=== PATIENT | female | born 1960 | race Caucasian/White ===

== ENCOUNTER 2018-03-05 15:39 | Emergency (ER) | payer BC, SELFPAY ==
[2018-03-05 16:00] VITALS: BP 137/73; PULSE 83; RESP 16; TEMP 36.5; O2SAT 98
--- NOTE | 2018-03-05 20:23 | ED.GENADUL_ITS ---
Discharge Plan Disposition Patient Disposition: HOME Condition: Good Discharge Details Chief Complaint: EarProblem Clinical Impression: Sinus congestion, Otalgia, unspecified Primary Care Provider: NONE,NONE ED Provider: Roderick Rizvi Home Meds and New Rx's Prescriptions: New amoxicillin-pot clavulanate [Augmentin] 875-125 mg tablet 1 tab PO Q12H Qty: 20 RF: 0 fluticasone 50 mcg/actuation spray,suspension 2 spray CHIQUITA DAILY Qty: 9.9 RF: 0 sodium chloride [Saline Mist] 0.65 % aerosol,spray 1 spray CHIQUITA ONCE Qty: 15 RF: 0 No Action spironolactone 25 mg Tablet 25 mg PO DAILY RF: 0 oxybutynin chloride 5 mg Tablet Extended Release 24hr 5 mg PO DAILY RF: 0 magnesium 200 mg Tablet 2 tab PO DAILY RF: 0 Discharge Instructions Instructions: Sinusitis (ED) Additional Instructions: Please take the medication as directed. Please follow-up with your primary care provider as soon as possible. If you notice any worsening of your symptoms , or any new symptoms such as vomiting, diarrhea, fever, chills, shortness of breath, chest pain, numbness, weakness, or fainting , please return immediately to the emergency department for reevaluation. Please follow up with your primary care provider as soon as possible for reassessment and reevaluation. As always, it was a pleasure participating in your medical care today. Discharge Data Discharge Date/Time-TO BE ENTERED AT DEPARTURE: 03/05/18 17:10 Medical Decision Making This is a pleasant 57-year-old female who presents for evaluation of bilateral ear pain frontal congestion for the last 3-4 weeks. Physical exam demonstrates no abnormalities in her ears, or at her tympanic membranes. She does wear hearing aids chronically, but there is no signs of trauma or infection. However she does demonstrate notable congestion, and tenderness on percussion of the maxillary sinuses. No other significant abnormalities. With the chronicity of the patient's symptoms, I feel that she would benefit for treatment for chronic bacterial sinusitis. We will prescribe Augmentin, fluticasone, and sodium chloride nasal mist for treatment of this. We discussed the importance with close follow-up with PCP. Clinically the patient shows no signs or symptoms consistent with venous sinus thrombosis, pre-or post septal cellulitis, or any other significant abnormalities. I have extensively reviewed the treatment plan and discharge instructions with the patient. I have addressed all patient concerns at this time. The patient was made aware of what symptoms to monitor for that would warrant a return to the emergency department. Discussed the plan with the patient, they demonstrate verbal understanding and agreement with our assessment and plan at this time. HPI General Date/Time Provider Initiated Documentation: 03/05/18 16:37 . HPI Narrative: This is a 57-year-old female with a past medical history of hypertension diabetes who presents today for evaluation of bilateral ear pain and frontal sinus congestion. Patient states that for the last 3-4 weeks she has had mild pain in her ears, sensation of fullness, and sensation of fullness and facial pressure in her face by her maxillary sinuses. The patient has taken Tylenol and Sudafed has had no significant improvement. She did go to see her primary care provider the other day but came at the incorrect appointment time and was unable to see her physician. Patient denies any visual changes, severe headache, hearing changes, eye pain significant purulent discharge from her nares, severe throat sore throat, fever, or chills. She has no other complaints at this time. She has not been on any antibiotics recently. She does not smoke at home. She denies any recent surgeries. She denies any IV or illicit drug use. Related Data Home Medications Medication Instructions Recorded Confirmed amoxicillin-pot clavulanate 1 tab PO Q12H #20 tab 03/05/18 [Augmentin] fluticasone 2 spray CHIQUITA DAILY #9.9 gm 03/05/18 magnesium 2 tab PO DAILY 03/05/18 03/05/18 oxybutynin chloride 5 mg PO DAILY 03/05/18 03/05/18 sodium chloride [Saline Mist] 1 spray CHIQUITA ONCE #15 ml 03/05/18 spironolactone 25 mg PO DAILY 03/05/18 03/05/18 Previous Rx's Medication Instructions Recorded amoxicillin-pot clavulanate 1 tab PO Q12H #20 tab 03/05/18 [Augmentin] fluticasone 2 spray CHIQUITA DAILY #9.9 gm 03/05/18 sodium chloride [Saline Mist] 1 spray CHIQUITA ONCE #15 ml 03/05/18 Allergies Allergy/AdvReac Type Severity Reaction Status Date / Time sulfamethoxazole Allergy Severe Swelling/Ed Unverified 03/05/18 16:07 [From Bactrim] yoko trimethoprim [From Bactrim] Allergy Severe Swelling/Ed Unverified 03/05/18 16:07 yoko aspirin [From Percodan] AdvReac Mild Nausea Unverified 03/05/18 16:07 oxycodone [From Percodan] AdvReac Mild Nausea Unverified 03/05/18 16:07 General Stated Complaint: EarProblem MARISSA: 4 Review of Systems Review of Systems All systems reviewed & are unremarkable except as noted in HPI and below PFSH Social History Smoking/Tobacco Use Status: Never Exam Narrative Exam Narrative: 1.Const: Well-nourished, Well-developed, appearing stated age 2.Eyes: PERRL, no conjunctival injection, and symmetrical lids. 3.ENT: Atraumatic external nose and ears. Moist MM. Neck: Symmetric, trachea midline, No thyromegaly. Patient demonstrates no evidence of otitis externa or media. No significant fluid behind the ears. Palpation and percussion of the maxillary sinuses demonstrates mild tenderness, frontal sinuses demonstrates no significant tenderness. Mild congestion noted in the nares. No other significant abnormalities. No erythema in the posterior oropharynx. 4.CVS: +S1/S2, No murmurs or gallops. Peripheral pulses 2+ and equal in all extremities. Brisk capillary refill in all extremities. 5.RESP: Unlabored respiratory effort. Clear to auscultation bilaterally. No wheezes rales or rhonchi 6.GI: Soft, Nontender/Nondistended, No hepatosplenomegaly. No guarding or rebound. 7.MSK: Normocephalic/Atraumatic, Extremities w/o deformity or ttp No cyanosis or clubbing, Normal movement of all extremities 8.Skin: Warm, Dry. No rashes or lesions. 9.Neuro: tub chucker II-XII grossly intact. Sensation grossly intact, no focal neurologic deficits. 10.Psych: (AAO) x3. Appropriate mood and affect Course Vital Signs Temperature 36.5 C 03/05/18 16:00 Pulse 83 03/05/18 16:00 Respiratory Rate 16 03/05/18 16:00 Blood Pressure 137/73 03/05/18 16:00 Pulse Oximetry 98 03/05/18 16:00 Temperature 36.5 C 03/05/18 16:00 Temperature Source Skin 03/05/18 16:00 Pulse 83 03/05/18 16:00 Respiratory Rate 16 03/05/18 16:00 Respiratory Effort Non-Labored 03/05/18 16:03 Blood Pressure 137/73 03/05/18 16:00 Pulse Oximetry 98 03/05/18 16:00 Pain Level 5 03/05/18 16:17
== END 2018-03-05 17:10 | disposition home or self-care (01) ==
PROVIDERS: Emergency Provider Student in an Organized Health Care Education/Training Program
DX: R09.81 Nasal congestion (principal); H92.03 Otalgia, bilateral; I10 Essential (primary) hypertension; E11.9 Type 2 diabetes mellitus without complications
CPT/HCPCS: 99283

== ENCOUNTER 2018-05-17 17:23 | Outpatient (REF) | payer BC, SELFPAY | END 2018-05-17 17:43 | LOC: LBN 17:23 | PROVIDERS: Visit Provider Family Medicine | DX: R19.7 Diarrhea, unspecified (principal) | CPT/HCPCS: 87324 ==

== ENCOUNTER 2018-05-19 10:26 | Outpatient (CLI) | payer BC, SELFPAY ==
[2018-05-19 11:32] LABS: HCT 40.4 % (36.0-46.0); HGB 13.5 g/dL (12.0-15.5); Mean Corp. HGB Concentration 33.4 g/dL (32.0-36.0); Mean Corpuscular Hemoglobin 30.1 pg (27.0-33.0); Mean Corpuscular Volume 90.2 fL (80-95); Mean Platelet Volume 9.6 fL (8.0-11.0); Platelet Count 192 x1000/uL (130-400); RBC 4.48 m/cumm (4.00-5.20); RBC Distribution Width 14.4 % (11.7-14.6); White Blood Cell Count 5.76 k/cumm (4.4-10.8)
[2018-05-19 12:06] LABS: Iron 55 ug/dL (50-175); Total Iron Binding Capacity 342 ug/dL (250-450); Transferrin Sat 16 % (15-50)
[2018-05-19 12:12] LABS: Hemoglobin A1C 6.6 % (4.5-6.2)
[2018-05-19 12:17] LABS: ALT 35 U/L (12-78); AST 21 U/L (15-37); Albumin 3.7 g/dL (3.4-5.0); Alkaline Phosphatase 55 U/L (46-116); Anion Gap 8.7 mmol/L (3-11); BUN 16 mg/dL (7-18); Bilirubin, Total 0.3 mg/dL (0.2-1.0); CO2 28.3 mmol/L (21.0-32.0); CREATININE 0.96 mg/dL (0.55-1.02); Calcium 9.3 mg/dL (8.5-10.1); Chloride 107 mmol/L (98-107); Cholesterol 177 mg/dL (50-200); Glucose 105 mg/dL (70-100); HDL Cholesterol 49 mg/dL (40-60); LDL CHOLESTEROL 105 mg/dL (<100); Magnesium 2.1 mg/dL (1.8-2.4); Sodium 144 mmol/L (136-145); TSH (W/Ref FT4) 3.17 uIU/mL (0.358-3.74); Total Protein 6.8 g/dL (6.4-8.2); Triglyceride 100 mg/dL (30-150)
== END 2018-05-19 10:46 ==
PROVIDERS: PCP Nurse Practitioner; Visit Provider Family Medicine
DX: Z00.00 Encounter for general adult medical examination without abnormal findings (principal); E03.9 Hypothyroidism, unspecified; E11.9 Type 2 diabetes mellitus without complications; R53.83 Other fatigue; E87.8 Other disorders of electrolyte and fluid balance, not elsewhere classified
CPT/HCPCS: 36415; 80053; 80061; 83721; 85027; 83036; 83540; 83550; 83735; 84443

== ENCOUNTER 2018-06-17 18:00 | Emergency (ER) | payer BC, SELFPAY ==
[2018-06-17 18:02] VITALS: BP 149/69; PULSE 110; RESP 18; TEMP 37.3; O2SAT 96
[2018-06-17 18:12] VITALS: TEMP 38.2
--- NOTE | 2018-06-17 18:15 | W.ED.GENAD ---
Discharge Plan Disposition Patient Disposition: HOME Condition: Stable Discharge Details Chief Complaint: RespSymp Clinical Impression: Flu-like symptoms Primary Care Provider: Noy Frederick ED Provider: Geo Hernandez [place] Meds and New Rx's Prescriptions: New oseltamivir [Tamiflu] 75 mg capsule 75 mg PO BID 5 Days Qty: 10 RF: 0 Continued azelastine 0.15 % (205.5 mcg) spray,non-aerosol 2 spray CHIQUITA BID Qty: 30 RF: 5 multivitamin [One Daily] 1 EACH tablet 1 ea PO DAILY RF: 0 fexofenadine [Li] 180 MG tablet 180 mg PO DAILY RF: 0 magnesium 200 MG tablet 400 mg PO DAILY RF: 0 calcium carbonate-vitamin D3 [Caltrate with Vitamin D3] 1 EACH tablet 1 ea PO DAILY RF: 0 Ventolin HFA 8 GM HFA aerosol inhaler 2 puff Inhalation QID PRNQty: 1 RF: 0 albuterol sulfate 5 MG/1 ML solution 5 mg Inhalation QID PRNQty: 1 RF: 3 fluconazole 150 MG tablet 150 mg PO ONCE Qty: 1 RF: 3 celecoxib 200 MG capsule 200 mg PO DAILY Qty: 90 RF: 12 levothyroxine 137 MCG tablet 137 mcg PO DAILY Qty: 90 RF: 12 oxybutynin chloride 10 MG tablet extended release 24hr 10 mg PO DAILY Qty: 90 RF: 4 spironolactone 25 MG tablet 25 mg PO DAILY Qty: 90 RF: 4 doxazosin 4 MG tablet 4 mg PO DAILY Qty: 90 RF: 12 montelukast [Singulair] 10 MG tablet 10 mg PO HS Qty: 90 RF: 4 fluticasone [Flonase Allergy Relief] 9.9 ML spray,suspension 2 spry NS DAILY PRNQty: 1 RF: 0 topiramate [Topamax] 50 MG tablet 50 mg PO HS Qty: 90 RF: 3 Restasis 1 EACH dropperette 1 drp Ophthalmic BID RF: 0 esomeprazole magnesium [Nexium] 20 MG capsule,delayed release(DR/EC) 40 mg PO DAILY Qty: 90 RF: 11 clarithromycin 500 mg tablet 500 mg PO BID Qty: 42 RF: 0 prednisone 20 mg tablet 20 mg PO BID Qty: 10 RF: 0 acetaminophen [Mapap Extra Strength] 500 MG tablet 1,000 mg PO PRN PRNRF: 0 spironolactone 25 mg Tablet 25 mg PO DAILY RF: 0 oxybutynin chloride 5 mg Tablet Extended Release 24hr 5 mg PO DAILY RF: 0 magnesium 200 mg Tablet 2 tab PO DAILY RF: 0 fluticasone 50 mcg/actuation spray,suspension 2 spray CHIQUITA DAILY Qty: 9.9 RF: 0 sodium chloride [Saline Mist] 0.65 % aerosol,spray 1 spray CHIQUITA ONCE Qty: 15 RF: 0 No Action Hearing Aid Batteries 1 EACH misc 1 ea Miscellaneous DAILY PRNQty: 30 RF: 11 Discharge Instructions Additional Instructions: Based on your symptoms we are initiating treatment for influenza IF not better in one week follow up with your primary care provider make sure you drink fluids to stay hydrated if you feel significantly more ill, have worsening shortness of breath or persistent vomit return to the emergency department Stand Alone Forms: Work Release Medical Decision Making 57 yo female with hx of DM, htn, who comes in with cc of myalgias, dry cough, nausea, and chills for 2 days. Denies any recent travel, rashes, neck stiffness. She has clear rhinorrhea, clear lung sounds on exam. Has no focal lung exam findings and cough is nonproductive so doubt pna. Her symptoms seem most consistent with influenza and will initiate tx for this given her medical history. She was advised to return to the ED if she feels she is worsening or return precautions given Differential Diagnosis influenza, viral illness, pna HPI General Mode of arrival: ambulatory. Date/Time Provider Initiated Documentation: 06/17/18 18:07. Limitations to Documentation: no limitations. Information obtained by: patient. History of Present Illness 57 year old F presents to the emergency department with the chief complaint of not feeling well, Patient started experiencing this day(s) (2) and it has been constant. No relieving factors improve symptom(s), No exacerbating factors reported . Patient notes cough. Related Data Home Medications Medication Instructions Recorded Confirmed calcium carbonate-vitamin D3 1 ea PO DAILY 08/06/12 06/17/18 [Caltrate with Vitamin D3] fexofenadine [Li] 180 mg PO DAILY tab-cap 08/06/12 06/17/18 magnesium 400 mg PO DAILY 08/06/12 06/17/18 multivitamin [One Daily] 1 ea PO DAILY 08/06/12 06/17/18 acetaminophen [Mapap Extra 1,000 mg PO PRN PRN 01/21/14 06/17/18 Strength] Ventolin HFA 2 puff INHALATION QID PRN #1 puff 10/04/15 06/17/18 albuterol sulfate 5 mg INHALATION QID PRN #1 box 07/14/16 06/17/18 fluconazole 150 mg PO ONCE #1 tab-cap 06/03/17 06/17/18 hearing aid accessory [Hearing Aid #30 dose 10/01/17 05/17/18 Batteries] Restasis 1 drp OPHTHALMIC BID drp 10/15/17 06/17/18 celecoxib 200 mg PO DAILY #90 tab-cap 10/15/17 06/17/18 doxazosin 4 mg PO DAILY #90 tab-cap 10/15/17 06/17/18 fluticasone [Flonase Allergy 2 spry NS DAILY PRN #1 bottle 10/15/17 06/17/18 Relief] levothyroxine 137 mcg PO DAILY #90 tab-cap 10/15/17 06/17/18 montelukast [Singulair] 10 mg PO HS #90 tab 10/15/17 06/17/18 oxybutynin chloride 10 mg PO DAILY #90 tab-cap 10/15/17 06/17/18 spironolactone 25 mg PO DAILY #90 tab-cap 10/15/17 06/17/18 topiramate [Topamax] 50 mg PO HS #90 tab-cap 10/15/17 06/17/18 esomeprazole magnesium [Nexium] 40 mg PO DAILY #90 tab-cap 12/16/17 06/17/18 fluticasone 2 spray CHIQUITA DAILY #9.9 gm 03/05/18 06/17/18 magnesium 2 tab PO DAILY 03/05/18 06/17/18 oxybutynin chloride 5 mg PO DAILY 03/05/18 06/17/18 sodium chloride [Saline Mist] 1 spray CHIQUITA ONCE #15 ml 03/05/18 06/17/18 spironolactone 25 mg PO DAILY 03/05/18 06/17/18 clarithromycin 500 mg tablet 500 mg PO BID #42 tab 04/17/18 06/17/18 prednisone 20 mg tablet 20 mg PO BID #10 tab 04/17/18 06/17/18 azelastine 0.15 % (205.5 mcg) 2 spray CHIQUITA BID #30 ml 05/17/18 06/17/18 nasal spray oseltamivir [Tamiflu] 75 mg PO BID 5 Days #10 cap 06/17/18 Previous Rx's Medication Instructions Recorded fluconazole 150 mg PO ONCE #1 tab-cap 06/03/17 celecoxib 200 mg PO DAILY #90 tab-cap 10/15/17 doxazosin 4 mg PO DAILY #90 tab-cap 10/15/17 levothyroxine 137 mcg PO DAILY #90 tab-cap 10/15/17 montelukast [Singulair] 10 mg PO HS #90 tab 10/15/17 oxybutynin chloride 10 mg PO DAILY #90 tab-cap 10/15/17 spironolactone 25 mg PO DAILY #90 tab-cap 10/15/17 topiramate [Topamax] 50 mg PO HS #90 tab-cap 10/15/17 esomeprazole magnesium [Nexium] 40 mg PO DAILY #90 tab-cap 12/16/17 fluticasone 2 spray CHIQUITA DAILY #9.9 gm 03/05/18 sodium chloride [Saline Mist] 1 spray CHIQUITA ONCE #15 ml 03/05/18 clarithromycin 500 mg tablet 500 mg PO BID #42 tab 04/17/18 prednisone 20 mg tablet 20 mg PO BID #10 tab 04/17/18 azelastine 0.15 % (205.5 mcg) 2 spray CHIQUITA BID #30 ml 05/17/18 nasal spray oseltamivir [Tamiflu] 75 mg PO BID 5 Days #10 cap 06/17/18 Allergies Allergy/AdvReac Type Severity Reaction Status Date / Time Sulfa (Sulfonamide Allergy Severe TONGUE Verified 06/17/18 18:08 Antibiotics) SWELLING sulfamethoxazole Allergy Severe Swelling/Ed Unverified 06/17/18 18:08 [From Bactrim] yoko trimethoprim Allergy Severe TONGUE Verified 06/17/18 18:08 SWELLING aspirin [From Percodan] AdvReac Mild Nausea Unverified 06/17/18 18:08 oxycodone [From Percodan] AdvReac Mild Nausea Unverified 06/17/18 18:08 pickles Allergy Severe Anaphylaxsi Uncoded 06/17/18 18:08 s COCKROACH Allergy Unknown allery Uncoded 06/17/18 18:08 testing General Stated Complaint: RespSymp MARISSA: 3 Review of Systems Review of Systems All systems reviewed & are unremarkable except as noted in HPI and below ENT Denies change in voice Cardiovascular Denies chest pain Gastrointestinal Denies vomiting Musculoskeletal Denies joint swelling Integumentary/Breasts Denies rash Psychiatric Denies depression [facility] Medical History Upper back pain on right side (Chronic 11/17/16) Reflux esophagitis (Chronic 12/26/13) Otalgia of both ears (Resolved 04/30/17) Irritable colon (Chronic) Hypothyroidism (Chronic) Hypokalemia (Resolved 01/26/12) Hearing problem (Chronic) Frequently sick (Chronic 09/15/16) Essential hypertension (Chronic 02/23/13) Cystocele with rectocele (Chronic) Cough (Chronic 01/26/12) Candidiasis (Chronic) BMI 40.0-44.9, adult (Chronic 09/03/15) Breast lump in lower inner quadrant (Resolved) Chest pain in adult (Resolved) Closed fracture of calcaneus (Resolved) Delivery normal (Resolved) Depressive disorder (Resolved) Diarrhea (Resolved) Dysfunctional uterine bleeding (Resolved) Ectopic (Resolved) Elevated liver function tests (Resolved) Family hx-breast malignancy (Resolved) Fatigue (Resolved) Mammogram abnormal (Resolved) Neck pain (Resolved) Pneumonia, organism unspecified (Resolved) Positive JENNIFER (antinuclear antibody) (Resolved) Routine medical exam (Resolved) Sinus pressure (Resolved) Weakness (Resolved) Breast lump in female Bronchitis Closed fracture of body of calcaneus Cough Cystocele Depression Diabetes GERD (gastroesophageal reflux disease) Hearing loss Hypertension Hypothyroidism IBS (irritable bowel syndrome) Obesity, Class III, BMI 40-49.9 (morbid obesity) Pneumonia Rectocele Surgical History H/O esophagogastroduodenoscopy (Resolved) S/P appendectomy (Resolved) S/P cholecystectomy (Resolved) S/P exploratory laparotomy (Resolved) S/P hysterectomy with oophorectomy (Resolved) S/P tonsillectomy and adenoidectomy (Resolved) Appendectomy (~1998) Cholecystectomy (~1989) Colonoscopy - MAC EGD - MAC (03/10/14) EGD - MAC (08/05/16) Hysterectomy, Laproscopic Oophrectomy, Right (~03/2011) , Ectopic (~1988) Reduction mammoplasty (~03/2013) Tonsillectomy and adenoidectomy (~1985) Family History Mother Diabetes Hyperlipidemia Father Alcohol abuse Neoplasm Sister Neoplasm Sister No problems noted. Brother No problems noted. Brother Pneumonia Grandfather Diabetes Grandfather Diabetes Grandmother No problems noted. Grandmother Diabetes Neoplasm Son No problems noted. Daughter No problems noted. Social History Smoking/Tobacco Use Status: Never Exam Const General: no acute distress Orientation: alert HENMT Head: normal to inspection Ears: external ears normal General nose exam: external nose normal Mouth: moist mucous membranes Eyes General: appearance normal, both eyes and all related structures Neck Neck: normal visual inspection Resp Effort & Inspection: normal respiratory effort and able to speak in complete sentences Cardio Rate: regular rate Skin General skin exam: no rashes or lesions noted Neuro General: alert and oriented x3 Extrem General: normal to inspection Psych Mental Status: mental status grossly normal Course Vital Signs Temperature 37.3 C 06/17/18 18:02 Pulse 110 H 06/17/18 18:02 Respiratory Rate 18 06/17/18 18:02 Blood Pressure 149/69 H 06/17/18 18:02 Pulse Oximetry 96 06/17/18 18:02 Temperature 38.2 C H 06/17/18 18:12 Temperature Source Oral 06/17/18 18:12 Pulse 110 H 06/17/18 18:02 Respiratory Rate 18 06/17/18 18:02 Respiratory Effort Non-Labored 06/17/18 18:12 Respiratory Depth Normal 06/17/18 18:12 Blood Pressure 149/69 H 06/17/18 18:02 Blood Pressure Position Sitting 06/17/18 18:02 Pulse Oximetry 96 06/17/18 18:02 Oxygen Delivery Method Room Air 06/17/18 18:02 Oxygen Flow Rate 0 06/17/18 18:02 Pain Level 4 06/17/18 18:02
== END 2018-06-17 18:33 | disposition home or self-care (01) ==
LOC: ER 18:46
PROVIDERS: Emergency Provider Emergency Medicine; PCP Family Medicine
DX: J11.1 Influenza due to unidentified influenza virus with other respiratory manifestations (principal)
CPT/HCPCS: 99283

== ENCOUNTER 2018-06-21 19:29 | Outpatient (REF) | payer BC, SELFPAY | END 2018-06-21 19:49 | LOC: LBN 19:29 | PROVIDERS: PCP Family Medicine | DX: J02.9 Acute pharyngitis, unspecified (principal) | CPT/HCPCS: 87070 ==

== ENCOUNTER 2018-06-24 15:15 | Outpatient (CLI) | payer BC, SELFPAY ==
--- NOTE | 2018-06-24 15:18 | DI.RAD_ITS ---
SYMPTOM/DIAGNOSIS: COUGH, R05 PA AND LATERAL CHEST: The heart is normal in size. The lungs are clear. The mediastinal structures and pleura appear intact. CONCLUSION: Normal chest.
== END 2018-06-24 15:35 ==
PROVIDERS: PCP Family Medicine
DX: R05 Cough (principal)
CPT/HCPCS: 71046

== ENCOUNTER 2018-09-24 15:57 | Emergency (ER) | payer BC, SELFPAY ==
[2018-09-24 16:02] VITALS: BP 157/75; PULSE 90; RESP 16; TEMP 36.5; O2SAT 98
--- NOTE | 2018-09-24 16:59 | ED.GENADUL_ITS ---
Discharge Plan Disposition Patient Disposition: HOME Condition: Stable Discharge Details Chief Complaint: GenMedical Clinical Impression: Sinusitis, acute, Pharyngitis Primary Care Provider: Noy Frederick ED Provider: Stephanie Shelley Home Meds and New Rx's Prescriptions: New doxycycline hyclate 100 mg tablet 100 mg PO BID 7 Days Qty: 14 RF: 0 Continued azelastine 0.15 % (205.5 mcg) spray,non-aerosol 2 spray CHIQUITA BID Qty: 30 RF: 5 ranitidine HCl 150 mg tablet 150 mg PO QHS Qty: 90 RF: 4 multivitamin [One Daily] 1 EACH tablet 1 ea PO DAILY RF: 0 fexofenadine [Li] 180 MG tablet 180 mg PO DAILY RF: 0 calcium carbonate-vitamin D3 [Caltrate with Vitamin D3] 1 EACH tablet 1 ea PO DAILY RF: 0 albuterol sulfate 5 MG/1 ML solution 5 mg Inhalation QID PRNQty: 1 RF: 3 Hearing Aid Batteries 1 EACH misc 1 ea Miscellaneous DAILY PRNQty: 30 RF: 11 celecoxib 200 MG capsule 200 mg PO DAILY Qty: 90 RF: 12 levothyroxine 137 MCG tablet 137 mcg PO DAILY Qty: 90 RF: 12 oxybutynin chloride 10 MG tablet extended release 24hr 10 mg PO DAILY Qty: 90 RF: 4 doxazosin 4 MG tablet 4 mg PO DAILY Qty: 90 RF: 12 montelukast [Singulair] 10 MG tablet 10 mg PO HS Qty: 90 RF: 4 topiramate [Topamax] 50 MG tablet 50 mg PO HS Qty: 90 RF: 3 Restasis 1 EACH dropperette 1 drp Ophthalmic BID RF: 0 esomeprazole magnesium [Nexium] 20 MG capsule,delayed release(DR/EC) 40 mg PO DAILY Qty: 90 RF: 11 sucralfate 1 gram tablet 1 gm PO BID Qty: 60 RF: 0 acetaminophen [Mapap Extra Strength] 500 MG tablet 1,000 mg PO PRN PRNRF: 0 spironolactone 25 mg Tablet 25 mg PO DAILY RF: 0 magnesium 200 mg Tablet 2 tab PO DAILY RF: 0 fluticasone propionate 50 mcg/actuation spray,suspension 2 spray CHIQUITA DAILY Qty: 9.9 RF: 0 sodium chloride [Saline Mist] 0.65 % aerosol,spray 1 spray CHIQUITA ONCE Qty: 15 RF: 0 Discharge Instructions Instructions: Pharyngitis (ED), Rhinosinusitis (ED) Additional Instructions: Use [id number] sinus rinse kit to help with sinus congestion. You can also try over the counter oral decongestants such as phenylephrine or pseudoephedrine but be sure to watch your blood pressure. You can also try short-term oxymetazoline nasal spray in different formulations over the counter for your nasal congestion. If you have no improvement or worsening of symptoms in the next 2 days, start the antibiotics. Follow-up with your primary care doctor next week for reevaluation. Return immediately to the emergency department for any worsening or concerning symptoms. Discharge Data Discharge Date/Time-TO BE ENTERED AT DEPARTURE: 09/24/18 17:15 Discharge Physician: Stephanie Shelley Medical Decision Making 57-year-old female with a history of prediabetes, hypothyroidism, GERD, IBS, and tonsillectomy and adenoidectomy who presents with sore throat, nasal congestion, sinus pain, postnasal drip, mild cough and headache for the past 3 days. Blood pressure mildly hypertensive, otherwise vitals within normal limits. Bilateral sinuses tender to palpation. Mild posterior pharyngeal erythema. No exudates or tonsillar abscess. No submandibular swelling. Lungs clear to auscultation. Abdomen soft and nontender. Rapid strep negative. As she has normal oxygen saturation, no complaint of shortness of breath, with normal lung exam, I do not see an indication for chest x-ray. Discussed with patient that her symptoms are likely be viral in nature and are related to an upper respiratory tract infection. Due to her main discomfort with sore throat, will give a dose of Decadron. Patient instructed to take [id number] nasal decongestants in the form of nasal spray or tablets. She is instructed to monitor her blood pressure while taking these. Will also send home with a prescription for antibiotics to start if her symptoms do not improve or worsen in the next 2 days. She is instructed to follow-up with primary care doctor for evaluation and return here if worse. Medical Records Medical records reviewed: Yes I reviewed the patient's medical records. HPI General Mode of arrival: ambulatory . Date/Time Provider Initiated Documentation: 09/24/18 16:03 . Limitations to Documentation: no limitations . Information obtained by: patient . HPI Narrative: Pt is a 57yo F who presents to the ED w/ a c/o sore throat, nasal congestion, sinus pain, hoarse voice, mild headache and cough and postnasal drip for the past 3 days. Patient states her symptoms started with sore throat a few days ago, stuffy nose yesterday, and then hoarse voice today. Patient states she has not had a fever as far she knows. She states the sore throat is bothering her the most. She states she has been eating and drinking normally. She states she has been taking Motrin, Tylenol and Celebrex. She denies any neck pain. Related Data Home Medications Medication Instructions Recorded Confirmed calcium carbonate-vitamin D3 1 ea PO DAILY 08/06/12 09/24/18 [Caltrate with Vitamin D3] fexofenadine [Li] 180 mg PO DAILY tab-cap 08/06/12 09/24/18 multivitamin [One Daily] 1 ea PO DAILY 08/06/12 09/24/18 acetaminophen [Mapap Extra 1,000 mg PO PRN PRN 01/21/14 09/24/18 Strength] albuterol sulfate 5 mg INHALATION QID PRN #1 box 07/14/16 09/24/18 Hearing Aid Batteries #30 dose 10/01/17 07/22/18 Restasis 1 drp OPHTHALMIC BID drp 10/15/17 09/24/18 celecoxib 200 mg PO DAILY #90 tab-cap 10/15/17 09/24/18 doxazosin 4 mg PO DAILY #90 tab-cap 10/15/17 09/24/18 levothyroxine 137 mcg PO DAILY #90 tab-cap 10/15/17 09/24/18 montelukast [Singulair] 10 mg PO HS #90 tab 10/15/17 09/24/18 oxybutynin chloride 10 mg PO DAILY #90 tab-cap 10/15/17 09/24/18 topiramate [Topamax] 50 mg PO HS #90 tab-cap 10/15/17 09/24/18 esomeprazole magnesium [Nexium] 40 mg PO DAILY #90 tab-cap 12/16/17 09/24/18 fluticasone propionate 2 spray CHIQUITA DAILY #9.9 gm 03/05/18 09/24/18 magnesium 2 tab PO DAILY 03/05/18 09/24/18 sodium chloride [Saline Mist] 1 spray CHIQUITA ONCE #15 ml 03/05/18 09/24/18 spironolactone 25 mg PO DAILY 03/05/18 09/24/18 azelastine 0.15 % (205.5 mcg) 2 spray CHIQUITA BID #30 ml 05/17/18 09/24/18 nasal spray ranitidine 150 mg tablet 150 mg PO QHS #90 tab 07/22/18 09/24/18 sucralfate 1 gram tablet 1 gm PO BID #60 tab 09/16/18 09/24/18 doxycycline hyclate 100 mg PO BID 7 Days #14 tab 09/24/18 Previous Rx's Medication Instructions Recorded celecoxib 200 mg PO DAILY #90 tab-cap 10/15/17 doxazosin 4 mg PO DAILY #90 tab-cap 10/15/17 levothyroxine 137 mcg PO DAILY #90 tab-cap 10/15/17 montelukast [Singulair] 10 mg PO HS #90 tab 10/15/17 oxybutynin chloride 10 mg PO DAILY #90 tab-cap 10/15/17 topiramate [Topamax] 50 mg PO HS #90 tab-cap 10/15/17 esomeprazole magnesium [Nexium] 40 mg PO DAILY #90 tab-cap 12/16/17 fluticasone propionate 2 spray CHIQUITA DAILY #9.9 gm 03/05/18 sodium chloride [Saline Mist] 1 spray CHIQUITA ONCE #15 ml 03/05/18 azelastine 0.15 % (205.5 mcg) 2 spray CHIQUITA BID #30 ml 05/17/18 nasal spray ranitidine 150 mg tablet 150 mg PO QHS #90 tab 07/22/18 sucralfate 1 gram tablet 1 gm PO BID #60 tab 09/16/18 doxycycline hyclate 100 mg PO BID 7 Days #14 tab 09/24/18 Allergies Allergy/AdvReac Type Severity Reaction Status Date / Time Sulfa (Sulfonamide Allergy Severe TONGUE Verified 09/24/18 16:08 Antibiotics) SWELLING sulfamethoxazole Allergy Severe Swelling/Ed Verified 09/24/18 16:08 [From Bactrim] yoko trimethoprim Allergy Severe TONGUE Verified 09/24/18 16:08 SWELLING aspirin [From Percodan] AdvReac Mild Nausea Verified 09/24/18 16:08 oxycodone [From Percodan] AdvReac Mild Nausea Verified 09/24/18 16:08 pickles Allergy Severe Anaphylaxsi Uncoded 09/24/18 16:08 s COCKROACH Allergy Unknown allery Uncoded 09/24/18 16:08 testing General Stated Complaint: GenMedical MARISSA: 3 Review of Systems Review of Systems All systems reviewed & are unremarkable except as noted in HPI and below Constitutional Reports as per HPI, Denies chills and Denies fever(s) Eyes Denies blurry vision ENT Denies dizziness, Reports nasal congestion, Reports nasal discharge, Reports sinus pressure, Reports sore throat and Denies throat swelling Cardiovascular Denies chest pain and Denies dyspnea Respiratory Reports cough and Denies dyspnea Gastrointestinal Denies abdominal pain, Denies diarrhea and Denies vomiting Genitourinary Denies hematuria and Denies dysuria Musculoskeletal Denies back pain and Denies numbness Integumentary/Breasts Denies lesions and Denies rash Neurologic Denies dizziness, Denies focal weakness and Denies numbness Allergic/Immunologic Denies throat swelling [facility] Medical History Diabetes mellitus (Chronic) Upper back pain on right side (Chronic 11/17/16) Reflux esophagitis (Chronic 12/26/13) Otalgia of both ears (Resolved 04/30/17) Irritable colon (Chronic) Hypothyroidism (Chronic) Hypokalemia (Resolved 01/26/12) Hearing problem (Chronic) Frequently sick (Chronic 09/15/16) Essential hypertension (Chronic 02/23/13) Cystocele with rectocele (Chronic) Cough (Chronic 01/26/12) Candidiasis (Chronic) BMI 40.0-44.9, adult (Chronic 09/03/15) Breast lump in lower inner quadrant (Resolved) Chest pain in adult (Resolved) Closed fracture of calcaneus (Resolved) Delivery normal (Resolved) Depressive disorder (Resolved) Diarrhea (Resolved) Dysfunctional uterine bleeding (Resolved) Ectopic (Resolved) Elevated liver function tests (Resolved) Family hx-breast malignancy (Resolved) Fatigue (Resolved) Mammogram abnormal (Resolved) Neck pain (Resolved) Pneumonia, organism unspecified (Resolved) Positive JENNIFER (antinuclear antibody) (Resolved) Routine medical exam (Resolved) Sinus pressure (Resolved) Weakness (Resolved) Breast lump in female Bronchitis Closed fracture of body of calcaneus Cough Cystocele Depression Diabetes GERD (gastroesophageal reflux disease) Hearing loss Hypertension Hypothyroidism IBS (irritable bowel syndrome) Obesity, Class III, BMI 40-49.9 (morbid obesity) Pneumonia Rectocele Surgical History H/O esophagogastroduodenoscopy (Resolved) S/P appendectomy (Resolved) S/P cholecystectomy (Resolved) S/P exploratory laparotomy (Resolved) S/P hysterectomy with oophorectomy (Resolved) S/P tonsillectomy and adenoidectomy (Resolved) Appendectomy (~1998) Cholecystectomy (~1989) Colonoscopy - MAC EGD - MAC (03/10/14) EGD - MAC (08/05/16) Hysterectomy, Laproscopic Oophrectomy, Right (~03/2011) , Ectopic (~1988) Reduction mammoplasty (~03/2013) Tonsillectomy and adenoidectomy (~1985) Family History Mother Diabetes Hyperlipidemia Father Alcohol abuse Neoplasm Sister Neoplasm Sister No problems noted. Brother No problems noted. Brother Pneumonia Grandfather Diabetes Grandfather Diabetes Grandmother No problems noted. Grandmother Diabetes Neoplasm Son No problems noted. Daughter No problems noted. Social History Smoking/Tobacco Use Status: Never Alcohol Intake: current Alcohol Intake frequency: holidays/special occasions only Drug use: Never Do you feel safe at home: Yes Do you feel safe in your relationship?: Yes Exam Const General: cooperative and healthy appearing Orientation: alert and awake [facility] Head: normal to inspection Ears: hearing grossly normal bilaterally, external ears normal and TM's normal bilaterally General nose exam: external nose normal Face and sinus: normal facial exam Mouth: oral mucosae normal Teeth and gingiva: dentition normal Throat: posterior oropharynx normal Eyes General: appearance normal, both eyes and all related structures Eyelids: eyelids normal Pupils: PERRL EOM: EOM intact bilaterally Neck Neck: normal visual inspection Lymphatic: no lymphadenopathy noted Chest Chest: normal inspection of the chest Resp Effort & Inspection: normal respiratory effort and able to speak in complete sentences Auscultation: clear to auscultation bilaterally Cardio Rate: regular rate Rhythm: regular rhythm GI Inspection: normal to inspection Palpation: soft, not firm, no guarding, no hepatosplenomegaly, no masses and nontender Auscultation: normal bowel sounds Back/Spine/Pelvis Back: no CVA tenderness Skin General skin exam: no rashes or lesions noted Neuro General: alert and awake Cognition: normal cognition Speech: speech normal Gait: normal gait Motor: muscle tone normal throughout Sensory Exam: no sensory deficits noted Extrem General: normal to inspection, full ROM and normal capillary refill Psych Appearance: grossly normal Mental Status: mental status grossly normal Speech and Movement: speech and movement normal Affect: normal affect Thought Process: normal Course Vital Signs Temperature 97.7 F 09/24/18 16:02 Pulse 90 09/24/18 16:02 Respiratory Rate 16 09/24/18 16:02 Blood Pressure 157/75 H 09/24/18 16:02 Pulse Oximetry 98 09/24/18 16:02 Temperature 97.7 F 09/24/18 16:02 Temperature Source Skin 09/24/18 16:02 Pulse 90 09/24/18 16:02 Respiratory Rate 16 09/24/18 16:02 Respiratory Effort 09/24/18 16:06 Blood Pressure 157/75 H 09/24/18 16:02 Blood Pressure Position Sitting 09/24/18 16:02 Pulse Oximetry 98 09/24/18 16:02 Oxygen Delivery Method Room Air 09/24/18 16:02 Oxygen Flow Rate 0 09/24/18 16:02 Lab/Test Results Lab/Test Results: 09/24/18 16:28 Tonsil - Not Specified Streptococcus Screen (NADEEM) - Pending POC Strep Test-JANET(Rapid) Start: 09/24/18 16:23 Freq: Status: Active Protocol: Document 09/24/18 16:23 AB (Rec: 09/24/18 16:23 AB [id number]) Strep test-JANET(Rapid)-POC POC-Strep test-JANET (Rapid) Negative POC-Strep test-JANET (Rapid) Negative
[2018-09-24] MEDS: Dexamethasone 10 MG/ML VIAL PO (17:09)
[2018-09-24 17:10] VITALS: BP 118/63; PULSE 81; RESP 18; TEMP 36.8; O2SAT 100
== END 2018-09-24 17:15 | disposition home or self-care (01) ==
PROVIDERS: Emergency Provider Physician Assistant; PCP Family Medicine
DX: J01.90 Acute sinusitis, unspecified (principal); J02.9 Acute pharyngitis, unspecified; J06.9 Acute upper respiratory infection, unspecified; E11.9 Type 2 diabetes mellitus without complications; I10 Essential (primary) hypertension
CPT/HCPCS: 87880; 99283; 87081; J1100

== ENCOUNTER 2018-11-15 08:58 | Outpatient (CLI) | payer BC, SELFPAY ==
[2018-11-15 11:43] LABS: Hemoglobin A1C 6.6 % (4.5-6.2)
[2018-11-15 12:03] LABS: COMMENT (LAB VIEW ONLY) 133.85 mg/dL; Microalb ug/mg Crea 3.5 ug/mg Cr
[2018-11-15 13:34] LABS: ALT 28 U/L (12-78); AST 14 U/L (15-37); Albumin 3.8 g/dL (3.4-5.0); Alkaline Phosphatase 55 U/L (46-116); BUN 14 mg/dL (7-18); Bilirubin, Total 0.3 mg/dL (0.2-1.0); Calcium 9.1 mg/dL (8.5-10.1); Calculated LDL 95; Chloride 107 mmol/L (98-107); Cholesterol 165 mg/dL (50-200); Estimated GFR 57.35 (mL/min/1.73m2); Glucose 124 mg/dL (70-100); HDL Cholesterol 39 mg/dL (40-60); Magnesium 2.2 mg/dL (1.8-2.4); Potassium 4.1 mmol/L (3.5-5.1); Sodium 144 mmol/L (136-145); TSH (W/Ref FT4) 2.51 uIU/mL (0.358-3.74); Total Protein 6.7 g/dL (6.4-8.2); Triglyceride 159 mg/dL (30-150)
[2018-11-17 09:05] LABS: Topiramate 2.3 mcg/mL
== END 2018-11-15 09:18 ==
PROVIDERS: PCP Family Medicine; Visit Provider Family Medicine
DX: E03.9 Hypothyroidism, unspecified (principal); E11.9 Type 2 diabetes mellitus without complications; Z00.00 Encounter for general adult medical examination without abnormal findings; I10 Essential (primary) hypertension; Z51.81 Encounter for therapeutic drug level monitoring
CPT/HCPCS: 36415; 80053; 80061; 83721; 80201; 82043; 82570; 83036; 83735; 84443

== ENCOUNTER 2018-11-23 16:01 | Outpatient (CLI) | payer BC, SELFPAY ==
--- NOTE | 2018-11-23 15:55 | DI.RAD_ITS ---
SYMPTOM/DIAGNOSIS: FELL, LT KNEE PAIN, MEDIAL, M25.562 LEFT KNEE: Five views were obtained. There are minimal degenerative changes of the tibiofemoral joints. Minimal lateral patellar subluxation is noted. Mild DJD of lateral patellofemoral joint. No evidence of acute fracture.
== END 2018-11-23 16:21 ==
PROVIDERS: PCP Family Medicine; Visit Provider Family Medicine
DX: M25.562 Pain in left knee (principal); M17.12 Unilateral primary osteoarthritis, left knee; W19.XXXA Unspecified fall, initial encounter
CPT/HCPCS: 73564

== ENCOUNTER 2019-01-22 11:16 | Inpatient (IN) | payer BC, SELFPAY ==
[2019-01-22] VITALS (8 sets, daily range): BP systolic 109–144; BP diastolic 62–78; PULSE 69–89; RESP 18–22; TEMP 36.1–36.8; O2SAT 90–98
--- NOTE | 2019-01-22 11:47 | DI.CT_ITS ---
SYMPTOM/DIAGNOSIS: FALL WEEKS AGO, NOW ACUTE BACK PAIN CT LUMBAR SPINE: Comparison is made with CT abdomen and pelvis dated 21 January 2014. There is no evidence of fracture, spondylolysis or spondylolisthesis. There is disc bulging at L3-4 through L5-S1 which does not appear significantly changed. There are small end plate osteophytes at multiple levels. There are facet degenerative changes at L3-4 and L4-5. There is bilateral neural foraminal narrowing at L3-4 and L4-5. There is moderate central canal stenosis at L3-4 secondary to a combination of degenerative changes. No lytic or blastic bony lesions are seen. The aorta is normal in diameter and shows mild calcification. IMPRESSION: Degenerative disc changes and facet degenerative changes causing moderate central canal stenosis at L3-4 as well as neural foraminal narrowing at L3-4 and L4-5.
--- NOTE | 2019-01-22 11:48 | ED.GENADUL_ITS ---
Discharge Plan Disposition Patient Disposition: [facility] INPATIENT Condition: Stable Discharge Details Chief Complaint: Nk/Back Pain Clinical Impression: Bulging lumbar disc Primary Care Provider: Noy Frederick ED Provider: Sy Camacho Home Meds and New Rx's Prescriptions: No Action sucralfate 1 gram tablet 1 gm PO QID RF: 0 alosetron 0.5 mg tablet 0.5 mg PO DAILY RF: 0 duloxetine 60 mg capsule,delayed release(DR/EC) 60 mg PO DAILY Qty: 90 RF: 4 esomeprazole magnesium 40 mg capsule,delayed release(DR/EC) 40 mg PO DAILY Qty: 90 RF: 11 oxybutynin chloride 10 mg tablet extended release 24hr 10 mg PO DAILY Qty: 90 RF: 4 Xifaxan 550 mg tablet 550 mg PO TID PRNRF: 0 fluticasone propionate 50 mcg/actuation spray,suspension 2 spray CHIQUITA DAILY PRNRF: 0 ranitidine HCl 150 mg tablet 150 mg PO QHS Qty: 90 RF: 4 multivitamin [One Daily] 1 EACH tablet 1 ea PO DAILY RF: 0 fexofenadine [Li] 180 MG tablet 180 mg PO DAILY RF: 0 calcium carbonate-vitamin D3 [Caltrate with Vitamin D3] 1 EACH tablet 1 ea PO DAILY RF: 0 (DME) Hearing Aid Batteries 1 EACH misc 1 ea Miscellaneous DAILY Qty: 30 RF: 11 Restasis 1 EACH dropperette 1 drp Ophthalmic BID RF: 0 topiramate [Topamax] 50 mg tablet 50 mg PO HS Qty: 90 RF: 3 spironolactone 25 mg tablet 25 mg PO DAILY Qty: 90 RF: 5 doxazosin 4 mg tablet 4 mg PO DAILY Qty: 90 RF: 12 levothyroxine 137 mcg tablet 137 mcg PO DAILY Qty: 90 RF: 12 azelastine 0.15 % (205.5 mcg) spray,non-aerosol 2 spray CHIQUITA BID Qty: 30 RF: 5 montelukast [Singulair] 10 mg tablet 10 mg PO HS Qty: 90 RF: 4 acetaminophen [Mapap Extra Strength] 500 MG tablet 1,000 mg PO PRN PRNRF: 0 sodium chloride [Saline Mist] 0.65 % aerosol,spray 1 spray CHIQUITA ONCE Qty: 15 RF: 0 Medical Decision Making 58-year-old female who was bending over with laundry detergent yesterday when she felt the abrupt onset of the low lumbar pain that radiates around her hips and down her legs. It was worse with movement throughout the night, minimally controlled with NSAIDs. Difficulty in dressing herself this morning and ongoing pain. EMS was called patient was given fentanyl which reduced her pain to 4 out of 10. She does not have motor or sensory deficits. Reflexes and great toe proprioception are intact. Differential diagnosis includes lumbar spasm, bulging disc, and she will report a fall weeks ago for which she has had an antalgic gait, left knee pain, and therefore must exclude underlying bony spine injury. IV placed, screening labs and urinalysis obtained, patient given dexamethasone, Toradol, additional aliquot of fentanyl and referred for CT images of lumbar spine. CT: Posterior disc bulge at L3-4. Degenerative changes present. Labs reveal white count of 5, hematocrit 38, platelets 212. Sodium 144, potassium 3.7, chloride 108, bicarb 20, BUN 17, creatinine 0.9 Pain is improved while at rest. Patient able to sit on a bedside commode but movement makes the pain increase. Postvoid residual 81. Rectal tone is normal. Do not feel emergent MRI indicated at this time. However, do not feel she will be able to manage at home. Will admit for pain control. Discussed with Dr Robles. [facility] General Mode of arrival: EMS . Date/Time Provider Initiated Documentation: 01/22/19 11:19 . Limitations to Documentation: no limitations . Information obtained by: patient, family and EMS . History of Present Illness 58 year old F presents to the emergency department with the chief complaint of Low back pain since yesterday, described as severe, Quality is described as dull and constant, and is localized to the back. Patient extremity. Patient started experiencing this hour(s) and it has been constant. Rest improves symptom(s), Movement worsens symptoms . Patient notes other (No numbness or tingling. She fell weeks ago and has had left knee pain since that time with alteration to gait). Patient did receive the following treatments prior to arrival, NSAID and other (Fentanyl with EMS) Related Data Home Medications Medication Instructions Recorded Confirmed calcium carbonate-vitamin D3 1 ea PO DAILY 08/06/12 01/22/19 [Caltrate with Vitamin D3] fexofenadine [Li] 180 mg PO DAILY tab-cap 08/06/12 01/22/19 multivitamin [One Daily] 1 ea PO DAILY 08/06/12 01/22/19 acetaminophen [Mapap Extra 1,000 mg PO PRN PRN 01/21/14 01/22/19 Strength] Hearing Aid Batteries #30 dose 10/01/17 12/28/18 Restasis 1 drp OPHTHALMIC BID drp 10/15/17 01/22/19 sodium chloride [Saline Mist] 1 spray CHIQUITA ONCE #15 ml 03/05/18 01/22/19 ranitidine HCl 150 mg tablet 150 mg PO QHS #90 tab 07/22/18 01/22/19 topiramate 50 mg tablet 50 mg PO HS #90 tab-cap 10/07/18 01/22/19 spironolactone 25 mg tablet 25 mg PO DAILY #90 tab 10/26/18 01/22/19 doxazosin 4 mg tablet 4 mg PO DAILY #90 tab-cap 11/08/18 01/22/19 levothyroxine 137 mcg tablet 137 mcg PO DAILY #90 tab-cap 11/08/18 01/22/19 azelastine 0.15 % (205.5 mcg) 2 spray CHIQUITA BID #30 ml 11/12/18 01/22/19 nasal spray alosetron 0.5 mg tablet 0.5 mg PO DAILY 11/15/18 01/22/19 duloxetine 60 mg capsule,delayed 60 mg PO DAILY #90 cap 11/15/18 01/22/19 release esomeprazole magnesium 40 mg 40 mg PO DAILY #90 tab-cap 11/15/18 01/22/19 capsule,delayed release oxybutynin chloride 10 mg 10 mg PO DAILY #90 tab-cap 11/15/18 01/22/19 tablet,extended release 24 hr sucralfate 1 gram tablet 1 gm PO QID tab 11/15/18 01/22/19 montelukast 10 mg tablet 10 mg PO HS #90 tab 12/27/18 01/22/19 fluticasone propionate 50 2 spray CHIQUITA DAILY PRN gm 12/28/18 01/22/19 mcg/actuation nasal spray,suspension rifaximin 550 mg tablet 550 mg PO TID PRN 12/28/18 01/22/19 Previous Rx's Medication Instructions Recorded sodium chloride [Saline Mist] 1 spray CHIQUITA ONCE #15 ml 1005/18 ranitidine HCl 150 mg tablet 150 mg PO QHS #90 tab 07/22/18 topiramate 50 mg tablet 50 mg PO HS #90 tab-cap 10/07/18 spironolactone 25 mg tablet 25 mg PO DAILY #90 tab 10/26/18 doxazosin 4 mg tablet 4 mg PO DAILY #90 tab-cap 11/08/18 levothyroxine 137 mcg tablet 137 mcg PO DAILY #90 tab-cap 11/08/18 azelastine 0.15 % (205.5 mcg) 2 spray CHIQUITA BID #30 ml 11/12/18 nasal spray duloxetine 60 mg capsule,delayed 60 mg PO DAILY #90 cap 11/15/18 release esomeprazole magnesium 40 mg 40 mg PO DAILY #90 tab-cap 11/15/18 capsule,delayed release oxybutynin chloride 10 mg 10 mg PO DAILY #90 tab-cap 11/15/18 tablet,extended release 24 hr montelukast 10 mg tablet 10 mg PO HS #90 tab 12/27/18 Allergies Allergy/AdvReac Type Severity Reaction Status Date / Time Sulfa (Sulfonamide Allergy Severe TONGUE Verified 01/22/19 11:23 Antibiotics) SWELLING sulfamethoxazole Allergy Severe Swelling/Ed Verified 01/22/19 11:23 [From Bactrim] yoko trimethoprim Allergy Severe TONGUE Verified 01/22/19 11:23 SWELLING aspirin [From Percodan] AdvReac Mild Nausea Verified 01/22/19 11:23 oxycodone [From Percodan] AdvReac Mild Nausea Verified 01/22/19 11:23 pickles Allergy Severe Anaphylaxsi Uncoded 01/22/19 11:23 s COCKROACH Allergy Unknown allery Uncoded 01/22/19 11:23 testing General Stated Complaint: Nk/Back Pain MARISSA: 3 Review of Systems Review of Systems Left knee pain for which she has follow-up with orthopedics. Questions if she injured her toe in the fall weeks ago. 6 systems reviewed and otherwise negative [facility] Medical History Antinuclear factor positive (Chronic 09/22/16) BMI 40.0-44.9, adult (Chronic 09/03/15) Breast lump in female Breast lump in lower inner quadrant (Resolved) Bronchitis Candidiasis (Chronic) Chest pain in adult (Resolved) Closed fracture of body of calcaneus Closed fracture of calcaneus (Resolved) Cough Cough (Chronic 01/26/12) Cystocele Cystocele with rectocele (Chronic) Delivery normal (Resolved) Depression Depressive disorder (Resolved) Depressive disorder (Chronic) Diabetes Diabetes mellitus (Chronic) Diabetes mellitus (Inactive 02/14/14) Diarrhea (Resolved) Dysfunctional uterine bleeding (Resolved) Ectopic (Resolved) Elevated liver function tests (Resolved) Elevated liver function tests (Resolved 01/24/14) Essential hypertension (Chronic 02/23/13) Family history of malignant neoplasm of breast (Chronic) Family hx-breast malignancy (Resolved) Fatigue (Resolved) Frequently sick (Chronic 09/15/16) GERD (gastroesophageal reflux disease) Hearing loss Hearing problem (Chronic) History of ectopic (Resolved) Hypertension Hypokalemia (Resolved 01/26/12) Hypothyroidism Hypothyroidism (Chronic) IBS (irritable bowel syndrome) Irritable colon (Chronic) Mammogram abnormal (Resolved) Neck pain (Resolved) Neck pain (Chronic) Obesity, Class III, BMI 40-49.9 (morbid obesity) Otalgia of both ears (Resolved 04/30/17) Pneumonia Pneumonia, organism unspecified (Resolved) Positive JENNIFER (antinuclear antibody) (Resolved) Rectocele Reflux esophagitis (Chronic 12/26/13) Routine medical exam (Resolved) Sinus pressure (Resolved) Sinus pressure (Chronic 04/17/15) Upper back pain on right side (Chronic 11/17/16) Weakness (Resolved) Surgical History Appendectomy (~1998) Cholecystectomy (~1989) Colonoscopy - MAC EGD - MAC (03/10/14) EGD - MAC (08/05/16) H/O esophagogastroduodenoscopy (Resolved) Hysterectomy, Laproscopic Oophrectomy, Right (~03/2011) , Ectopic (~1988) Reduction mammoplasty (~03/2013) S/P appendectomy (Resolved) S/P cholecystectomy (Resolved) S/P exploratory laparotomy (Resolved) S/P hysterectomy with oophorectomy (Resolved) S/P tonsillectomy and adenoidectomy (Resolved) Status post appendectomy (Resolved) Status post cholecystectomy (Resolved) Status post exploratory laparotomy (Resolved) Status post hysterectomy (Resolved) Status post oophorectomy (Resolved) Status post tonsillectomy and adenoidectomy (Resolved) Tonsillectomy and adenoidectomy (~1985) Social History Smoking/Tobacco Use Status: Never Alcohol Intake: current Alcohol Intake frequency: holidays/special occasions only Drug use: Never Do you feel safe at home: Yes Do you feel safe in your relationship?: Yes Exam Narrative Exam Narrative: GEN: awake, alert, oriented 3. Pleasant, well groomed, interactive, in pain. HEAD: Normocephalic, atraumatic ENT: Mucous membranes moist, oropharynx unremarkable, External ear exam unremarkable EYES: PERRL, EOMI NECK: Full ROM, no JASON, no menigismus CHEST/RESP: Nontender, clear to auscultation bilateral, no wheeze/rhonchi/rales CARDIOVASCULAR: RRR, no murmur, rub elias. 2+ Rad pulse bilateral ABDOMEN: Soft, nontender, no mass. +Bowel sounds. Rectal exam with normal tone. Back: Lower lumbar tenderness to palpation. EXT: Full ROM, no edema, no rash Neuro: Grossly normal neurologic exam, conversant, interactive. Motor is intact in the lower extremity but limited by pain. 2+ patellar reflex bilaterally. Great toe proprioception intact. Sensation intact throughout including saddle distribution. Psych: Speech fluent, thoughts congruent, affect normal Course Vital Signs Temperature 36.8 C 01/22/19 11:18 Pulse 76 01/22/19 11:18 Respiratory Rate 18 01/22/19 11:18 Blood Pressure 124/78 01/22/19 11:18 Pulse Oximetry 97 01/22/19 11:18 Temperature 36.8 C 01/22/19 11:18 Temperature Source Temporal Artery Scan 01/22/19 11:18 Pulse 76 01/22/19 11:18 Respiratory Rate 18 01/22/19 11:18 Respiratory Effort Non-Labored 01/22/19 11:22 Blood Pressure 124/78 01/22/19 11:18 Blood Pressure Position Supine 01/22/19 11:18 Pulse Oximetry 97 01/22/19 11:18 Oxygen Delivery Method Room Air 01/22/19 11:18 Oxygen Flow Rate 0 01/22/19 11:18 Pain Level 5 01/22/19 11:18
[2019-01-22] MEDS: Dexamethasone 10 MG/ML VIAL IVP (12:00)
[2019-01-22 12:14] LABS: Abs Immature Grans 0.02 k/cumm (0.0-0.09); Absolute Basophil Count 0.03 k/cumm (0.0-0.2); Absolute Eosinophil Count 0.13 k/cumm (0.0-0.7); Absolute Lymphocyte Count 1.93 k/cumm (1.2-3.4); Absolute Monocyte Count 0.44 k/cumm (0.11-0.7); Absolute Neutrophil Count 2.82 k/cumm (1.2-6.7); Basophils % 0.6; Eosinophils % 2.4; HCT 38.5 % (36.0-46.0); HGB 12.9 g/dL (12.0-15.5); Immature Grans % 0.4; Lymphocytes % 35.9; Mean Corp. HGB Concentration 33.5 g/dL (32.0-36.0); Mean Corpuscular Hemoglobin 29.9 pg (27.0-33.0); Mean Corpuscular Volume 89.3 fL (80-95); Mean Platelet Volume 8.8 fL (8.0-11.0); Monocytes % 8.2; Neutrophils % 52.5; Platelet Count 212 x1000/uL (130-400); RBC 4.31 m/cumm (4.00-5.20); RBC Distribution Width 14.2 % (11.7-14.6); White Blood Cell Count 5.37 k/cumm (4.4-10.8)
[2019-01-22] MEDS: Ketorolac 30 MG/ML VIAL IVP ×3 (12:22→23:43)
[2019-01-22 12:30] LABS: ALT 30 U/L (14-59); AST 14 U/L (15-37); Albumin 3.3 g/dL (3.4-5.0); Alkaline Phosphatase 47 U/L (46-116); BUN 17 mg/dL (7-18); Bilirubin, Total 0.2 mg/dL (0.2-1.0); CREATININE 0.95 mg/dL (0.55-1.02); Calcium 7.2 mg/dL (8.5-10.1); Chloride 108 mmol/L (98-107); Glucose 115 mg/dL (70-100); Potassium 3.7 mmol/L (3.5-5.1); Sodium 144 mmol/L (136-145); Total Protein 6.9 g/dL (6.4-8.2)
[2019-01-22] MEDS: fentaNYL 100 MCG/2 ML VIAL 50 MCG IVP (12:35)
[2019-01-22 13:14] LABS: Bilirubin Negative (Negative); Blood Negative (Negative); Clarity Clear (Clear); Glucose Negative (Negative); Ketones Negative (Negative); Leukocyte Esterase Negative (Negative); Nitrite Negative (Negative); Specific Gravity 1.015 (1.005-1.025); Urobilinogen 0.2 EU/dL (Up TO 0.2)
--- NOTE | 2019-01-22 13:26 | DI.VRAD_ITS ---
EXAM: CT Lumbar Spine Without Contrast EXAM DATE/TIME: 01/22/2019 11:49 AM CLINICAL HISTORY: 58 years old, female; Other: Fall weeks ago, now acute back pain TECHNIQUE: Imaging protocol: Computed tomography images of the lumbar spine without contrast. Radiation optimization: All CT scans at this facility use at least one of these dose optimization techniques: automated exposure control; mA and/or kV adjustment per patient size (includes targeted exams where dose is matched to clinical indication); or iterative reconstruction. COMPARISON: No relevant prior studies available. FINDINGS: Vertebrae: Grade 1 anterior non-spondylitic spondylolisthesis of L4 on L5 with minimal central spinal stenosis and prominent facet degenerative changes. Discs/Spinal canal/Neural foramina: Posterior disc bulge at L3-4 with mild central spinal stenosis and severe bilateral facet degenerative change. Gallbladder and bile ducts: Surgical clips in the gallbladder fossa consistent with cholecystectomy. Vasculature: Calcification of the abdominal aorta and/or iliac arteries consistent with atherosclerotic vessel disease. Soft tissues: Unremarkable. IMPRESSION: Posterior disc bulge at L3-4 with mild central spinal stenosis and severe bilateral facet degenerative change. No acute findings. Dictated and Authenticated by: Geo Wallace MD. Ordering:QUYNH Dan MD
[2019-01-22] MEDS: HYDROmorphone 2 MG/ML VIAL 0.5 MG IVP (13:38)
--- NOTE | 2019-01-22 14:45 | HPE_ITS ---
Date of service: 01/22/19 Time of Service: 14:45 Assessment and Plan (1) Acute low back pain with possible spinal stenosis of less than six weeks' duration: Current visit: Yes Status: Acute CT with L3-L4 stenosis - however, I feel given the severity of symptoms, that we are obligated to obtain an MRI to ensure that there is no cord impingement - the soonest we can get that done at [facility] is Thursday. Clinically, while the patient does describe urinary incontinence, we have no evidence of decreased rectal tone or urinary retention at this time. Cauda equina seems to have been ruled out, but I would still like to see an MRI. We will monitor PVR's with bladder scans for the next 24 hours. Tx with tylenol, IV toradol, dilaudid prn, lidoderm patches, flexeril, neurontin. PT/OT consults. (2) Ambulatory dysfunction: Current visit: Yes Status: Acute PT/OT consults. (3) Left knee pain: Current visit: No Status: Chronic Chronic - follows with PT and was supposed to have a Dr Roca on 01/26. She may still be able to keep that appointment. (4) Hypocalcemia: Current visit: Yes Status: Acute Increase Ca + Vit D. (5) Diabetes mellitus: Current visit: No Status: Chronic Non-insulin dependent. Will rx carb consistent diet while in the hospital. May require SSI. (6) Reflux esophagitis: Current visit: No Status: Chronic Continue home PPI and H2 dinora. (7) Hypothyroidism: Current visit: No Status: Chronic Continue synthroid (8) DVT prophylaxis: Current visit: Yes Status: Acute lovenox (9) Discharge planning issues: Current visit: Yes Status: Acute Full code Placed in observation status at this time History of Present Illness Chief Complaint: Back pain Narrative: Ms Esquivel is a 58 year old female with PMHx of chronic L knee pain, NIDDM2, hypertension, hypothyroidism, GERD, obesity with BMI of 40.2, who presented to [facility] ED today complaining of mid to lower back pain. Carmenza states that she was doing her laundry yesterday and bent down to put down the jug with detergent when she felt a sudden sharp shock-like pain in her mid to lower back, which started centrally and radiated to both posterior hips. The pain was so severe that she felt herself breathe really fast and got diaphoretic. She states she could neither bend down further nor straighten up. She was able to grab hold of the washer with the other hand to prevent her from falling. She was eventually able to get to her bedroom, still in severe pain. Laying down helped a little, but when she tried to get up again to get to the bathroom, she had severe pain in her back again, accompanied by spasms. She had an episode of urinary incontinence on the way to the bathroom. Since then, she had 2 more episodes of urinary incontinence. She has had no fecal incontinence or retention. Her last BM was yesterday. She was able to get get back in bed, and then to the recliner, but had difficulty controlling her sit into the recliner, essentially falling into it. Her pain remained unbearable all night, and EMS were called. She received fentanyl and zofran by EMS with mild relief. In the ED, she required more fentanyl which did not effectively address her pain. She got clinical pain relief after IV dilaudid, IV toradol and was given a dose of IV decadron. Since arrival to ER, she has had full control of her urination. Her rectal tone was preserved, and her post-void residual was less than 100 cc. She denies numbness/tingling in her legs and her perineal area. CT of her lumbar spine demonstrated posterior disc bulge at L3-4 with mild central spinal stenosis and severe bilateral facet degenerative changes. She complains of now chronic L great toe pain (she thinks she may have broken it when she had an accidental fall 2 months ago) and left knee pain (also hurt at that time), for which she has been getting physical therapy. Review of Systems Review of Systems 12 systems were attempted to be reviewed. Carmenza was in significant pain, somewhat limiting our convesation. Pertinent positives and negatives are as per HPI. Additionally, Ms Esquivel complains of a cramp-like sensation suprapubically, as if she were on her period, and reports being thirsty. [facility] Medical History Antinuclear factor positive (Chronic 09/22/16) BMI 40.0-44.9, adult (Chronic 09/03/15) Breast lump in female Breast lump in lower inner quadrant (Resolved) Bronchitis Candidiasis (Chronic) Chest pain in adult (Resolved) Closed fracture of body of calcaneus Closed fracture of calcaneus (Resolved) Cough Cough (Chronic 01/26/12) Cystocele Cystocele with rectocele (Chronic) Delivery normal (Resolved) Depression Depressive disorder (Resolved) Depressive disorder (Chronic) Diabetes Diabetes mellitus (Chronic) Diabetes mellitus (Inactive 02/14/14) Diarrhea (Resolved) Dysfunctional uterine bleeding (Resolved) Ectopic (Resolved) Elevated liver function tests (Resolved) Elevated liver function tests (Resolved 01/24/14) Essential hypertension (Chronic 02/23/13) Family history of malignant neoplasm of breast (Chronic) Family hx-breast malignancy (Resolved) Fatigue (Resolved) Frequently sick (Chronic 09/15/16) GERD (gastroesophageal reflux disease) Hearing loss Hearing problem (Chronic) History of ectopic (Resolved) Hypertension Hypokalemia (Resolved 01/26/12) Hypothyroidism Hypothyroidism (Chronic) IBS (irritable bowel syndrome) Irritable colon (Chronic) Mammogram abnormal (Resolved) Neck pain (Resolved) Neck pain (Chronic) Obesity, Class III, BMI 40-49.9 (morbid obesity) Otalgia of both ears (Resolved 04/30/17) Pneumonia Pneumonia, organism unspecified (Resolved) Positive JENNIFER (antinuclear antibody) (Resolved) Rectocele Reflux esophagitis (Chronic 12/26/13) Routine medical exam (Resolved) Sinus pressure (Resolved) Sinus pressure (Chronic 04/17/15) Upper back pain on right side (Chronic 11/17/16) Weakness (Resolved) Surgical History Appendectomy (~1998) Cholecystectomy (~1989) Colonoscopy - MAC EGD - MAC (03/10/14) EGD - MAC (08/05/16) H/O esophagogastroduodenoscopy (Resolved) Hysterectomy, Laproscopic Oophrectomy, Right (~03/2011) , Ectopic (~1988) Reduction mammoplasty (~03/2013) S/P appendectomy (Resolved) S/P cholecystectomy (Resolved) S/P exploratory laparotomy (Resolved) S/P hysterectomy with oophorectomy (Resolved) S/P tonsillectomy and adenoidectomy (Resolved) Status post appendectomy (Resolved) Status post cholecystectomy (Resolved) Status post exploratory laparotomy (Resolved) Status post hysterectomy (Resolved) Status post oophorectomy (Resolved) Status post tonsillectomy and adenoidectomy (Resolved) Tonsillectomy and adenoidectomy (~1985) Family History Mother Diabetes Hyperlipidemia Father Alcohol abuse Neoplasm Sister Neoplasm Sister No problems noted. Brother No problems noted. Brother Pneumonia Grandfather Diabetes Grandfather Diabetes Grandmother No problems noted. Grandmother Diabetes Neoplasm Son No problems noted. Daughter No problems noted. Social History Smoking/Tobacco Use Status: Never Alcohol Intake: current Alcohol Intake frequency: holidays/special occasions only Drug use: Never Do you feel safe at home: Yes Do you feel safe in your relationship?: Yes Meds Home Medications Medication Instructions Recorded Confirmed Type calcium carbonate-vitamin D3 1 ea PO DAILY 08/06/12 01/22/19 History [Caltrate with Vitamin D3] fexofenadine [Li] 180 mg PO DAILY tab-cap 08/06/12 01/22/19 History multivitamin [One Daily] 1 ea PO DAILY 08/06/12 01/22/19 History acetaminophen [Mapap Extra 1,000 mg PO PRN PRN 01/21/14 01/22/19 History Strength] Hearing Aid Batteries #30 dose 10/01/17 12/28/18 History Restasis 1 drp OPHTHALMIC BID drp 10/15/17 01/22/19 History sodium chloride [Saline Mist] 1 spray CHIQUITA ONCE #15 ml 03/05/18 01/22/19 Rx ranitidine HCl 150 mg tablet 150 mg PO QHS #90 tab 07/22/18 01/22/19 Rx topiramate 50 mg tablet 50 mg PO HS #90 tab-cap 10/07/18 01/22/19 Rx spironolactone 25 mg tablet 25 mg PO DAILY #90 tab 10/26/18 01/22/19 Rx doxazosin 4 mg tablet 4 mg PO DAILY #90 tab-cap 11/08/18 01/22/19 Rx levothyroxine 137 mcg tablet 137 mcg PO DAILY #90 tab-cap 11/08/18 01/22/19 Rx azelastine 0.15 % (205.5 mcg) 2 spray CHIQUITA BID #30 ml 11/12/18 01/22/19 Rx nasal spray alosetron 0.5 mg tablet 0.5 mg PO DAILY 11/15/18 01/22/19 History duloxetine 60 mg capsule,delayed 60 mg PO DAILY #90 cap 11/15/18 01/22/19 Rx release esomeprazole magnesium 40 mg 40 mg PO DAILY #90 tab-cap 11/15/18 01/22/19 Rx capsule,delayed release oxybutynin chloride 10 mg 10 mg PO DAILY #90 tab-cap 11/15/18 01/22/19 Rx tablet,extended release 24 hr sucralfate 1 gram tablet 1 gm PO QID tab 11/15/18 01/22/19 History montelukast 10 mg tablet 10 mg PO HS #90 tab 12/27/18 01/22/19 Rx fluticasone propionate 50 2 spray CHIQUITA DAILY PRN gm 12/28/18 01/22/19 History mcg/actuation nasal spray,suspension rifaximin 550 mg tablet 550 mg PO TID PRN 12/28/18 01/22/19 History Allergies Allergy/AdvReac Type Severity Reaction Status Date / Time Sulfa (Sulfonamide Allergy Severe TONGUE Verified 01/22/19 11:23 Antibiotics) SWELLING sulfamethoxazole Allergy Severe Swelling/Ed Verified 01/22/19 11:23 [From Bactrim] yoko trimethoprim Allergy Severe TONGUE Verified 01/22/19 11:23 SWELLING aspirin [From Percodan] AdvReac Mild Nausea Verified 01/22/19 11:23 oxycodone [From Percodan] AdvReac Mild Nausea Verified 01/22/19 11:23 pickles Allergy Severe Anaphylaxsi Uncoded 01/22/19 11:23 s COCKROACH Allergy Unknown allery Uncoded 01/22/19 11:23 testing Exam Narrative Exam Narrative: General: Very pleasant middle-aged female, very uncomfortable/in visible pain just on minimal movement in bed Neurological: A&Ox3, able to move BLE's, no obvious neurological deficits other than chronic difficulty hearing Psychiatric: appropriate speech pattern/content Skin: intact HEENT: Atraumatic, normocephalic, EOMI, dry MM, clear oropharynx, no submandibular or cervical lymphadenopathy that I can identify in current patient's position, possible small goiter (I am not convinced), no JVD Cardiovascular: RRR, no m/r/g Lungs: CTAB Gastrointestinal: abdomen is soft, nontender, nondistended Genitourinary: deferred (exam was just performed by ED physician) Extremities: no e/c/c BLE's, 5/5 strength B, no obvious L knee effusion or redness; L great toe does not appear malformed Results Imaging Additional studies: CT lumbar spine without contrast: Posterior disc bulge at L3-4 with mild central spinal stenosis and severe bilateral facet degenerative change. Labs : 01/22/19 12:06 01/22/19 12:06 Laboratory Results - last 24 hr 01/22/19 01/22/19 01/22/19 12:06 12:06 13:10 WBC 5.37 RBC 4.31 Hgb 12.9 Hct 38.5 MCV 89.3 MCH 29.9 MCHC 33.5 RDW 14.2 Plt Count 212 MPV 8.8 Immature Gran % 0.4 Neutrophils % 52.5 Lymphocytes % 35.9 Monocytes % 8.2 Eosinophils % 2.4 Basophils % 0.6 Absolute Neutrophils 2.82 Absolute Lymphocytes 1.93 Absolute Monocytes 0.44 Absolute Eosinophils 0.13 Absolute Basophils 0.03 Sodium 144 Potassium 3.7 Chloride 108 H Carbon Dioxide 28.0 Anion Gap 8.0 BUN 17 Creatinine 0.95 Estimated GFR/1.73 m2 >= 60.00 Glucose 115 H Calcium 7.2 L Total Bilirubin 0.2 AST 14 L ALT 30 Alkaline Phosphatase 47 Total Protein 6.9 Albumin 3.3 L Urine Color Yellow Urine Clarity Clear Urine pH 7.0 Ur Specific [place] 1.015 Urine Protein Negative Urine Ketones Negative Urine Blood Negative Urine Nitrite Negative Urine Bilirubin Negative Urine Urobilinogen 0.2 Ur Leukocyte Esterase Negative Urine Glucose Negative Last Vital Signs Temp 36.8 C 01/22/19 11:18 Pulse 69 01/22/19 13:39 Resp 18 01/22/19 11:18 BP 144/64 H 01/22/19 13:39 Pulse Ox 94 L 01/22/19 13:40
[2019-01-22] MEDS: Lidocaine 5% Patch 1 PATCH TP (15:17)
[2019-01-22] MEDS: HYDROmorphone 2 MG/ML VIAL 1 MG IVP ×3 (15:28→23:43)
[2019-01-22] MEDS: Enoxaparin 40 MG/0.4 ML SYR SC (15:29)
[2019-01-22] MEDS: Normal Saline 1,000 ML 150 ML IV (18:23)
[2019-01-22] MEDS: Cyclobenzaprine 10 MG TAB PO (19:55)
[2019-01-22] MEDS: Gabapentin 100 MG CAP PO (19:55)
[2019-01-22] MEDS: Calcium 600mg/Vit D 200U TAB 2 TAB PO (19:55)
[2019-01-22] MEDS: Ondansetron O.D.T. 4 MG TABEF PO (21:20)
[2019-01-22] MEDS: Topiramate 50 MG TAB PO (22:11)
[2019-01-22] MEDS: Montelukast 10 MG TAB PO (22:12)
[2019-01-22] MEDS: Oxybutynin-CR 5 MG TABCR 10 MG PO (22:12)
[2019-01-22] MEDS: Fexofenadine 180 MG TAB PO (22:12)
[2019-01-22] MEDS: Patch Removal 1 EACH TD (23:55)
[2019-01-23] MEDS: Ondansetron 4 MG/2 ML VIAL 8 MG IVP (00:06)
[2019-01-23] MEDS: Normal Saline 1,000 ML 150 ML IV ×2 (00:20→06:04)
[2019-01-23 03:39] VITALS: BP 138/76; PULSE 72; RESP 18; TEMP 36.8; O2SAT 96
[2019-01-23] MEDS: Ketorolac 30 MG/ML VIAL IVP ×4 (06:49→23:32)
[2019-01-23] MEDS: Esomeprazole 40 MG CAPCR PO (06:49)
[2019-01-23] MEDS: HYDROmorphone 2 MG/ML VIAL 1 MG IVP (06:56)
[2019-01-23 07:12] VITALS: BP 113/73; PULSE 75; RESP 19; TEMP 36; O2SAT 96
[2019-01-23 07:43] LABS: Anion Gap 11.6 mmol/L (3-11); BUN 15 mg/dL (7-18); CO2 24.4 mmol/L (21.0-32.0); CREATININE 0.93 mg/dL (0.55-1.02); Calcium 9.2 mg/dL (8.5-10.1); Chloride 108 mmol/L (98-107); Glucose 145 mg/dL (70-100); Magnesium 2.1 mg/dL (1.8-2.4); Potassium 3.9 mmol/L (3.5-5.1); Sodium 144 mmol/L (136-145)
--- NOTE | 2019-01-23 07:56 | PDOC.CMIN ---
- If Service Date Differs Date of service: 01/23/19 Time of Service: 07:56 Care Management Initial Assess REASON FOR HOSPITALIZATION:: Acute Low back pain PAST MEDICAL HISTORY/PAST SURGICAL HISTORY:: Medical History: Antinuclear factor positive (Chronic 09/22/16). BMI 40.0-44.9, adult (Chronic 09/03/15). Breast lump in female. Breast lump in lower inner quadrant (Resolved). Bronchitis. Candidiasis (Chronic). Chest pain in adult (Resolved). Closed fracture of body of calcaneus. Closed fracture of calcaneus (Resolved). Cough (Chronic 01/26/12). Cystocele with rectocele (Chronic). Delivery normal (Resolved). Depress. Diabetes mellitus (Chronic). Diarrhea (Resolved). Dysfunctional uterine bleeding (Resolved). Ectopic (Resolved). Elevated liver function tests (Resolved). Essential hypertension (Chronic 02/23/13). Family history of malignant neoplasm of breast (Chronic). Family hx-breast malignancy (Resolved). Fatigue (Resolved). Frequently sick (Chronic 09/15/16). GERD (gastroesophageal reflux disease). Hearing loss. History of ectopic (Resolved). Hypertension. Hypokalemia (Resolved 01/26/12). Hypothyroidism. IBS (irritable bowel syndrome). Irritable colon (Chronic). Mammogram abnormal (Resolved). Neck pain (Resolved). Neck pain (Chronic). Obesity, Class III, BMI 40-49.9 (morbid obesity). Otalgia of both ears (Resolved 04/30/17). Pneumonia. Pneumonia, organism unspecified (Resolved). Positive JENNIFER (antinuclear antibody) (Resolved). Rectocele. Reflux esophagitis (Chronic 12/26/13). Routine medical exam (Resolved). Sinus pressure (Resolved). Sinus pressure (Chronic 04/17/15). Upper back pain on right side (Chronic 11/17/16). Weakness (Resolved). Surgical History . Appendectomy (~1998). Cholecystectomy (~1989). Colonoscopy - MAC. EGD - MAC (03/10/14). EGD - MAC (08/05/16). H/O esophagogastroduodenoscopy (Resolved). Hysterectomy, Laproscopic. Oophrectomy, Right (~03/2011). , Ectopic (~1988). Reduction mammoplasty (~03/2013). S/P appendectomy (Resolved). S/P cholecystectomy (Resolved). S/P exploratory laparotomy (Resolved). S/P hysterectomy with oophorectomy (Resolved). S/P tonsillectomy and adenoidectomy (Resolved). Status post appendectomy (Resolved). Status post cholecystectomy (Resolved). Status post exploratory laparotomy (Resolved). Status post hysterectomy (Resolved). Status post oophorectomy (Resolved). Status post tonsillectomy and adenoidectomy (Resolved). Tonsillectomy and adenoidectomy (~1985) PREVIOUS FUNCTIONAL STATUS/SOCIAL/FAMILY SUPPORTS:: Carmenza lives in a single family home with her aristides Mayers in [place], [place]. They have 6 children and 2 grandchildren. 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 She is independent with all activities and care. She does wear hearing aides but requires no other assistive devices. CURRENT FUNCTIONAL STATUS:: Carmenza was sitting up in a chair whjen YING came to meet with her. Two earlier visits were postpned due to the physician, then the physical therapist neededing to see her. She appeared flushed but denied feeling so. Carmenza said her pain was a little better but was starting to increase at the time of the visit. She was due to receive pain medication, which the nurse brought while CM was present. Carmenza understands that she will have an MRI tomorrow and her plan of care will be formulated based on the results of that test. If she requires rehab, Carmenza expressed a desire to remain at [facility] [facility] in swing bed status. ADVANCE DIRECTIVES:: On file. RUPAL Rose Has patient been provided with information about the portal?: Yes Did the patient sign up for the portal?: Yes (previously) CODE STATUS:: Full Code INSURANCE COVERAGE / FINANCIAL ISSUES:: CALI MÉNDEZ CURRENT HOME/COMMUNITY SERVICES/EQUIPMENT:: none except hearing aides PRIMARY CARE PHYSICIAN:: Noy Frederick MD POTENTIAL DISCHARGE NEEDS:: Follow up with PCP and discharge plan of care PATIENT/FAMILY EDUCATION NEEDS:: Discharge plan, limitations, follow up and Ask Me Three. ANTICIPATED BARRIERS TO DISCHARGE:: unavailability of MRI on weekend TRANSPORTATION:: via private vehicle with family when ready PLAN:: Carmenza's discharge plan will be formulated once the MRI is complete and read. She will likely return home with no new services, but if surgery is required, that may change. CM will continue to provide support to patient, family and discharge planning process and identified needs.
[2019-01-23] MEDS: predniSONE 20 MG TAB 40 MG PO (08:06)
[2019-01-23] MEDS: Cyclobenzaprine 10 MG TAB PO ×3 (08:07→19:30)
[2019-01-23] MEDS: DULoxetine 30 MG CAP 60 MG PO (08:07)
[2019-01-23] MEDS: Gabapentin 100 MG CAP PO (08:07)
--- NOTE | 2019-01-23 09:51 | PHARADMIT ---
Addendum entered by La Acevedo 01/24/19 15:39: Pharmacy Note Subjective Pt. working with PT, MRI ordered today Objective VS-okay pain-5/10 Cl-108 BG-116 Assessment gabapentin dose increased from 200 to 300 mg TID some bowel meds ordered (now and scheduled) Plan pt. may be discharged or swing pending pain control, PT, and MRI results Original Note: Admission Pharmacy Clinical Review acute lower back pain due to disc herniation L4-L5 Code Status Full Code Current Weight 106.141 kg Renally Cleared and Narrow Therapeutic Index Meds Crcl ~80.3 mL/min using adjusted body weight QTc Value / Action Taken n/a BP Control, Fever BP 113/73 afebrile Electrolytes reviewed Cl 108 DVT Prophylaxis enoxaparin Opiate Usage / Scheduled Bowel Regimen Ordered prn/prn Plt/SCr for Heparin / Enoxaparin plt 212 SCr 0.93 INR for Warfarin n/a H/H stable, WBC/Bands h/h 12.9/38.5 wbc 5.37 Antibiotic appropriateness n/a Cultures and Sensitivities none Surgical ABX d/c within 24 hr n/a DM control / Insulin Dosing BG 145 none Heart Failure (Check EF%) (BRUNO's, B-Block, Diuretics) none IV to PO Switch n/a Home Meds Reviewed -multiple WOOL BRUSHER depressing meds-azelastine, fexofenadine, topiramate -multivitamin may increase the serum concentration of sucralfate (specifically the absorption of aluminum, increasing risk of toxicity). Avoid chronic/excessive use of aluminum containing products in pts taking multivitamins containing vitamin D; watch for toxicity -separate admin of levothroxine, multivitamin, and calcium w/vitD Home Meds Not Ordered albuterol, celecoxib, fluconazole, rifaxamin, spironolactone Comments pain much improved this morning, plan is to transition to PO pain meds today MRI tomorrow possible discharge tomorrow
--- NOTE | 2019-01-23 10:28 | W.PM.PROGNOT ---
Date of Service Date of service: 01/23/19 Time of Service: 10:29 Assessment and Plan (1) Acute low back pain with possible spinal stenosis of less than six weeks' duration: Current visit: Yes Status: Acute CT with L3-L4 stenosis. Awaiting MRI of lumbar spine (planned for tomorrow). Undergoing PT eval now. Continue to monitor bladder scans - no significant retention reported so far. Will start transitioning to PO pain meds - Carmenza states she has tolerated hydrocodone before, though it made her sleepy. Will decrease IV dilaudid and try PO pain meds first. Continue tylenol, IV toradol, smaller dose of dilaudid prn, lidoderm patches, flexeril, increase neurontin. If needed, Carmenza agrees to stay here in a swing bed status. Provide incentive spirometry. (2) Ambulatory dysfunction: Current visit: Yes Status: Acute Await PT/OT evaluations. (3) Left knee pain: Current visit: No Status: Chronic Chronic - follows with PT. Follow up with Dr Roca on 01/26. . (4) Hypocalcemia: Current visit: Yes Status: Resolved Decrease calcium and vitamin D supplements. (5) Diabetes mellitus: Current visit: No Status: Chronic Non-insulin dependent. Continue carb consistent diet while in the hospital. Not requiring insulin so far. (6) Reflux esophagitis: Current visit: No Status: Chronic Continue home PPI, H2 dinora, carafate. (7) Hypothyroidism: Current visit: No Status: Chronic Continue synthroid (8) DVT prophylaxis: Current visit: Yes Status: Acute lovenox (9) Discharge planning issues: Current visit: Yes Status: Acute Full code Continue to monitor in observation status at this time Subjective Interval history since last seen: Ms Esquivel states she feels better today - more comfortable. She is able to move more in bed, but states she does not think she can get up on her own. She is about to undergo PT eval when I came to evaluate her. Denies dizziness, chest pain, shortness of breath. Has had some nausea. No vomiting. Passing flatus. C/o dry mouth. Exam Narrative Exam Narrative: General: Very pleasant middle-aged female, A&Ox3, looks more comfortable today HEENT: EOMI, dry MM Cardiovascular: RRR, no m/r/g Lungs: coarse breath sounds B Gastrointestinal: abdomen is soft, per patient uncomfortable in suprapubic region, nondistended Extremities: no e/c/c BLE's, able to move both feet in bed Objective Objective Clinical Data: Abnormal lab results 01/22/19 01/23/19 Range/Units 12:06 07:10 Chloride 108 H 108 H (98-107) mmol/L Anion Gap 11.6 H (3-11) mmol/L Glucose 115 H 145 H (70-100) mg/dL Calcium 7.2 L (8.5-10.1) mg/dL AST 14 L (15-37) U/L Albumin 3.3 L (3.4-5.0) g/dL Vital Signs Temperature 36.0 C L 01/23/19 07:12 Temperature Source Tympanic 01/23/19 07:12 Pulse 75 01/23/19 07:12 Pulse Rhythm Regular 01/23/19 03:51 Respiratory Rate 19 01/23/19 07:12 Respiratory Effort Non-Labored 01/23/19 03:51 Respiratory Depth Normal 01/23/19 03:51 Respiratory Pattern Normal 01/23/19 03:51 Blood Pressure 113/73 01/23/19 07:12 Blood Pressure Mean 82 01/22/19 13:39 Blood Pressure Position Supine 01/22/19 11:18 Pulse Oximetry 96 01/23/19 07:12 Oxygen Delivery Method Room Air 01/23/19 07:12 Oxygen Flow Rate 0 01/23/19 07:12 Pain Level 6 01/23/19 07:12 Intake & Output 01/22/19 01/22/19 01/23/19 11:59 23:59 11:59 Intake Total 480 / 480 3095.0 / 3095.0 Output Total 600 / 600 2099 / 2099 Balance -120 / -120 995.0 / 995.0 Weight 106.141 kg 106.141 kg Intake: IV 2645.0 / 2645.0 Oral 480 / 480 450 / 450 Output: Urine 600 / 600 2099 Other: Urine Color Yellow Yellow Urine Appearance Clear Clear Comment pt voided 400ml 30-45 min early Voided 250 prior Voiding Methods Bedside Commode Bedside Commode Laboratory Results WBC 5.37 k/cumm (4.4-10.8) 01/22/19 12:06 RBC 4.31 m/cumm (4.00-5.20) 01/22/19 12:06 Hgb 12.9 g/dL (12.0-15.5) 01/22/19 12:06 Hct 38.5 % (36.0-46.0) 01/22/19 12:06 MCV 89.3 fL (80-95) 01/22/19 12:06 MCH 29.9 pg (27.0-33.0) 01/22/19 12:06 MCHC 33.5 g/dL (32.0-36.0) 01/22/19 12:06 RDW 14.2 % (11.7-14.6) 01/22/19 12:06 Plt Count 212 x1000/uL (130-400) 01/22/19 12:06 MPV 8.8 fL (8.0-11.0) 01/22/19 12:06 Immature Gran % 0.4 01/22/19 12:06 52.5 01/22/19 12:06 35.9 01/22/19 12:06 8.2 01/22/19 12:06 2.4 01/22/19 12:06 0.6 01/22/19 12:06 Absolute Neutrophils 2.82 k/cumm (1.2-6.7) 01/22/19 12:06 Absolute Lymphocytes 1.93 k/cumm (1.2-3.4) 01/22/19 12:06 Absolute Monocytes 0.44 k/cumm (0.11-0.7) 01/22/19 12:06 Absolute Eosinophils 0.13 k/cumm (0.0-0.7) 01/22/19 12:06 Absolute Basophils 0.03 k/cumm (0.0-0.2) 01/22/19 12:06 Sodium 144 mmol/L (136-145) 01/23/19 07:10 Potassium 3.9 mmol/L (3.5-5.1) 01/23/19 07:10 Chloride 108 mmol/L (98-107) H 01/23/19 07:10 Carbon Dioxide 24.4 mmol/L (21.0-32.0) 01/23/19 07:10 11.6 mmol/L (3-11) H 01/23/19 07:10 BUN 15 mg/dL (7-18) 01/23/19 07:10 0.93 mg/dL (0.55-1.02) 01/23/19 07:10 >= 60.00 (mL/min/1.73m2) 01/23/19 07:10 Glucose 145 mg/dL (70-100) H 01/23/19 07:10 Calcium 9.2 mg/dL (8.5-10.1) 01/23/19 07:10 Magnesium 2.1 mg/dL (1.8-2.4) 01/23/19 07:10 0.2 mg/dL (0.2-1.0) 01/22/19 12:06 AST 14 U/L (15-37) L 01/22/19 12:06 ALT 30 U/L (14-59) 01/22/19 12:06 47 U/L (46-116) 01/22/19 12:06 6.9 g/dL (6.4-8.2) 01/22/19 12:06 3.3 g/dL (3.4-5.0) L 01/22/19 12:06 Yellow (Yellow) 01/22/19 13:10 Clear (Clear) 01/22/19 13:10 7.0 (5-8) 01/22/19 13:10 Ur Specific [place] 1.015 (1.005-1.025) 01/22/19 13:10 Negative mg/dL (Negative) 01/22/19 13:10 Negative mg/dL (Negative) 01/22/19 13:10 Negative (Negative) 01/22/19 13:10 Negative (Negative) 01/22/19 13:10 Negative (Negative) 01/22/19 13:10 0.2 EU/dL (Up TO 0.2) 01/22/19 13:10 Ur Leukocyte Esterase Negative (Negative) 01/22/19 13:10 Negative mg/dL (Negative) 01/22/19 13:10
[2019-01-23 11:10] VITALS: BP 114/72; PULSE 77; RESP 18; TEMP 36.4; O2SAT 97
--- NOTE | 2019-01-23 11:18 | IN_ITS ---
Date of service: 01/23/19 Time of Service: 10:00 PT Notes Inpatient Physical Therapy Evaluation Date: 01/03/2019 Referring Doctor: Roseanne Robles MD PT Orders: PT CONSULT: Eval and treat Precautions: None/standard Patient Profile/Admitting Diagnosis: Patient admitted for management of acute low back pain, with episode of incontinence, after bending forward and picking up laundry detergent on 01/21/2019. She presented to the ER, via EMS. CT scan identifying L3-4 mild spinal stenosis, and multilevel severe degenerative changes. Awaiting MRI on Thursday. Premorbid level of function: WNL PMHX: Medical History Antinuclear factor positive (Chronic 09/22/16) BMI 40.0-44.9, adult (Chronic 09/03/15) Breast lump in female Breast lump in lower inner quadrant (Resolved) Bronchitis Candidiasis (Chronic) Chest pain in adult (Resolved) Closed fracture of body of calcaneus Closed fracture of calcaneus (Resolved) Cough Cough (Chronic 01/26/12) Cystocele Cystocele with rectocele (Chronic) Delivery normal (Resolved) Depression Depressive disorder (Resolved) Depressive disorder (Chronic) Diabetes Diabetes mellitus (Chronic) Diabetes mellitus (Inactive 02/14/14) Diarrhea (Resolved) Dysfunctional uterine bleeding (Resolved) Ectopic (Resolved) Elevated liver function tests (Resolved) Elevated liver function tests (Resolved 01/24/14) Essential hypertension (Chronic 02/23/13) Family history of malignant neoplasm of breast (Chronic) Family hx-breast malignancy (Resolved) Fatigue (Resolved) Frequently sick (Chronic 09/15/16) GERD (gastroesophageal reflux disease) Hearing loss Hearing problem (Chronic) History of ectopic (Resolved) Hypertension Hypokalemia (Resolved 01/26/12) Hypothyroidism Hypothyroidism (Chronic) IBS (irritable bowel syndrome) Irritable colon (Chronic) Mammogram abnormal (Resolved) Neck pain (Resolved) Neck pain (Chronic) Obesity, Class III, BMI 40-49.9 (morbid obesity) Otalgia of both ears (Resolved 04/30/17) Pneumonia Pneumonia, organism unspecified (Resolved) Positive JENNIFER (antinuclear antibody) (Resolved) Rectocele Reflux esophagitis (Chronic 12/26/13) Routine medical exam (Resolved) Sinus pressure (Resolved) Sinus pressure (Chronic 04/17/15) Upper back pain on right side (Chronic 11/17/16) Weakness (Resolved) Surgical History Appendectomy (~1998) Cholecystectomy (~1989) Colonoscopy - MAC EGD - MAC (03/10/14) EGD - MAC (08/05/16) H/O esophagogastroduodenoscopy (Resolved) Hysterectomy, Laproscopic Oophrectomy, Right (~03/2011) , Ectopic (~1988) Reduction mammoplasty (~03/2013) S/P appendectomy (Resolved) S/P cholecystectomy (Resolved) S/P exploratory laparotomy (Resolved) S/P hysterectomy with oophorectomy (Resolved) S/P tonsillectomy and adenoidectomy (Resolved) Status post appendectomy (Resolved) Status post cholecystectomy (Resolved) Status post exploratory laparotomy (Resolved) Status post hysterectomy (Resolved) Status post oophorectomy (Resolved) Status post tonsillectomy and adenoidectomy (Resolved) Tonsillectomy and adenoidectomy (~1985) Social History/Home Situation: 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 She is and lives in a private home. Home environment not discussed at this time. Current Functional Limitations: Requires close supervision with all sit to stand and in room ambulation activities, she is unable to ambulate without use of walker to decompress her back. Requires assist for bed bed mobility. Requires use of head of bed elevation and handrail, to transfer out of bed. Required assist with toileting hygiene. Equipment Owned/DME: None Subjective: She had severe pain at the time and was unable to ambulate. She was able to get herself to bed, and when attempting to get up to go to the bathroom, she was incontinent. She is unsure because of a neurological incontinence, or because of her pain level. Due to her pain level she had to call EMS for transportation to the ER. She states her pain is less now with pain medication of Dilaudid, Flexeril, and gabapentin. She has been undergoing outpatient PT for management of left knee pain, status post a fall. Objective: General Observation: Lying in hospital bed, IV right arm. Head of bed elevated about 45 degrees. She appears uncomfortable. Mental Status: A& O x3 Pain: 4/10, increasing to 6/10 after bed mobility and rising to her feet. Vital Signs: 113/73 BP, 91% room air, HR 73. ROM: Right Upper Extremity: WNL Left Upper Extremity: WNL Right Lower Extremity: WNL Left Lower Extremity: Left knee limited to about 100 degrees of flexion secondary to pain, otherwise WNL. Lumbar spine: Unable to tolerate any motions due to severe back pain. Strength: Bilateral Upper Extremity: Defer muscle testing with resistance, but appears WNL. Defer resistance as to not exacerbate strain to low back, due to her high pain level. Bilateral Lower Extremity: Appears within functional limits, but weak due to strain on low back with LE active movements. Core: weak Sensation: WNL Bed Mobility/Transfers: Mod assist x1, from side-lying to edge of bed, with head of bed at 45 degree angle. Mod assist x1, for bed mobility. Close supervision sit to stand at walker, and vice versa. Close supervision for sit to stand commode, max assist for hygiene. Close supervision sit to loader magazine grinder recliner chair, and max assist for position of recliner chair. Gait: 5 feet x 3, RW, short stride length, very slow speed due to pain, close supervision. Utilizes upper extremities to decompress her back. Balance: All below is poor, due to pain level. Static Sitting: [] Dynamic Sitting: [] Static Standing: [] Dynamic Standing: [] Special Tests: Mobility Limitations Standardized Measure [facility] AM-PAC 6 clicks Basic Mobility Inpatient Short Form: Raw Score: [] Standardized Score: [] CMS Score: 61% disability CMS Modifier: [] Informed Consent/Education: Patient instructed in purpose of PT consult and plan of care. Assessment: Patient is a 58 year old female referred to physical therapy services with the diagnosis of acute low back pain. Patient presents with clinical signs and symptoms consistent with acute low back pain in the presence of CT confirmed severe degenerative changes and mild spinal stenosis. Awaiting MRI on Thursday. Patient demonstrates the following impairment level findings: Limited lumbar range of motion, core and lower extremity weakness, soft tissue tenderness at the lumbosacral region, and poor pelvic muscle.. Impairments are contributing to the following functional limitations: Unable to ambulate at premorbid level, cannot perform any bed mobility or transfers at premorbid level, and needs assist, needs assist with hygiene activities, cannot tolerate lengthy weightbearing as compared to premorbid level. Cannot carry out her occupational dties. AMPA score 61% disability. Patient is assessed as a Low 28761 x Moderate 63491 High 07438 complexity based on the following: History: See comorbidites Examination: See above impairments and functional limitations Presentation: Evolving Decision Making: Moderate Goals: Goals X1 week 1. Supine-Sit I 2. Sit-Supine I 3. Sit-Stand I, with RW 4. Stand-Sit I, with RW 5. Bed-Chair I, with RW 6. Chair-Bed I, RW 7. Gait 30 ft with RW 8. Stairs 3 with rail 9. Independent with home exercise program 10. Balance Fair Plan of Care/Treatment Plan: 1-2x/day, 7 days/week x 1 week. Plan of care has been reviewed with the [employer] providing the service under Physical Therapy direction. Initiate Physical Therapy intervention for strengthening, bed mobility, transfers, gait, stairs, balance training, use of assistive device. DISCHARGE RECOMMENDATIONS: Home with family assist, outpatient PT. Walker if pain demands to decompress her back, for pain manamgement, with ambulatory activities. TREATMENT CODE/TIME: 40 minutes, [id number]
[2019-01-23] MEDS: HYDROcodone 10/Acetaminophen 325 TAB PO ×3 (12:20→22:53)
[2019-01-23] MEDS: Normal Saline Flush 10 ML SYR IVP ×3 (12:21→17:34)
[2019-01-23] MEDS: Lidocaine 5% Patch 1 PATCH TP (12:22)
[2019-01-23] MEDS: SODIUM CHLORIDE 0.45% 1,000 ML 150 ML IV ×2 (12:22→19:31)
[2019-01-23] MEDS: HYDROmorphone 2 MG/ML VIAL 0.5 MG IVP (13:53)
[2019-01-23] MEDS: Enoxaparin 40 MG/0.4 ML SYR SC (13:53)
[2019-01-23] MEDS: Gabapentin 100 MG CAP 200 MG PO ×2 (13:54→19:30)
[2019-01-23 16:09] VITALS: BP 121/72; PULSE 80; RESP 18; TEMP 36.8; O2SAT 94
[2019-01-23] MEDS: Docusate Sodium 100 MG CAP PO (19:30)
[2019-01-23] MEDS: Calcium 600mg/Vit D 200U TAB 2 TAB PO (19:30)
[2019-01-23] MEDS: Multivitamin w/Minerals TAB 1 TAB PO (19:30)
[2019-01-23 19:48] VITALS: BP 116/83; PULSE 79; RESP 18; TEMP 37.1; O2SAT 94
[2019-01-23] MEDS: Montelukast 10 MG TAB PO (22:53)
[2019-01-23] MEDS: Oxybutynin-CR 5 MG TABCR 10 MG PO (22:54)
[2019-01-23] MEDS: Fexofenadine 180 MG TAB PO (22:54)
[2019-01-23] MEDS: Topiramate 50 MG TAB PO (22:54)
[2019-01-24] MEDS: Patch Removal 1 EACH TD (00:12)
[2019-01-24 02:05] VITALS: BP 129/77; PULSE 64; RESP 18; TEMP 36.4; O2SAT 97
[2019-01-24] MEDS: SODIUM CHLORIDE 0.45% 1,000 ML 150 ML IV ×4 (02:22→22:43)
[2019-01-24] MEDS: HYDROcodone 10/Acetaminophen 325 TAB PO ×2 (06:07→10:51)
[2019-01-24] MEDS: Ketorolac 30 MG/ML VIAL IVP ×4 (06:07→23:48)
[2019-01-24 07:06] LABS: Anion Gap 10.5 mmol/L (3-11); BUN 18 mg/dL (7-18); CO2 25.5 mmol/L (21.0-32.0); CREATININE 1.02 mg/dL (0.55-1.02); Chloride 108 mmol/L (98-107); Estimated GFR 56.06 (mL/min/1.73m2); Glucose 116 mg/dL (70-100); Potassium 3.6 mmol/L (3.5-5.1); Sodium 144 mmol/L (136-145)
[2019-01-24 07:25] VITALS: BP 144/80; PULSE 69; RESP 17; TEMP 36.4; O2SAT 97
--- NOTE | 2019-01-24 08:00 | DI.MRI_ITS ---
SYMPTOMS/DIAGNOSIS: LUMBAR BACK PAIN, L3-L4 SPONDYLOLISTHESIS MRI OF THE LUMBAR SPINE: Comparison is made with CT of the lumbar spine dated . T 1, T 2 and STIR sagittal, T 1 coronal and T 1 and T 2 axial sequences were performed. The marrow signal is normal. The conus medullaris appears intact. The aorta is normal in diameter. There are small Schmorl's nodes seen in the lower thoracic region and at L 1 - 2. There is minimal disc bulging at these levels. At L 3 - 4, there is mild loss of disc height which is greatest on the right side. There is disc bulging which is also somewhat eccentric toward the right. There is moderate right neural foraminal encroachment. There are facet degenerative changes and mild ligamentous hypertrophic which combine with the disc bulging to cause a mild degree of central canal stenosis. At L 4 - 5, there are facet degenerative changes causing slight spondylolisthesis. There is slight disc bulging. There is no significant central canal stenosis. There is mild left neural foraminal narrowing. At L 5 - S 1, there is mild disc bulging. There is no neural foraminal narrowing or central canal stenosis. IMPRESSION: Degenerative disc changes and facet degenerative changes cause mild central canal stenosis and right neural foraminal narrowing at L 3 - 4. Mild neural foraminal narrowing is seen on the left at L 4 - 5.
[2019-01-24] MEDS: DULoxetine 30 MG CAP 60 MG PO (08:31)
[2019-01-24] MEDS: Cyclobenzaprine 10 MG TAB PO ×3 (08:31→21:16)
[2019-01-24] MEDS: Esomeprazole 40 MG CAPCR PO (08:31)
[2019-01-24] MEDS: predniSONE 20 MG TAB 40 MG PO (08:32)
[2019-01-24] MEDS: Gabapentin 100 MG CAP 200 MG PO ×2 (08:32→14:35)
[2019-01-24] MEDS: Docusate Sodium 100 MG CAP PO ×2 (08:49→21:16)
[2019-01-24] MEDS: Milk of Magnesia 30 ML CUP PO (09:16)
[2019-01-24] MEDS: Polyethylene Glycol 3350 17 GM PACKET PO (10:38)
[2019-01-24 11:30] VITALS: BP 124/76; PULSE 80; RESP 18; TEMP 36.9; O2SAT 95
[2019-01-24] MEDS: HYDROmorphone 2 MG/ML VIAL 0.5 MG IVP (11:45)
--- NOTE | 2019-01-24 12:47 | OT.INIE ---
Occupational Therapy Notes Inpatient Occupational Therapy Evaluation Date: 01/24/19 Referring Doctor:Roseanne Robles MD OT Orders: Eval and Treat Precautions: Standard PATIENT PROFILE/ADMITTING DIAGNOSIS: Pt is a 58 year old female who was admitted to [facility] through the ER for management of acute low back pain,episode of incontinence when bending forward and picking up laundry detergent on 01/21/2019. Past Medical History: Antinuclear factor positive (Chronic 09/22/16) BMI 40.0-44.9, adult (Chronic 09/03/15) Breast lump in female Breast lump in lower inner quadrant (Resolved) Bronchitis Candidiasis (Chronic) Chest pain in adult (Resolved) Closed fracture of body of calcaneus Closed fracture of calcaneus (Resolved) Cough Cough (Chronic 01/26/12) Cystocele Cystocele with rectocele (Chronic) Delivery normal (Resolved) Depression Depressive disorder (Resolved) Depressive disorder (Chronic) Diabetes Diabetes mellitus (Chronic) Diabetes mellitus (Inactive 02/14/14) Diarrhea (Resolved) Dysfunctional uterine bleeding (Resolved) Ectopic (Resolved) Elevated liver function tests (Resolved) Elevated liver function tests (Resolved 01/24/14) Essential hypertension (Chronic 02/23/13) Family history of malignant neoplasm of breast (Chronic) Family hx-breast malignancy (Resolved) Fatigue (Resolved) Frequently sick (Chronic 09/15/16) GERD (gastroesophageal reflux disease) Hearing loss Hearing problem (Chronic) History of ectopic (Resolved) Hypertension Hypokalemia (Resolved 01/26/12) Hypothyroidism Hypothyroidism (Chronic) IBS (irritable bowel syndrome) Irritable colon (Chronic) Mammogram abnormal (Resolved) Neck pain (Resolved) Neck pain (Chronic) Obesity, Class III, BMI 40-49.9 (morbid obesity) Otalgia of both ears (Resolved 04/30/17) Pneumonia Pneumonia, organism unspecified (Resolved) Positive JENNIFER (antinuclear antibody) (Resolved) Rectocele Reflux esophagitis (Chronic 12/26/13) Routine medical exam (Resolved) Sinus pressure (Resolved) Sinus pressure (Chronic 04/17/15) Upper back pain on right side (Chronic 11/17/16) Weakness (Resolved) Surgical History Appendectomy (~1998) Cholecystectomy (~1989) Colonoscopy - MAC EGD - MAC (03/10/14) EGD - MAC (08/05/16) H/O esophagogastroduodenoscopy (Resolved) Hysterectomy, Laproscopic Oophrectomy, Right (~03/2011) , Ectopic (~1988) Reduction mammoplasty (~03/2013) S/P appendectomy (Resolved) S/P cholecystectomy (Resolved) S/P exploratory laparotomy (Resolved) S/P hysterectomy with oophorectomy (Resolved) S/P tonsillectomy and adenoidectomy (Resolved) Status post appendectomy (Resolved) Status post cholecystectomy (Resolved) Status post exploratory laparotomy (Resolved) Status post hysterectomy (Resolved) Status post oophorectomy (Resolved) Status post tonsillectomy and adenoidectomy (Resolved) Tonsillectomy and adenoidectomy (~1985) Social History/Home Situation: Carmenza lives in a private home with her . They have 6 children all together. 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 Prior to admission she was (I) in all aspects of ADLs/IADLs. She has a tub/shower at home which she stands for bathing. She has a regular toilet and is currently (I) with driving. She is able to perform her ADLs in both sitting and standing at baseline. She has been seeing a physical therapist in the outpatient setting for her (L) knee currently. Equipment owned/DME: None SUBJECTIVE: Pt was lying in bed when OT arrived. She was agreeable to OT session and states that her current pain is about a 4/10 after taking pain medication. OBJECTIVE: General Observation: Pleasant and answers questions appropriately. She has an IV in her (R) UE. Mental Status: A&Ox4 Pain: 4/10 pain in lower back. ROM: RUE AROM WNL L UE AROM WNL STRENGTH: RUE Shoulder flexion 4/5, bicep 4+/5, tricep 4-/5, patternmaker apprentice metal is strong and symmetrical LUE Shoulder flexion 4/5, bicep 4+/5, tricep 4-/5, patternmaker apprentice metal is strong and symmetrical FUNCTIONAL MOBILITY/ADLS: Transfers Supine-sit min (A) Sit-supine Mod (A) Sit-Stand SBA Stand-sit SBA BATHING sitting on side of the bed with max (A) set up Bathing UE (I) face, (B) UE and abdomen Bathing LE (I) mick area with min (A) drying buttock, max (A) (B) LE and feet DRESSING Sitting on side of bed Dressing UE (I) don and doffing hospital gown Dressing LE max (A) don and doffing (B) socks GROOMING NT TOILETING NT EATING NT BALANCE: Static sitting Good Dynamic Sitting Fair Static Standing Good Dynamic Standing Fair SPECIAL TESTS: Daily Activity Limitations Standardized Measure [facility] AM -PAC ?6 clicks? Daily Activity Inpatient Short Form: Raw score: 20 INFORMED CONSENT/EDUCATION: Pt instructed in purpose of OT Consult and plan of care. ASSESSMENT: Patient is a 58-year-old female referred to occupational therapy services with diagnosis of management of acute low back pain,episode of incontinence when bending forward and picking up laundry detergent on 01/21/2019. Patient presents with clinical signs and symptoms consistent with dx, as demonstrated by the following impairment level findings/functional limitations: Pain with any functional mobility, decreased gross motor control of (B) LE, decreased (I) in ADL/IADL routines, decreased functional activity tolerance, decreased functional use of (B) LE, unable to perform ADLs in the sitting position, decreased core and LE functional control during ADLs. AMPAC score 20 Patient is assessed as a Moderate 18696 complexity based on the following: History: See Above Examination: See Above Presentation: Evolving Decision Making: AMPAC score 20 GOALS Goals x1 week 1. Transfers- (S) 2. Dressing- Sitting on side of bed pt will be (I) with don and doffing (B) LE socks and shoes, pants and underwear 3. Bathing- Sitting on side of bed pt will be (A) with bathing LE , standing at sink pt will be (I) with bathing UE. 4. Toileting- on toilet (I) 5. Eating- (I) 6. Grooming- pt will be able to stand at sink (I) and brush her teeth and hair. PLAN OF CARE/TREATMENT PLAN: 1x/day, 5 days/ week x 1week Initiate Occupational Therapy Services for bathing, dressing, grooming, toileting, eating, transfer training. DISCHARGE RECOMMENDATIONS Home with HHOT vs. possible Short term stay at SNF based on pts increased pain and decreased functional (I) in ADLs/IADL routines. OT recommends that pt follow up with Physical Therapist in outpatient for rehabilitation. TREATMENT TIME/MINUTES/CODES 12260, [id number], 45 minutes (06:45) Trang Ramesh OTR/[facility]
[2019-01-24] MEDS: Lidocaine 5% Patch 1 PATCH TP ×2 (13:12→17:13)
[2019-01-24] MEDS: Normal Saline Flush 10 ML SYR IVP ×2 (13:12→23:48)
[2019-01-24] MEDS: Enoxaparin 40 MG/0.4 ML SYR SC (14:35)
[2019-01-24] MEDS: HYDROcodone 5/Acetaminophen 325 TAB PO (14:41)
--- NOTE | 2019-01-24 14:56 | CHAPLAIN ---
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 I checked in with her a couple of times to today. She was having pain this morning, but didn't seem so challenged by pain this afternoon. Bob was with her this afternoon, as she waits for the result of the MRI. I'll continue to visit.
[2019-01-24] MEDS: Senna TAB 1 TAB PO ×2 (15:23→21:16)
--- NOTE | 2019-01-24 15:50 | PT.INTREAT ---
Date of service: 01/24/19 Time of Service: 15:50 PT Notes Inpatient Physical Therapy Treatment Note [facility] Date: 01/24/19 PRECAUTIONS: Back pain SUBJECTIVE: Carmenza is agreeable to participating in PT, although she reports that she experiences an increase in back pain with transfers. She reports that she has attempted logroll transfer, reporting that it takes her significantly more time to perform the supine<> sit transfer this way, therefore it increases her pain significantly. OBJECTIVE: PAIN: Patient complained of back pain with transfers BED MOBILITY/TRANSFERS Sit?supine: Mod A of B LE Sit-stand: S Stand-sit: S GAIT Assistive Device: FWW Weight bearing: Full Assist: SBA Distance: 5' in a.m.; 20' +10' in p.m. Deviation: Decreased jose THEREX: Patient completed ankle pumping and circles exercises in a seated position. TOILETING: Patient toileted independently ASSESSMENT: Patient tolerated a progression in gait distance demonstrating slow pace with use of FWW. Patient demonstrates significant pain increase with transfers. PLAN: Continue with PTs POC TREATMENT CODE/TIME: 25 minutes total time; 09286 x2
--- NOTE | 2019-01-24 16:26 | W.PM.PROGNOT ---
Date of Service Date of service: 01/24/19 Time of Service: 16:26 Assessment and Plan (1) Acute low back pain with possible spinal stenosis of less than six weeks' duration: Current visit: No Status: Acute Mild stenosis at L3-L4 and L4-5. No evidence of cord impingement. Even though the patient complains of several episodes of urinary incontinence, her bladder scans have been low - I think her incontinence is due to her pain response. Increase PO norco and neurontin. Intensify bowel regimen. Continue tylenol, IV toradol, IV dilaudid prn, lidoderm patches, flexeril. Encourage IS. Continue PT/OT. Will likely need to be in swing bed status - will likely transition tomorrow. (2) Ambulatory dysfunction: Current visit: No Status: Acute As above - would benefit from swing bed stay for more PT. (3) Left knee pain: Current visit: No Status: Chronic Chronic - follows with PT. Follow up with Dr Roca on 01/26. (4) Hypocalcemia: Current visit: No Status: Resolved Continue calcium and vitamin D supplements. (5) Diabetes mellitus: Current visit: No Status: Chronic Non-insulin dependent. Continue carb consistent diet while in the hospital. Not requiring insulin. (6) Reflux esophagitis: Current visit: No Status: Chronic Continue home PPI, H2 dinora, carafate. (7) Hypothyroidism: Current visit: No Status: Chronic Continue synthroid (8) DVT prophylaxis: Current visit: No Status: Acute lovenox (9) Discharge planning issues: Current visit: No Status: Acute Full code Admit to inpatient status Subjective Interval history since last seen: Carmenza states that her pain is slowly getting better, but it is really painful to change position. We talked about increasing her pain medications - and she agrees. She continues to report significant muscle spasms and pain radiating to the right lower back as well as both her posterior legs. She denies dizziness, chest pain, shortness of breath, nausea. Still no BM - she started taking colace, took miralax, and requests a prn suppository. She has not been able to sleep well. Exam Narrative Exam Narrative: General: Very pleasant middle-aged female, A&Ox3, seen trying to get into a stretcher after walking - in excruciating pain HEENT: EOMI, dry MM, ? mild goiter Lungs: nonlabored breathing Gastrointestinal: abdomen is soft, nondistended Extremities: no e/c/c BLE's, able to move both feet in bed Objective Objective Clinical Data: Abnormal lab results 01/24/19 Range/Units 06:15 Chloride 108 H (98-107) mmol/L Glucose 116 H (70-100) mg/dL Vital Signs Temperature 36.9 C 01/24/19 11:30 Temperature Source Tympanic 01/24/19 11:30 Pulse 80 01/24/19 11:30 Pulse Rhythm Regular 01/24/19 14:51 Respiratory Rate 18 01/24/19 11:30 Respiratory Effort Non-Labored 01/24/19 14:51 Respiratory Depth Normal 01/24/19 14:51 Respiratory Pattern Normal 01/24/19 14:51 Blood Pressure 124/76 01/24/19 11:30 Blood Pressure Mean 82 01/22/19 13:39 Blood Pressure Position Supine 01/22/19 11:18 Pulse Oximetry 95 01/24/19 11:30 Oxygen Delivery Method Room Air 01/24/19 11:30 Oxygen Flow Rate 0 01/24/19 11:30 Pain Level 5 01/24/19 14:41 Comment 01/23/19 19:48 Intake & Output 01/23/19 01/24/19 01/24/19 23:59 11:59 23:59 Intake Total 1000 / 4852.5 3385 / 3865 480 / 3865 Output Total 800 / 3600 46 / 46 Balance 200 / 1252.5 3385 / 3819 434 / 3819 Intake: IV 1000 / 4402.5 1965 / 1965 Oral 1420 / 1900 480 / 1900 Output: Urine 800 / 3600 Post Void Residual 46 / 46 Other: Urine Color Yellow Yellow Urine Appearance Clear Clear Urine Odor Normal Normal Comment Indendent while in bathroom. Voiding Methods Toilet Toilet Toilet Laboratory Results WBC 5.37 k/cumm (4.4-10.8) 01/22/19 12:06 RBC 4.31 m/cumm (4.00-5.20) 01/22/19 12:06 Hgb 12.9 g/dL (12.0-15.5) 01/22/19 12:06 Hct 38.5 % (36.0-46.0) 01/22/19 12:06 MCV 89.3 fL (80-95) 01/22/19 12:06 MCH 29.9 pg (27.0-33.0) 01/22/19 12:06 MCHC 33.5 g/dL (32.0-36.0) 01/22/19 12:06 RDW 14.2 % (11.7-14.6) 01/22/19 12:06 Plt Count 212 x1000/uL (130-400) 01/22/19 12:06 MPV 8.8 fL (8.0-11.0) 01/22/19 12:06 Immature Gran % 0.4 01/22/19 12:06 52.5 01/22/19 12:06 35.9 01/22/19 12:06 8.2 01/22/19 12:06 2.4 01/22/19 12:06 0.6 01/22/19 12:06 Absolute Neutrophils 2.82 k/cumm (1.2-6.7) 01/22/19 12:06 Absolute Lymphocytes 1.93 k/cumm (1.2-3.4) 01/22/19 12:06 Absolute Monocytes 0.44 k/cumm (0.11-0.7) 01/22/19 12:06 Absolute Eosinophils 0.13 k/cumm (0.0-0.7) 01/22/19 12:06 Absolute Basophils 0.03 k/cumm (0.0-0.2) 01/22/19 12:06 Sodium 144 mmol/L (136-145) 01/24/19 06:15 Potassium 3.6 mmol/L (3.5-5.1) 01/24/19 06:15 Chloride 108 mmol/L (98-107) H 01/24/19 06:15 Carbon Dioxide 25.5 mmol/L (21.0-32.0) 01/24/19 06:15 10.5 mmol/L (3-11) 01/24/19 06:15 BUN 18 mg/dL (7-18) 01/24/19 06:15 1.02 mg/dL (0.55-1.02) 01/24/19 06:15 56.06 (mL/min/1.73m2) 01/24/19 06:15 Glucose 116 mg/dL (70-100) H 01/24/19 06:15 Calcium 9.0 mg/dL (8.5-10.1) 01/24/19 06:15 Magnesium 2.0 mg/dL (1.8-2.4) 01/24/19 06:15 0.2 mg/dL (0.2-1.0) 01/22/19 12:06 AST 14 U/L (15-37) L 01/22/19 12:06 ALT 30 U/L (14-59) 01/22/19 12:06 47 U/L (46-116) 01/22/19 12:06 6.9 g/dL (6.4-8.2) 01/22/19 12:06 3.3 g/dL (3.4-5.0) L 01/22/19 12:06 Yellow (Yellow) 01/22/19 13:10 Clear (Clear) 01/22/19 13:10 7.0 (5-8) 01/22/19 13:10 Ur Specific [place] 1.015 (1.005-1.025) 01/22/19 13:10 Negative mg/dL (Negative) 01/22/19 13:10 Negative mg/dL (Negative) 01/22/19 13:10 Negative (Negative) 01/22/19 13:10 Negative (Negative) 01/22/19 13:10 Negative (Negative) 01/22/19 13:10 0.2 EU/dL (Up TO 0.2) 01/22/19 13:10 Ur Leukocyte Esterase Negative (Negative) 01/22/19 13:10 Negative mg/dL (Negative) 01/22/19 13:10 MRI Lumbar spine: Degenerative disc changes and facet degenerative changes cause mild central canal stenosis and right neural foraminal narrowing at L 3 - 4. Mild neural foraminal narrowing is seen on the left at L 4 - 5.
--- NOTE | 2019-01-24 16:35 | CMPROGNOTE_ITS ---
Care Management Progress Note S/O: Carmenza was lying in bed, appeared to be in pain. Her face was wincing and her eyes became teary. She reported unmanageable pain and reviewed the events leading up to her admission including aquatic physical therapy, ongoing knee and patella pain, and doing laundry resulting in her injury. She reported struggling with insurance barriers to have an MRI on her knee. Carmenza reported feeling her knee issues could have contributed to her injury. CM provided supportive listening and continues to follow. A: 58 year old female admitted to [facility] 01/22/19 for Acute lower back pain dur to disc herniation; L4-L5 P: Anticipate Carmenza will transtition to SWB1 when ready per MD; CM will prior authorize through Carmenza's insurance-BC/BS. CM will continue to provide support to patient, family and discharge planning process and identified needs.
[2019-01-24 17:00] VITALS: BP 127/79; PULSE 90; RESP 18; TEMP 36.9; O2SAT 95
[2019-01-24 19:20] VITALS: BP 115/71; PULSE 81; RESP 18; TEMP 36.8; O2SAT 94
[2019-01-24] MEDS: Multivitamin w/Minerals TAB 1 TAB PO (20:14)
[2019-01-24] MEDS: Calcium 600mg/Vit D 200U TAB 2 TAB PO (20:14)
[2019-01-24] MEDS: Montelukast 10 MG TAB PO (21:16)
[2019-01-24] MEDS: Melatonin 3 MG TAB PO (21:16)
[2019-01-24] MEDS: Gabapentin 300 MG CAP PO (21:16)
[2019-01-24] MEDS: Topiramate 50 MG TAB PO (21:16)
[2019-01-24] MEDS: Oxybutynin-CR 5 MG TABCR 10 MG PO (21:17)
[2019-01-24] MEDS: Fexofenadine 180 MG TAB PO (21:17)
[2019-01-24 23:45] VITALS: BP 133/80; PULSE 64; RESP 16; TEMP 36.6; O2SAT 95
[2019-01-25] MEDS: Patch Removal 2 EACH TD (00:02)
[2019-01-25] MEDS: SODIUM CHLORIDE 0.45% 1,000 ML 150 ML IV (05:08)
[2019-01-25] MEDS: Normal Saline Flush 10 ML SYR IVP ×5 (05:15→23:30)
[2019-01-25] MEDS: Ketorolac 30 MG/ML VIAL IVP ×4 (05:15→23:28)
[2019-01-25 07:00] VITALS: BP 138/84; PULSE 64; RESP 18; TEMP 36.6; O2SAT 96
[2019-01-25] MEDS: Polyethylene Glycol 3350 17 GM PACKET PO (07:50)
[2019-01-25] MEDS: predniSONE 20 MG TAB 40 MG PO (07:51)
[2019-01-25] MEDS: DULoxetine 30 MG CAP 60 MG PO (07:51)
[2019-01-25] MEDS: Senna TAB 1 TAB PO ×2 (07:51→20:00)
[2019-01-25] MEDS: Docusate Sodium 100 MG CAP PO ×2 (07:51→20:00)
[2019-01-25] MEDS: Gabapentin 300 MG CAP PO ×3 (07:51→20:00)
[2019-01-25] MEDS: Cyclobenzaprine 10 MG TAB PO ×3 (07:51→20:01)
[2019-01-25] MEDS: Esomeprazole 40 MG CAPCR PO (07:51)
--- NOTE | 2019-01-25 09:00 | PDOC.CMPRO ---
Care Management Progress Note S/O: Carmenza continues to require pain management and support with ambulation; she continues to work with PT/OT. Anticipate she will transition to SWB1 level of care when ready per MD. Carmenza was experiencing increased pain when CM met with her. She was struggling to transfer back into bed and struggled, requiring emotional support. Carmenza reviewed her meeting with a benefits coordinator regarding time off from work if needed. CM reviewed requirements of SWB1 and reviewed contact information for on-call CM in event Carmenza would like additional support this evening. Per MD, Carmenza will likely transition to SWB1 once her pain is managed and she is able to have a BM. CM continues to follow. A: 58 year old female admitted to [facility] 01/22/19 for Acute lower back pain due to disc herniation; L4-L5 P: Anticipate Carmenza will transition to SWB1 when ready per MD; CM prior authorized through Carmenza's insurance-BC/BS [id number] through 01/31/19. CM will continue to provide support to patient, family and discharge planning process and identified needs.
[2019-01-25] MEDS: Bisacodyl 5 MG TABEC 10 MG PO (09:05)
--- NOTE | 2019-01-25 09:57 | OT.INTREAT ---
Date of service: 01/25/19 Time of Service: 09:15 Occupational Therapy Notes Occupational Therapy Inpatient Treatment Note Date: 01/25/19 PRECAUTIONS: Standard SUBJECTIVE: Pt was coming out of the bathroom with TANK BUILDER SUPERVISOR when OT arrived. She was agreeable to OT session. She notes that she would like to shower, OT will attempt this with pt tomorrow if her pain stays well managed. OBJECTIVE: PAIN: slight pain in lower back with functional mobility. FUNCTIONAL MOBILITY Sit-stand: (S) Stand-sit: (S) BATHING: Sitting in chair with max (A) set up with min vc Upper Body: (I) Lower Body: Able to (I) wash upper thighs, max (A) lower legs and (B) feet DRESSING: Sitting in chair with min vc Upper Extremity: (I) don and doffing hospital gown Lower Extremity: Max (A) don and doffing (B) socks. GROOMING: Sitting in chair (I) with brushing hair with ideal technique. ASSESSMENT/PLAN: Pt is demonstrating increased (I) in her ADL routines. She has pain in her lower back with any twisting or trunk mobility so she presents with decreased (I) in LE dressing and bathing. Pt demonstrated increased tolerance in functional mobility when ambulating from the bathroom. OT will monitor pts response to todays session and progress accordingly. TREATMENT CODES/TIME: 43047x2, 30 minutes (09:15) SHERI Parisi/[facility]
--- NOTE | 2019-01-25 10:29 | W.PM.PROGNOT ---
Date of Service Date of service: 01/25/19 Time of Service: 10:29 Assessment and Plan (1) Acute low back pain with possible spinal stenosis of less than six weeks' duration: Current visit: No Status: Acute Mild stenosis at L3-L4 and L4-5. No evidence of cord impingement. T10-12 with mild disc bulging, but no major findings. I think the pain is finally better contro She has not had dilaudid in almost 24 hours. Will d/c.lled. Continue current doses of PO norco and neurontin. Consider adding valium to current management. Continue tylenol, IV toradol, IV dilaudid prn, lidoderm patches, flexeril. Continue Prednisone. Encourage IS. Provide Acapella. Watch for signs of pneumonia. Continue PT/OT. Intensify bowel regimen again. Will be ready for transfer to swing bed status once she has a BM. (2) Ambulatory dysfunction: Current visit: No Status: Acute As above - would benefit from swing bed stay for more PT. (3) Left knee pain: Current visit: No Status: Chronic Chronic - follows with PT. Follow up with Dr Roca on 01/26. (4) Hypocalcemia: Current visit: No Status: Resolved Continue calcium and vitamin D supplements. (5) Diabetes mellitus: Current visit: No Status: Chronic Non-insulin dependent. Continue carb consistent diet while in the hospital. Not requiring insulin. (6) Reflux esophagitis: Current visit: No Status: Chronic Continue home PPI, H2 dinora, carafate. (7) Hypothyroidism: Current visit: No Status: Chronic Continue synthroid (8) DVT prophylaxis: Current visit: No Status: Acute lovenox (9) Discharge planning issues: Current visit: No Status: Acute Full code Planned to be transitioned to swing bed level 1 status once has a BM. Subjective Interval history since last seen: States her back pain is a little bit better today, and she was able to walk 1 lap in the hallway yesterday, but she still gets a lot of pain on getting in and out of bed or chair and does not feel like she can do it alone. Still no BM. Requests dulcolax. Was finally able to get some sleep. Denies dizziness, chest pain, shortness of breath, nausea. Complains of nonproductive cough. Requests acapella; has been using her IS. Doesn't think CXR is necessary at this time, but we agreed that if cough becomes productive, we will get one. Thinks the second lidocaine patch helped - and her crampy sensation in her lower abdomen has resolved when the second patch was applied. I spoke with Dr Jones about the appearance of T10-12 on MRI - there is very mild disc bulging, but nothing acute or impressive in the lower thoracic spine imaged. Exam Narrative Exam Narrative: General: Very pleasant middle-aged female, A&Ox3, sitting in a chair, looks better/more upbeat HEENT: EOMI, dry MM Heart: RRR, no m/r/g Lungs: quiet rales at B bases; mild rhonchi Gastrointestinal: abdomen is soft, nondistended Extremities: no e/c/c BLE's, able to move both feet in bed Objective Objective Clinical Data: Vital Signs Temperature 36.6 C 01/25/19 07:00 Temperature Source Tympanic 01/25/19 07:00 Pulse 64 01/25/19 07:00 Pulse Rhythm Regular 01/25/19 09:49 Respiratory Rate 18 01/25/19 07:00 Respiratory Effort Non-Labored 01/25/19 09:49 Respiratory Depth Normal 01/25/19 09:49 Respiratory Pattern Normal 01/25/19 09:49 Blood Pressure 138/84 01/25/19 07:00 Blood Pressure Mean 82 01/22/19 13:39 Blood Pressure Position Supine 01/22/19 11:18 Pulse Oximetry 96 01/25/19 07:00 Oxygen Delivery Method Room Air 01/25/19 07:00 Oxygen Flow Rate 0 01/25/19 07:00 Pain Level 5 01/25/19 07:50 Comment 01/23/19 19:48 Intake & Output 01/24/19 01/24/19 01/25/19 11:59 23:59 11:59 Intake Total 3385 / 5810 2425 / 5810 Output Total 46 / 46 Balance 3385 / 5764 2379 / 5764 Intake: IV 1964 / 0 1945 / 3910 1607.5 / 1607.5 Oral 1420 / 1900 480 / 1900 360 / 360 Output: Post Void Residual 46 / 46 Other: Urine Color Yellow Pale Urine Appearance Clear Clear Urine Odor Normal None Comment pt voided in depend, but made it to the toilet in time for most of urine output. pt voiding in toilet Voiding Methods Toilet Toilet Toilet Diaper Laboratory Results WBC 5.37 k/cumm (4.4-10.8) 01/22/19 12:06 RBC 4.31 m/cumm (4.00-5.20) 01/22/19 12:06 Hgb 12.9 g/dL (12.0-15.5) 01/22/19 12:06 Hct 38.5 % (36.0-46.0) 01/22/19 12:06 MCV 89.3 fL (80-95) 01/22/19 12:06 MCH 29.9 pg (27.0-33.0) 01/22/19 12:06 MCHC 33.5 g/dL (32.0-36.0) 01/22/19 12:06 RDW 14.2 % (11.7-14.6) 01/22/19 12:06 Plt Count 212 x1000/uL (130-400) 01/22/19 12:06 MPV 8.8 fL (8.0-11.0) 01/22/19 12:06 Immature Gran % 0.4 01/22/19 12:06 52.5 01/22/19 12:06 35.9 01/22/19 12:06 8.2 01/22/19 12:06 2.4 01/22/19 12:06 0.6 01/22/19 12:06 Absolute Neutrophils 2.82 k/cumm (1.2-6.7) 01/22/19 12:06 Absolute Lymphocytes 1.93 k/cumm (1.2-3.4) 01/22/19 12:06 Absolute Monocytes 0.44 k/cumm (0.11-0.7) 01/22/19 12:06 Absolute Eosinophils 0.13 k/cumm (0.0-0.7) 01/22/19 12:06 Absolute Basophils 0.03 k/cumm (0.0-0.2) 01/22/19 12:06 Sodium 144 mmol/L (136-145) 01/24/19 06:15 Potassium 3.6 mmol/L (3.5-5.1) 01/24/19 06:15 Chloride 108 mmol/L (98-107) H 01/24/19 06:15 Carbon Dioxide 25.5 mmol/L (21.0-32.0) 01/24/19 06:15 10.5 mmol/L (3-11) 01/24/19 06:15 BUN 18 mg/dL (7-18) 01/24/19 06:15 1.02 mg/dL (0.55-1.02) 01/24/19 06:15 56.06 (mL/min/1.73m2) 01/24/19 06:15 Glucose 116 mg/dL (70-100) H 01/24/19 06:15 Calcium 9.0 mg/dL (8.5-10.1) 01/24/19 06:15 Magnesium 2.0 mg/dL (1.8-2.4) 01/24/19 06:15 0.2 mg/dL (0.2-1.0) 01/22/19 12:06 AST 14 U/L (15-37) L 01/22/19 12:06 ALT 30 U/L (14-59) 01/22/19 12:06 47 U/L (46-116) 01/22/19 12:06 6.9 g/dL (6.4-8.2) 01/22/19 12:06 3.3 g/dL (3.4-5.0) L 01/22/19 12:06 Yellow (Yellow) 01/22/19 13:10 Clear (Clear) 01/22/19 13:10 7.0 (5-8) 01/22/19 13:10 Ur Specific [place] 1.015 (1.005-1.025) 01/22/19 13:10 Negative mg/dL (Negative) 01/22/19 13:10 Negative mg/dL (Negative) 01/22/19 13:10 Negative (Negative) 01/22/19 13:10 Negative (Negative) 01/22/19 13:10 Negative (Negative) 01/22/19 13:10 0.2 EU/dL (Up TO 0.2) 01/22/19 13:10 Ur Leukocyte Esterase Negative (Negative) 01/22/19 13:10 Negative mg/dL (Negative) 01/22/19 13:10
[2019-01-25] MEDS: Lidocaine 5% Patch 2 PATCH TP (12:05)
--- NOTE | 2019-01-25 12:28 | PT.INTREAT ---
Date of service: 01/25/19 Time of Service: 12:29 PT Notes Inpatient Physical Therapy Treatment Note [facility] Date: 01/25/19 PRECAUTIONS: Back Pain SUBJECTIVE: Carmenza states that she is feeling better today. She is agreeable to participating in PT. OBJECTIVE: PAIN: Patient complains of abdominal and back pain with transfers, and complains of left knee pain with stair training. BED MOBILITY/TRANSFERS Rolling L/R: Min A to L Sit-supine: Min A with use of leg antisqueak chalker and HOB flat Sit-stand: I Stand-sit: I GAIT Assistive Device: FWW Weight bearing: Full Assist: S Distance: 150' in both a.m. and p.m. Deviation: Slow jose THEREX: Patient performs ankle pump exercise, independently. TOILETING: Patient toileted independently. STAIRS: Up/down 3?4 and 2?6 using B rails and a step to pattern with supervision ASSESSMENT: Patient tolerated session with complaints of pain with transfers and stair training, specifically with ikk-so-jwogms transfer. Patient demonstrates slow pacing with use of FWW support during gait training, requiring supervision only, and demonstrates independence with sit<>stand transfers and toileting at this time. PLAN: Continue with PTs POC TREATMENT CODE/TIME: Session 1: 20 minutes; 84094 Session 2: 25 minutes; 98312 x2
[2019-01-25] MEDS: Enoxaparin 40 MG/0.4 ML SYR SC (14:27)
--- NOTE | 2019-01-25 14:46 | CHAPLAIN ---
Carmenza said her pain has improved, and she got the results from the MRI. She is on pain medication and feeling groggy, she said. Her , Bob, will be in after work today. 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 She said she is receiving great care and and getting a patient's perspective.
[2019-01-25 14:54] LABS: HCT 39.1 % (36.0-46.0); HGB 12.8 g/dL (12.0-15.5); Mean Corp. HGB Concentration 32.7 g/dL (32.0-36.0); Mean Corpuscular Hemoglobin 29.6 pg (27.0-33.0); Mean Corpuscular Volume 90.3 fL (80-95); Mean Platelet Volume 9.2 fL (8.0-11.0); Platelet Count 201 x1000/uL (130-400); RBC 4.33 m/cumm (4.00-5.20); RBC Distribution Width 14.2 % (11.7-14.6); White Blood Cell Count 7.41 k/cumm (4.4-10.8)
[2019-01-25 15:57] VITALS: BP 102/66; PULSE 69; RESP 20; TEMP 37.2; O2SAT 98
[2019-01-25] MEDS: Milk of Magnesia 30 ML CUP PO (19:20)
[2019-01-25] MEDS: Multivitamin w/Minerals TAB 1 TAB PO (20:00)
[2019-01-25] MEDS: Calcium 600mg/Vit D 200U TAB 2 TAB PO (20:00)
[2019-01-25 20:34] VITALS: BP 120/80; PULSE 74; RESP 18; TEMP 36.7; O2SAT 94
[2019-01-25] MEDS: Melatonin 3 MG TAB PO (21:52)
[2019-01-25] MEDS: Topiramate 50 MG TAB PO (21:52)
[2019-01-25] MEDS: Fexofenadine 180 MG TAB PO (21:52)
[2019-01-25] MEDS: Montelukast 10 MG TAB PO (21:52)
[2019-01-25] MEDS: Oxybutynin-CR 5 MG TABCR 10 MG PO (21:53)
[2019-01-25 23:51] VITALS: BP 118/70; PULSE 68; RESP 20; TEMP 36.7; O2SAT 94
[2019-01-26] MEDS: Patch Removal 2 EACH TD (01:05)
[2019-01-26 03:36] VITALS: BP 129/79; PULSE 74; RESP 17; TEMP 36.8; O2SAT 94
[2019-01-26] MEDS: Ketorolac 30 MG/ML VIAL IVP ×2 (06:42→11:59)
[2019-01-26] MEDS: Normal Saline Flush 10 ML SYR IVP ×2 (06:42→11:59)
[2019-01-26 07:26] VITALS: BP 155/79; PULSE 69; RESP 19; TEMP 36.4; O2SAT 95
[2019-01-26] MEDS: Senna TAB 1 TAB PO (08:01)
[2019-01-26] MEDS: DULoxetine 30 MG CAP 60 MG PO (08:01)
[2019-01-26] MEDS: predniSONE 20 MG TAB 40 MG PO (08:01)
[2019-01-26] MEDS: Docusate Sodium 100 MG CAP PO (08:01)
[2019-01-26] MEDS: Gabapentin 300 MG CAP PO ×2 (08:01→13:35)
[2019-01-26] MEDS: Esomeprazole 40 MG CAPCR PO (08:01)
[2019-01-26] MEDS: Polyethylene Glycol 3350 17 GM PACKET PO (08:01)
[2019-01-26] MEDS: Cyclobenzaprine 10 MG TAB PO ×2 (08:01→13:35)
--- NOTE | 2019-01-26 09:35 | OTTR_ITS ---
Date of service: 01/26/19 Time of Service: 09:05 Occupational Therapy Notes Occupational Therapy Inpatient Treatment Note Date: 01/26/19 PRECAUTIONS: Standard SUBJECTIVE: Pt was sitting in chair when OT arrived. She was agreeable to OT session reporting that she is feeling a little better this morning noting more of a tightness in her lower back. OBJECTIVE: PAIN:5/10 in lower back FUNCTIONAL MOBILITY Sit-stand: (S) Stand-sit: (S) Bed-Chair:(S) Chair-bed: (S) BATHING: Pt would like to take a shower today, shower was not available so she will perform this with OPERATIONS MANAGER/COORDINATOR post OT session. GROOMING: Standing at sink pt was (I) with brushing teeth with ideal technique. Pt noted tightness in her lower back within 5 minutes but was able to tolerate this without pain behaviors noted. TOILETING: Device: Toilet Assist: (I) PLAN: Pt functionally was able to demonstrate increased (I) in her ADL routines. She is performing increased functional mobility with decreased pain. OT will work towards progressing pts LE for both dressing and bathing. TREATMENT CODES/TIME: 62559t3, 30 minutes (09:05) Trang Ramesh OTR/[facility]
[2019-01-26 11:14] VITALS: BP 115/77; PULSE 80; RESP 18; TEMP 36.5; O2SAT 92
--- NOTE | 2019-01-26 11:19 | PTTR_ITS ---
Date of service: 01/26/19 Time of Service: 11:19 PT Notes Inpatient Physical Therapy Treatment Note [facility] Date: 01/26/19 PRECAUTIONS: Back Pain SUBJECTIVE: Carmenza is agreeable to participating in PT, and reports that she is feeling pretty good so far this morning. Patient states that she uses FWW as support to offload her lower extremities and back with gait due to pain, although feels that she is able to walk without FWW for short distances. OBJECTIVE: PAIN: Patient complains of abdominal and back pain with supine-sit transfer BED MOBILITY/TRANSFERS Supine-sit: SBA with use of leg furniture sales associate Sit-stand: I Stand-sit: I GAIT Assistive Device: No AD Weight bearing: Full Assist: SBA Distance: 15' + 10' Deviation: Slow pacing, no LOB THEREX: Patient performs ankle pump exercise, independently. ASSESSMENT: Patient tolerated session with complaints of pain with [id number] transfer. Patient demonstrates slow pacing without use of assistive device, requiring SBA, and demonstrates independence with sit<>stand transfers. PLAN: Continue with PTs POC TREATMENT CODE/TIME: Session 1: 30 minutes; 55740 x2
[2019-01-26] MEDS: Lidocaine 5% Patch 2 PATCH TP (11:59)
[2019-01-26] MEDS: Bisacodyl 10 MG SUPP PR (11:59)
[2019-01-26] MEDS: Enoxaparin 40 MG/0.4 ML SYR SC (13:36)
[2019-01-26] MEDS: Milk of Magnesia 30 ML CUP PO (14:46)
[2019-01-26] MEDS: Bisacodyl 5 MG TABEC 10 MG PO (14:46)
--- NOTE | 2019-01-26 15:28 | W.PM.DS.N ---
Date of service: 01/26/19 Time of Service: 15:28 DS: Diagnosis Discharge Diagnosis (1) Acute low back pain with possible spinal stenosis of less than six weeks' duration: Status: Acute (2) Ambulatory dysfunction: Status: Acute (3) Left knee pain: Status: Chronic (4) Hypocalcemia: Status: Resolved (5) Diabetes mellitus: Status: Chronic (6) Reflux esophagitis: Status: Chronic (7) Hypothyroidism: Status: Chronic Discharge Plan Disposition Patient Disposition: [facility] SWING BED LEVEL 1 Condition: Stable Discharge Details Chief Complaint: Nk/Back Pain Clinical Impression: Bulging lumbar disc Reason For Visit: ACUTE LOWER BACK PAIN DUE TO DISC HERNIATION L4-L5 Admit Date/Time: 01/24/19 16:44 Admit Provider: Roseanne Robles Attending Provider: Roseanne Robles Primary Care Provider: Noy Frederick ED Provider: Sy Camacho Hospital Course Hospital Course: Ms Esquivel is a 58 year old female with PMHx of chronic L knee pain, NIDDM2, hypertension, hypothyroidism, GERD, obesity with BMI of 40.2, who was brought to [facility] ED by ambulance on 01/22/19 and was admitted to [facility] hospitalist service for acute lower back pain due to L3-4 spondylolisthesis with significant muscle spasm. She was treated with IV toradol, systemic steroids, tylenol, cyclobenzaprine, lidocaine patches, neurontin, cold therapy and prn IV dilaudid, later transitioned to norco. MRI of her lower thoracic and lumbar spine did not reveal any significant spinal stenosis or root nerve impingement to necessitate a neurosurgical intervention - spondylolisthesis is mild. Cauda equina was definitively ruled out. The patient was being monitored for urinary retention since she reported several episodes of urinary incontinence, but had negative bladder scans. Carmenza has been working with PT/OT and is able to ambulate with a walker but has significant pain on transfering/changing position, requiring standby assistance. For this, we feel she would benefit from additional physical therapy in Swing bed level 1 status, to which she is being discharged today. She has completed a 5 day burst of steroids, is no longer requiring IV pain meds. She has been constipated, having had a small BM today - she will continue to require an aggressive bowel regimen. Home Meds and New Rx's Prescriptions: No Action sucralfate 1 gram tablet 1 gm PO QID RF: 0 alosetron 0.5 mg tablet 0.5 mg PO DAILY RF: 0 duloxetine 60 mg capsule,delayed release(DR/EC) 60 mg PO DAILY Qty: 90 RF: 4 esomeprazole magnesium 40 mg capsule,delayed release(DR/EC) 40 mg PO DAILY Qty: 90 RF: 11 oxybutynin chloride 10 mg tablet extended release 24hr 10 mg PO DAILY Qty: 90 RF: 4 Xifaxan 550 mg tablet 550 mg PO TID PRNRF: 0 fluticasone propionate 50 mcg/actuation spray,suspension 2 spray CHIQUITA DAILY PRNRF: 0 ranitidine HCl 150 mg tablet 150 mg PO QHS Qty: 90 RF: 4 multivitamin [One Daily] 1 EACH tablet 1 ea PO DAILY RF: 0 fexofenadine [Li] 180 MG tablet 180 mg PO DAILY RF: 0 calcium carbonate-vitamin D3 [Caltrate with Vitamin D3] 1 EACH tablet 1 ea PO DAILY RF: 0 (DME) Hearing Aid Batteries 1 EACH misc 1 ea Miscellaneous DAILY Qty: 30 RF: 11 Restasis 1 EACH dropperette 1 drp Ophthalmic BID RF: 0 topiramate [Topamax] 50 mg tablet 50 mg PO HS Qty: 90 RF: 3 spironolactone 25 mg tablet 25 mg PO DAILY Qty: 90 RF: 5 doxazosin 4 mg tablet 4 mg PO DAILY Qty: 90 RF: 12 levothyroxine 137 mcg tablet 137 mcg PO DAILY Qty: 90 RF: 12 azelastine 0.15 % (205.5 mcg) spray,non-aerosol 2 spray CHIQUITA BID Qty: 30 RF: 5 montelukast [Singulair] 10 mg tablet 10 mg PO HS Qty: 90 RF: 4 acetaminophen [Mapap Extra Strength] 500 MG tablet 1,000 mg PO PRN PRNRF: 0 sodium chloride [Saline Mist] 0.65 % aerosol,spray 1 spray CHIQUITA ONCE Qty: 15 RF: 0 Discharge Instructions Activity:: Ambulate with a walker/transfers with standby assist Equipment/Supplies:: Walker Diet:: Carb Counting Discharge Orders Discharge Orders: Discharge Order (Routine); Ordered 01/26/19 Ordered By: Roseanne Robles Exam Narrative Exam Narrative: General: Very pleasant middle-aged female, Seen in bed when she just tried to change positions/transfer - moaning in pain HEENT: EOMI, MMM Heart: RRR, no m/r/g Lungs: CTAB Gastrointestinal: abdomen is soft, distended, nontender Extremities: no e/c/c BLE's, able to move both feet in bed DS: Data Vitals/I&O Vitals and I&O: Vital Signs Temperature 36.5 C 01/26/19 11:14 Temperature Source Tympanic 01/26/19 11:14 Pulse 80 01/26/19 11:14 Pulse Rhythm Regular 01/26/19 09:00 Respiratory Rate 18 01/26/19 11:14 Respiratory Effort Non-Labored 01/26/19 09:00 Respiratory Depth Normal 01/26/19 09:00 Respiratory Pattern Normal 01/26/19 09:00 Blood Pressure 115/77 01/26/19 11:14 Blood Pressure Mean 82 01/22/19 13:39 Blood Pressure Position Supine 01/22/19 11:18 Pulse Oximetry 92 L 01/26/19 11:14 Oxygen Delivery Method Room Air 01/26/19 11:14 Oxygen Flow Rate 0 01/26/19 11:14 Pain Level 5 01/26/19 13:36 Comment 01/23/19 19:48 Intake & Output 01/25/19 01/26/19 01/26/19 23:59 11:59 23:59 Intake Total 1005 / 2972.5 510 / 760 250 / 760 Balance 1005 / 2972.5 510 / 760 250 / 760 Intake: IV 645 / 2252.5 Oral 360 / 720 510 / 760 250 / 760 Other: Comment unable to assess. VOIDED IN TOILET X 1 Stool Size Small Stool Characteristics Hard Brown Voiding Methods Toilet Toilet Completed studies during hospitalization [Text1]: CT lumbar spine 01/22/19: Degenerative disc changes and facet degenerative changes causing moderate central canal stenosis at L3-4 as well as neural foraminal narrowing at L3-4 and L4-5. MRI 01/24/19: Degenerative disc changes and facet degenerative changes cause mild central canal stenosis and right neural foraminal narrowing at L 3 - 4. Mild neural foraminal narrowing is seen on the left at L 4 - 5. [facility] Medical History Antinuclear factor positive (Chronic 09/22/16) BMI 40.0-44.9, adult (Chronic 09/03/15) Breast lump in female Breast lump in lower inner quadrant (Resolved) 04/12/15 Bronchitis Candidiasis (Chronic) Frequent persistent yeast infx. Chest pain in adult (Resolved) 11/17/16 Closed fracture of body of calcaneus Closed fracture of calcaneus (Resolved) Cough Cough (Chronic 01/26/12) Cystocele Cystocele with rectocele (Chronic) With urinary incontinence Delivery normal (Resolved) Depression Depressive disorder (Resolved) Depressive disorder (Chronic) Diabetes Diabetes mellitus (Chronic) Diabetes mellitus (Inactive 02/14/14) Diarrhea (Resolved) 02/02/14 Dysfunctional uterine bleeding (Resolved) Ectopic (Resolved) 06/01/88 Elevated liver function tests (Resolved) 01/24/14 Elevated liver function tests (Resolved 01/24/14) Essential hypertension (Chronic 02/23/13) Family history of malignant neoplasm of breast (Chronic) Family hx-breast malignancy (Resolved) Fatigue (Resolved) unspecified 01/19/14 Frequently sick (Chronic 09/15/16) GERD (gastroesophageal reflux disease) Hearing loss Hearing problem (Chronic) B/L aides History of ectopic (Resolved) Hypertension Hypokalemia (Resolved 01/26/12) Hypothyroidism Hypothyroidism (Chronic) IBS (irritable bowel syndrome) Irritable colon (Chronic) Mammogram abnormal (Resolved) 04/30/05 Neck pain (Resolved) Neck pain (Chronic) Obesity, Class III, BMI 40-49.9 (morbid obesity) Otalgia of both ears (Resolved 04/30/17) Pneumonia Pneumonia, organism unspecified (Resolved) unspecified laterality, unspecified part of lung Positive JENNIFER (antinuclear antibody) (Resolved) 09/22/16 Rectocele Reflux esophagitis (Chronic 12/26/13) Routine medical exam (Resolved) 02/14/14 Sinus pressure (Resolved) 04/17/15 Sinus pressure (Chronic 04/17/15) Upper back pain on right side (Chronic 11/17/16) Weakness (Resolved) 01/19/14 Surgical History Appendectomy (~1998) Cholecystectomy (~1989) [place] - [facility] [place];[facility] [place] N/L 03/2014; [facility] [place] EGD - MAC (03/10/14) EGD - MAC (08/05/16) H/O esophagogastroduodenoscopy (Resolved) 03/01/14 Hysterectomy, Laproscopic 03/03/11 [facility] [place]; HYSTERECTOMY WITH BLADDER AND BOWEL TIE UP WITH SLING; R OVARY AND CYST ALSO REMOVED Oophrectomy, Right (~03/2011) , Ectopic (~1988) Reduction mammoplasty (~03/2013) S/P appendectomy (Resolved) 06/01/98 S/P cholecystectomy (Resolved) 06/01/89 S/P exploratory laparotomy (Resolved) 06/01/88 S/P hysterectomy with oophorectomy (Resolved) S/P tonsillectomy and adenoidectomy (Resolved) 06/01/85 Status post appendectomy (Resolved) Status post cholecystectomy (Resolved) Status post exploratory laparotomy (Resolved) Status post hysterectomy (Resolved) Status post oophorectomy (Resolved) Status post tonsillectomy and adenoidectomy (Resolved) Tonsillectomy and adenoidectomy (~1985) Family History Mother Diabetes TYPE II Hyperlipidemia Father Alcohol abuse Neoplasm LUNG Sister Neoplasm BREAST Sister No problems noted. Brother No problems noted. Brother Pneumonia X 3 Grandfather Diabetes Grandfather Diabetes Grandmother No problems noted. Grandmother Diabetes Neoplasm BREAST Son No problems noted. Daughter No problems noted. Social History Smoking/Tobacco Use Status: Never Alcohol Intake: current Alcohol Intake frequency: holidays/special occasions only Drug use: Never Do you feel safe at home: Yes Do you feel safe in your relationship?: Yes
--- NOTE | 2019-01-26 15:46 | PDOC.CMPRO ---
Care Management Progress Note Carmenza will transition to SWB1 when ready per MD; CM prior authorized through Carmenza's insurance-[employer] [id number] through 01/31/19. CM will continue to provide support to patient, family and discharge planning process and identified needs.
[2019-01-26 15:54] VITALS: BP 133/77; PULSE 79; RESP 18; TEMP 36.5; O2SAT 93
[2019-01-26] MEDS: Ibuprofen 600 MG TAB PO (16:09)
--- NOTE | 2019-01-26 19:00 | PT.INDS ---
Date of service: 01/26/19 Time of Service: 14:48 PT Notes Inpatient Physical Therapy Discharge Summary Dates: 01/23/2019 Dates of Service: 01/23/2019 through 01/26/2019 Referring Doctor: Roseanne Robles MD PT Orders: PT CONSULT: Eval and treat Precautions: None/standard Patient Profile/Admitting Diagnosis: Patient is discharged under acute care level as of 01/26/2019. Patient admitted for management of acute low back pain, with episode of incontinence, after bending forward and picking up laundry detergent on 01/21/2019. She presented to the ER, via EMS. CT scan identifying L3-4 mild spinal stenosis, and multilevel severe degenerative changes. Awaiting MRI on Thursday. Premorbid level of function: WNL PMHX: Medical History Antinuclear factor positive (Chronic 09/22/16) BMI 40.0-44.9, adult (Chronic 09/03/15) Breast lump in female Breast lump in lower inner quadrant (Resolved) Bronchitis Candidiasis (Chronic) Chest pain in adult (Resolved) Closed fracture of body of calcaneus Closed fracture of calcaneus (Resolved) Cough Cough (Chronic 01/26/12) Cystocele Cystocele with rectocele (Chronic) Delivery normal (Resolved) Depression Depressive disorder (Resolved) Depressive disorder (Chronic) Diabetes Diabetes mellitus (Chronic) Diabetes mellitus (Inactive 02/14/14) Diarrhea (Resolved) Dysfunctional uterine bleeding (Resolved) Ectopic (Resolved) Elevated liver function tests (Resolved) Elevated liver function tests (Resolved 01/24/14) Essential hypertension (Chronic 02/23/13) Family history of malignant neoplasm of breast (Chronic) Family hx-breast malignancy (Resolved) Fatigue (Resolved) Frequently sick (Chronic 09/15/16) GERD (gastroesophageal reflux disease) Hearing loss Hearing problem (Chronic) History of ectopic (Resolved) Hypertension Hypokalemia (Resolved 01/26/12) Hypothyroidism Hypothyroidism (Chronic) IBS (irritable bowel syndrome) Irritable colon (Chronic) Mammogram abnormal (Resolved) Neck pain (Resolved) Neck pain (Chronic) Obesity, Class III, BMI 40-49.9 (morbid obesity) Otalgia of both ears (Resolved 04/30/17) Pneumonia Pneumonia, organism unspecified (Resolved) Positive JENNIFER (antinuclear antibody) (Resolved) Rectocele Reflux esophagitis (Chronic 12/26/13) Routine medical exam (Resolved) Sinus pressure (Resolved) Sinus pressure (Chronic 04/17/15) Upper back pain on right side (Chronic 11/17/16) Weakness (Resolved) Surgical History Appendectomy (~1998) Cholecystectomy (~1989) Colonoscopy - MAC EGD - MAC (03/10/14) EGD - MAC (08/05/16) H/O esophagogastroduodenoscopy (Resolved) Hysterectomy, Laproscopic Oophrectomy, Right (~03/2011) , Ectopic (~1988) Reduction mammoplasty (~03/2013) S/P appendectomy (Resolved) S/P cholecystectomy (Resolved) S/P exploratory laparotomy (Resolved) S/P hysterectomy with oophorectomy (Resolved) S/P tonsillectomy and adenoidectomy (Resolved) Status post appendectomy (Resolved) Status post cholecystectomy (Resolved) Status post exploratory laparotomy (Resolved) Status post hysterectomy (Resolved) Status post oophorectomy (Resolved) Status post tonsillectomy and adenoidectomy (Resolved) Tonsillectomy and adenoidectomy (~1985) Social History/Home Situation: 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 She is and lives in a private home. Home environment not discussed at this time. Current Functional Limitations: Requires close supervision with all sit to stand and in room ambulation activities, she is unable to ambulate without use of walker to decompress her back. Requires assist for bed bed mobility. Requires use of head of bed elevation and handrail, to transfer out of bed. Required assist with toileting hygiene. Equipment Owned/DME: None Subjective: Patient continues to report mild to moderate pain about 5-6 over 10 on low back area and lower abdominal area with transitional movements from sit to stand from bedside recliner and from edge of bed. She states that overall intensity is starting to subside with a new combination of pain pills provided for her. She hopes to ultimately go home and then return to work soon as she is safe to do so. Patient does report a feeling of constriction on the lower abdominal area and lumbar area when she reaches about 50-60 feet of level surface ambulation but stresses that pain intensity does not provide her from continuing to walk more distance resting in and standing. Objective: General Observation: Sitting on recliner chair. Lidocaine patches on lumbar area. Bilateral knee-high TEDS on. Mental Status: A& O x4 Pain: 5-6/10 during transitional movements. Patient reports lateralization of pain to lateral and posterior hip areas and proximal thighs during transitional movements of supine to sit sit to supine and sit to stand. Pain subsides in the upright position. ROM: Right Upper Extremity: WNL Left Upper Extremity: WNL Right Lower Extremity: WNL Left Lower Extremity: Left knee limited to about 100 degrees of flexion secondary to pain, otherwise WNL. Lumbar spine: Unable to tolerate any motions due to severe back pain. Strength: Bilateral Upper Extremity: Defer muscle testing with resistance, but appears WNL. Defer resistance as to not exacerbate strain to low back, due to her high pain level. Bilateral Lower Extremity: Appears within functional limits, but weak due to strain on low back with LE active movements. Core: weak Sensation: Sharp pain lateralizing from lumbar area down to bilateral sides bilateral hips and posterior proximal thighs. Bed Mobility/Transfers: Rolling independent Supine to sit independent Sit to supine independent Sit to stand independent Stand to sit independent Bed to chair independent but continues to to report mild discomfort to her lower abdominal area and lumbar area during transition movement of sit to supine to sit Chair to bed independent but continues to to report mild discomfort to her lower abdominal area and lumbar area during transition movement of sit to supine to sit Gait: Patient is now able to tolerate level surface ambulation of to 200 feet using front wheeled walker with distant supervision due to persistent constrictive pain report on lower abdominal and lumbar area. Balance: Static Sitting: Good Dynamic Sitting: Good Static Standing: Fair Dynamic Standing: Fair a with home health center the order Informed Consent/Education: Patient instructed in purpose of PT consult and plan of care. Patient is agreeable to continuing physical therapy skilled with focus on back flexion exercises sent and Assessment: Patient is a 58 year old female referred to physical therapy services with the diagnosis of acute low back pain. Patient presents with clinical signs and symptoms consistent with acute low back pain in the presence of CT confirmed severe degenerative changes and mild spinal stenosis. Awaiting MRI on Thursday. Patient demonstrates the following impairment level findings: Limited lumbar range of motion, core and lower extremity weakness, soft tissue tenderness at the lumbosacral region, and poor pelvic muscle.. Impairments are contributing to the following functional limitations: Unable to ambulate at premorbid level, cannot perform any bed mobility or transfers at premorbid level, and needs assist, needs assist with hygiene activities, cannot tolerate lengthy weightbearing as compared to premorbid level. Cannot carry out her occupational dties. AMPA score 61% disability. Patient is assessed as a Low 79226 complexity History: See comorbidites as indicated above Examination: See above impairments and functional limitations Presentation: Evolving Decision Makin Low complexity Goals: Goals X1 week 1. Supine-Sit I MET 2. Sit-Supine I MET 3. Sit-Stand I, with RW MET 4. Stand-Sit I, with RW MET 5. Bed-Chair I, with RW MET 6. Chair-Bed I, RW MET 7. Gait 30 ft with RW MET 8. Stairs 3 with rail NOT MET 9. Independent with home exercise program NOT MET 10. Balance Fair MET DISCHARGE RECOMMENDATIONS: Home with family assist, outpatient PT. Walker if pain demands to decompress her back, for pain manamgement, with ambulatory activities. TREATMENT CODE/TIME: [id number] x 52 minutes beginning at 14:48 PM. Thank you very much for this referral. Amy Griffith PT, DPT, CLT [facility]
--- NOTE | 2019-01-27 07:56 | OTDS_ITS ---
Date of service: 01/27/19 Time of Service: 07:56 Occupational Therapy Notes Occupational Therapy Inpatient Discharge Summary Date: 01/27/19 Dates of Service: 01/24/19-01/27/19 Referring Doctor:Roseanne Robles MD OT Orders: Eval and Treat Precautions: Standard PATIENT PROFILE/ADMITTING DIAGNOSIS: Pt is a 58 year old female who was admitted to [facility] through the ER for management of acute low back pain,episode of incontinence when bending forward and picking up laundry detergent on 01/21/2019. Past Medical History: Antinuclear factor positive (Chronic 09/22/16) BMI 40.0-44.9, adult (Chronic 09/03/15) Breast lump in female Breast lump in lower inner quadrant (Resolved) Bronchitis Candidiasis (Chronic) Chest pain in adult (Resolved) Closed fracture of body of calcaneus Closed fracture of calcaneus (Resolved) Cough Cough (Chronic 01/26/12) Cystocele Cystocele with rectocele (Chronic) Delivery normal (Resolved) Depression Depressive disorder (Resolved) Depressive disorder (Chronic) Diabetes Diabetes mellitus (Chronic) Diabetes mellitus (Inactive 02/14/14) Diarrhea (Resolved) Dysfunctional uterine bleeding (Resolved) Ectopic (Resolved) Elevated liver function tests (Resolved) Elevated liver function tests (Resolved 01/24/14) Essential hypertension (Chronic 02/23/13) Family history of malignant neoplasm of breast (Chronic) Family hx-breast malignancy (Resolved) Fatigue (Resolved) Frequently sick (Chronic 09/15/16) GERD (gastroesophageal reflux disease) Hearing loss Hearing problem (Chronic) History of ectopic (Resolved) Hypertension Hypokalemia (Resolved 01/26/12) Hypothyroidism Hypothyroidism (Chronic) IBS (irritable bowel syndrome) Irritable colon (Chronic) Mammogram abnormal (Resolved) Neck pain (Resolved) Neck pain (Chronic) Obesity, Class III, BMI 40-49.9 (morbid obesity) Otalgia of both ears (Resolved 04/30/17) Pneumonia Pneumonia, organism unspecified (Resolved) Positive JENNIFER (antinuclear antibody) (Resolved) Rectocele Reflux esophagitis (Chronic 12/26/13) Routine medical exam (Resolved) Sinus pressure (Resolved) Sinus pressure (Chronic 04/17/15) Upper back pain on right side (Chronic 11/17/16) Weakness (Resolved) Surgical History Appendectomy (~1998) Cholecystectomy (~1989) Colonoscopy - MAC EGD - MAC (03/10/14) EGD - MAC (08/05/16) H/O esophagogastroduodenoscopy (Resolved) Hysterectomy, Laproscopic Oophrectomy, Right (~03/2011) , Ectopic (~1988) Reduction mammoplasty (~03/2013) S/P appendectomy (Resolved) S/P cholecystectomy (Resolved) S/P exploratory laparotomy (Resolved) S/P hysterectomy with oophorectomy (Resolved) S/P tonsillectomy and adenoidectomy (Resolved) Status post appendectomy (Resolved) Status post cholecystectomy (Resolved) Status post exploratory laparotomy (Resolved) Status post hysterectomy (Resolved) Status post oophorectomy (Resolved) Status post tonsillectomy and adenoidectomy (Resolved) Tonsillectomy and adenoidectomy (~1985) Social History/Home Situation: Carmenza lives in a private home with her . They have 6 children all together. 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 Prior to admission she was (I) in all aspects of ADLs/IADLs. She has a tub/shower at home which she stands for bathing. She has a regular toilet and is currently (I) with driving. She is able to perform her ADLs in both sitting and standing at baseline. She has been seeing a physical therapist in the outpatient setting for her (L) knee currently. Equipment owned/DME: None SUBJECTIVE: NT This document serves as a summary of care, no skilled OT services provided for this documentation. OBJECTIVE: ROM: RUE AROM WNL L UE AROM WNL STRENGTH: RUE Shoulder flexion 4/5, bicep 4+/5, tricep 4-/5, industrial engineering director is strong and symmetrical LUE Shoulder flexion 4/5, bicep 4+/5, tricep 4-/5, industrial engineering director is strong and symmetrical FUNCTIONAL MOBILITY/ADLS: Transfers Supine-sit (S) Sit-supine (S) Sit-Stand (S) Stand-sit (S) BATHING sitting on side of the bed with max (A) set up Bathing UE (I) face, (B) UE and abdomen Bathing LE (I) mick area with min (A) drying buttock, max (A) (B) LE and feet DRESSING Sitting on side of bed Dressing UE (I) don and doffing hospital gown Dressing LE max (A) don and doffing (B) socks GROOMING NT TOILETING on toilet (I) with urinating, min (A) with toileting hygiene EATING (I) BALANCE: Static sitting Good Dynamic Sitting Fair Static Standing Good Dynamic Standing Fair ASSESSMENT: Patient is a 58-year-old female referred to occupational therapy services with diagnosis of management of acute low back pain,episode of incontinence when bending forward and picking up laundry detergent on 01/21/2019. Patient was seen for 3 skilled OT sessions. Pt is demonstrating increased (I) in her ADL/IADL routines. OT recommends that pt follow up with outpatient PT. GOALS 1. Transfers- (S)-met 2. Dressing- Sitting on side of bed pt will be (I) with don and doffing (B) LE socks and shoes, pants and underwear-not met 3. Bathing- Sitting on side of bed pt will be (A) with bathing LE , standing at sink pt will be (I) with bathing UE.- not met 4. Toileting- on toilet (I)-progressing towards 5. Eating- (I)-met 6. Grooming- pt will be able to stand at sink (I) and brush her teeth and hair. -met PLAN OF CARE/TREATMENT PLAN: Discharge from skilled OT services. DISCHARGE RECOMMENDATIONS Home with HHOT OT recommends that pt follow up with Physical Therapist in outpatient for rehabilitation. TREATMENT TIME/MINUTES/CODES N/A Trang Ramesh OTR/[facility]
== END 2019-01-26 16:44 | disposition swing bed (61) | DRG 552 ==
LOC: ER 14:39 → MS 14:40
PROVIDERS: Admitting Provider Internal Medicine; Emergency Provider Emergency Medicine; PCP Family Medicine; Visit Provider Internal Medicine
DX: M48.061 Spinal stenosis, lumbar region without neurogenic claudication (principal); M54.5 Low back pain; M62.830 Muscle spasm of back; R26.2 Difficulty in walking, not elsewhere classified; R32 Unspecified urinary incontinence; M25.562 Pain in left knee; E83.51 Hypocalcemia; E11.9 Type 2 diabetes mellitus without complications; K21.0 Gastro-esophageal reflux disease with esophagitis; E03.9 Hypothyroidism, unspecified
CPT/HCPCS: 36415; 80048; 80053; 85027; 96374; 96375; 97162; 97166; 97530; 97535; 99220; 99232; 99239; 99285; J1650; 72131; 72148; 81003; 83735; 85025; 99225; 99284; G0378; J1100; J1885; J2405; J3010; J3490; J7512

== ENCOUNTER 2019-01-26 15:56 | Inpatient (IN) | payer BC, SELFPAY ==
--- NOTE | 2019-01-26 15:47 | HPE_ITS ---
Date of service: 01/26/19 Time of Service: 15:47 Assessment and Plan (1) Acute low back pain with possible spinal stenosis of less than six weeks' duration: Current visit: No Status: Acute Patient is going to be continued on NSAIDS (finished 5 days of toradol - will switch to ibuprofen), tylenol, as well as cyclobenzaprine, neurontin, lidocaine patches, cold therapy, and prn norco. I have discontinued prednisone on transfer, after a 5 day burst. Continue aggressive PT. (2) Ambulatory dysfunction: Current visit: No Status: Acute PT/OT (3) Constipation: Current visit: Yes Status: Acute Continue aggressive bowel regimen (4) Left knee pain: Current visit: No Status: Chronic Consult orthopedics - patient missed her outpatient appointment (5) Discharge planning issues: Current visit: No Status: Acute Full code On discharge, expected to return home History of Present Illness Chief Complaint: Back pain Narrative: Ms Esquivel is a 58 year old female with PMHx of chronic L knee pain, NIDDM2, hypertension, hypothyroidism, GERD, obesity with BMI of 40.2, who was brought to [facility] ED by ambulance on 01/22/19 and was admitted to [facility] hospitalist service for acute lower back pain due to L3-4 spondylolisthesis with significant muscle spasm. She was treated with IV toradol, systemic steroids, tylenol, cyclobenzaprine, lidocaine patches, neurontin, cold therapy and prn IV dilaudid, later transitioned to norco. MRI of her lower thoracic and lumbar spine did not reveal any significant spinal stenosis or root nerve impingement to necessitate a neurosurgical intervention - spondylolisthesis is mild. Cauda equina was definitively ruled out. The patient was being monitored for urinary retention since she reported several episodes of urinary incontinence, but had negative bladder scans. Carmenza has been working with PT/OT and is able to ambulate with a walker but has significant pain on transfering/changing position, requiring standby assistance. For this, we feel she would benefit from additional physical therapy in Swing bed level 1 status, to which she is being discharged today. She has completed a 5 day burst of steroids, is no longer requiring IV pain meds. She has been constipated, having had a small BM today - she will continue to require an aggressive bowel regimen. Review of Systems Review of Systems 12 systems reviewed. Pertinent positives and negatives are: denies dizziness, chest pain, shortness of breath, nausea. Reports suprapubic discomfort, like she is being grabbed there. Constipated. [facility] Medical History Antinuclear factor positive (Chronic 09/22/16) BMI 40.0-44.9, adult (Chronic 09/03/15) Breast lump in female Breast lump in lower inner quadrant (Resolved) 04/12/15 Bronchitis Candidiasis (Chronic) Frequent persistent yeast infx. Chest pain in adult (Resolved) 11/17/16 Closed fracture of body of calcaneus Closed fracture of calcaneus (Resolved) Cough Cough (Chronic 01/26/12) Cystocele Cystocele with rectocele (Chronic) With urinary incontinence Delivery normal (Resolved) Depression Depressive disorder (Resolved) Depressive disorder (Chronic) Diabetes Diabetes mellitus (Chronic) Diabetes mellitus (Inactive 02/14/14) Diarrhea (Resolved) 02/02/14 Dysfunctional uterine bleeding (Resolved) Ectopic (Resolved) 06/01/88 Elevated liver function tests (Resolved) 01/24/14 Elevated liver function tests (Resolved 01/24/14) Essential hypertension (Chronic 02/23/13) Family history of malignant neoplasm of breast (Chronic) Family hx-breast malignancy (Resolved) Fatigue (Resolved) unspecified 01/19/14 Frequently sick (Chronic 09/15/16) GERD (gastroesophageal reflux disease) Hearing loss Hearing problem (Chronic) B/L aides History of ectopic (Resolved) Hypertension Hypokalemia (Resolved 01/26/12) Hypothyroidism Hypothyroidism (Chronic) IBS (irritable bowel syndrome) Irritable colon (Chronic) Mammogram abnormal (Resolved) 04/30/05 Neck pain (Resolved) Neck pain (Chronic) Obesity, Class III, BMI 40-49.9 (morbid obesity) Otalgia of both ears (Resolved 04/30/17) Pneumonia Pneumonia, organism unspecified (Resolved) unspecified laterality, unspecified part of lung Positive JENNIFER (antinuclear antibody) (Resolved) 09/22/16 Rectocele Reflux esophagitis (Chronic 12/26/13) Routine medical exam (Resolved) 02/14/14 Sinus pressure (Resolved) 04/17/15 Sinus pressure (Chronic 04/17/15) Upper back pain on right side (Chronic 11/17/16) Weakness (Resolved) 01/19/14 Surgical History Appendectomy (~1998) Cholecystectomy (~1989) Colonoscopy - MAC 03/2004;[facility] [place] [facility] N/L 03/2014; [facility] EGD - MAC (03/10/14) EGD - MAC (08/05/16) H/O esophagogastroduodenoscopy (Resolved) 03/01/14 Hysterectomy, Laproscopic 03/03/11 [facility] [place]; HYSTERECTOMY WITH BLADDER AND BOWEL TIE UP WITH SLING; R OVARY AND CYST ALSO REMOVED Oophrectomy, Right (~03/2011) , Ectopic (~1988) Reduction mammoplasty (~03/2013) S/P appendectomy (Resolved) 06/01/98 S/P cholecystectomy (Resolved) 06/01/89 S/P exploratory laparotomy (Resolved) 06/01/88 S/P hysterectomy with oophorectomy (Resolved) S/P tonsillectomy and adenoidectomy (Resolved) 06/01/85 Status post appendectomy (Resolved) Status post cholecystectomy (Resolved) Status post exploratory laparotomy (Resolved) Status post hysterectomy (Resolved) Status post oophorectomy (Resolved) Status post tonsillectomy and adenoidectomy (Resolved) Tonsillectomy and adenoidectomy (~1985) Family History Mother Diabetes TYPE II Hyperlipidemia Father Alcohol abuse Neoplasm LUNG Sister Neoplasm BREAST Sister No problems noted. Brother No problems noted. Brother Pneumonia X 3 Grandfather Diabetes Grandfather Diabetes Grandmother No problems noted. Grandmother Diabetes Neoplasm BREAST Son No problems noted. Daughter No problems noted. Social History Smoking/Tobacco Use Status: Never Alcohol Intake: current Alcohol Intake frequency: holidays/special occasions only Drug use: Never Do you feel safe at home: Yes Do you feel safe in your relationship?: Yes Meds Home Medications Medication Instructions Recorded Confirmed Type calcium carbonate-vitamin D3 1 ea PO DAILY 08/06/12 01/22/19 History [Caltrate with Vitamin D3] fexofenadine [Li] 180 mg PO DAILY tab-cap 08/06/12 01/22/19 History multivitamin [One Daily] 1 ea PO DAILY 08/06/12 01/22/19 History acetaminophen [Mapap Extra 1,000 mg PO PRN PRN 01/21/14 01/22/19 History Strength] Hearing Aid Batteries #30 dose 10/01/17 12/28/18 History Restasis 1 drp OPHTHALMIC BID drp 10/15/17 01/22/19 History sodium chloride [Saline Mist] 1 spray CHIQUITA ONCE #15 ml 03/05/18 01/22/19 Rx ranitidine HCl 150 mg tablet 150 mg PO QHS #90 tab 07/22/18 01/22/19 Rx topiramate 50 mg tablet 50 mg PO HS #90 tab-cap 10/07/18 01/22/19 Rx spironolactone 25 mg tablet 25 mg PO DAILY #90 tab 10/26/18 01/22/19 Rx doxazosin 4 mg tablet 4 mg PO DAILY #90 tab-cap 11/08/18 01/22/19 Rx levothyroxine 137 mcg tablet 137 mcg PO DAILY #90 tab-cap 11/08/18 01/22/19 Rx azelastine 0.15 % (205.5 mcg) 2 spray CHIQUITA BID #30 ml 11/12/18 01/22/19 Rx nasal spray alosetron 0.5 mg tablet 0.5 mg PO DAILY 11/15/18 01/22/19 History duloxetine 60 mg capsule,delayed 60 mg PO DAILY #90 cap 11/15/18 01/22/19 Rx release esomeprazole magnesium 40 mg 40 mg PO DAILY #90 tab-cap 11/15/18 01/22/19 Rx capsule,delayed release oxybutynin chloride 10 mg 10 mg PO DAILY #90 tab-cap 11/15/18 01/22/19 Rx tablet,extended release 24 hr sucralfate 1 gram tablet 1 gm PO QID tab 11/15/18 01/22/19 History montelukast 10 mg tablet 10 mg PO HS #90 tab 12/27/18 01/22/19 Rx fluticasone propionate 50 2 spray CHIQUITA DAILY PRN gm 12/28/18 01/22/19 History mcg/actuation nasal spray,suspension rifaximin 550 mg tablet 550 mg PO TID PRN 12/28/18 01/22/19 History Allergies Allergy/AdvReac Type Severity Reaction Status Date / Time Sulfa (Sulfonamide Allergy Severe TONGUE Verified 01/22/19 11:23 Antibiotics) SWELLING sulfamethoxazole Allergy Severe Swelling/Ed Verified 01/22/19 11:23 [From Bactrim] yoko trimethoprim Allergy Severe TONGUE Verified 01/22/19 11:23 SWELLING aspirin [From Percodan] AdvReac Mild Nausea Verified 01/22/19 11:23 oxycodone [From Percodan] AdvReac Mild Nausea Verified 01/22/19 11:23 pickles Allergy Severe Anaphylaxsi Uncoded 01/22/19 11:23 s COCKROACH Allergy Unknown allery Uncoded 01/22/19 11:23 testing Exam Narrative Exam Narrative: General: Very pleasant middle-aged female, A&OX3, Seen in bed when she just tried to change positions/transfer - moaning in pain Neuro: A&OX3, no focal deficits, able to move all 4 extremities, 5/5 strength in BLE's Psych: appropriate speech pattern/content Skin: visible skin intact HEENT: EOMI, MMM Heart: RRR, no m/r/g Lungs: CTAB Gastrointestinal: abdomen is soft, distended, nontender Extremities: no e/c/c BLE's, able to move both feet in bed
--- NOTE | 2019-01-26 16:25 | CM.SBPSYCH ---
SB Psychosocial/Act.Assessment - Hospital Admission Admission Date: 01/24/19 Admission From:: Inpatient status at [facility] Diagnosis:: L3-4 mild spinal stenosis, and multilevel severe degenerative changes, disc herniation - Swing Bed Admission Swing Bed Admit Date:: 01/26/19 Swing Bed Level of Care: Level 1/SNF - Social Supports PREVIOUS FUNCTIONAL STATUS/SOCIAL/FAMILY SUPPORTS:: Carmenza lives in a single family home with her aristides Mayers in [place], [place]. They have 6 children and 2 grandchildren. 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 She is independent with all activities and care. She does wear hearing aides but requires no other assistive devices. 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 - [place]: No [place] Spouse: No - Benefits Financial: Commerical (/[facility]) - Advance Directives for Healthcare Advance Directives for Healthcare: Advance Directives Advance Directive Agent: Bob Rose - Medical History PAST MEDICAL HISTORY/PAST SURGICAL HISTORY:: Antinuclear factor positive, BMI 40.0-44.9, adult, Breast lump in female, Bronchitis, Candidiasis, Chest pain in adult, Closed fracture of body of calcaneus, Closed fracture of calcaneus, Cough, Cystocele with rectocele, Delivery normal, Depress, Diabetes mellitus, Diarrhea, Dysfunctional uterine bleeding, Ectopic , Elevated liver function tests, Essential hypertension, Family history of malignant neoplasm of breast, Family hx-breast malignancy, Fatigue, Frequently sick, GERD, Hearing loss, History of ectopic , Hypertension, Hypokalemia, Hypothyroidism, IBS, Irritable colon, Mammogram abnormal, Neck pain, Obesity, Class III, BMI 40-49.9, Otalgia of both ears, Pneumonia, organism unspecified, Positive JENNIFER, Rectocele, Reflux esophagitis, Routine medical exam, Sinus pressure, Upper back pain on right side, Weakness. Surgical History , Appendectomy, Cholecystectomy, Colonoscopy - MAC, EGD - MAC, H/O esophagogastroduodenoscopy (Resolved), Hysterectomy, Laproscopic. Oophrectomy; Right, , Ectopic, Reduction mammoplasty, appendectomy, cholecystectomy, exploratory laparotomy, hysterectomy with oophorectomy, tonsillectomy and adenoidectomy, appendectomy, cholecystectomy, exploratory laparotomy, hysterectomy, oophorectomy, Tonsillectomy and adenoidectomy - Admission Data Reason for Swing Bed Admission:: Pain managment, PT/OT Discharge Plan:: Home with VNA or OP/PT-dependent on progress. [place]: Karlene Kline Date Assessment was completed:: 01/27/19
--- NOTE | 2019-01-26 16:26 | CM.SWINGPC ---
Swingbed Plan of Care Plan of care: SWING BED PROGRAM ACTIVITIES/DISCHARGE PLAN OF CARE ACTIVITIES PLAN Date: Identified Need: Pain Management and Physical Therapy Intervention/Plan: Ongoing medication adjustment, PT Initials: DISCHARGE PLAN Date: Identified Need: Physical therapy Intervention/Plan: Ongoing monitoring to determine level of support required upon discharge. Initials: [facility]
--- NOTE | 2019-01-26 17:44 | PHARADMIT ---
Addendum entered by Rachid Tariq III 01/27/19 11:36: Pharmacy Note Subjective Swing Bed patient here for continued PT & OT for management of acute back pain. Objective VS-OK No Labs Pain;5/10 Small BM reported but not documented Assessment Patient using her own Sulcralfate Plan To continue aggressive PT until ready fo discharge home. Original Note: SWINGBED TODAY 01/26/19 Many med changes, different Vicodin strengths for moderate to severe pain Toradol IV changed to Ibuprofen, Prednisone dc'd Pt's own Alosetron for IBS was dc'd....worsening constipation Last BM was several days ago, did have small hard BM this afternoon pain 5/10 (Stenosis, herniated disc) Pharmacy Note Subjective Pt. working with PT, MRI ordered today Objective VS-okay pain-5/10 Cl-108 BG-116 Assessment gabapentin dose increased from 200 to 300 mg TID some bowel meds ordered (now and scheduled) Plan pt. may be discharged or swing pending pain control, PT, and MRI results Original Note: Admission Pharmacy Clinical Review acute lower back pain due to disc herniation L4-L5 Code Status Full Code Current Weight 106.141 kg Renally Cleared and Narrow Therapeutic Index Meds Crcl ~80.3 mL/min using adjusted body weight QTc Value / Action Taken n/a BP Control, Fever BP 113/73 afebrile Electrolytes reviewed Cl 108 DVT Prophylaxis enoxaparin Opiate Usage / Scheduled Bowel Regimen Ordered prn/prn Plt/SCr for Heparin / Enoxaparin plt 212 SCr 0.93 INR for Warfarin n/a H/H stable, WBC/Bands h/h 12.9/38.5 wbc 5.37 Antibiotic appropriateness n/a Cultures and Sensitivities none Surgical ABX d/c within 24 hr n/a DM control / Insulin Dosing BG 145 none Heart Failure (Check EF%) (BRUNO's, B-Block, Diuretics) none IV to PO Switch n/a Home Meds Reviewed -multiple [employer]ER [employer] FINISHER depressing meds-azelastine, fexofenadine, topiramate -multivitamin may increase the serum concentration of sucralfate (specifically the absorption of aluminum, increasing risk of toxicity). Avoid chronic/excessive use of aluminum containing products in pts taking multivitamins containing vitamin D; watch for toxicity -separate admin of levothroxine, multivitamin, and calcium w/vitD Home Meds Not Ordered albuterol, celecoxib, fluconazole, rifaxamin, spironolactone Comments pain much improved this morning, plan is to transition to PO pain meds today MRI tomorrow possible discharge tomorrow Pharmacy Note Subjective Objective Assessment Plan
[2019-01-26] MEDS: Milk of Magnesia 30 ML CUP PO (19:38)
[2019-01-26] MEDS: Multivitamin w/Minerals TAB 1 TAB PO (19:39)
[2019-01-26] MEDS: Cyclobenzaprine 10 MG TAB PO (19:40)
[2019-01-26] MEDS: Ibuprofen 600 MG TAB PO (19:40)
[2019-01-26] MEDS: Gabapentin 300 MG CAP PO (19:40)
[2019-01-26] MEDS: Senna TAB 1 TAB PO (19:40)
[2019-01-26] MEDS: Docusate Sodium 100 MG CAP PO (19:40)
[2019-01-26] MEDS: Normal Saline Flush 10 ML SYR IVP (19:41)
[2019-01-26] MEDS: Calcium 600mg/Vit D 200U TAB 2 TAB PO (19:49)
[2019-01-26] MEDS: Oxybutynin-CR 5 MG TABCR 10 MG PO (21:07)
[2019-01-26] MEDS: Fexofenadine 180 MG TAB PO (21:08)
[2019-01-26] MEDS: Montelukast 10 MG TAB PO (21:08)
[2019-01-26] MEDS: Melatonin 3 MG TAB PO (21:08)
[2019-01-26] MEDS: Topiramate 50 MG TAB PO (21:08)
[2019-01-26 23:42] VITALS: BP 126/71; PULSE 69; RESP 18; TEMP 36.7; O2SAT 95
[2019-01-27] MEDS: Esomeprazole 40 MG CAPCR PO (07:03)
[2019-01-27] MEDS: HYDROcodone 5/Acetaminophen 325 TAB PO ×2 (07:04→21:00)
[2019-01-27 07:11] VITALS: BP 116/81; PULSE 70; RESP 18; TEMP 36.7; O2SAT 95
[2019-01-27] MEDS: Normal Saline Flush 10 ML SYR IVP ×2 (08:29→08:36)
[2019-01-27] MEDS: Polyethylene Glycol 3350 17 GM PACKET PO (08:29)
[2019-01-27] MEDS: Ibuprofen 600 MG TAB PO ×4 (08:30→20:18)
[2019-01-27] MEDS: Gabapentin 300 MG CAP PO ×3 (08:30→20:18)
[2019-01-27] MEDS: Senna TAB 1 TAB PO ×2 (08:30→20:18)
[2019-01-27] MEDS: Cyclobenzaprine 10 MG TAB PO ×3 (08:30→20:18)
[2019-01-27] MEDS: Docusate Sodium 100 MG CAP PO ×2 (08:30→20:17)
[2019-01-27] MEDS: DULoxetine 30 MG CAP 60 MG PO (08:31)
[2019-01-27] MEDS: Milk of Magnesia 30 ML CUP PO (08:31)
--- NOTE | 2019-01-27 09:19 | OT.INIE ---
Occupational Therapy Notes Inpatient Occupational Therapy Evaluation Date: 01/27/19 Referring Doctor:Roseanne Robles MD OT Orders: Eval and Treat Precautions: Standard PATIENT PROFILE/ADMITTING DIAGNOSIS: Pt is a 58 year old female who was admitted to [facility] through the ER for management of acute low back pain,episode of incontinence when bending forward and picking up laundry detergent on 01/21/2019. Pt was evaluated for [facility] bed 1 today as she was transitioned to [facility] bed on 01/26/19. Past Medical History: Antinuclear factor positive (Chronic 09/22/16) BMI 40.0-44.9, adult (Chronic 09/03/15) Breast lump in female Breast lump in lower inner quadrant (Resolved) Bronchitis Candidiasis (Chronic) Chest pain in adult (Resolved) Closed fracture of body of calcaneus Closed fracture of calcaneus (Resolved) Cough Cough (Chronic 01/26/12) Cystocele Cystocele with rectocele (Chronic) Delivery normal (Resolved) Depression Depressive disorder (Resolved) Depressive disorder (Chronic) Diabetes Diabetes mellitus (Chronic) Diabetes mellitus (Inactive 02/14/14) Diarrhea (Resolved) Dysfunctional uterine bleeding (Resolved) Ectopic (Resolved) Elevated liver function tests (Resolved) Elevated liver function tests (Resolved 01/24/14) Essential hypertension (Chronic 02/23/13) Family history of malignant neoplasm of breast (Chronic) Family hx-breast malignancy (Resolved) Fatigue (Resolved) Frequently sick (Chronic 09/15/16) GERD (gastroesophageal reflux disease) Hearing loss Hearing problem (Chronic) History of ectopic (Resolved) Hypertension Hypokalemia (Resolved 01/26/12) Hypothyroidism Hypothyroidism (Chronic) IBS (irritable bowel syndrome) Irritable colon (Chronic) Mammogram abnormal (Resolved) Neck pain (Resolved) Neck pain (Chronic) Obesity, Class III, BMI 40-49.9 (morbid obesity) Otalgia of both ears (Resolved 04/30/17) Pneumonia Pneumonia, organism unspecified (Resolved) Positive JENNIFER (antinuclear antibody) (Resolved) Rectocele Reflux esophagitis (Chronic 12/26/13) Routine medical exam (Resolved) Sinus pressure (Resolved) Sinus pressure (Chronic 04/17/15) Upper back pain on right side (Chronic 11/17/16) Weakness (Resolved) Surgical History Appendectomy (~1998) Cholecystectomy (~1989) Colonoscopy - MAC EGD - MAC (03/10/14) EGD - MAC (08/05/16) H/O esophagogastroduodenoscopy (Resolved) Hysterectomy, Laproscopic Oophrectomy, Right (~03/2011) , Ectopic (~1988) Reduction mammoplasty (~03/2013) S/P appendectomy (Resolved) S/P cholecystectomy (Resolved) S/P exploratory laparotomy (Resolved) S/P hysterectomy with oophorectomy (Resolved) S/P tonsillectomy and adenoidectomy (Resolved) Status post appendectomy (Resolved) Status post cholecystectomy (Resolved) Status post exploratory laparotomy (Resolved) Status post hysterectomy (Resolved) Status post oophorectomy (Resolved) Status post tonsillectomy and adenoidectomy (Resolved) Tonsillectomy and adenoidectomy (~1985) Social History/Home Situation: Carmenza lives in a private home with her . They have 6 children all together. 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 Prior to admission she was (I) in all aspects of ADLs/IADLs. She has a tub/shower at home which she stands for bathing. She has a regular toilet and is currently (I) with driving. She is able to perform her ADLs in both sitting and standing at baseline. She has been seeing a physical therapist in the outpatient setting for her (L) knee currently. Equipment owned/DME: None SUBJECTIVE: Pt was sitting in chair when OT arrived. She was agreeable to OT session. OBJECTIVE: General Observation: Pleasant and able to answer questions appropriately. Pain: 5/10 pain in mid-lower back ROM: RUE AROM WNL L UE AROM WNL STRENGTH: RUE Shoulder flexion 4+/5, bicep 4+/5, tricep 4/5, ore puncher is strong and symmetrical LUE Shoulder flexion 4+/5, bicep 4+/5, tricep 4/5, ore puncher is strong and symmetrical FUNCTIONAL MOBILITY/ADLS: Transfers Supine-sit (S) Sit-supine (S) Sit-Stand (S) Stand-sit (S) DRESSING Dressing Pt was educated and trained in adaptive equipment including dressing stick and sock aid. Pt was able to demonstrate this with increased (I) and perform with good technique. In seated position pt was able to perform this with minimal pain. GROOMING NT TOILETING on toilet (I) with urinating, min (A) with toileting hygiene EATING (I) BALANCE: Static sitting Good Dynamic Sitting Fair Static Standing Good Dynamic Standing Fair ASSESSMENT: Patient is a 58-year-old female referred to occupational therapy services with diagnosis of management of acute low back pain,episode of incontinence when bending forward and picking up laundry detergent on 01/21/2019. Patient was seen for 3 skilled OT sessions in acute status. Pt was transitioned to SWING BED 1 rehabilitation status on 01/26/19. OT will follow up with pt for LE dressing and bathing techniques to increase (I). OT recommends that pt follow up with outpatient PT when medically cleared per MD. GOALS 1. Dressing- Sitting on side of bed pt will be (I) with don and doffing (B) LE socks and shoes, pants and underwear 2. Bathing- Sitting on side of bed pt will be (A) with bathing LE , standing at sink pt will be (I) with bathing UE 3. Toileting- on toilet (I) PLAN OF CARE/TREATMENT PLAN: OT will plan to see patient 1x/day, 5 days per week with increased (I) in ADLs/IADLs including dressing, bathing, grooming, toileting, eating and transfers for functional mobility. DISCHARGE RECOMMENDATIONS Home with HHOT OT recommends that pt follow up with Physical Therapist in outpatient for rehabilitation. TREATMENT TIME/MINUTES/CODES 45812, [id number], 15 minutes (09:05) SHERI Parisi/[facility]
--- NOTE | 2019-01-27 10:44 | IN_ITS ---
Date of service: 01/27/19 Time of Service: 09:14 PT Notes Inpatient Physical Therapy Evaluation Date: 01/27/2019 Referring Doctor: Roseanne Robles MD PT Orders: PT CONSULT: ?Eval and Treat? Precautions: None/Standard Patient Profile/Admitting Diagnosis: Patient is discharged under acute care level as of 01/26/2019 and is re-evaluated under swing bed level today, 01/27/2019. Patient admitted for management of acute low back pain, with episode of incontinence, after bending forward and picking up laundry detergent on 01/21/2019. She presented to the ER, via EMS. CT scan identifying L3-4 mild spinal stenosis, and multilevel severe degenerative changes. Awaiting MRI on Thursday. PMHX: Medical History Antinuclear factor positive (Chronic 09/22/16) BMI 40.0-44.9, adult (Chronic 09/03/15) Breast lump in female Breast lump in lower inner quadrant (Resolved) Bronchitis Candidiasis (Chronic) Chest pain in adult (Resolved) Closed fracture of body of calcaneus Closed fracture of calcaneus (Resolved) Cough Cough (Chronic 01/26/12) Cystocele Cystocele with rectocele (Chronic) Delivery normal (Resolved) Depression Depressive disorder (Resolved) Depressive disorder (Chronic) Diabetes Diabetes mellitus (Chronic) Diabetes mellitus (Inactive 02/14/14) Diarrhea (Resolved) Dysfunctional uterine bleeding (Resolved) Ectopic (Resolved) Elevated liver function tests (Resolved) Elevated liver function tests (Resolved 01/24/14) Essential hypertension (Chronic 02/23/13) Family history of malignant neoplasm of breast (Chronic) Family hx-breast malignancy (Resolved) Fatigue (Resolved) Frequently sick (Chronic 09/15/16) GERD (gastroesophageal reflux disease) Hearing loss Hearing problem (Chronic) History of ectopic (Resolved) Hypertension Hypokalemia (Resolved 01/26/12) Hypothyroidism Hypothyroidism (Chronic) IBS (irritable bowel syndrome) Irritable colon (Chronic) Mammogram abnormal (Resolved) Neck pain (Resolved) Neck pain (Chronic) Obesity, Class III, BMI 40-49.9 (morbid obesity) Otalgia of both ears (Resolved 04/30/17) Pneumonia Pneumonia, organism unspecified (Resolved) Positive JENNIFER (antinuclear antibody) (Resolved) Rectocele Reflux esophagitis (Chronic 12/26/13) Routine medical exam (Resolved) Sinus pressure (Resolved) Sinus pressure (Chronic 04/17/15) Upper back pain on right side (Chronic 11/17/16) Weakness (Resolved) Surgical History Appendectomy (~1998) Cholecystectomy (~1989) Colonoscopy - MAC EGD - MAC (03/10/14) EGD - MAC (08/05/16) H/O esophagogastroduodenoscopy (Resolved) Hysterectomy, Laproscopic Oophrectomy, Right (~03/2011) , Ectopic (~1988) Reduction mammoplasty (~03/2013) S/P appendectomy (Resolved) S/P cholecystectomy (Resolved) S/P exploratory laparotomy (Resolved) S/P hysterectomy with oophorectomy (Resolved) S/P tonsillectomy and adenoidectomy (Resolved) Status post appendectomy (Resolved) Status post cholecystectomy (Resolved) Status post exploratory laparotomy (Resolved) Status post hysterectomy (Resolved) Status post oophorectomy (Resolved) Status post tonsillectomy and adenoidectomy (Resolved) Tonsillectomy and adenoidectomy (~1985) Social History/Home Situation: 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 She is and lives in a private home. Home environment not discussed at this time. Current Functional Limitations: Requires close supervision with all sit to stand and in room ambulation activities, she is unable to ambulate without use of walker to decompress her back. Requires assist for bed bed mobility. Requires use of head of bed elevation and handrail, to transfer out of bed. Required assist with toileting hygiene. Equipment Owned/DME: None Subjective: Patient continues to report mild to moderate pain about 5/10 on low back area and lower abdominal area with transitional movements from sit to stand from bedside recliner and from edge of bed. She states that overall intensity is starting to subside with a new combination of pain pills provided for her. She hopes to ultimately go home and then return to work soon as she is safe to do so. Patient does report a feeling of constriction on the lower abdominal area and lumbar area when she reaches about 50-60 feet of level surface ambulation but stresses that pain intensity does not provide her from continuing to walk more distance resting in and standing. 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 She is and lives in a private home. Home environment not discussed at this time. Current Functional Limitations: Patient is independent with all sit to stand and in room ambulation activities, and is able to ambulate short distances without an assistive device. Requires use of head of bed elevation and handrail, to transfer out of bed. Equipment Owned/DME: None Objective: General Observation: Sitting on recliner chair. Mental Status: A& O x4 Pain: 5/10 during transitional movements. Patient reports lateralization of pain to lateral and posterior hip areas and proximal thighs during transitional movements of supine to sit sit to supine and sit to stand. Pain subsides in the upright position. ROM: Right Upper Extremity: WNL Left Upper Extremity: WNL Right Lower Extremity: WNL Left Lower Extremity: Passive B hips to 90 degrees, pasive left knee limited to approximately 110 degrees of flexion secondary to pain, otherwise WNL. Lumbar spine: Patient was able to tolerate posterior pelvic tilting with undue discomfort. Minimal discomfort reported with anterior pelvic tilting. Strength: Bilateral Upper Extremity: Defer muscle testing with resistance, but appears WNL. Defer resistance as to not exacerbate strain to low back, due to her high pain level. Bilateral Lower Extremity: Appears within functional limits, but weak due to strain on low back with LE active movements. Core: Remains weak Sensation: Sharp pain lateralizing from lumbar area down to bilateral hips and posterior proximal thighs. Bed Mobility/Transfers: Rolling independent Supine to sit independent Sit to supine independent Sit to stand independent Stand to sit independent Bed to chair independent but continues to to report mild discomfort to her lower abdominal area and lumbar area during transition movement of sit to supine to sit Chair to bed independent but continues to to report mild discomfort to her lower abdominal area and lumbar area during transition movement of sit to supine to sit Gait: Patient is now able to tolerate level surface ambulation of to 200 feet using front wheeled walker with distant supervision due to persistent constrictive pain report on lower abdominal and lumbar area. Balance: Static Sitting: Good Dynamic Sitting: Good Static Standing: Fair Dynamic Standing: Fair a with home health center the order Mobility Limitations Standardized Measure [facility] AM-PAC 6 clicks Basic Mobility Inpatient Short Form: Raw Score: 18 CMS Score: 47% Oswestry Disability Index: 33/50, 66% falling under the crippled/debilitated medicine characterized by back pain impinging on all aspects of the patient?s life. Positive intervention is required.? Informed Consent/Education: Patient instructed in purpose of PT consult and plan of care. Patient is agreeable to continuing physical therapy skilled with focus on back flexion exercises sent and Assessment: Patient is a 58 year old female referred to physical therapy services with the diagnosis of acute low back pain. Patient presents with clinical signs and symptoms consistent with acute low back pain in the presence of CT confirmed severe degenerative changes and mild spinal stenosis. Patient demonstrates the following impairment level findings: Limited lumbar range of motion, core and lower extremity weakness, soft tissue tenderness at the lumbosacral region, and poor pelvic muscle.. 1. Decreased strength to B LE major muscle groups 2. Impaired standing balance due to pain report 3. Impaired activity tolerance 4. Limitation of joint range of motion in lumbar spine due to pain Impairments are contributing to the following functional limitations: 1. Inability to safely ambulate without assistive device and physical as sistance 2. Increase completion time for mobility ADL performance 3. Increased fall risk Patient is assessed as a Low 33812 complexity History: See comorbidites as indicated above Examination: See above impairments and functional limitations Presentation: Evolving Decision Makin Low complexity Goals: Goals X1 week 1. Independent with home exercise program 2. Patient ambulates without a front-wheeled walker independently for 300 feet Plan of Care/Treatment Plan: 1x/day, 3-4 days/week x 1 week. Plan of care has been reviewed with the RIGGER CHIEF providing the service under Physical Therapy direction. Initiate Physical Therapy intervention for strengthening, bed mobility, transfers, gait, stairs, balance training, use of assistive device. DISCHARGE RECOMMENDATIONS: Home with family assist, outpatient PT. Walker if pain demands to decompress her back, for pain management, with ambulatory activities after the above goals are met. TREATMENT CODE/TIME: PT Eval Low Complexity: 42988 x X 15 minutes Therapeutic Exercise: 17942 x X 15 minutes Thank you very much for this referral. Jasen Shrestha SPT Under the supervision of: Amy Griffith PT, DPT, CLT [facility]
[2019-01-27] MEDS: Lidocaine 5% Patch 2 PATCH TP (11:48)
--- NOTE | 2019-01-27 14:35 | CHAPLAIN ---
Carmenza was sitting up in her chair, more alert today. She said the pain medication is working better and she is able to move better and has been up walking some. 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 Her , Bob, will be in after work today.
[2019-01-27 15:47] VITALS: BP 114/74; PULSE 80; RESP 17; TEMP 36.7; O2SAT 93
[2019-01-27] MEDS: Calcium 600mg/Vit D 200U TAB 2 TAB PO (20:17)
[2019-01-27] MEDS: Multivitamin w/Minerals TAB 1 TAB PO (20:17)
[2019-01-27] MEDS: Oxybutynin-CR 5 MG TABCR 10 MG PO (21:56)
[2019-01-27] MEDS: Fexofenadine 180 MG TAB PO (21:56)
[2019-01-27] MEDS: Melatonin 3 MG TAB PO (21:56)
[2019-01-27] MEDS: Topiramate 50 MG TAB PO (21:56)
[2019-01-27] MEDS: Montelukast 10 MG TAB PO (21:56)
[2019-01-27] MEDS: Methylnaltrexone 12 MG/0.6 ML VIAL SC (21:56)
[2019-01-28] VITALS: BP 101/65; PULSE 82; RESP 16; TEMP 36.4; O2SAT 95
[2019-01-28 08:00] VITALS: BP 118/64; PULSE 67; RESP 17; TEMP 36.6; O2SAT 96
[2019-01-28] MEDS: Ibuprofen 600 MG TAB PO ×3 (08:13→16:07)
[2019-01-28] MEDS: Senna TAB 1 TAB PO (08:13)
[2019-01-28] MEDS: DULoxetine 30 MG CAP 60 MG PO (08:13)
[2019-01-28] MEDS: Docusate Sodium 100 MG CAP PO (08:14)
[2019-01-28] MEDS: Cyclobenzaprine 10 MG TAB PO ×2 (08:15→14:19)
[2019-01-28] MEDS: Esomeprazole 40 MG CAPCR PO (08:18)
[2019-01-28] MEDS: Gabapentin 300 MG CAP PO ×2 (08:19→14:19)
[2019-01-28] MEDS: Polyethylene Glycol 3350 17 GM PACKET PO (08:20)
[2019-01-28] MEDS: HYDROcodone 5/Acetaminophen 325 TAB PO ×2 (09:13→14:19)
[2019-01-28] MEDS: Milk of Magnesia 30 ML CUP PO (09:14)
--- NOTE | 2019-01-28 09:50 | OTTR_ITS ---
Date of service: 01/28/19 Time of Service: 08:25 Occupational Therapy Notes Occupational Therapy Inpatient Treatment Note Date: 01/28/19 PRECAUTIONS: Standard SUBJECTIVE: Pt was sitting in chair when OT arrived. She was agreeable to skilled OT session and was reporting that her only concern when she returns home is transferring in and out of her shower but she states that her is very supportive and able to help her with this. OBJECTIVE: PAIN:c/o 5/10 pain DRESSING: Lower Extremity: With use of sock aid, dressing stick and heat treat supervisor pt was able to perform LE dressing with increased (I) with ideal technique. Adaptive equipment allows pt to perform her LE dressing and eliminate any extra pain from bending, twisting or pulling. Pt was able to perform this with min vc and will progress to decreasing use when she returns home as pain allows. ASSESSMENT/PLAN: OT will plan to work with pt on LE bathing at next session. Pt is demonstrating increased functional activity tolerance and pain management. OT feels that pt would benefit from one more OT session and then pt will be appropriate for discharge from skilled OT services. TREATMENT CODES/TIME: [id number], 20 minutes (08:25) Trang Ramesh OTR/[facility]
[2019-01-28] MEDS: Methylnaltrexone 12 MG/0.6 ML VIAL SC (11:18)
--- NOTE | 2019-01-28 11:18 | PTTR_ITS ---
Date of service: 01/28/19 Time of Service: 11:18 PT Notes 01/28/19 SUBJECTIVE: Carmenza stating her pain has improved each day. She notes she has been compliant with her exercises in her room and has been getting up and walking in the halls independently with her walker. OBJECTIVE: Pt is up moving around in her room. Agreeable to PT. TRANSFERS Sit to stand: I Stand to sit: I Sit to supine: I Supine to sit: I GAIT Device: No AD Weight bearing: Full Assist: S Distance: 200' Deviation: Slow cautious gait, no path deviations or LOB Treatment: Review Kegel activation with transfers. Pt performs sit to supine and supine to sit transfer x2 both independently with use of leg clinical research analyst. She feels more comfortable when transferring with pad under her as she slides easier. ASSESSMENT: Pt independent with transfers and gait today without LOB, path deviation or increasing fatigue noted. She appears to have her symptoms controlled in her back and knee with slight increase in discomfort with sit to supine transfers. PLAN: Continue per PT's POC. Treatment time: 25 minutes [id number] Rosemary East PTA Clinic location: [facility] [place], [place]
[2019-01-28] MEDS: Bisacodyl 10 MG SUPP PR (11:21)
[2019-01-28] MEDS: Lidocaine 5% Patch 2 PATCH TP (12:23)
--- NOTE | 2019-01-28 14:00 | DI.RAD_ITS ---
SYMPTOM/DIAGNOSIS: CONSTIPATION FLAT AND UPRIGHT ABDOMEN: There is gas scattered in small and large bowel without evidence of obstruction. There is a normal quantity of stool. Cholecystectomy clips are noted in the right upper quadrant. IMPRESSION: No acute abnormality.
--- NOTE | 2019-01-28 14:37 | CMPROGNOTE_ITS ---
Care Management Progress Note Discharge planning needs discussed with PT: Alecia and RETAIL OFFICE ASSOCIATE: Shawnee HE faxed documentation and prescription to [facility] for FWW for Carmenza to have upon discharge. [facility] reports delivery to [facility] will happen today, 01/28/19, once order is processed. YING faxed notification to [facility] to inform of anticipated home health PT orders upon discharge as Carmenza will require continued medications post discharge that will affect her ability to safely drive. She will require the support of home PT until able to safely transport herself to outpatient physical therapy.
--- NOTE | 2019-01-28 14:37 | PDOC.CMPRO ---
Care Management Progress Note Discharge planning needs discussed with PT: Alecia and LOBSTER CATCHER: Shawnee HE faxed documentation and prescription to [facility] for FWW for Carmenza to have upon discharge. [facility] reports delivery to [facility] will happen today, 01/28/19, once order is processed. YING faxed notification to [facility] to inform of anticipated home health PT orders upon discharge as Carmenza will require continued medications post discharge that will affect her ability to safely drive. She will require the support of home PT until able to safely transport herself to outpatient physical therapy.
--- NOTE | 2019-01-28 15:09 | INDS_ITS ---
Date of service: 01/28/19 Time of Service: 15:09 PT Notes Today's inpatient Physical Therapy Discharge Summary Dates: 01/28/2019 Dates of Service: 01/26/2019 through 01/28/2019 Referring Doctor: Rosaenne Robles MD PT Orders: PT CONSULT: Eval and treat Precautions: Falls. Standard. Activity as tolerated. Patient Profile/Admitting Diagnosis: Patient admitted from acute care to swing unit for management of acute low back pain, with episode of incontinence, after bending forward and picking up laundry detergent on 01/21/2019. She presented to the ER, via EMS. CT scan identifying L3-4 mild spinal stenosis, and multilevel severe degenerative changes. Premorbid level of function: WNL PMHX: Medical History Antinuclear factor positive (Chronic 09/22/16) BMI 40.0-44.9, adult (Chronic 09/03/15) Breast lump in female Breast lump in lower inner quadrant (Resolved) Bronchitis Candidiasis (Chronic) Chest pain in adult (Resolved) Closed fracture of body of calcaneus Closed fracture of calcaneus (Resolved) Cough Cough (Chronic 01/26/12) Cystocele Cystocele with rectocele (Chronic) Delivery normal (Resolved) Depression Depressive disorder (Resolved) Depressive disorder (Chronic) Diabetes Diabetes mellitus (Chronic) Diabetes mellitus (Inactive 02/14/14) Diarrhea (Resolved) Dysfunctional uterine bleeding (Resolved) Ectopic (Resolved) Elevated liver function tests (Resolved) Elevated liver function tests (Resolved 01/24/14) Essential hypertension (Chronic 02/23/13) Family history of malignant neoplasm of breast (Chronic) Family hx-breast malignancy (Resolved) Fatigue (Resolved) Frequently sick (Chronic 09/15/16) GERD (gastroesophageal reflux disease) Hearing loss Hearing problem (Chronic) History of ectopic (Resolved) Hypertension Hypokalemia (Resolved 01/26/12) Hypothyroidism Hypothyroidism (Chronic) IBS (irritable bowel syndrome) Irritable colon (Chronic) Mammogram abnormal (Resolved) Neck pain (Resolved) Neck pain (Chronic) Obesity, Class III, BMI 40-49.9 (morbid obesity) Otalgia of both ears (Resolved 04/30/17) Pneumonia Pneumonia, organism unspecified (Resolved) Positive JENNIFER (antinuclear antibody) (Resolved) Rectocele Reflux esophagitis (Chronic 12/26/13) Routine medical exam (Resolved) Sinus pressure (Resolved) Sinus pressure (Chronic 04/17/15) Upper back pain on right side (Chronic 11/17/16) Weakness (Resolved) Surgical History Appendectomy (~1998) Cholecystectomy (~1989) Colonoscopy - MAC EGD - MAC (03/10/14) EGD - MAC (08/05/16) H/O esophagogastroduodenoscopy (Resolved) Hysterectomy, Laproscopic Oophrectomy, Right (~03/2011) , Ectopic (~1988) Reduction mammoplasty (~03/2013) S/P appendectomy (Resolved) S/P cholecystectomy (Resolved) S/P exploratory laparotomy (Resolved) S/P hysterectomy with oophorectomy (Resolved) S/P tonsillectomy and adenoidectomy (Resolved) Status post appendectomy (Resolved) Status post cholecystectomy (Resolved) Status post exploratory laparotomy (Resolved) Status post hysterectomy (Resolved) Status post oophorectomy (Resolved) Status post tonsillectomy and adenoidectomy (Resolved) Tonsillectomy and adenoidectomy (~1985) Subjective: Patient reports significant improvement in pain level although she states she continues to use leg-hunting sales associate for supine to sit and sit to supine activities. Patient is agreeable to discharge of skilled physical therapy services today and wondered whether home health PT would be more appropriate due to the use of narcotics upon discharge from hospital. Objective: General Observation: Patient seen resting in bed in no apparent distress. Mental Status: Alert and oriented x 4 Pain: 0/10 ROM: Right Upper Extremity: Shoulder Flexion WFL. Shoulder abduction WFL. Elbow flexion WFL. Wrist flexion WFL. Functional opening and closing of hand WFL. Left Upper Extremity: Shoulder Flexion WFL. Shoulder abduction WFL. Elbow flexion WFL. Wrist flexion WFL. Functional opening and closing of hand WFL. Right Lower Extremity: Hip flexion allows to 90 degrees passively. Hip abduction WFL. Knee flexion allows up to 100 degrees passively. Ankle dorsiflexion WFL. Ankle plantarflexion WFL. Left Lower Extremity: Hip flexion allows to 90 degrees passively. Hip abduction WFL. Knee flexion allows up to 100 degrees passively. Ankle dorsiflexion WFL. Ankle plantarflexion WFL Strength: Globally at least 3/5 with the exception of bilateral hip flexion. Bed Mobility/Transfers: Rolling independent Supine to sit independent Sit to supine independent Sit to stand independent Stand to sit independent Bed to chair independent but continues to report mild discomfort to her lower abdominal area and lumbar area during transition movement of sit to supine to sit Chair to bed independent but continues to report mild discomfort to her lower abdominal area and lumbar area during transition movement of sit to supine to sit Gait: Patient is now able to tolerate level surface ambulation of to 200 feet without an assistive device but with standby assist. Patient did not report pain during gait activities. Balance: Static Sitting: Good Dynamic Sitting: Good Static Standing: Good Dynamic Standing: Fair Informed Consent/Education: Patient instructed in purpose of PT consult and agreed to receive home health PT after being discharged to her home. Assessment: Patient is a 58 year old female referred to physical therapy services with the diagnosis of acute low back pain. Patient presents with clinical signs and symptoms consistent with acute low back pain in the presence of CT confirmed severe degenerative changes and mild spinal stenosis. Patient demonstrates the following impairment level findings: Limited lumbar range of motion, core and lower extremity weakness, soft tissue tenderness at the lumbosacral region, and weakened pelvic muscles. Impairments are contributing to the following functional limitations: Unable to ambulate at premorbid level, needs assist with hygiene activities, cannot tolerate lengthy weight-bearing as compared to premorbid level. Cannot carry out her occupational duties. Patient responded well to core stabilization exercises which continued when she entered swing-level care. Patient was encouraged to continue exercises at home following discharge as she demonstrated 100% mastery with them. Patient was provided with written instructions of the exercises as well. Goals: Goals X1 week 1. Supine-Sit I MET 2. Sit-Supine I MET 3. Sit-Stand I, MET 4. Stand-Sit I, MET 5. Bed-Chair I, MET 6. Chair-Bed I, MET 7. Gait 30 ft MET 8. Stairs 3 with rail NOT MET 9. Independent with home exercise program MET 10. Balance Fair MET DISCHARGE RECOMMENDATIONS: Home with family assist, home health PT. Walker if pain demands to decompress her back, for pain management, with ambulatory activities. TREATMENT CODE/TIME: 88516 x 15 minutes at 12:40 PM Thank you very much for this referral. Jasen Shrestha SPT Under the supervision of: Amy Griffith PT, DPT, CLT [facility]
--- NOTE | 2019-01-28 15:27 | W.PM.DS.N ---
Date of service: 01/28/19 Time of Service: 15:28 DS: Diagnosis Discharge Diagnosis (1) Acute low back pain with possible spinal stenosis of less than six weeks' duration: Start date: 01/28/19 Start time: 15:28 Status: Acute Asessment and Plan: stenosis of L 3-4 with severe muscle spasms. Continue PT as outpatient. Front wheel walker for support. continue to use ice and ambulate. (2) Ambulatory dysfunction: Status: Acute (3) Constipation: Start date: 01/28/19 Start time: 15:29 Status: Acute Asessment and Plan: Continue Bowel regimen until 2 loose stools. Especially while taking narcotics. (4) Left knee pain: Status: Chronic (5) Discharge planning issues: Status: Acute Discharge Plan Disposition Patient Disposition: HOME Condition: Stable Discharge Details Reason For Visit: LOWER BACK PAIN Admit Date/Time: 01/26/19 15:56 Admit Provider: Roseanne Robles Attending Provider: Roseanne Robles Primary Care Provider: Noy langley [facility] Course Hospital Course: 58 y.o. Female with PMH of chronic L knee pain, NIDDM2, HTN, Hypothyroidism, GERD, obesity, admitted on 01/22/2019 to [facility] hosptialist service for acute lower back pain, due to L3-4 spondylolisthesis with significant muscle spasm. She was treated with steroid tylenol, muscle relaxers, lidocaine patch, cold therapy, neurotin and norco. She received a tapering steroid burst as well. Working with PT/OT on 01/26 she was placed in swing bed status for continuation with PT/OT to help her gain ambulatory function back. Over the last couple of days she was constipated given a bowel regimen and had small hard stools yesterday. Today she was still c/o bloating, xray of abdomen was done revealing no acute abnormality. She will discharged home with PT and a front rolling walker for support. She will need follow up in 1-2 weeks with PCP and recommend applications support specialist if this continues. She denies CP, SOB, N/V/D Home Meds and New Rx's Prescriptions: New cyclobenzaprine 10 mg Tablet 10 mg PO TID Qty: 30 RF: 0 hydrocodone-acetaminophen 5-325 mg Tablet 1 tab PO Q4H PRN PRN (Reason: pain) Qty: 25 RF: 0 lidocaine [Lidoderm] 5 % Adhesive Patch,Medicated 2 patch topical Q24H Qty: 30 RF: 0 docusate sodium [Colace] 100 mg Capsule 100 mg PO BID Qty: 30 RF: 0 gabapentin 300 mg Capsule 300 mg PO TID Qty: 30 RF: 0 ibuprofen [IBU] 600 mg Tablet 600 mg PO QID Qty: 90 RF: 0 sennosides [Senokot] 8.6 mg Tablet 8.6 mg PO BID Qty: 30 RF: 0 polyethylene glycol 3350 17 gram Powder In Packet 17 g PO DAILY Qty: 30 RF: 0 Continued alosetron 0.5 mg tablet 0.5 mg PO DAILY RF: 0 duloxetine 60 mg capsule,delayed release(DR/EC) 60 mg PO DAILY Qty: 90 RF: 4 esomeprazole magnesium 40 mg capsule,delayed release(DR/EC) 40 mg PO DAILY Qty: 90 RF: 11 oxybutynin chloride 10 mg tablet extended release 24hr 10 mg PO HS Qty: 90 RF: 4 Xifaxan 550 mg tablet 550 mg PO TID PRNRF: 0 fluticasone propionate 50 mcg/actuation spray,suspension 2 spray CHIQUITA DAILY PRNRF: 0 ranitidine HCl 150 mg tablet 150 mg PO QHS Qty: 90 RF: 4 multivitamin [One Daily] 1 EACH tablet 1 ea PO DAILY RF: 0 fexofenadine [Li] 180 MG tablet 180 mg PO HS RF: 0 calcium carbonate-vitamin D3 [Caltrate with Vitamin D3] 1 EACH tablet 2 ea PO DAILY RF: 0 Restasis 1 EACH dropperette 1 drp Ophthalmic BID RF: 0 topiramate [Topamax] 50 mg tablet 50 mg PO HS Qty: 90 RF: 3 spironolactone 25 mg tablet 25 mg PO DAILY Qty: 90 RF: 5 doxazosin 4 mg tablet 4 mg PO DAILY Qty: 90 RF: 12 levothyroxine 137 mcg tablet 137 mcg PO DAILY Qty: 90 RF: 12 azelastine 0.15 % (205.5 mcg) spray,non-aerosol 2 spray CHIQUITA BID Qty: 30 RF: 5 montelukast [Singulair] 10 mg tablet 10 mg PO HS Qty: 90 RF: 4 acetaminophen [Mapap Extra Strength] 500 MG tablet 1,000 mg PO PRN PRNRF: 0 sodium chloride [Saline Mist] 0.65 % aerosol,spray 1 spray CHIQUITA ONCE Qty: 15 RF: 0 No Action (DME) Hearing Aid Batteries 1 EACH misc 1 ea Miscellaneous DAILY Qty: 30 RF: 11 Discharge Instructions Instructions: Constipation (GEN), High Fiber Diet (GEN), Weight Management (GEN), Acute Low Back Pain (GEN), Lumbar Radiculopathy (GEN), Back Pain (GEN), Lower Back Exercises (GEN) Additional Instructions: Follow up with your PCP in 1-2 weeks. Continue PT and use Front rolling walker for support Take bowel medication until you have 2 loose stool Continue to ambulate as much as possible Seek medical treatment if you start to have Chest pain, shortness of breath, n/v/d. Stand Alone Forms: Nursing Discharge Form Referrals: Noy Frederick MD, [place] [Primary Care Provider] - (Please call PCP on Thursday for an appointment.) Activity:: Activity as Tolerated Equipment/Supplies:: No Equipment Needed Diet:: Carb Counting Discharge Orders Discharge Orders: Discharge Order (Routine); Ordered 01/28/19 Ordered By: Kailey Diehl Exam Narrative Exam Narrative: General: Very pleasant middle-aged female, A&OX3, Seen in bed when she just tried to change positions/transfer - moaning in pain Neuro: A&OX3, no focal deficits, able to move all 4 extremities, 5/5 strength in BLE's Psych: appropriate speech pattern/content Skin: visible skin intact HEENT: EOMI, MMM Heart: RRR, no m/r/g Lungs: CTAB Gastrointestinal: abdomen is soft, distended, nontender Extremities: no e/c/c BLE's, able to move both feet in bed DS: Data Vitals/I&O Vitals and I&O: Vital Signs Temperature 36.6 C 01/28/19 08:00 Temperature Source Tympanic 01/28/19 08:00 Pulse 67 01/28/19 08:00 Pulse Rhythm Regular 01/28/19 09:00 Respiratory Rate 17 01/28/19 08:00 Respiratory Effort Non-Labored 01/28/19 09:00 Respiratory Depth Normal 01/28/19 09:00 Respiratory Pattern Normal 01/28/19 09:00 Blood Pressure 118/64 01/28/19 08:00 Pulse Oximetry 96 01/28/19 08:00 Oxygen Delivery Method Room Air 01/28/19 08:00 Oxygen Flow Rate 0 01/28/19 08:00 Pain Level 7 01/28/19 14:19 Intake & Output 01/27/19 01/28/19 01/28/19 23:59 11:59 23:59 Intake Total 690 / 930 240 / 272 32 / 272 Balance 690 / 930 240 / 272 32 / 272 Intake: Oral 690 / 930 240 / 272 32 / 272 Other: Urine Color Light Ninfa Urine Appearance Clear Clear Clear Urine Odor None Comment pt voids independently in toilet brp Stool Size Small Stool Characteristics Hard Brown Voiding Methods Toilet Toilet Completed studies during hospitalization [Text1]: Exam(s) a CT:CT lumbar spine wo SYMPTOM/DIAGNOSIS: FALL WEEKS AGO, NOW ACUTE BACK PAIN CT LUMBAR SPINE: Comparison is made with CT abdomen and pelvis dated 21 January 2014. There is no evidence of fracture, spondylolysis or spondylolisthesis. There is disc bulging at L3-4 through L5-S1 which does not appear significantly changed. There are small end plate osteophytes at multiple levels. There are facet degenerative changes at L3-4 and L4-5. There is bilateral neural foraminal narrowing at L3-4 and L4-5. There is moderate central canal stenosis at L3-4 secondary to a combination of degenerative changes. No lytic or blastic bony lesions are seen. The aorta is normal in diameter and shows mild calcification. IMPRESSION: Degenerative disc changes and facet degenerative changes causing moderate central canal stenosis at L3-4 as well as neural foraminal narrowing at L3-4 and L4-5. Exam(s) EXAM: CT Lumbar Spine Without Contrast EXAM DATE/TIME: 01/22/2019 11:49 AM CLINICAL HISTORY: 58 years old, female; Other: Fall weeks ago, now acute back pain TECHNIQUE: Imaging protocol: Computed tomography images of the lumbar spine without contrast. Radiation optimization: All CT scans at this facility use at least one of these dose optimization techniques: automated exposure control; mA and/or kV adjustment per patient size (includes targeted exams where dose is matched to clinical indication); or iterative reconstruction. COMPARISON: No relevant prior studies available. FINDINGS: Vertebrae: Grade 1 anterior non-spondylitic spondylolisthesis of L4 on L5 with minimal central spinal stenosis and prominent facet degenerative changes. Discs/Spinal canal/Neural foramina: Posterior disc bulge at L3-4 with mild central spinal stenosis and severe bilateral facet degenerative change. Gallbladder and bile ducts: Surgical clips in the gallbladder fossa consistent with cholecystectomy. Vasculature: Calcification of the abdominal aorta and/or iliac arteries consistent with atherosclerotic vessel disease. Soft tissues: Unremarkable. IMPRESSION: Posterior disc bulge at L3-4 with mild central spinal stenosis and severe bilateral facet degenerative change. No acute findings. Exam(s) a MRI:MR lumbar spine wo SYMPTOMS/DIAGNOSIS: LUMBAR BACK PAIN, L3-L4 SPONDYLOLISTHESIS MRI OF THE LUMBAR SPINE: Comparison is made with CT of the lumbar spine dated . T 1, T 2 and STIR sagittal, T 1 coronal and T 1 and T 2 axial sequences were performed. The marrow signal is normal. The conus medullaris appears intact. The aorta is normal in diameter. There are small Schmorl's nodes seen in the lower thoracic region and at L 1 - 2. There is minimal disc bulging at these levels. At L 3 - 4, there is mild loss of disc height which is greatest on the right side. There is disc bulging which is also somewhat eccentric toward the right. There is moderate right neural foraminal encroachment. There are facet degenerative changes and mild ligamentous hypertrophic which combine with the disc bulging to cause a mild degree of central canal stenosis. At L 4 - 5, there are facet degenerative changes causing slight spondylolisthesis. There is slight disc bulging. There is no significant central canal stenosis. There is mild left neural foraminal narrowing. At L 5 - S 1, there is mild disc bulging. There is no neural foraminal narrowing or central canal stenosis. IMPRESSION: Degenerative disc changes and facet degenerative changes cause mild central canal stenosis and right neural foraminal narrowing at L 3 - 4. Mild neural foraminal narrowing is seen on the left at L 4 - 5. Exam(s) a RAD:XR abdomen flat & upright SYMPTOM/DIAGNOSIS: CONSTIPATION FLAT AND UPRIGHT ABDOMEN: There is gas scattered in small and large bowel without evidence of obstruction. There is a normal quantity of stool. Cholecystectomy clips are noted in the right upper quadrant. IMPRESSION: No acute abnormality. [facility] Medical History Antinuclear factor positive (Chronic 09/22/16) BMI 40.0-44.9, adult (Chronic 09/03/15) Breast lump in female Breast lump in lower inner quadrant (Resolved) 04/12/15 Bronchitis Candidiasis (Chronic) Frequent persistent yeast infx. Chest pain in adult (Resolved) 11/17/16 Closed fracture of body of calcaneus Closed fracture of calcaneus (Resolved) Cough Cough (Chronic 01/26/12) Cystocele Cystocele with rectocele (Chronic) With urinary incontinence Delivery normal (Resolved) Depression Depressive disorder (Resolved) Depressive disorder (Chronic) Diabetes Diabetes mellitus (Chronic) Diabetes mellitus (Inactive 02/14/14) Diarrhea (Resolved) 02/02/14 Dysfunctional uterine bleeding (Resolved) Ectopic (Resolved) 06/01/88 Elevated liver function tests (Resolved) 01/24/14 Elevated liver function tests (Resolved 01/24/14) Essential hypertension (Chronic 02/23/13) Family history of malignant neoplasm of breast (Chronic) Family hx-breast malignancy (Resolved) Fatigue (Resolved) unspecified 01/19/14 Frequently sick (Chronic 09/15/16) GERD (gastroesophageal reflux disease) Hearing loss Hearing problem (Chronic) B/L aides History of ectopic (Resolved) Hypertension Hypokalemia (Resolved 01/26/12) Hypothyroidism Hypothyroidism (Chronic) IBS (irritable bowel syndrome) Irritable colon (Chronic) Mammogram abnormal (Resolved) 04/30/05 Neck pain (Resolved) Neck pain (Chronic) Obesity, Class III, BMI 40-49.9 (morbid obesity) Otalgia of both ears (Resolved 04/30/17) Pneumonia Pneumonia, organism unspecified (Resolved) unspecified laterality, unspecified part of lung Positive JENNIFER (antinuclear antibody) (Resolved) 09/22/16 Rectocele Reflux esophagitis (Chronic 12/26/13) Routine medical exam (Resolved) 02/14/14 Sinus pressure (Resolved) 04/17/15 Sinus pressure (Chronic 04/17/15) Upper back pain on right side (Chronic 11/17/16) Weakness (Resolved) 01/19/14 Surgical History Appendectomy (~1998) Cholecystectomy (~1989) Colonoscopy - [facility] 03/2004;[facility] N/L 03/2014; [facility] EGD - MAC (03/10/14) EGD - MAC (08/05/16) H/O esophagogastroduodenoscopy (Resolved) 03/01/14 Hysterectomy, Laproscopic 03/03/11 [facility]; HYSTERECTOMY WITH BLADDER AND BOWEL TIE UP WITH SLING; R OVARY AND CYST ALSO REMOVED Oophrectomy, Right (~03/2011) , Ectopic (~1988) Reduction mammoplasty (~03/2013) S/P appendectomy (Resolved) 06/01/98 S/P cholecystectomy (Resolved) 06/01/89 S/P exploratory laparotomy (Resolved) 06/01/88 S/P hysterectomy with oophorectomy (Resolved) S/P tonsillectomy and adenoidectomy (Resolved) 06/01/85 Status post appendectomy (Resolved) Status post cholecystectomy (Resolved) Status post exploratory laparotomy (Resolved) Status post hysterectomy (Resolved) Status post oophorectomy (Resolved) Status post tonsillectomy and adenoidectomy (Resolved) Tonsillectomy and adenoidectomy (~1985) Family History Mother Diabetes TYPE II Hyperlipidemia Father Alcohol abuse Neoplasm LUNG Sister Neoplasm BREAST Sister No problems noted. Brother No problems noted. Brother Pneumonia X 3 Grandfather Diabetes Grandfather Diabetes Grandmother No problems noted. Grandmother Diabetes Neoplasm BREAST Son No problems noted. Daughter No problems noted. Social History Smoking/Tobacco Use Status: Never Alcohol Intake: current Alcohol Intake frequency: holidays/special occasions only Drug use: Never Do you feel safe at home: Yes Do you feel safe in your relationship?: Yes
[2019-01-28 16:04] VITALS: BP 110/70; PULSE 79; RESP 20; TEMP 36.6; O2SAT 94
--- NOTE | 2019-01-28 16:47 | PDOC.CMDIS ---
LACE Index Scoring Tool - Questions: Length of Stay (in days): 2 Acuity (Admit via E.D.?): Yes Comorbidities: Diabetes w/o Complication E.D. Visits: 4 - Answers: Total Score: 10 Risk of Readmission: High Risk Care Management Discharge Reason for Hospitalization: Lower Back Pain Discharge Plan: Carmenza will return home when ready per MD. She will have a new FWW and orders for [facility] PT upon discharge per MD. Carmenza will follow up with her PCP and plan of care as prescribed. She will transport home via private vehicle with her . Patient/Family Education Needs: Review discharge instructions, discuss Ask Me Three. Services Needed at Discharge: DME Agency (FWW), Home Health Care Services ([facility] PT)
--- NOTE | 2019-01-28 17:45 | PDOC.HHF2F ---
1. Encounter Date and Reason I certify that ANTWON KELLY was seen by Roseanne Robles on 01/28/19 and that I had a [id number] encounter with this patient that meets the physician face to face encounter requirements. 2. Clinical Findings Supporting Skilled Need and Homebound Status I certify that home health services are medically necessary, include either intermittent senior living and/or physical/speech therapy, and that this patient is homebound in that absences from the home require considerable and taxing effort and are infrequent or of short duration, or are attributable to the need to receive medical care. [X] (a) Attached documentation from encounter provides clinical findings supporting skilled need and homebound status (including what assistance patient requires to leave the home). The encounter with the patient was in whole, or in part, for the following medical condition, which is the primary reason for home health care: LOWER BACK PAIN Physical Therapy: eval and treat Homebound: unable to leave home without assistance 3. Certification and Authentication I certify that I composed the above information based on my clinical judgement relating to this patient's medical condition and, if applicable, clinical findings communicated to me by the NPP or inpatient physician who performed the Home Health Referral. All further orders will be obtained through Dr Frederick (Community Based Physician - PCP)
== END 2019-01-28 18:16 | disposition home or self-care (01) | DRG 552 ==
PROVIDERS: Admitting Provider Internal Medicine; PCP Family Medicine; Visit Provider Internal Medicine
DX: M54.5 Low back pain (principal); M48.061 Spinal stenosis, lumbar region without neurogenic claudication; R26.2 Difficulty in walking, not elsewhere classified; M25.562 Pain in left knee; K59.00 Constipation, unspecified; E11.9 Type 2 diabetes mellitus without complications; I10 Essential (primary) hypertension; E03.9 Hypothyroidism, unspecified; K21.9 Gastro-esophageal reflux disease without esophagitis
CPT/HCPCS: 97162; 97165; 97530; 97535; 99239; 99306; 99316; 74019; J3490

== ENCOUNTER 2019-02-21 13:54 | Outpatient (CLI) | payer BC, SELFPAY ==
[2019-02-21 14:18] LABS: HCT 39.3 % (36.0-46.0); HGB 13.1 g/dL (12.0-15.5); Mean Corp. HGB Concentration 33.3 g/dL (32.0-36.0); Mean Corpuscular Hemoglobin 29.9 pg (27.0-33.0); Mean Corpuscular Volume 89.7 fL (80-95); Mean Platelet Volume 9.4 fL (8.0-11.0); Platelet Count 201 x1000/uL (130-400); RBC 4.38 m/cumm (4.00-5.20); RBC Distribution Width 14.4 % (11.7-14.6); White Blood Cell Count 6.75 k/cumm (4.4-10.8)
[2019-02-21 15:08] LABS: ESR 31 mm/hr (0-30)
[2019-02-21 15:17] LABS: ALT 44 U/L (14-59); AST 21 U/L (15-37); Alkaline Phosphatase 56 U/L (46-116); Anion Gap 11.4 mmol/L (3-11); BUN 18 mg/dL (7-18); Bilirubin, Total 0.4 mg/dL (0.2-1.0); C-Reactive Protein 1.57 mg/dL (0.0-0.3); CO2 26.6 mmol/L (21.0-32.0); CREATININE 1.06 mg/dL (0.55-1.02); Chloride 104 mmol/L (98-107); Creatine Kinase 33 U/L (26-192); Estimated GFR 53.62 (mL/min/1.73m2); Glucose 159 mg/dL (70-100); Potassium 3.7 mmol/L (3.5-5.1); Sodium 142 mmol/L (136-145)
[2019-02-21 17:14] LABS: Vitamin D 25 Total 26.8 ng/ml (30-100)
[2019-02-22 12:10] LABS: Lyme Ab w Rflx to Lyme Confirm Negative
[2019-02-22 13:57] LABS: Albumin 60.2 % (55.8-66.1); Comment SEE COMMENTS
== END 2019-02-21 14:14 ==
PROVIDERS: PCP Family Medicine; Visit Provider Family Medicine
DX: M54.5 Low back pain (principal)
CPT/HCPCS: 36415; 80053; 82306; 82550; 85027; 85652; 84165; 86140; 86320; 86618

== ENCOUNTER 2019-02-22 10:15 | Outpatient (CLI) | payer BC, SELFPAY ==
--- NOTE | 2019-02-22 13:00 | DI.RAD_ITS ---
EXAM: XR THORACIC SPINE COMPLETE INDICATION: T10-S1 pain, M54.9, DORSALGIA. COMPARISON: CERV SP WITH OBL AND FLEX/EXT from 04/23/2011 TECHNIQUE: 2D digital imaging was performed. FINDINGS: AP and lateral projections of the thoracic spine are provided. Multilevel disc space narrowing is id entified. Endplate hypertrophic spurring noted. There is no evidence of a fracture or subluxation. P osterior elements appear intact. The paravertebral soft tissues are well maintained. IMPRESSION: Evidence of degenerative disc disease and DJD. No evidence of a fracture or subluxation.
== END 2019-02-22 10:35 ==
PROVIDERS: PCP Family Medicine; Visit Provider Family Medicine
DX: M54.6 Pain in thoracic spine (principal); M51.34 Other intervertebral disc degeneration, thoracic region; M47.814 Spondylosis without myelopathy or radiculopathy, thoracic region
CPT/HCPCS: 72072

== ENCOUNTER 2019-02-28 10:07 | Outpatient (CLI) | payer BC, SELFPAY ==
--- NOTE | 2019-02-28 09:50 | DI.RAD_ITS ---
EXAM: XR PELVIS AP INDICATION: left medial knee pain, pain with hip IR. COMPARISON: XR abdomen flat upright from 01/28/2019 TECHNIQUE: 2D digital imaging was performed. FINDINGS: No acute fracture or dislocation is present. No suspicious lytic or sclerotic lesions are present. There are mild degenerative changes of the hips bilaterally. The sacroiliac joints and symphysis pub is are well maintained. The soft tissues are unremarkable. IMPRESSION: Mild degenerative changes of the hips bilaterally.
== END 2019-02-28 10:27 ==
PROVIDERS: PCP Family Medicine; Visit Provider Student in an Organized Health Care Education/Training Program
DX: M25.562 Pain in left knee (principal); M25.552 Pain in left hip; M16.0 Bilateral primary osteoarthritis of hip
CPT/HCPCS: 72170

== ENCOUNTER 2019-03-29 09:33 | Outpatient (CLI) | payer BC, SELFPAY ==
--- NOTE | 2019-03-29 07:11 | DI.RAD_ITS ---
EXAM: XR PAIN CLINIC LUMBAR SP 2V CLINICAL HISTORY: Lumbar Medial Branch Block TECHNIQUE: Realtime digital imaging was performed. COMPARISON: No exams were available for comparison FINDINGS: Fluoroscopy was utilized by Dr. Garcia during the performance of a lumbar medial branch block. Please refer to the procedure report for complete details Fluoro time 51.6 sec
[2019-03-29 10:14] VITALS: BP 117/71; PULSE 95; RESP 20; TEMP 37.2; O2SAT 95
[2019-03-29] MEDS: Bupivacaine 0.5% Pres-Free 10 ML VIAL IJ (10:30)
[2019-03-29] MEDS: Omnipaque 240 MG/ML 50 ML BTL IJ (10:30)
[2019-03-29 10:50] VITALS: BP 119/70; PULSE 86; RESP 14; O2SAT 96
--- NOTE | 2019-03-29 10:50 | PDOC.PAIN_ITS ---
Pain Clinic Procedure Note Procedure Note Procedure Note: Lumbar/Sacral Medial Branch Blocks ANTWON KELLY has been referred to the [facility] for lumbar/sacral medial branch blocks. COMMENTS: She was seen by Ms. Franco in our clinic. I reviewed her evaluation. Patient was interviewed and the medical record reviewed. There were no medical, pharmacologic, radiographic or other structural contraindications to attempting fluoroscopically guided local anesthetic lumbar/sacral medial branch blocks. Risks and expected side effects as well as potential benefit of the procedure were reviewed and voiced concerns addressed. The printed consent form was signed and witnessed. Standard time-out procedure was performed. Patient was placed in the prone position on the fluoroscopy table and automated blood pressure cuff and pulse oximeter applied. The skin entry points for a pproaching the anatomic target points of the segmental medial branches of bilateral L3-L5 were identified with anfluoroscopy and marked. Following thorough Chlorhexadine preparation of the skin and draping and 1% lidocaine infiltration of the skin entry points and subcutaneous tissues, a 22 gauge spinal needle was placed under fluoroscopic guidance down on to the target point for each respective segmental medial branch.Position was confirmed in A/P, oblique and lateral views with 0.25ml of omnipaque 240. At this point 0.5cc of 0.5% Bupivacaine was injected at each segmental nerve. Vital signs were stable throughout the procedure and were as recorded in the docflowsheet by the nursing staff. Follow up plans and appointments were discussed and was instructed to keep c areful note of how the usual pain was modified by these injections. Specifically was asked to keep a pain diary for the next 24 hours using a numeric pain scale of 0-10 and report these results at the follow-up visit. Post procedure instruction was given as documented in the nursing documentation and having met discharge criteria. Patient was discharged from the [facility]. Based on the medial branches blocked today, if the patient has adequate relief and we are able to proceed to radiofrequency ablation, the treatment should result in the denervation of the bilateral L4-L5 and L5-S1 FACET JOINTS. We would expect to denervate a total of 4 facets during the radiofrequency ablation. COMMENTS: The patient will call back with her 1-4 hour post-procedure pain scores. CC: Noy Frederick MD, DC
== END 2019-03-29 09:53 ==
PROVIDERS: PCP Family Medicine; Visit Provider Preventive Medicine Occupational Medicine
DX: M47.817 Spondylosis without myelopathy or radiculopathy, lumbosacral region (principal)
CPT/HCPCS: 64493; 64494; 72100; Q9967

== ENCOUNTER 2019-04-06 02:04 | Outpatient (CLI) | payer BC, SELFPAY ==
--- NOTE | 2019-04-06 12:00 | DI.MRI_ITS ---
EXAM: MR LOWER JOINT LT WO CLINICAL HISTORY: Persistent pain of L knee after fall, INTERNAL DERANGEMENT. TECHNIQUE: Multiplanar multisequence MRI was performed. COMPARISON: No exams were available for comparison FINDINGS: The scan quality is very limited due to the patient's size and motion. No gross bony signal abnormal ity seen. Moderate size knee joint effusion. Probable mild articular cartilage thinning of lateral patellar facet with lateral patellar mild subluxation. Menisci poorly seen, no definite meniscal tea r identified. No cruciate ligament tear. No collateral ligament tear. IMPRESSION: Very limited scan. No gross evidence of internal derangement. There are patellar subluxation and pro bable articular cartilage thinning noted at the lateral patellofemoral joint.
== END 2019-04-06 02:24 ==
PROVIDERS: PCP Family Medicine; Visit Provider Student in an Organized Health Care Education/Training Program
DX: M25.562 Pain in left knee (principal); M23.92 Unspecified internal derangement of left knee; S83.002A Unspecified subluxation of left patella, initial encounter
CPT/HCPCS: 73721

== ENCOUNTER 2019-04-26 11:43 | Outpatient (CLI) | payer BC, SELFPAY ==
[2019-04-26 13:30] LABS: Anion Gap 10.4 mmol/L (3-11); BUN 15 mg/dL (7-18); CO2 26.6 mmol/L (21.0-32.0); CREATININE 0.95 mg/dL (0.55-1.02); Chloride 106 mmol/L (98-107); Glucose 137 mg/dL (74-106); Magnesium 1.9 mg/dL (1.8-2.4); Potassium 3.8 mmol/L (3.5-5.1); Sodium 143 mmol/L (136-145)
[2019-04-26 14:04] LABS: Hemoglobin A1C 7.6 % (4.5-6.2)
== END 2019-04-26 12:03 ==
PROVIDERS: PCP Family Medicine; Visit Provider Family Medicine
DX: E11.9 Type 2 diabetes mellitus without complications (principal); E87.8 Other disorders of electrolyte and fluid balance, not elsewhere classified
CPT/HCPCS: 36415; 80048; 83036; 83735

== ENCOUNTER 2019-04-26 13:11 | Outpatient (CLI) | payer BC, SELFPAY ==
--- NOTE | 2019-04-26 06:00 | DI.RAD_ITS ---
EXAM: XR PAIN CLINIC LUMBAR SP 2V CLINICAL HISTORY: Lumbar Medial Branch Block #2. Lumbar spondylosis. TECHNIQUE: Fluoroscopy was provided for the referring physician for guidance with performing injecti on procedure. COMPARISON: No exams were available for comparison FINDINGS: Please see procedure note for details. Fluoro Time: 82.1 seconds
[2019-04-26 13:21] VITALS: BP 122/78; PULSE 96; RESP 20; TEMP 37.2; O2SAT 98
--- NOTE | 2019-04-26 13:40 | PDOC.PAIN ---
Pain Clinic Procedure Note Procedure Note Procedure Note: Lumbar/Sacral Medial Branch Blocks pre-operative diagnosis: lumbar spondylosis post-operative diagnosis: same as above ANTWON KELLY has been referred to the [facility] for lumbar/sacral medial branch blocks. COMMENTS: previously responded well to bilateral lumbar MBB. Patient was interviewed and the medical record reviewed. There were no medical, pharmacologic, radiographic or other structural contraindications to attempting fluoroscopically guided local anesthetic lumbar/sacral medial branch blocks. Risks and expected side effects as well as potential benefit of the procedure were reviewed and voiced concerns addressed. The printed consent form was signed and witnessed. Standard time-out procedure was performed. Patient was placed in the prone position on the fluoroscopy table and automated blood pressure cuff and pulse oximeter applied. The skin entry points for approaching the anatomic target points of the segmental medial branches of bilateral L3, L4, L5-DR were identified with anfluoroscopy and marked. Following thorough Chlorhexadine preparation of the skin and draping, , a 25 gauge spinal needle was placed under fluoroscopic guidance down on to the target point for each respective segmental medial branch.Position was confirmed in A/P, oblique and lateral views with 0.25ml of omnipaque 240. Coult be this method .5ml 2% Lidocaine. Vital signs were stable throughout the procedure and were as recorded in the docflowsheet by the nursing staff. Follow up plans and appointments were discussed and was instructed to keep careful note of how the usual pain was modified by these injections. Specifically was asked to keep a pain diary for the next 24 hours using a numeric pain scale of 0-10 and report these results at the follow-up visit. Post procedure instruction was given as documented in the nursing documentation and having met discharge criteria. Patient was discharged from the [facility]. Based on the medial branches blocked today, if the patient has adequate relief and we are able to proceed to radiofrequency ablation, the treatment should result in the denervation of the bilateral L4-5, L5-S1 facet joints. We would expect to denervate a total of 4 facets during the radiofrequency ablation. COMMENTS: pre-procedure pain level reported as 7 out of 10. post-procedure pain level reported as 2 out of 10. Lee Sin MD Pain Management CC: Noy Frederick MD, DC
[2019-04-26 14:10] VITALS: BP 133/77; PULSE 91; RESP 19; O2SAT 96
[2019-04-26] MEDS: Omnipaque 240 MG/ML 50 ML BTL IJ (14:11)
[2019-04-26] MEDS: Lidocaine 2% Pres-Free 5 ML VIAL IJ (14:11)
== END 2019-04-26 13:31 ==
PROVIDERS: PCP Family Medicine; Visit Provider Internal Medicine
DX: M47.816 Spondylosis without myelopathy or radiculopathy, lumbar region (principal)
CPT/HCPCS: 64493 ×2; 64494 ×2; 72100; Q9967

== ENCOUNTER 2019-04-27 08:57 | Day surgery (SDC) | payer BC, SELFPAY | END 2019-04-27 09:17 | PROVIDERS: PCP Family Medicine; Visit Provider Student in an Organized Health Care Education/Training Program | DX: Z53.29 Procedure and treatment not carried out because of patient's decision for other reasons (principal) ==

== ENCOUNTER 2019-05-19 07:52 | Outpatient (CLI) | payer BC, SELFPAY ==
[2019-05-19 08:04] VITALS: BP 116/67; PULSE 98; RESP 22; TEMP 36.9; O2SAT 95
[2019-05-19] MEDS: Lactated Ringers 1,000 ML 80 ML IV (08:30)
[2019-05-19] MEDS: Midazolam 2 MG/2 ML VIAL IVP (08:36)
[2019-05-19] MEDS: fentaNYL 100 MCG/2 ML VIAL IVP (08:36)
[2019-05-19 09:19] VITALS: BP 123/55; PULSE 85; RESP 13; O2SAT 96
--- NOTE | 2019-05-19 09:20 | DI.RAD_ITS ---
EXAM: XR PAIN CLINIC LUMBAR SP 2V CLINICAL HISTORY: Dx: Lumbar Spondylosis,LUMBAR RADIOFREQUENCY ABLATION COMPARISON: No exams were available for comparison FINDINGS: C-arm fluoroscopy was utilized by Dr. Garcia during reported lumbar RF ablation. Hard copies show need les positioned adjacent to the pedicles of what appear to be L4 and L 5 on th left. FLUORO TIME: 103.2 seconds IMPRESSION:
--- NOTE | 2019-05-19 09:23 | PDOC.PAIN ---
Pain Clinic Procedure Note Procedure Note Procedure Note: Bilateral Lumbar Radiofrequency with Coolief Machine PROCEDURE NOTE Date of Service: May 19, 2019 Patient: ANTWON CARDENAS Provider: Demetrius Garcia DO, MPH Pre Operative Diagnosis: Lumbosacral Spondylosis without myelopathy Post Operative Diagnosis: Same PROCEDURE: Radiofrequency Ablation of medial branches - Bilateral L3 L4 L5 and Lateral branches of the bilateral S1 The bilateral S1 lateral branches were added to help with the ablation of the Bilateral L5-S1 facet joint without any added cost. ANTWON KELLY was brought into the fluoroscopy suite and positioned into the prone position on the fluoroscopy table and allowed to adjust to a position of comfort. A grounding pad was placed on the [right/left] thigh. The lumbar region was widely prepped with a chloraprep solution, allowed to air dry and draped in standard sterile surgical fashion. Local anesthesia was provided by 5 mL of 2 % Lidocaine delivered with a 25g needle. A 17g 100mm radiofrequency introducer needle was placed to the planned anatomic targets guided with intermittent fluoroscopy with a perpendicular approach to terminally place at the junction of the superior articular process and the transverse process of the bilateral L3 L4 and the base of the sacral ala on the bilateral for the L5 medial branch nerve as well as just superior to the bilateral S1 neuroforamen to target the bilateral S1 lateral branches. The stylets were removed and radiofrequency probes with a 4mm active tip were then inserted. Needle tip position of the probes was verified in the AP, oblique, and lateral views. At each site, the medial branch nerve was stimulated at 2 Hz to a maximum 1-2 volts determined to finalize safe needle and electrode placement. The patient was awake and responsive during this portion of the procedure. Each target was anesthetized with 1-2 mL of 2 % Lidocaine for anesthesia for lesioning and then each target was lesioned at 80 degrees Celsius for 2 minutes and 30 seconds. Tissue impedences were noted to be between 250 and 500 Ohms. At the end of the procedure, 1/4 cc of Depomedrol (40 mg/cc) and 1 cc of 0.5% Bupivacaine was injected at each segmental nerve Electrodes and needles were then removed and bandages placed over the needle placement sites, the patient then returned to the supine position on a stretcher and transported to the recovery room without hemodynamic, neurologic, or allergic reactions. Fluoroscopic images were printed for hard copy recording and digitally archived. POST PROCEDURE EVALUATION: IMPRESSION: 1. Complications: None 2. RTC as needed. 3. Estimated Blood Loss: <5 cc Follow up plans and appointments were discussed with the ANTWON . Post procedure instruction was given as documented in nursing documentation and having met discharge criteria, ANTWON was discharged from the [facility]. COMMENTS: No complications. F/U with our office as needed. I personally performed this entire procedure. Demetrius Garcia DO, MPH Attending Physician
[2019-05-19] MEDS: methylPREDNISolone ACETATE 40 MG/ML VIAL IJ (09:46)
[2019-05-19] MEDS: Bupivacaine 0.5% Pres-Free 10 ML VIAL IJ (09:46)
[2019-05-19] MEDS: Lidocaine 2% Pres-Free 5 ML VIAL IJ (09:47)
== END 2019-05-19 08:12 ==
PROVIDERS: PCP Family Medicine; Visit Provider Preventive Medicine Occupational Medicine
DX: M47.817 Spondylosis without myelopathy or radiculopathy, lumbosacral region (principal)
CPT/HCPCS: 64635; 64636; 72100; J1030; J2250; J3010

== ENCOUNTER 2019-06-07 06:04 | Day surgery (SDC) | payer BC, SELFPAY ==
--- NOTE | 2019-06-06 09:28 | NUR.NOTE ---
06/06/2019 0928: Reviewed with patient x3: arrival time, and NPO status: nothing to eat or drink after midnight, water until 0315, may take discussed medications with a sip of water Medications instructed to give: Levothyroxine, Gabapentin, Nexium, Cymbalta, Doxazosin, Alosetron, Restasis, Azelastine nasal spray. Pt. stated she applies a Lidocaine patch HS, but removes in morning, pt. instructed to inform nursing staff/Anesthesia if patch is still in place morning of procedure. Pt. instructed to call pre-op if she has any questions. Pt. stated understanding on all pre-op instructions for procedure on 06/07/2019. Nursing Note:
[2019-06-07] VITALS (10 sets, daily range): BP systolic 99–118; BP diastolic 48–70; PULSE 89–95; RESP 11–18; TEMP 36.3–36.9; O2SAT 94–99
--- NOTE | 2019-06-07 06:38 | HPE_ITS ---
Date of service: 06/07/19 Time of Service: 06:44 Assessment and Plan Assessment and plan (1) Acute internal derangement of left knee: Status: Acute Assessment and plan: Carmenza is a 58 year old female who has had persistent left knee pain since a fall in October. Her MRI did not demonstrate significant intra-articular pathology except for some mild medial meniscus signal and some chondromalacia of the lateral patellar facet and lateral maltracking. She did get relief with an injection, but only for a month. Her symptoms would most represnt a meniscal pathology. Given the failure of all other modalities and its continued limitations on her daily life, I did offer a knee arthroscopy with meniscal intervention as indicated. I would also perform a lateral release at the time. I reviewed the risks of the procedure with Carmenza to include bleeding, infection, pain, stiffness, recurrence, continued pain, worsening arthritis, blood clot. Despite these risks, she elects to proceed. 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 She has had some minor issues with the left knee in the past but this really became much worse when she fell in October. The previous pain was mostly anterior but she has a hard time explaining where it hurt. She describes the fall as her legs being buckled underneath her. She felt her ankle fold in a hyperflexed position causing her to fall and landing directly on the anterior aspect of both knees in a flexed position. She felt the majority of this on her left knee. Since this injury she has had increasing amounts of pain. She feels the knee is unstable. The pain is primarily medial, anteromedial. Occassionally, there is a pain in the posterior knee which feels like a ball is back there. When she is in the bed she feels like is going to pop out when she goes to change positions but then feels stable when she gets into the new position. She cannot trust it completely when coming downstairs. This is been going on since October and she has completed 2 rounds of physical therapy with very minimal improvements. Unfortunately, she is also suffering from significant low back pain and muscular spasms. She was hospitalized for this and is making recovery, although slowly. She continues to feel limited by the knee along with her low back pain. An MRI was performed which showed some patellar lateral maltracking and patellar chondromalacia. An injection was tried but only provided about a month or so of relief. Given Carmenza's difficulties with mobilization from the back I discussed this over the phone with her. It was unclear on the MRI that any of these processes were causing her significant pain, however, she did have complete relief of her symptoms with an injection. Therefore, I offered a knee arthroscopy for diagnosis as well as intervention with probable lateral release. She was scheduled for this but unfortunately ate and drank the morning of her surgery and was thus canceled. She returns today for the procedure still reporting continued knee pain. She denies any new symptoms. She has had no gross instability episodes but does feel like she cannot trust the knee and that it is unstable. She denies new trauma. No new numbness or tingling. Review of Systems All systems reviewed & are unremarkable except as noted in HPI and below PFSH Medical History Acute low back pain with possible spinal stenosis of less than six weeks' duration (Inactive) Ambulatory dysfunction (Inactive) Antinuclear factor positive (Chronic 09/22/16) BMI 40.0-44.9, adult (Chronic 09/03/15) Breast lump in female Breast lump in lower inner quadrant (Resolved) 04/12/15 Breast lump in lower inner quadrant (Resolved 04/12/15) Bronchitis Candidiasis (Chronic) Frequent persistent yeast infx. Chest pain in adult (Resolved) 11/17/16 Closed fracture of body of calcaneus Closed fracture of calcaneus (Resolved) Closed fracture of calcaneus (Resolved) Cough Cough (Chronic 01/26/12) Cystocele Cystocele with rectocele (Chronic) With urinary incontinence Delivery normal (Resolved) Depression Depressive disorder (Resolved) Depressive disorder (Chronic) Diabetes Diabetes mellitus (Chronic) Diabetes mellitus (Inactive 02/14/14) Diarrhea (Resolved) 02/02/14 Dysfunctional uterine bleeding (Resolved) Ectopic (Resolved) 06/01/88 Elevated liver function tests (Resolved) 01/24/14 Elevated liver function tests (Resolved 01/24/14) Essential hypertension (Chronic 02/23/13) Family hx-breast malignancy (Resolved) Fatigue (Resolved) unspecified 01/19/14 GERD (gastroesophageal reflux disease) Hearing loss Hearing problem (Chronic) B/L aides History of ectopic (Resolved) Hypertension Hypokalemia (Resolved 01/26/12) Hypothyroidism Hypothyroidism (Chronic) IBS (irritable bowel syndrome) Irritable colon (Chronic) Left knee pain (Inactive) Mammogram abnormal (Resolved) 04/30/05 Neck pain (Resolved) Neck pain (Chronic) Obesity, Class III, BMI 40-49.9 (morbid obesity) Otalgia of both ears (Resolved 04/30/17) Pneumonia Pneumonia, organism unspecified (Resolved) unspecified laterality, unspecified part of lung Positive JENNIFER (antinuclear antibody) (Resolved) 09/22/16 Rectocele Reflux esophagitis (Chronic 12/26/13) Routine medical exam (Resolved) 02/14/14 Sinus pressure (Resolved) 04/17/15 Sinus pressure (Resolved 04/17/15) Upper back pain on right side (Resolved 11/17/16) Weakness (Resolved) 01/19/14 Surgical History Appendectomy (~1998) Cholecystectomy (~1989) Colonoscopy [place] [place] [facility] [place] (03/10/14) EGD - MAC (08/05/16) H/O esophagogastroduodenoscopy (Resolved) 03/01/14 Hysterectomy, Laproscopic 03/03/11 [facility] [place] HYSTERECTOMY WITH BLADDER AND BOWEL TIE UP WITH SLING; R OVARY AND CYST ALSO REMOVED Oophrectomy, Right (~03/2011) , Ectopic (~1988) Reduction mammoplasty (~03/2013) S/P appendectomy (Resolved) 06/01/98 S/P cholecystectomy (Resolved) 06/01/89 S/P exploratory laparotomy (Resolved) 06/01/88 S/P hysterectomy with oophorectomy (Resolved) S/P tonsillectomy and adenoidectomy (Resolved) 06/01/85 Status post appendectomy (Resolved) Status post cholecystectomy (Resolved) Status post exploratory laparotomy (Resolved) Status post hysterectomy (Resolved) Status post oophorectomy (Resolved) Status post tonsillectomy and adenoidectomy (Resolved) Tonsillectomy and adenoidectomy (~1985) Family History Mother Diabetes TYPE II Hyperlipidemia Father Alcohol abuse Neoplasm LUNG Sister Neoplasm BREAST Sister No problems noted. Brother No problems noted. Brother Pneumonia X 3 Grandfather Diabetes Grandfather Diabetes Grandmother No problems noted. Grandmother Diabetes Neoplasm BREAST Son No problems noted. Daughter No problems noted. 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 Current gender identity: female What is your relationship status?: Panel score (0-1 are the most socially isolated patients): 1 What type of physical activity do you participate in: walking and additional Details: PT Do you feel safe at home: Yes Do you feel safe in your relationship?: Yes Meds Home Medications and Allergies Home Medications Medication Instructions Recorded Confirmed Type calcium carbonate-vitamin D3 2 ea PO DAILY 08/06/12 06/07/19 History [Caltrate with Vitamin D3] fexofenadine [Li] 180 mg PO HS tab-cap 08/06/12 06/07/19 History multivitamin [One Daily] 1 ea PO DAILY 08/06/12 06/07/19 History acetaminophen [Mapap Extra 1,000 mg PO PRN PRN 01/21/14 06/07/19 History Strength] Hearing Aid Batteries #30 dose 10/01/17 04/26/19 History Restasis 1 drp OPHTHALMIC BID drp 10/15/17 06/07/19 History sodium chloride [Saline Mist] 1 spray CHIQUITA ONCE #15 ml 03/05/18 06/07/19 Rx ranitidine HCl 150 mg tablet 150 mg PO QHS #90 tab 07/22/18 06/07/19 Rx topiramate 50 mg tablet 50 mg PO HS #90 tab-cap 10/07/18 06/07/19 Rx spironolactone 25 mg tablet 25 mg PO DAILY #90 tab 10/26/18 06/07/19 Rx doxazosin 4 mg tablet 4 mg PO DAILY #90 tab-cap 11/08/18 06/07/19 Rx levothyroxine 137 mcg tablet 137 mcg PO DAILY #90 tab-cap 11/08/18 06/07/19 Rx alosetron 0.5 mg tablet 0.5 mg PO DAILY 11/15/18 06/07/19 History esomeprazole magnesium 40 mg 40 mg PO DAILY #90 tab-cap 11/15/18 06/07/19 Rx capsule,delayed release oxybutynin chloride 10 mg 10 mg PO HS #90 tab-cap 11/15/18 06/07/19 Rx tablet,extended release 24 hr montelukast 10 mg tablet 10 mg PO HS #90 tab 12/27/18 06/07/19 Rx rifaximin 550 mg tablet 550 mg PO TID PRN 12/28/18 06/07/19 History docusate sodium [Colace] 100 mg PO BID #30 cap 01/28/19 06/07/19 Rx fluconazole 150 mg tablet 150 mg PO ONCE #1 tab 02/14/19 06/07/19 Rx diazepam 2 mg tablet 2 mg PO TID PRN #90 tab 02/21/19 06/07/19 Rx tramadol 50 mg tablet 50 mg PO BID PRN #60 tab 02/21/19 06/07/19 Rx duloxetine [Cymbalta] 60 mg PO DAILY 03/29/19 06/07/19 History azelastine 0.15 % (205.5 mcg) 2 spray CHIQUITA BID #30 ml 04/24/19 06/07/19 Rx nasal spray gabapentin 600 mg tablet See Rx Instructions PO TID tab 04/26/19 06/07/19 History lidocaine 5 % topical patch 2 patch TP DAILY #30 each 05/24/19 06/07/19 Rx ibuprofen [IBU] 600 mg PO QID PRN 06/06/19 06/07/19 History nystatin 100,000 unit PO TID PRN 06/06/19 06/07/19 History sennosides [Senokot] 8.6 mg PO BID PRN 06/06/19 06/07/19 History sucralfate [Carafate] 1 g PO QID 06/06/19 06/07/19 History Allergies Allergy/AdvReac Type Severity Reaction Status Date / Time Sulfa (Sulfonamide Allergy Severe TONGUE Verified 06/07/19 06:17 Antibiotics) SWELLING sulfamethoxazole Allergy Severe Swelling/Ed Verified 06/07/19 06:17 [From Bactrim] yoko trimethoprim Allergy Severe TONGUE Verified 06/07/19 06:17 SWELLING aspirin [From Percodan] AdvReac Mild Nausea Verified 06/07/19 06:17 oxycodone [From Percodan] AdvReac Mild Nausea Verified 06/07/19 06:17 pickles Allergy Severe Anaphylaxsi Uncoded 06/07/19 06:17 s COCKROACH Allergy Unknown allergy Uncoded 06/07/19 06:17 testing Exam Const General: cooperative, comfortable and no acute distress Nutritional Appearance: obese Orientation: alert, awake and oriented x3 Resp Auscultation: clear to auscultation bilaterally Cardio Rate: regular rate Rhythm: regular rhythm Extrem Other: Left knee has no overlying changes to suggest infection or skin issue. Pain to palpation of the medial joint line and medial femur. No significant pain with mobilizaztion of the patella, mild lateral pain. Significant lateral tightness of the patella. Results Last Vital Signs Temp 36.7 C 06/07/19 06:24 Pulse 89 06/07/19 06:24 Resp 18 06/07/19 06:24 BP 117/70 06/07/19 06:24 Pulse Ox 97 06/07/19 06:24
[2019-06-07] MEDS: Lactated Ringers 1,000 ML 80 ML IV (06:57)
--- NOTE | 2019-06-07 07:28 | W.PM.DSUDISC ---
Discharge Plan Disposition Patient Disposition: HOME Condition: Good Discharge Details Reason For Visit: Left Knee Pain Attending Provider: Helio Roca Primary Care Provider: Noy Frederick Home Meds and New Rx's Prescriptions: New tramadol 50 mg tablet 50 mg PO Q4H PRN (Reason: pain) Qty: 12 RF: 0 Continued alosetron 0.5 mg tablet 0.5 mg PO DAILY RF: 0 esomeprazole magnesium 40 mg capsule,delayed release(DR/EC) 40 mg PO DAILY Qty: 90 RF: 11 oxybutynin chloride 10 mg tablet extended release 24hr 10 mg PO HS Qty: 90 RF: 4 Xifaxan 550 mg tablet 550 mg PO TID PRNRF: 0 diazepam 2 mg tablet 2 mg PO TID PRN (Reason: muscle spasm) Qty: 90 RF: 2 gabapentin 600 mg tablet See Rx Instructions PO TID RF: 0 ranitidine HCl 150 mg tablet 150 mg PO QHS Qty: 90 RF: 4 multivitamin [One Daily] 1 EACH tablet 1 ea PO DAILY RF: 0 fexofenadine [Li] 180 MG tablet 180 mg PO HS RF: 0 calcium carbonate-vitamin D3 [Caltrate with Vitamin D3] 1 EACH tablet 2 ea PO DAILY RF: 0 Restasis 1 EACH dropperette 1 drp Ophthalmic BID RF: 0 topiramate [Topamax] 50 mg tablet 50 mg PO HS Qty: 90 RF: 3 spironolactone 25 mg tablet 25 mg PO DAILY Qty: 90 RF: 5 doxazosin 4 mg tablet 4 mg PO DAILY Qty: 90 RF: 12 levothyroxine 137 mcg tablet 137 mcg PO DAILY Qty: 90 RF: 12 montelukast [Singulair] 10 mg tablet 10 mg PO HS Qty: 90 RF: 4 fluconazole 150 mg tablet 150 mg PO ONCE Qty: 1 RF: 1 azelastine 0.15 % (205.5 mcg) spray,non-aerosol 2 spray CHIQUITA BID Qty: 30 RF: 5 lidocaine 5 % adhesive patch,medicated 2 patch TP DAILY Qty: 30 RF: 2 sodium chloride [Saline Mist] 0.65 % aerosol,spray 1 spray CHIQUITA ONCE Qty: 15 RF: 0 docusate sodium [Colace] 100 mg Capsule 100 mg PO BID Qty: 30 RF: 0 duloxetine [Cymbalta] 60 mg capsule,delayed release(DR/EC) 60 mg PO DAILY RF: 0 sucralfate [Carafate] 100 mg/mL Suspension 1 g PO QID RF: 0 sennosides [Senokot] 8.6 mg tablet 8.6 mg PO BID PRNRF: 0 nystatin 100,000 unit/mL suspension 100,000 unit PO TID PRNRF: 0 ibuprofen [IBU] 600 mg tablet 600 mg PO QID PRNQty: 60 RF: 0 Changed acetaminophen [Mapap Extra Strength] 500 MG tablet 1,000 mg PO Q8H PRNQty: 90 RF: 0 Discontinued tramadol 50 mg tablet 50 mg PO BID PRN (Reason: pain) Qty: 60 RF: 0 No Action (DME) Hearing Aid Batteries 1 EACH misc 1 ea Miscellaneous DAILY Qty: 30 RF: 11 Discharge Instructions Stand Alone Forms: [facility] Referrals: Helio Roca MD [ [facility] STAFF PHYSICIAN] - [facility] [Provider Group] (S/P L knee arthroscopy with deconditioning. Start LLE PT within 1-2 weeks.) Equipment/Supplies: Partial Weight Bearing Crutches Activity:: Activity as Tolerated Remove Dressings/Wound Care:: 72 hours Shower/Bathe:: 72 hours Diet:: As Tolerated Discharge Orders Discharge Orders: Discharge Order (Routine); Ordered 06/07/19 Ordered By: Helio Roca DS: Diagnosis Discharge Diagnosis (1) Acute internal derangement of left knee: Status: Acute
[2019-06-07] MEDS: ceFAZolin 2 GM/50 ML BAG IVPB (07:35)
[2019-06-07] MEDS: Bupivacaine 0.5% Pres-Free 30 ML VIAL (07:53)
[2019-06-07] MEDS: EPINEPHrine 30 MG/30 ML VIAL (08:07)
--- NOTE | 2019-06-07 08:23 | W.PM.OP ---
Date of service: 06/07/19 Time of Service: 08:23 Operative Note Operative Note DATE OF PROCEDURE: 06/07/19 PRE-OP DIAGNOSIS: Left Knee Internal Derangement, Lateral Patella Maltracking POST-OP DIAGNOSIS: other (Left Knee Medial Plica, Lateral Patellar Maltracking, Tricompartmental Chondromalacia) PROCEDURE: Left Knee Arthroscoic Synovectomy of Medial Plica and Arthroscopic Lateral Release SURGEON: Helio Roca ANESTHESIA: GETA ESTIMATED BLOOD LOSS: 0 PATHOLOGY: none sent COMPLICATIONS: None Patient was transported to: PACU Patient's condition: stable Indications: I have seen Carmenza in clinic for knee pain concerning for internal derangement. Nonoperative measures were exhausted but disability and pain persisted. I discussed knee arthroscopy with meniscal intervention and lateral release with the patient. I reviewed the risks of the procedure to include, but not limited to, bleeding, infection, pain, stiffness, damage to nerves or vessels, recurrence, blood clot. Despite these risks, the patient elected to proceed. Findings: A diagnostic arthroscopy was performed with the following findings: Suprapatellar Pouch: No significant inflammation, No loose bodies Medial Compartment: No meniscal tear, Intact meniscal root, Grade II chondromalacia over the femur and none over the tibia, No loose bodies, Thickened and frayed medial plica with tight abrasion of medial femur in flexion Notch: ACL and PCL were intact Lateral Compartment: No meniscal tear, Intact meniscal root, grade II chondromalacia centrally of the tibia and Grade I of the femur, No loose bodies Patellofemoral Compartment: Grade II/III chondromalacia of the patella, Lateral patellar maltracking Procedure Description: Carmenza was greeted in the preoperative holding area where the correct side was identified and marked. The consent was reviewed with the patient and signed. The history and physical was updated. All questions were answered. Carmenza was taken back to the operating room. The patient was placed into the supine position on the operating room table. All bony prominences were well padded. Prophylactic antibiotics in the form of Cefazolin were administered. The left leg was then prepped with Chloraprep and draped in a standard fashion with stockinette and extremity drape. A timeout to confirm correct identity, side and site, procedure, allergies, anesthesia, and medical concerns was performed. The leg was placed into a pneumatic leg harper, [id number]. A standard lateral portal was made at the lateral border of the patella tendon in line with the inferior pole of the patella, soft spot. The skin and deep tissue was incised sharply and the blunt trochar was inserted atraumatically. A diagnostic arthroscopy was performed and the findings are listed above. The suprapatellar pouch had no significant inflammatory change. The patellofemoral articulation showed areas of grade II chondromalacia with some focal grade 3 over the lateral facet. There was some lateral maltracking of the patella in a resting position but I did engage the trochlea asymmetrically against the lateral facet. The lateral gutter had no loose bodies and the medial gutter had no loose bodies. There was a significant band in the medial aspect of the knee. This plica was thickened and frayed and articulated with the medial aspect of the femur for about 30 degrees of flexion through all flexion. It was much thicker than I would expect was fraying seen at its interaction with the medial edge of the femur. The knee was then brought into some valgus stress in extension to open the medial compartment. A medial portal was made, localized by a spinal needle. The portal was created with an #11 blade through skin and capsule under direct visualization avoiding any meniscal injury. A probe was then inserted into the medial compartment. The medial compartment was fully inspected. The chondral surface of the tibia showed no significant chondromalacia and the surface of the femur showed some areas of grade I/II chondromalacia. The medial meniscus had no meniscal tear. The notch was then inspected which showed an intact ACL and an intact PCL. The leg was then brought into a figure of 4 position. The lateral compartment was fully inspected with the arthroscope and a probe. The chondral surface of the lateral femur showed very focal areas of grade I chondromalacia. The chondral surface of the lateral tibia showed some fissuring and a focal area of grade II chondromalacia. The lateral meniscus had no meniscal tear. The arthroscope was brought back into the suprapatellar pouch and the leg was in full extension. Using an electrocautery device I then resected the medial plica. All this inflammatory and thickened tissue was removed so the knee was observed to flex without any impingement of the medial tissues against the femur. Once this was resected I then proceeded to the lateral release. A superolateral portal was established with spinal needle localization. This portals placed at the superior margin of the patella. Using electrocautery I then performed a lateral release working from the superolateral portal to the anterolateral portal with the electrocautery device. I made multiple passes releasing some of the lateral retinaculum and then testing for patellar mobility. Once patella was easily mobile over to the medial facet I stopped. The knee was then thoroughly irrigated with the arthroscopic fluid on high flow and pressure. Inflow was stopped and excess fluid was removed. The wounds were closed with 4-0 Nylon. They were dressed with Xeroform, 4x4 gauze, ABD pad, Kerlix and an BRUNO wrap. A cryo-cuff was applied. The patient tolerated the procedure well and was returned to the Same Day Surgery area in a stable condition suffering no known complication.
[2019-06-07] MEDS: Albuterol/Ipratropium 3 ML UPD VIAL UPD (08:53)
[2019-06-07] MEDS: HYDROmorphone 2 MG/ML VIAL IVP ×2 (09:10→09:30)
== END 2019-06-07 12:17 | disposition home or self-care (01) ==
PROVIDERS: PCP Family Medicine; Visit Provider Student in an Organized Health Care Education/Training Program
PROC: (CPT 29870; principal; 2019-06-07 07:30)
DX: M67.52 Plica syndrome, left knee (principal); M22.8X2 Other disorders of patella, left knee; M94.262 Chondromalacia, left knee; W19.XXXS Unspecified fall, sequela; E11.9 Type 2 diabetes mellitus without complications; I10 Essential (primary) hypertension; K21.9 Gastro-esophageal reflux disease without esophagitis
CPT/HCPCS: 29875; 29873; NC; E0114; J0690; J7620

== ENCOUNTER 2019-07-18 09:18 | Outpatient (CLI) | payer BC, SELFPAY ==
[2019-07-18 09:59] LABS: Hemoglobin A1C 8.2 % (3.8-5.6)
== END 2019-07-18 09:38 ==
PROVIDERS: PCP Family Medicine; Visit Provider Family Medicine
DX: E11.9 Type 2 diabetes mellitus without complications (principal)
CPT/HCPCS: 36415; 83036

== ENCOUNTER 2019-07-29 10:30 | Outpatient (CLI) | payer BC, SELFPAY ==
[2019-07-29 12:46] LABS: Anion Gap 7.4 mmol/L (3-11); BUN 18 mg/dL (7-18); CO2 30.6 mmol/L (21.0-32.0); CREATININE 1.02 mg/dL (0.55-1.02); Calcium 8.8 mg/dL (8.5-10.1); Chloride 106 mmol/L (98-107); Estimated GFR 56.06 (mL/min/1.73m2); Glucose 129 mg/dL (74-106); Potassium 3.7 mmol/L (3.5-5.1); Sodium 144 mmol/L (136-145); TSH (W/Ref FT4) 5.23 uIU/mL (0.36-3.74)
== END 2019-07-29 10:50 ==
PROVIDERS: PCP Family Medicine; Visit Provider Family Medicine
DX: E03.9 Hypothyroidism, unspecified (principal); E87.8 Other disorders of electrolyte and fluid balance, not elsewhere classified
CPT/HCPCS: 36415; 80048; 83735; 84439; 84443

== ENCOUNTER 2019-08-19 13:55 | Outpatient (CLI) | payer BC, SELFPAY ==
[2019-08-19 14:35] LABS: Hemoglobin A1C 7.6 % (3.8-5.6)
== END 2019-08-19 14:15 ==
PROVIDERS: PCP Family Medicine; Visit Provider Family Medicine
DX: E11.9 Type 2 diabetes mellitus without complications (principal)
CPT/HCPCS: 36415; 83036

== ENCOUNTER 2019-12-01 23:00 | Outpatient (REF) | payer BC, SELFPAY | END 2019-12-01 23:20 | LOC: LBN 23:00 | PROVIDERS: PCP Family Medicine; Visit Provider Family Medicine | DX: N93.9 Abnormal uterine and vaginal bleeding, unspecified (principal) | CPT/HCPCS: 87480; 87510; 87660 ==

== ENCOUNTER 2019-12-08 01:37 | Outpatient (CLI) | payer BC, SELFPAY ==
[2019-12-08 08:04] LABS: Hemoglobin A1C 5.5 % (3.8-5.6)
[2019-12-08 08:51] LABS: ALT 52 U/L (14-59); AST 24 U/L (15-37); Albumin 4.1 g/dL (3.4-5.0); Alkaline Phosphatase 55 U/L (46-116); Anion Gap 11.7 mmol/L (3-11); BUN 24 mg/dL (7-18); Bilirubin, Total 0.4 mg/dL (0.2-1.0); CO2 23.3 mmol/L (21.0-32.0); Calcium 9.4 mg/dL (8.5-10.1); Calculated LDL 113 mg/dL (<100); Chloride 107 mmol/L (98-107); Cholesterol 180 mg/dL (<200); Estimated GFR 57.15 (mL/min/1.73m2); Glucose 113 mg/dL (74-106); HDL Cholesterol 39 mg/dL (40-60); Potassium 3.9 mmol/L (3.5-5.1); Sodium 142 mmol/L (136-145); TSH (W/Ref FT4) 32.53 uIU/mL (0.36-3.74); Total Protein 7.2 g/dL (6.4-8.2); Triglyceride 141 mg/dL (<150)
[2019-12-08 13:15] LABS: COMMENT (LAB VIEW ONLY) 47.06 mg/dL
== END 2019-12-08 01:57 ==
PROVIDERS: PCP Family Medicine; Visit Provider Family Medicine
DX: Z00.00 Encounter for general adult medical examination without abnormal findings (principal); E11.9 Type 2 diabetes mellitus without complications; I10 Essential (primary) hypertension; E03.9 Hypothyroidism, unspecified
CPT/HCPCS: 36415; 80053; 80061; 82043; 82570; 83036; 84439; 84443

== ENCOUNTER 2020-01-03 10:24 | Outpatient (CLI) | payer BC, SELFPAY ==
--- NOTE | 2020-01-03 06:00 | DI.RAD_ITS ---
EXAM: XR PAIN CLINIC LUMBAR SP 2V CLINICAL HISTORY: Dx:Lumbar Spondylosis TECHNIQUE: 2D and realtime digital imaging was performed. Fluoroscopy was provided in the OR COMPARISON: No exams were available for comparison FINDINGS: C-arm fluoroscopy was utilized by Dr. Sin during reported radiofrequency ablation. Please see Dr. Sin' s procedure note. Hard copies show needles placed adjacent to the facet joints at what appear to be the L3-4, L4-5 and L5-S1 levels bilaterally. Fluoro time, 54 seconds. IMPRESSION: RADIATION DOSE DELIVERED: Total DLP
--- NOTE | 2020-01-03 11:05 | PDOC.PAIN ---
Pain Clinic Procedure Note Procedure Note Procedure Note: Bilateral Lumbar Radiofrequency with Coolief Machine PROCEDURE NOTE Date of Service: January 03, 2020 Patient: ANTWON CARDENAS Provider: Lee Sin MD Pre Operative Diagnosis: Lumbosacral Spondylosis without myelopathy Post Operative Diagnosis: Same PROCEDURE: Radiofrequency Ablation of medial branches - Bilateral L3 L4 L5 and Lateral branches of the bilateral S1 The bilateral S1 lateral branches were added to help with the ablation of the Bilateral L5-S1 facet joint without any added cost. Comment: patient underwent the same procedure by Dr Garcia on 05/2019 and she reports excellent pain relief across her lower back that allowed to have improved function, such as doing laundry and stand to finish cooking a meal. She also weaned off high doses of oral opioid, she is no longer taking hydromorphone. Partial back pain started to return in September 2019, however, she continues to be off of oral opioid and muscle relaxants for pain control. She is here for a repeat RFA treatment. ANTWON KELLY was brought into the fluoroscopy suite and positioned into the prone position on the fluoroscopy table and allowed to adjust to a position of comfort. A grounding pad was placed on the left lateral thoracic region. The lumbar region was widely prepped with a chloraprep solution, allowed to air dry and draped in standard sterile surgical fashion. Local anesthesia was provided by 5 mL of 2 % Lidocaine delivered with a 25g needle. A 17g 100mm radiofrequency introducer needle was placed to the planned anatomic targets guided with intermittent fluoroscopy with a perpendicular approach to terminally place at the junction of the superior articular process and the transverse process of the bilateral L3 L4 and the base of the sacral ala on the bilateral for the L5 medial branch nerve as well as just superior to the bilateral S1 neuroforamen to target the bilateral S1 lateral branches. The stylets were removed and radiofrequency probes with a 4mm active tip were then inserted. Needle tip position of the probes was verified in the AP, oblique, and lateral views. At each site, the medial branch nerve was stimulated at 2 Hz to a maximum 1-2 volts determined to finalize safe needle and electrode placement. The patient was awake and responsive during this portion of the procedure. Each target was anesthetized with 1 mL of 2 % Lidocaine for anesthesia for lesioning and then each target was lesioned at 80 degrees Celsius for 2 minutes and 30 seconds. Tissue impedences were noted to be between 250 and 500 Ohms. At the end of the procedure, 1/4 cc of Depomedrol (40 mg/cc) and 1 cc of 0.5% Bupivacaine was injected at each segmental nerve Electrodes and needles were then removed and bandages placed over the needle placement sites, the patient then returned to the supine position on a stretcher and transported to the recovery room without hemodynamic, neurologic, or allergic reactions. Fluoroscopic images were printed for hard copy recording and digitally archived. POST PROCEDURE EVALUATION: IMPRESSION: 1. Complications: None 2. RTC as needed. 3. Estimated Blood Loss: <5 cc 4. Diamond received a total of 1mg IV versed and 25mcg of IV Fentanyl for this procedure. Follow up plans and appointments were discussed with the ANTWON . Post procedure instruction was given as documented in nursing documentation and having met discharge criteria, ANTWON was discharged from the [facility]. COMMENTS: No complications. F/U with our office as needed. I personally performed this entire procedure. Lee Sin MD Attending Physician
[2020-01-03 11:16] VITALS: BP 106/64; PULSE 94; RESP 18; TEMP 37.2; O2SAT 96
[2020-01-03] MEDS: Lactated Ringers 1,000 ML 80 ML IV (11:49)
[2020-01-03] MEDS: Midazolam 2 MG/2 ML VIAL IVP (11:54)
[2020-01-03] MEDS: fentaNYL 100 MCG/2 ML VIAL IVP (11:54)
[2020-01-03 12:29] VITALS: BP 120/84; PULSE 78; RESP 12; O2SAT 94
[2020-01-03] MEDS: Lidocaine 1% Pres-Free 30 ML VIAL IJ (12:35)
[2020-01-03] MEDS: Lidocaine 2% Pres-Free 5 ML VIAL IJ (12:36)
[2020-01-03] MEDS: Bupivacaine 0.5% Pres-Free 10 ML VIAL IJ (12:36)
[2020-01-03] MEDS: methylPREDNISolone ACETATE 40 MG/ML VIAL IJ (12:37)
[2020-01-03 12:50] VITALS: BP 126/76; PULSE 73; RESP 18; O2SAT 97
== END 2020-01-03 10:44 ==
PROVIDERS: PCP Family Medicine; Visit Provider Internal Medicine
DX: M47.817 Spondylosis without myelopathy or radiculopathy, lumbosacral region (principal)
CPT/HCPCS: 64635; 64636; 72100; J1030; J2250; J3010

== ENCOUNTER 2020-01-23 22:21 | Outpatient (REF) | payer BC, SELFPAY | END 2020-01-23 22:41 | LOC: LBN 22:21 | PROVIDERS: PCP Family Medicine; Visit Provider Nurse Practitioner Family | DX: B37.3 Candidiasis of vulva and vagina (principal) | CPT/HCPCS: 87480; 87510; 87660 ==

== ENCOUNTER 2020-03-13 09:49 | Outpatient (CLI) | payer BC, SELFPAY ==
[2020-03-13 10:02] VITALS: BP 115/61; PULSE 87; RESP 20; TEMP 36.8; O2SAT 97
[2020-03-13] MEDS: Dexamethasone Sod. Phos./Pres-Free 10 MG/ML VIAL IJ (10:39)
[2020-03-13] MEDS: Omnipaque 240 MG/ML 50 ML BTL IJ (10:44)
--- NOTE | 2020-03-13 10:44 | DI.RAD_ITS ---
EXAM: XR PAIN CLINIC LUMBAR SP 2V CLINICAL HISTORY: Dx: Lumbar Radiculopathy, TRANSFORAMINAL EPIDURAL STEROID INJECTION TECHNIQUE: Fluoroscopy was provided for the referring physician for guidance with performing injecti on procedure. COMPARISON: No exams were available for comparison FINDINGS: Please see procedure note for details. FLUORO TIME: 36.6 seconds RADIATION DOSE DELIVERED:
[2020-03-13 10:46] VITALS: BP 147/78; PULSE 95; RESP 22; O2SAT 98
--- NOTE | 2020-03-13 10:51 | PDOC.PAIN ---
Pain Clinic Procedure Note Procedure Note Procedure Note: PROCEDURE NOTE Transforaminal Epidural Steroid Injection with Fluoroscopic Guidance at right L3 TFESI Chief Complaint: right leg pain. of note, patient underwent previous lumbar RFA which provided transient pain relief. She tweaked her back while carrying a flower pot and has been experiencing radiating pain down right hip to right anterior thigh with tingling. She was seen and evaluated by Dr Marino who did not recommend immediate surgical option. Patient has far lateral disc protrusion causing mild foraminal stenosis at L3-4 level on the right side. She was seen by Ms Manisha Franco APRN and referred for a diganostic and therapeutic right L3 TFESI. She had discussed FRP but her insurance will not approve the cost. she has not done PT for a period of time. Pre-operative diagnosis: lumbar radiculopathy Post-operative diagnosis: same as above ANTWON KELLY [facility]bar Transforaminal Epidural Steroid Injection right L3 TFESI COMMENTS: Referring provider: Ms Joan APRN Allergies: reviewed Pre-procedure VAS: 5/10 right leg. Follow up plan: I discussed with patient that she should establish with PT for home exercise program to help reduce flare ups ANTWON KELLY was greeted by the nurse who verified patients name and . Patient was then taken to the fluoroscopy suite. ANTWON was interviewed and the medical record reviewed. There were no medical, pharmacologic, radiographic or other structural contraindications to attempting fluoroscopically guided transforaminal lumbar epidural steroid injection. The risks, benefits, and potential side effects were reviewed with the patient. Risk include, but not limited to, post dural puncture, headache, infection, nerve injury, allergic reaction, possible increase in symptoms over the ensuing 24 to 48 hours, and paralysis. The patient appeared to understand, questions were answered and the patient agreed to proceed. Once I obtained informed verbal consent, the printed consent form was signed by the patient and myself. Standard time-out procedure was performed. TECHNIQUE: After informed written consent was obtained the patient was placed in the prone position. The lumbar spine was prepped with chloraprep and draped. Sterile technique was observed during the entire procedure ( cap, gloves, and mask were worn). Vitals signs were monitored throughout the procedure. The right side was marked with a radioopaque marker. The skin and subcutaneous structures were anesthetized with lidocaine 1% to a total volume of 3 ML at each level. Under fluoroscopic guidance, in ipsilateral oblique view, co-axial approach, 22 gauge 5'' spinal needle(s) were advanced to the base of the L3 pedicle(s). The needle(s) were advanced to the superio-posterior aspect of the neural foramen under lateral view. Oblique and AP views were rechecked. Under AP view Omnipaque 240 1.5 cc's was injected while visualized with fluoroscopy. There was no evidence of intravascular uptake, the epidural space was delineated. 15 mg Dexamethasone was injected after negative aspiration, at each level, followed by lidocaine 1% 0.5ML at each level. (49 cc of Omnipaque was wasted) Outcome: The patient tolerated the procedure well and had stable vital signs. The patient noted after getting up after the procedure that their right leg pain was at a 2 out of 10 level. Follow up plans and appointments were discussed with ANTWON . The patient was observed in the pain clinic and then discharged after having met discharge criteria to the care of a day haul or farm charter bus driver. The patient received written instructions as documented in nursing records. Disposition: ANTWON was discharged from the procedure suite without new neurological complaints. Follow-up: Follow up with as scheduled or PRN. I personally performed the entire procedure. Lee Sin MD ABPN-subspecialty board certification in Pain Medicine Attending Physician-Pain Management
== END 2020-03-13 10:09 ==
PROVIDERS: PCP Family Medicine; Visit Provider Internal Medicine
DX: M54.16 Radiculopathy, lumbar region (principal)
CPT/HCPCS: 64483; 72100; Q9967

== ENCOUNTER 2020-03-19 10:59 | Outpatient (REF) | payer BC, SELFPAY ==
--- NOTE | 2020-03-19 10:20 | SKI_PTH ---
PATIENT: Carmenza Benito LOC: [facility] U#:[id number] AGE/SX: 59/F ROOM: RE03/19/[address]: Juliann Chatman MD : [id number] BED: DIS: 03/19/2020 SPEC #: [id number] RECD: 03/19/20 17:23 STATUS: CARRILLO REQ #: [id number] MINH: 03/19/20 10:[address]: Juliann Chatman DEPT: Surgical Specimen RECD BY: Alix Salmeron ENTERED: 03/19/20 17:23 SP TYPE: SKI OT DR: Noy Frederick MD, [place] Tissues: 1 - SKIN BIOPSY(SHAVE/PUNCH) Procedures: IMMUNOPEROXIDASE STAIN SKIN LEVEL 4 Comments: [id number]
== END 2020-03-19 11:19 ==
LOC: LBN 10:59
PROVIDERS: PCP Family Medicine; Visit Provider Surgery
DX: D22.61 Melanocytic nevi of right upper limb, including shoulder (principal)
CPT/HCPCS: 88305; 88361

== ENCOUNTER 2020-06-04 03:58 | Outpatient (CLI) | payer BC, SELFPAY ==
[2020-06-04 11:47] LABS: Hemoglobin A1C 6.4 % (<5.7)
== END 2020-06-04 04:18 ==
PROVIDERS: PCP Family Medicine; Visit Provider Family Medicine
DX: E03.9 Hypothyroidism, unspecified (principal); E11.9 Type 2 diabetes mellitus without complications
CPT/HCPCS: 36415; 83036; 84443

== ENCOUNTER 2020-10-20 14:09 | Emergency (ER) | payer BC, SELFPAY ==
[2020-10-20 14:12] VITALS: BP 154/84; PULSE 108; RESP 20; TEMP 36.8; O2SAT 99
--- NOTE | 2020-10-20 14:17 | W.ED.GENAD ---
Discharge Plan Disposition Patient Disposition: HOME Condition: Good Discharge Details Clinical Impression: Acute pain of left knee, Knee MCL sprain Primary Care Provider: Noy Frederick ED Provider: Anne Cruz Home Meds and New Rx's Prescriptions: Continued Xifaxan 550 mg tablet 550 mg PO TID PRNRF: 0 alosetron 0.5 mg tablet 0.5 mg PO DAILY PRNRF: 0 azelastine 0.15 % (205.5 mcg) spray,non-aerosol 2 spray CHIQUITA BID PRNRF: 0 fluconazole [Diflucan] 150 mg tablet 150 mg PO Q3D PRNRF: 0 Biomega See Rx Instructions PO .COMPLEX RF: 0 Curcumin See Rx Instructions .ROUTE .COMPLEX RF: 0 (DME) blood-glucose meter [MMRGlobaluch UltraMini] Kit See Rx Instructions .ROUTE .MEDSUPPLY Qty: 1 RF: 0 (DME) OneTouch Ultra Blue Test Strip Strip See Rx Instructions .ROUTE .MEDSUPPLY Qty: 200 RF: 5 sodium chloride [Saline Mist] 0.65 % aerosol,spray 1 spray CHIQUITA ONCE PRNRF: 0 fexofenadine [Li] 180 MG tablet 180 mg PO HS RF: 0 (DME) Hearing Aid Batteries 1 EACH misc 1 ea Miscellaneous DAILY Qty: 30 RF: 11 Restasis 1 EACH dropperette 1 drp Ophthalmic BID RF: 0 spironolactone 25 mg tablet 25 mg PO DAILY Qty: 90 RF: 5 oxybutynin chloride 10 mg tablet extended release 24hr 10 mg PO HS Qty: 90 RF: 4 montelukast [Singulair] 10 mg tablet 10 mg PO HS Qty: 90 RF: 4 baclofen 10 mg tablet 10 mg PO TID 30 Days Qty: 90 RF: 11 meloxicam 15 mg tablet 15 mg PO DAILY PRN (Reason: back pain) 30 Days Qty: 30 RF: 11 duloxetine [Cymbalta] 60 mg capsule,delayed release(DR/EC) 60 mg PO DAILY Qty: 90 RF: 7 levothyroxine 150 mcg tablet 150 mcg PO DAILY Qty: 90 RF: 12 (DME) lancets [OneTouch Delica Lancets] 33 gauge misc See Rx Instructions .ROUTE DAILY Qty: 200 RF: 4 esomeprazole magnesium 40 mg capsule,delayed release(DR/EC) 40 mg PO DAILY Qty: 90 RF: 11 topiramate [Topamax] 50 mg tablet 50 mg PO HS Qty: 90 RF: 3 doxazosin 4 mg tablet 4 mg PO DAILY Qty: 90 RF: 12 glipizide 10 mg tablet extended release 24hr 10 mg PO DAILY Qty: 90 RF: 6 acetaminophen [Mapap Extra Strength] 500 MG tablet 1,000 mg PO Q8H PRNQty: 90 RF: 0 Discharge Instructions Instructions: Knee Sprain (ED), Knee Pain (ED) Additional Instructions: Your x-ray here is reassuring. As we discussed your exam is concerning for pain over the MCL which may suggest a sprain. Please continue with a hinged knee brace until reevaluated by orthopedics. Please encourage rest, ice, elevation. Tylenol and/or ibuprofen as needed for discomfort. He did seem to have some muscle spasm while here. You may continue with the baclofen as previously prescribed. You may use your walker as needed to help with ambulatory discomfort. Please follow-up with physical therapy as you were previously referred. Referral for orthopedics has been sent. Please call orthopedics on Thursday to schedule follow-up appointment. If you develop fever/chills, increased pain or other new/worsening symptoms seek care urgently once again. Stand Alone Forms: Work Release Referrals: Noy Frederick MD, [place] [Primary Care Provider] - Helio Roca MD [ [facility] STAFF PHYSICIAN] - Discharge Data Discharge Date/Time-TO BE ENTERED AT DEPARTURE: 10/20/20 16:13 Medical Decision Making Patient is a pleasant 60-year-old female presents today with chief complaint of left knee pain. She reports that prior to arrival she was giving COVID-19 injections when she misstepped and suffered a rotational injury to left knee. She reports that the left knee has chronic pain. Patient did undergo surgical intervention in the form of an arthroscopy last year with Dr. Roca. At this time, patient was diagnosed with tricompartmental chondromalacia. States that since the injury approximately 40 minutes prior to arrival, she has not been able to weight-bear. Pain is been severe. She did use Tylenol and baclofen this morning around 730 for back pain. Patient reports that over the past several weeks she has been ambulating an antalgic gait secondary to issue with the contralateral side kayaking. No acute change in that today associated with her injury of the left knee. Patient reports that a few weeks ago she was kayaking and when she tried to get out of the kayak and found that the right leg was asleep and has had altered sensation since then. Patient does have chronic back pain but has not had any increase in pain recently and has been doing well in this regard. No change in bowel or bladder habits. On exam, patient appears uncomfortable and anxious. Pulses are intact bilateral lower extremities. She has mild sensory deficit on the lateral aspect of the right lower extremity compared to the medial aspect. No saddle paresthesias. No sensory deficit noted on the left lower extremity. No pain with palpation about the ankle, calf or hip on the left side. No pain with palpation about the left knee. Will hold off on range of motion secondary to her discomfort. Patient appears to be having muscle spasms in the thigh which induced the large amount of pain. Patient is prescribed baclofen 3 times daily. Has not taken a dose since this morning at 7. Will give dose of baclofen, Tylenol and ibuprofen now. Plan to reassess after pain control. X-ray obtained and reviewed by Dr. Estrella. He advises no acute abnormality is noted. No fracture dislocation Discussed these findings with the patient. She appears much more comfortable. Knee was further evaluated. She has excellent range of motion, full extension full flexion. She has pain with palpation over the medial aspect of the knee along the length of the MCL. She does have pain with stress testing of the MCL as well but this actually causes pain more in the posterior aspect of the knee. No laxity is appreciated of the MCL, LCL, ACL or PCL. No evidence of dislocation. No large joint effusion is appreciated. She does feel tight over the posterior hamstring. Patient I did discuss referral to physical therapy for this and she states that she has an outstanding referral and will be calling them on Thursday. Please discussed pain management. She is prefer to stay away from narcotics historically. Is on baclofen, meloxicam at baseline. I did advise that she may augment this further with Tylenol. Encouraged rest, ice, elevation. We will fit her with a hinged knee brace to support the knee, particularly as there is a concern for MCL injury. Patient does have a walker at home. Particularly with her back issues, I am concerned that crutches may exacerbate other underlying pathology. Advised she may use the walker as needed. Encourage close follow-up with orthopedics. All of her questions and concerns were addressed and she is in agreement this plan. HPI General Mode of arrival: EMS. Date/Time Provider Initiated Documentation: 10/20/20 14:14. Limitations to Documentation: no limitations. Information obtained by: patient, EMS, RN notes reviewed and old records reviewed. History of Present Illness 60 year old F presents to the emergency department with the chief complaint of left knee pain, described as severe, Quality is described as aching, and is localized to the left and lower extremity. Patient reports no radiation. Patient started experiencing this minute(s) and it has been constant. Immobilization improves symptom(s), Movement worsens symptoms . Patient notes no other symptoms.. Patient did receive the following treatments prior to arrival, none Related Data Home Medications Medication Instructions Recorded Confirmed fexofenadine [Li] 180 mg PO HS tab-cap 08/06/12 10/20/20 Hearing Aid Batteries #30 dose 10/01/17 10/19/20 Restasis 1 drp OPHTHALMIC BID drp 10/15/17 10/20/20 rifaximin 550 mg tablet 550 mg PO TID PRN 12/28/18 10/20/20 acetaminophen [Mapap Extra 1,000 mg PO Q8H PRN #90 tab 06/07/19 10/20/20 Strength] blood-glucose meter #1 each 07/25/19 05/31/20 blood sugar diagnostic #200 each 08/11/19 05/31/20 alosetron 0.5 mg tablet 0.5 mg PO DAILY PRN 09/15/19 10/20/20 sodium chloride 0.65 % nasal spray 1 spray CHIQUITA ONCE PRN ml 09/15/19 10/20/20 aerosol montelukast 10 mg tablet 10 mg PO HS #90 tab 11/01/19 10/20/20 oxybutynin chloride 10 mg 10 mg PO HS #90 tab-cap 11/01/19 10/20/20 tablet,extended release 24 hr spironolactone 25 mg tablet 25 mg PO DAILY #90 tab 11/01/19 10/20/20 baclofen 10 mg tablet 10 mg PO TID 30 Days #90 tab 11/10/19 10/20/20 meloxicam 15 mg tablet 15 mg PO DAILY PRN 30 Days #30 tab 11/10/19 10/20/20 Biomega See Rx Instructions PO .COMPLEX 12/01/19 05/31/20 Curcumin See Rx Instructions .ROUTE .COMPLEX 12/01/19 05/31/20 duloxetine 60 mg capsule,delayed 60 mg PO DAILY #90 cap 12/06/19 10/20/20 release levothyroxine 150 mcg tablet 150 mcg PO DAILY #90 tab-cap 12/08/19 10/20/20 azelastine 205.5 mcg (0.15 %) 2 spray CHIQUITA BID PRN ml 03/01/20 10/20/20 nasal spray fluconazole 150 mg tablet 150 mg PO Q3D PRN tab 03/01/20 10/20/20 lancets 33 gauge #200 each 09/26/20 10/19/20 esomeprazole magnesium 40 mg 40 mg PO DAILY #90 tab-cap 10/14/20 10/20/20 capsule,delayed release topiramate 50 mg tablet 50 mg PO HS #90 tab-cap 10/14/20 10/20/20 doxazosin 4 mg tablet 4 mg PO DAILY #90 tab-cap 10/18/20 10/20/20 glipizide 10 mg tablet, extended 10 mg PO DAILY #90 tab 10/18/20 10/20/20 release 24 hr Previous Rx's Medication Instructions Recorded acetaminophen [Mapap Extra 1,000 mg PO Q8H PRN #90 tab 06/07/19 Strength] blood-glucose meter #1 each 07/25/19 blood sugar diagnostic #200 each 08/11/19 montelukast 10 mg tablet 10 mg PO HS #90 tab 11/01/19 oxybutynin chloride 10 mg 10 mg PO HS #90 tab-cap 11/01/19 tablet,extended release 24 hr spironolactone 25 mg tablet 25 mg PO DAILY #90 tab 11/01/19 baclofen 10 mg tablet 10 mg PO TID 30 Days #90 tab 11/10/19 meloxicam 15 mg tablet 15 mg PO DAILY PRN 30 Days #30 tab 11/10/19 duloxetine 60 mg capsule,delayed 60 mg PO DAILY #90 cap 12/06/19 release levothyroxine 150 mcg tablet 150 mcg PO DAILY #90 tab-cap 12/08/19 lancets 33 gauge #200 each 09/26/20 esomeprazole magnesium 40 mg 40 mg PO DAILY #90 tab-cap 10/14/20 capsule,delayed release topiramate 50 mg tablet 50 mg PO HS #90 tab-cap 10/14/20 doxazosin 4 mg tablet 4 mg PO DAILY #90 tab-cap 10/18/20 glipizide 10 mg tablet, extended 10 mg PO DAILY #90 tab 10/18/20 release 24 hr Allergies Allergy/AdvReac Type Severity Reaction Status Date / Time Sulfa (Sulfonamide Allergy Severe TONGUE Verified 10/20/20 14:18 Antibiotics) SWELLING sulfamethoxazole Allergy Severe Swelling/Ed Verified 10/20/20 14:18 [From Bactrim] yoko trimethoprim Allergy Severe TONGUE Verified 10/20/20 14:18 SWELLING aspirin [From Percodan] AdvReac Mild Nausea Verified 10/20/20 14:18 oxycodone [From Percodan] AdvReac Mild Nausea Verified 10/20/20 14:18 pickles Allergy Severe Anaphylaxsi Uncoded 10/20/20 14:18 s COCKROACH Allergy Unknown allergy Uncoded 10/20/20 14:18 testing General Stated Complaint: Orthopedic MARISSA: 3 Review of Systems Constitutional Constitutional: Reports as per HPI, Denies chills, Denies fever(s), Denies headache(s) and Denies weakness ENT Ears, Nose, Mouth, and Throat: Denies headache(s) Cardiovascular Cardiovascular: Reports as per HPI Respiratory Respiratory: Reports as per HPI and Denies cough Musculoskeletal Musculoskeletal: Reports as per HPI, Reports abnormal gait (she reports antalgic gait for weeks. Unable to bear weight on LLE currently) and Reports tingling (on contralateral LE into right foot) Integumentary/Breasts Skin/Breast: Reports as per HPI, Denies rash and Denies wounds Neurologic Neurologic: Reports as per HPI, Reports abnormal gait (she reports antalgic gait for weeks. Unable to bear weight on LLE currently), Denies headache(s), Reports tingling (on contralateral LE into right foot), Denies paresthesias and Denies weakness [facility] Medical History (Updated 10/20/20 @ 15:49 by KELLI Art) Acute low back pain with possible spinal stenosis of less than six weeks' duration Ambulatory dysfunction Antinuclear factor positive (09/22/16) BMI 40.0-44.9, adult (09/03/15) Breast lump in female Breast lump in lower inner quadrant 04/12/15 Breast lump in lower inner quadrant (04/12/15) Bronchitis Candidiasis Frequent persistent yeast infx. Chest pain in adult 11/17/16 Closed fracture of body of calcaneus Closed fracture of calcaneus Closed fracture of calcaneus Cough Cough (01/26/12) Cystocele Cystocele with rectocele With urinary incontinence Delivery normal Depression Depressive disorder Depressive disorder Diabetes Diabetes mellitus Diabetes mellitus (02/14/14) Diarrhea 02/02/14 Dysfunctional uterine bleeding Ectopic 06/01/88 Elevated liver function tests 01/24/14 Elevated liver function tests (01/24/14) Essential hypertension (02/23/13) Family hx-breast malignancy Fatigue unspecified 01/19/14 GERD (gastroesophageal reflux disease) Hearing loss Hearing problem B/L aides History of ectopic Hypertension Hypocalcemia Hypokalemia (01/26/12) Hypothyroidism Hypothyroidism IBS (irritable bowel syndrome) Irritable colon Left knee pain Mammogram abnormal 04/30/05 Neck pain Neck pain Obesity, Class III, BMI 40-49.9 (morbid obesity) Otalgia of both ears (04/30/17) Pneumonia Pneumonia, organism unspecified unspecified laterality, unspecified part of lung Positive JENNIFER (antinuclear antibody) 09/22/16 Rectocele Reflux esophagitis (12/26/13) Routine medical exam 02/14/14 Sinus pressure 04/17/15 Sinus pressure (04/17/15) Upper back pain on right side (11/17/16) Weakness 01/19/14 Surgical History Appendectomy (~1998) Cholecystectomy (~1989) Colonoscopy [place] [place] [facility] [place] - [place] (03/10/14) EGD - MAC (08/05/16) H/O esophagogastroduodenoscopy 03/01/14 Hysterectomy, Laproscopic 03/03/11 [facility] [place] HYSTERECTOMY WITH BLADDER AND BOWEL TIE UP WITH SLING; R OVARY AND CYST ALSO REMOVED Oophrectomy, Right (~03/2011) , Ectopic (~1988) Reduction mammoplasty (~03/2013) S/P appendectomy 06/01/98 S/P cholecystectomy 06/01/89 S/P exploratory laparotomy 06/01/88 S/P hysterectomy with oophorectomy S/P tonsillectomy and adenoidectomy 06/01/85 Status post appendectomy Status post arthroscopy of left knee (06/07/19) Arthroscopic synovectomy of medial plica and lateral release Status post cholecystectomy Status post exploratory laparotomy Status post hysterectomy Status post oophorectomy Status post tonsillectomy and adenoidectomy Tonsillectomy and adenoidectomy (~1985) PT reports she still has her adenoids 01/03/20 TR Family History Mother Diabetes TYPE II Hyperlipidemia Father Alcohol abuse Neoplasm LUNG Sister Neoplasm BREAST Sister No problems noted. Brother No problems noted. Brother Pneumonia X 3 Grandfather Diabetes Grandfather Diabetes Grandmother No problems noted. Grandmother Diabetes Neoplasm BREAST Son No problems noted. Daughter No problems noted. 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 Pets and animals: Yes Pets and animals: cat(s) and dog(s) Current gender identity: female What is your relationship status?: How often do you talk on the phone with friends or family?: once per week How often do you attend adventist or denominational services?: 1-3 times per year Do you belong to any clubs or organized social groups?: no Panel score (0-1 are the most socially isolated patients): 1 What type of physical activity do you participate in: walking and additional Details: PT Duration: 15-30 minutes/day Frequency: 3-4 times per week Lorie/Jain: L[employer] Day Seatbelt use: always Helmet use: Yes Drive intox or ride w/intox star 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: No Do you feel safe at home: Yes Do you feel safe in your relationship?: Yes Exam Const General: cooperative, healthy appearing, uncomfortable, no acute distress, well developed, well groomed and anxious Nutritional Appearance: well nourished and obese Orientation: alert and awake Resp Effort & Inspection: normal respiratory effort, able to speak in complete sentences and no respiratory distress Cardio Rate: regular rate Rhythm: regular rhythm Skin General skin exam: no rashes or lesions noted Lesions: no lesions Rashes: no rashes Trauma: no lacerations or abrasions Neuro General: patient alert and patient awake Cognition: normal cognition Speech: speech normal Gait: gait abnormal Motor: muscle tone normal throughout Sensory Exam: no sensory deficits noted Extrem Left lower extremity: normal to inspection, normal capillary refill, no joint enlargement, hip/thigh Details: normal to inspection; no tenderness and no swelling, knee Details: normal to inspection and tenderness (posterior over hamstring insertion); no swelling, no ecchymosis, no crepitus and no deformity, lower leg Details: normal to inspection and no edema; no tenderness, no localized swelling, no palpable cords, no ecchymosis, no crepitus and no deformity and ankle Details: normal to inspection, no edema and normal ROM; no tenderness and no swelling; abnormal ROM Psych Appearance: grossly normal and well kempt Mental Status: mental status grossly normal Speech and Movement: speech and movement normal Course Vital Signs Vital signs: Vital Signs Temperature 36.8 C 10/20/20 14:12 Pulse 108 H 10/20/20 14:12 Respiratory Rate 20 10/20/20 14:12 Blood Pressure 154/84 H 10/20/20 14:12 Pulse Oximetry 99 10/20/20 14:12 Temperature 36.8 C 10/20/20 14:12 Temperature Source Temporal Artery Scan 10/20/20 14:12 Pulse 108 H 10/20/20 14:12 Respiratory Rate 20 10/20/20 14:12 Respiratory Effort Non-Labored 10/20/20 14:14 Blood Pressure 154/84 H 10/20/20 14:12 Blood Pressure Position Supine 10/20/20 14:12 Pulse Oximetry 99 10/20/20 14:12 Oxygen Delivery Method Room Air 10/20/20 14:12 Oxygen Flow Rate 0 10/20/20 14:12
[2020-10-20] MEDS: Acetaminophen 325 MG TAB 650 MG PO (14:38)
[2020-10-20] MEDS: Ibuprofen 600 MG TAB PO (14:38)
[2020-10-20] MEDS: Baclofen 10 MG TAB PO (14:42)
--- NOTE | 2020-10-20 15:05 | DI.RAD_ITS ---
Exam(s) XR KNEE LT 4V AP,LAT,YUDITH,PAT EXAM: XR KNEE LT 4V AP,LAT,YUDITH,PAT CLINICAL HISTORY: pain after rotation TECHNIQUE: COMPARISON: CR XR knee LT 4V AP,lat,yudith,pat from 11/23/2018 FINDINGS: Four views were obtained. There is a probable knee joint effusion. There are moderate marginal oste ophytes of the joints of the knee and mild narrowing of the medial tibiofemoral joint and patellofemo ral joint. There is no evidence of acute fracture or dislocation. IMPRESSION: RADIATION DOSE DELIVERED: Total DLP
[2020-10-20 16:01] VITALS: BP 144/65; PULSE 77; RESP 18; TEMP 36.7; O2SAT 96
== END 2020-10-20 16:13 | disposition home or self-care (01) ==
PROVIDERS: Emergency Provider Physician Assistant; PCP Family Medicine
DX: M25.562 Pain in left knee (principal); S83.412A Sprain of medial collateral ligament of left knee, initial encounter; W18.49XA Other slipping, tripping and stumbling without falling, initial encounter
CPT/HCPCS: 29505; 99283; 73564

== ENCOUNTER → 2020-12-14 21:18 | Outpatient (CLI) | payer BC, SELFPAY ==
--- NOTE | 2020-12-14 13:45 | DI.MRI_ITS ---
Exam(s) MR LOWER JOINT LT WO EXAM: MR LOWER JOINT LT WO CLINICAL HISTORY: CONTINUED LEFT KNEE PAIN M23.92 INTERNAL DERANGEMENT LT KNEE. TECHNIQUE: Multiplanar multisequence MRI was performed. COMPARISON: MR MR LOWER JOINT LT WO from 04/06/2019 MR MR LOWER JOINT LT WO from 04/06/2019 CR XR KNEE LT 4V AP,LAT,YUDITH,PAT from 10/20/2020 CR XR KNEE LT 4V AP,LAT,YDUITH,PAT from 10/20/2020 FINDINGS: BONES: There is edema in the medial tibial plateau, consistent with a contusion.. There is a small d efect on the medial tibial plateau cartilage medially. JOINTS:. A moderate-sized joint effusion is present. There is thinning of the cartilage over the la teral patellar facet and mild lateral patellar subluxation. TENDONS: Extensor mechanism: Unremarkable. Medial retinaculum: Unremarkable. Lateral retinaculum: Unremarkable. Popliteus: Unremarkable. MUSCLES: Unremarkable. MENISCI: The medial meniscus is somewhat peripherally displaced, consistent with degenerative changes . There is abnormal thickening in the body of and the posterior horn as well as increased linear hor izontally oriented signal, consistent with a superimposed tear. The anterior horn appears intact.. The lateral meniscus is unremarkable. SOFT TISSUES: Mild anterior and medial edema. LIGAMENTS: Anterior Cruciate: Unremarkable. Posterior Cruciate: Unremarkable. Medial Collateral:Fluid around the medial collateral ligament but no discrete tear. Lateral Collateral: Unremarkable. OTHER: No popliteal cyst. IMPRESSION: Contusion of the medial tibial plateau with focal cartilage defect. Horizontally oriented tear the p osterior horn and body of the medial meniscus. Question of MCL sprain. DATA REPOSITORY:
== END ==
PROVIDERS: PCP Family Medicine; Visit Provider Student in an Organized Health Care Education/Training Program
DX: M23.92 Unspecified internal derangement of left knee (principal); S80.12XA Contusion of left lower leg, initial encounter; S83.242A Other tear of medial meniscus, current injury, left knee, initial encounter; X58.XXXA Exposure to other specified factors, initial encounter
CPT/HCPCS: 73721

== ENCOUNTER 2020-12-24 01:54 | Outpatient (CLI) | payer BC, SELFPAY ==
[2020-12-24 11:18] LABS: Source Nasal/Nares
[2020-12-24 16:06] LABS: COVID-19 PCR Negative (Negative)
== END 2020-12-24 01:55 | disposition home or self-care (01) ==
LOC: LBO 01:54
PROVIDERS: PCP Family Medicine; Visit Provider Student in an Organized Health Care Education/Training Program
DX: Z20.822 Contact with and (suspected) exposure to COVID-19 (principal); Z01.818 Encounter for other preprocedural examination
CPT/HCPCS: 87635

== ENCOUNTER 2020-12-26 07:14 | Day surgery (SDC) | payer BC, SELFPAY ==
[2020-12-26] VITALS (11 sets, daily range): BP systolic 99–126; BP diastolic 49–73; PULSE 84–94; RESP 12–20; TEMP 36.2–36.5; O2SAT 92–98; BMI 42.3
--- NOTE | 2020-12-26 04:56 | PDOC.DSDIS_ITS ---
Discharge Plan Disposition Patient Disposition: HOME Condition: Stable Discharge Details Reason For Visit: Left Knee Arthroscopy Attending Provider: Helio Roca Primary Care Provider: Noy Frederick Home Meds and New Rx's Prescriptions: New acetaminophen [Tylenol Extra Strength] 500 mg tablet 500 mg PO Q6H PRNQty: 90 RF: 0 pantoprazole [Protonix] 40 mg tablet,delayed release (DR/EC) 40 mg PO DAILY Qty: 30 RF: 0 ibuprofen 600 mg tablet 600 mg PO TID Qty: 90 RF: 0 tramadol 50 mg tablet 50 mg PO Q6H PRNQty: 20 RF: 0 fluconazole [Diflucan] 150 mg tablet 150 mg PO ONCE Qty: 1 RF: 0 Continued Xifaxan 550 mg tablet 550 mg PO TID PRNRF: 0 alosetron 0.5 mg tablet 0.5 mg PO DAILY PRNRF: 0 azelastine 0.15 % (205.5 mcg) spray,non-aerosol 2 spray CHIQUITA BID PRNRF: 0 Curcumin See Rx Instructions .ROUTE .COMPLEX RF: 0 sodium chloride [Saline Mist] 0.65 % aerosol,spray 1 spray CHIQUITA ONCE PRNRF: 0 baclofen 10 mg tablet 10 mg PO TID 30 Days Qty: 90 RF: 11 duloxetine [Cymbalta] 60 mg capsule,delayed release(DR/EC) 60 mg PO DAILY Qty: 90 RF: 7 levothyroxine 150 mcg tablet 150 mcg PO DAILY Qty: 90 RF: 12 oxybutynin chloride 10 mg tablet extended release 24hr 10 mg PO DAILY Qty: 90 RF: 4 spironolactone 25 mg tablet 25 mg PO DAILY Qty: 90 RF: 5 fexofenadine [Li] 180 MG tablet 180 mg PO HS RF: 0 Restasis 1 EACH dropperette 1 drp Ophthalmic BID RF: 0 montelukast [Singulair] 10 mg tablet 10 mg PO HS Qty: 90 RF: 4 esomeprazole magnesium 40 mg capsule,delayed release(DR/EC) 40 mg PO DAILY Qty: 90 RF: 11 topiramate [Topamax] 50 mg tablet 50 mg PO HS Qty: 90 RF: 3 doxazosin 4 mg tablet 4 mg PO DAILY Qty: 90 RF: 12 glipizide 10 mg tablet extended release 24hr 10 mg PO DAILY Qty: 90 RF: 6 Discontinued fluconazole [Diflucan] 150 mg tablet 150 mg PO Q3D PRNRF: 0 naproxen 500 mg tablet 500 mg PO BID PRN (Reason: pain) Qty: 60 RF: 0 acetaminophen [Mapap Extra Strength] 500 MG tablet 1,000 mg PO Q8H PRNQty: 90 RF: 0 No Action (DME) blood-glucose meter [OneTouch UltraMini] Kit See Rx Instructions .ROUTE .MEDSUPPLY Qty: 1 RF: 0 (DME) OneTouch Ultra Blue Test Strip Strip See Rx Instructions .ROUTE .MEDSUPPLY Qty: 200 RF: 5 (DME) Hearing Aid Batteries 1 EACH misc 1 ea Miscellaneous DAILY Qty: 30 RF: 11 (DME) lancets [OneTouch Delica Lancets] 33 gauge misc See Rx Instructions .ROUTE DAILY Qty: 200 RF: 4 Discharge Instructions Stand Alone Forms: [facility] Knee Arthroscopy Referrals: Helio Roca MD [ [facility] STAFF PHYSICIAN] - Equipment/Supplies: Walker Activity:: Activity as Tolerated Remove Dressings/Wound Care:: 72 hours Shower/Bathe:: 72 hours Diet:: As Tolerated Discharge Orders Discharge Orders: Discharge Order (Routine); Ordered 12/26/20 Ordered By: Joan Santos DS: Diagnosis Discharge Diagnosis (1) Tear of medial meniscus of left knee: Status: Acute
[2020-12-26] MEDS: Celecoxib 200 MG CAP 400 MG PO (07:53)
[2020-12-26] MEDS: Acetaminophen 500 MG TAB 1000 MG PO (07:53)
[2020-12-26] MEDS: Gabapentin 300 MG CAP PO (07:53)
--- NOTE | 2020-12-26 08:01 | ANES.PREOP_ITS ---
General Info Date of Service Date Performed: 12/26/20 Height: 5 ft 4 in Weight: 112 kg Body Mass Index (BMI): 42.3 Surgical Procedure: Operation Date: 12/26/20 08:25 Proposed Procedures Side Surgeon p LT KNEE ARTHROSCOPIC PARTIAL MEDICAL MENISECTOMY Left Helio Roca MD Meds Allergies and Home Medications Allergies Allergy/AdvReac Type Severity Reaction Status Date / Time Sulfa (Sulfonamide Allergy Severe TONGUE Verified 12/26/20 07:46 Antibiotics) SWELLING sulfamethoxazole Allergy Severe Swelling/Ed Verified 12/26/20 07:46 [From Bactrim] yoko trimethoprim Allergy Severe TONGUE Verified 12/26/20 07:46 SWELLING aspirin [From Percodan] AdvReac Mild Nausea Verified 12/26/20 07:46 oxycodone [From Percodan] AdvReac Mild Nausea Verified 12/26/20 07:46 pickles Allergy Severe Anaphylaxsi Uncoded 12/26/20 07:46 s COCKROACH Allergy Unknown allergy Uncoded 12/26/20 07:46 testing Home Medication Medication Instructions Recorded fexofenadine [Li] 180 mg PO HS tab-cap 08/06/12 Hearing Aid Batteries #30 dose 10/01/17 Restasis 1 drp OPHTHALMIC BID drp 10/15/17 rifaximin 550 mg tablet 550 mg PO TID PRN 12/28/18 blood-glucose meter #1 each 07/25/19 blood sugar diagnostic #200 each 08/11/19 alosetron 0.5 mg tablet 0.5 mg PO DAILY PRN 09/15/19 sodium chloride 0.65 % nasal spray 1 spray CHIQUITA ONCE PRN ml 09/15/19 aerosol montelukast 10 mg tablet 10 mg PO HS #90 tab 11/01/19 Curcumin See Rx Instructions .ROUTE .COMPLEX 12/01/19 azelastine 205.5 mcg (0.15 %) 2 spray CHIQUITA BID PRN ml 03/01/20 nasal spray lancets 33 gauge #200 each 09/26/20 esomeprazole magnesium 40 mg 40 mg PO DAILY #90 tab-cap 10/14/20 capsule,delayed release topiramate 50 mg tablet 50 mg PO HS #90 tab-cap 10/14/20 doxazosin 4 mg tablet 4 mg PO DAILY #90 tab-cap 10/18/20 glipizide 10 mg tablet, extended 10 mg PO DAILY #90 tab 10/18/20 release 24 hr baclofen 10 mg tablet 10 mg PO TID 30 Days #90 tab 12/17/20 duloxetine 60 mg capsule,delayed 60 mg PO DAILY #90 cap 12/17/20 release levothyroxine 150 mcg tablet 150 mcg PO DAILY #90 tab-cap 12/17/20 oxybutynin chloride 10 mg 10 mg PO DAILY #90 tab 12/17/20 tablet,extended release 24 hr spironolactone 25 mg tablet 25 mg PO DAILY #90 tab 12/17/20 acetaminophen [Tylenol Extra 500 mg PO Q6H PRN #90 tab 12/26/20 Strength] fluconazole [Diflucan] 150 mg PO ONCE #1 tab 12/26/20 ibuprofen 600 mg PO TID #90 tab 12/26/20 pantoprazole [Protonix] 40 mg PO DAILY #30 tab 12/26/20 tramadol 50 mg PO Q6H PRN #20 tab 12/26/20 Current Visit Medications: Current Medications Generic Name Dose Route Start Last Admin Trade Name Freq PRN Reason Stop Dose Admin Acetaminophen 1,000 mg 12/26/20 06:00 12/26/20 07:53 Acetaminophen 500 Mg Tab PO 12/26/20 16:00 1,000 mg PREOP JOHN Administration Acetaminophen 650 mg 12/26/20 04:52 Acetaminophen 325 Mg Tab PO Q4H PRN PRN Celecoxib 400 mg 12/26/20 06:00 12/26/20 07:53 Celecoxib 200 Mg Cap PO 12/26/20 16:00 400 mg PREOP JOHN Administration Gabapentin 300 mg 12/26/20 06:00 12/26/20 07:53 Gabapentin 300 Mg Cap PO 12/26/20 16:00 300 mg PREOP JOHN Administration Ringer's Solution 1,000 mls @ 80 mls/hr 12/26/20 06:00 IV 01/24/21 23:59 INFUSION JOHN Cefazolin Sodium/Dextrose 2 gm in 50 mls @ 100 mls/hr 12/26/20 06:00 Ancef Duplex IVPB 01/24/21 23:59 PREOP JOHN Ondansetron HCl 4 mg/ Sodium 52 mls @ 200 mls/hr 12/26/20 04:52 Chloride IVPB Q6H PRN PRN IV Miscellaneous Supplies 1 each 12/26/20 06:00 Iv Access IV 01/24/21 23:59 DIRECTED JOHN Sodium Chloride 0 ml 12/26/20 06:00 Normal Saline Flush 10 Ml Syr IV 01/24/21 23:59 PRN PRN Sodium Chloride 0 ml 12/26/20 06:00 Normal Saline 10 Ml Vial IJ 01/24/21 23:59 DIRECTED PRN Sterile Water 0 ml 12/26/20 06:00 Water,Injection,Sterile 10 Ml Vial IJ 01/24/21 23:59 DIRECTED PRN Tramadol HCl 50 mg 12/26/20 05:20 Tramadol 50 Mg Tab PO Q6H PRN PRN PFSH Active Problems Active Problems: Problem Status Onset Code Tear of medial meniscus of left knee S83.242A 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 Internal derangement of left knee M23.92 Acute pain of left knee M25.562 Knee MCL sprain S83.419A Back pain associated with peripheral numbness M54.9, R20.0 Vaccine counseling Z71.89 TMJ (temporomandibular joint disorder) M26.609 Skin lesion L98.9 Pelvic floor dysfunction M62.89 Urinary incontinence R32 Annual physical exam 04/30/17 Z00.00 Fall W19.XXXA Lumbosacral spondylosis without myelopathy M47.817 Status post arthroscopy of left knee 06/07/19 Z98.890 Depressive disorder F32.9 Diabetes mellitus E11.9 Reflux esophagitis 12/26/13 K21.0 Otalgia of both ears 04/30/17 H92.03 Irritable colon K58.9 Hypothyroidism E03.9 Hearing problem H91.90 Essential hypertension 02/23/13 I10 Cystocele with rectocele N81.10, N81.6 Cough 01/26/12 R05 Candidiasis B37.9 BMI 40.0-44.9, adult 09/03/15 Z68.41 Medical History Medical History Acute low back pain with possible spinal stenosis of less than six weeks' duration Ambulatory dysfunction Antinuclear factor positive (09/22/16) BMI 40.0-44.9, adult (09/03/15) Breast lump in female Breast lump in lower inner quadrant 04/12/15 Breast lump in lower inner quadrant (04/12/15) Bronchitis Candidiasis Frequent persistent yeast infx. Chest pain in adult 11/17/16 Closed fracture of body of calcaneus Closed fracture of calcaneus Closed fracture of calcaneus Cough Cough (01/26/12) Cystocele Cystocele with rectocele With urinary incontinence Delivery normal Depression Depressive disorder Depressive disorder Diabetes Diabetes mellitus Diabetes mellitus (02/14/14) Diarrhea 02/02/14 Dysfunctional uterine bleeding Ectopic 06/01/88 Elevated liver function tests 01/24/14 Elevated liver function tests (01/24/14) Essential hypertension (02/23/13) Family hx-breast malignancy Fatigue unspecified 01/19/14 GERD (gastroesophageal reflux disease) Hearing loss Hearing problem B/L aides History of ectopic Hypertension Hypocalcemia Hypokalemia (01/26/12) Hypothyroidism Hypothyroidism IBS (irritable bowel syndrome) Irritable colon Left knee pain Mammogram abnormal 04/30/05 Neck pain Neck pain Obesity, Class III, BMI 40-49.9 (morbid obesity) Otalgia of both ears (04/30/17) Pneumonia Pneumonia, organism unspecified unspecified laterality, unspecified part of lung Positive JENNIFER (antinuclear antibody) 09/22/16 Rectocele Reflux esophagitis (12/26/13) Routine medical exam 02/14/14 Sinus pressure 04/17/15 Sinus pressure (04/17/15) Upper back pain on right side (11/17/16) Weakness 01/19/14 Surgical History Surgical History Appendectomy (~1998) Cholecystectomy (~1989) Colonoscopy - MAC 03/2004[place] [place] 03/2014; [facility] [place] EGD - MAC (03/10/14) EGD - MAC (08/05/16) H/O esophagogastroduodenoscopy 03/01/14 Hysterectomy, Laproscopic 03/03/11 [facility] [place]; HYSTERECTOMY WITH BLADDER AND BOWEL TIE UP WITH SLING; R OVARY AND CYST ALSO REMOVED Oophrectomy, Right (~03/2011) , Ectopic (~1988) Reduction mammoplasty (~03/2013) S/P appendectomy 06/01/98 S/P cholecystectomy 06/01/89 S/P exploratory laparotomy 06/01/88 S/P hysterectomy with oophorectomy S/P tonsillectomy and adenoidectomy 06/01/85 Status post appendectomy Status post arthroscopy of left knee (06/07/19) Arthroscopic synovectomy of medial plica and lateral release Status post cholecystectomy Status post exploratory laparotomy Status post hysterectomy Status post oophorectomy Status post tonsillectomy and adenoidectomy Tonsillectomy and adenoidectomy (~1985) PT reports she still has her adenoids 01/03/20 TR Tobacco Smoking/Tobacco Use Status: Former Tobacco Use Tobacco: How many years used: 4 Passive smoking exposure: Yes Second hand exposure: Yes Alcohol Alcohol Intake: current Alcohol intake frequency: holidays/special occasions only Alcohol type: wine and hard liquor Substance Use Substance use: Never Substance use type: does not use Counseling given: No Counseling provided: none Vital Signs and Lab Results Vital Signs Most Recent Vital Signs in EMR: Most Recent Vital Signs Temp Pulse Resp BP Pulse Ox 36.3 C L 94 H 14 126/70 95 12/26/20 07:30 12/26/20 07:30 12/26/20 07:30 12/26/20 07:30 12/26/20 07:30 Lab Results Blood Type / Crossmatch: No Data to Display Complete Blood Count: No Data to Display Complete Metabolic Panel: Hemoglobin A1c 6.5 % (4.5-5.7) H 12/17/20 14:59 12/17/20 Liver Function Panel: No Data to Display Coagulation Panel: No Data to Display Cardiac Panel: No Data to Display Arterial Blood Gas: No Data to Display Venous Blood Gas: No Data to Display Pancreas Panel: No Data to Display Thyroid Panel: No Data to Display Infectious Disease: Coronavirus (COVID-19)(PCR) Negative (Negative) 12/24/20 09:35 12/24/20 Coronavirus 2019 Source Nasal/Nares 12/24/20 09:35 12/24/20 Blood Cultures: No Data to Display Toxicology Panel: No Data to Display Imaging and Studies Imaging and Studies Stress Test Summary: Stress results: The rate-pressure product for the peak heart rate and blood pressure was 24473uz Hg/min. Stress ECG: TEST ENDED AT 07:02, REGADENOSON PROTOCOL DUE TO SYPTOMS OF LEXISCAN RESOLVING. MAX HR 105 NORMAL BP RESPONSE TO REGADENOSON PT C/O LEFT NECK PRESSURE 3-4/10, AT WORST, RESOLVING SPONTANEOUSLY BY END OF TEST. NO ISCHEMIC CHANGES NOTED. NO ECTOPY. Myocardial perfusion: Imaging information: gated. No myocardial perfusion defects noted. Ventricular Function (Wall Motion): The calculated left ventricular ejection fraction after stress: 65%. Anesthesia Assessment and Plan Anesthesia History Personal History: No History of Anesthesia Complications and Other (Per patient reactive airway on waking) Family History: No Family History of Anesthesia Complications Exercise Tolerance Exercise Tolerance: Metabolic Equivalents>4 Pertinent Negatives Pertinent Negatives: No Symptoms of GERD, No Major Cardiovascular Symptoms or Complaints, No Major Pulmonary Symptoms or Complaints and No History of CVA/TIA Cardiac & Pulmonary Exam Cardiac Exam: Normal S1/S2 Heart Sounds Pulmonary Exam: Clear Bilateral Breath Sounds Airway Exam Known Difficult Airway: No Mallampati Class: 2 Mouth Opening: Normal (> 3cm) Thyromental Distance: Greater than 3 cm Neck Range of Motion: Full ROM Neck Circumference: Normal Teeth Condition: Normal Dentition ASA Classification ASA Score: ASA 3 Emergency Case?: No NPO Status NPO Status: NPO Clears >2 hours, Solids >8 hours Anesthesia Plan Resuscitation Status: Full Code Anesthesia Technique: General Anesthesia Airway Planned: Endotracheal Tube Monitors Used: Standard Monitors Preoperative Comments:: RSI due to potential gastric motility issues
[2020-12-26] MEDS: Lactated Ringers 1,000 ML 80 ML IV (08:10)
[2020-12-26] MEDS: ceFAZolin 2 GM/50 ML BAG IVPB (08:35)
[2020-12-26] MEDS: Bupivacaine 0.5% Pres-Free 30 ML VIAL (08:53)
--- NOTE | 2020-12-26 09:19 | ROE_ITS ---
Operative Note Operative Note DATE OF PROCEDURE: 12/26/20 PRE-OP DIAGNOSIS: Left Medial Meniscus Tear POST-OP DIAGNOSIS: same PROCEDURE: Arthroscopic Left Knee Partial Medial Menisectomy SURGEON: Helio Roca ANESTHESIA TYPE: General LMA/ETT Refer to Anesthesia Record ESTIMATED BLOOD LOSS: 0 PATHOLOGY: none sent COMPLICATIONS: None Patient was transported to: PACU Patient's condition: stable Indications: I have seen Carmenza in clinic for symptoms of a meniscus tear. This was confirmed based on MRI and exam findings. Nonoperative measures were exhausted but disability and pain persisted. I discussed knee arthroscopy with meniscal intervention with the patient. I reviewed the risks of the procedure to include, but not limited to, bleeding, infection, pain, stiffness, damage to nerves or vessels, recurrence, blood clot. Despite these risks, the patient elected to proceed. Findings: A diagnostic arthroscopy was performed with the following findings: Suprapatellar Pouch: Mild inflammatory changes, No loose bodies Medial Compartment: Complex medial meniscal tear at the horn with a primary horizontal tear and extension into the root with a vertical component and a complete tear of jered meniscus from the posterior tibial root, Grade II chondromalacia throughout the majority of the medial compartment with some focal Grade III changes Notch: ACL and PCL were intact Lateral Compartment: No meniscal tear, Intact meniscal root, No significant chondromalacia or signs of arthritis, No loose bodies Patellofemoral Compartment: Grade II chondromalacia Procedure Description: Carmenza was greeted in the preoperative holding area where the correct side was identified and marked. The consent was reviewed with the patient and signed. The history and physical was updated. All questions were answered. She was taken back to the operating room. The patient was placed into the supine position on the operating room table. A nonsterile tourniquet was placed high onto the leg but not used. All bony prominences were well padded. Prophylactic antibiotics in the form of Cefazolin were administered. The left leg was then prepped with Chloraprep and draped in a standard fashion with stockinette and extremity drape. A timeout to confirm correct identity, side and site, procedure, allergies, anesthesia, and medical concerns was performed. The leg was placed into a pneumatic leg harper, [id number]. A standard lateral portal was made at the lateral border of the patella tendon in line with the inferior pole of the patella, soft spot. The skin and deep tissue was incised sharply and the blunt trochar was inserted atraumatically. A diagnostic arthroscopy was performed and the findings are listed above. The suprapatellar pouch had mild inflammatory changes. The patellofemoral articulation showed mild, Grade II, chondromalacia without noticeable maltracking. The lateral gut ter had no loose bodies and the medial gutter had no loose bodies. The knee was brought into some valgus stress in extension to open the medial compartment. A medial portal was made, localized by a spinal needle. The portal was created with an #11 blade through skin and capsule under direct visualization avoiding any meniscal injury. A probe was then inserted into the medial compartment. The medial compartment was fully inspected. The chondral surface of the tibia showed diffuse Grade II chondromalacia and the surface of the femur showed Grade II chondromalacia with some focal areas of Grade III. The medial meniscus had a complex tear at the posterior horn, primarily of a horizontal nature with inferior tearing. This was inspected more fully and seem to travel laterally towards the root with a vertical component at the level of the root. I then drove the scope through the notch to further investigate this tear where it was discovered to communicate with a complete tear of the medial meniscus from the posterior tibial root attachment. There was some scarring seen between the meniscus and the tibia but no meniscal fibers were attached to the root. Given the complex tearing of the horn as well as the chondromalacia the medial compartment, her age, and her morbid obesity, I do not think a tibial root repair was in her best interest. Therefore, I proceeded with partial medial meniscectomy. After evaluation, the meniscus was debrided down to a stable base using a series of biters and arthroscopic nicola. It was probed afterwards to confirm that the tear had been removed and the meniscus was stable. Cartilage surfaces were debrided of any flaps, leaving any intact fibers. The notch was then inspected which showed an intact ACL and an intact PCL. The leg was then brought into a figure of 4 position. The lateral compartment was fully inspected with the arthroscope and a probe. The chondral surface of the lateral femur showed no significant chondromalacia. The chondral surface of the lateral tibia showed no significant chondromalacia. The lateral meniscus had no meniscal tear. The arthroscope was brought back into the suprapatellar pouch and the leg was in full extension. The knee was thoroughly irrigated with the arthroscopic fluid on high flow and pressure. Inflow was stopped and excess fluid was removed. The wounds were closed with 4-0 Nylon. They were dressed with Xeroform, 4x4 gauze, ABD pad, Kerlix and an BRUNO wrap. A cryo-cuff was applied. The patient tolerated the procedure well and was returned to the Same Day Surgery area in a stable condition suffering no known complication.
[2020-12-26] MEDS: HYDROmorphone 2 MG/ML VIAL IVP ×4 (09:52→10:36)
[2020-12-26] MEDS: Normal Saline Flush 10 ML SYR IV ×2 (09:52→10:24)
[2020-12-26] MEDS: Baclofen 10 MG TAB PO (10:17)
--- NOTE | 2020-12-26 10:23 | W.ANESPOSTOP ---
Postoperative Evaluation Date, Time and Location Date Performed: 12/26/20 Time Performed: 10:23 Patient Location: PACU Vital Signs Most Recent Imported Vital Signs: Most Recent Vital Signs Temp Pulse Resp BP Pulse Ox 36.5 C 92 H 12 109/53 L 94 12/26/20 10:19 12/26/20 10:19 12/26/20 10:19 12/26/20 10:19 12/26/20 10:19 Pain Score Most Recent Pain Score: Most Recent Pain Score Pain Level 7 12/26/20 10:19 Assessment Mental Status: Awake (Alert & Oriented to Patient Baseline) Airway and Respiratory Function: Patent airway with normal (patient baseline) respiratory exam Cardiovascular Function: Hemodynamically Stable Hydration Status: Adequately Hydrated Nausea & Vomiting: No Nausea or Vomiting Pain: Pain is Moderate or Severe (Spasms in operative extremity. Home baclofen dose ordered and given in PACU) Postoperative Pain Management: Pain being addressed with medication Peripheral Nerve Block: Patient did not receive a nerve block
[2020-12-26] MEDS: traMADol 50 MG TAB PO (11:12)
== END 2020-12-26 12:55 | disposition home or self-care (01) ==
LOC: SUR 07:15
PROVIDERS: PCP Family Medicine; Visit Provider Student in an Organized Health Care Education/Training Program
PROC: (CPT 29870; principal; 2020-12-26 08:15)
DX: S83.242A Other tear of medial meniscus, current injury, left knee, initial encounter (principal); I10 Essential (primary) hypertension; E03.9 Hypothyroidism, unspecified; E11.9 Type 2 diabetes mellitus without complications
CPT/HCPCS: 29881; J0690; J1100; J1885; J2001; J2405

== ENCOUNTER 2021-01-03 02:32 | Outpatient (CLI) | payer BC, SELFPAY ==
--- NOTE | 2021-01-03 06:30 | DI.MAMMO_ITS ---
Exam(s) MAMMO SCREENING EXAM: MAMMO SCREENING CLINICAL HISTORY: screening,Z12.39 TECHNIQUE: Mammograms were interpreted according to the usual protocol including computer analysis w [facility] CAD system, tomosynthesis and C-view imaging. COMPARISON: FINDINGS: The breasts are of moderate density with fairly symmetrical distribution fibroglandular tissue. No d ominant mass or clumped microcalcification is identified breast. The current examination compared wi th previous examinations including June 2018 and there has been no gross interval change in appear ance comparison with previous studies. IMPRESSION: No specific evidence of malignancy at this time. Routine screening examinations are suggested at yea rly intervals due to the family history of breast carcinoma. BI-RADS Category 1 - Negative Breast Density - Category B - Scattered areas of fibroglandular density
== END 2021-01-03 02:52 ==
PROVIDERS: PCP Family Medicine; Visit Provider Family Medicine
DX: Z12.31 Encounter for screening mammogram for malignant neoplasm of breast (principal); Z80.3 Family history of malignant neoplasm of breast
CPT/HCPCS: 77063; 77067

== ENCOUNTER 2021-07-25 10:46 | Outpatient (REF) | payer BC, SELFPAY ==
[2021-07-26 13:10] LABS: COVID-19 RT-PCR UVMMC Result Negative (Negative)
== END 2021-07-25 10:47 | disposition home or self-care (01) ==
LOC: NCHCN 10:46
PROVIDERS: PCP Family Medicine; Visit Provider Nurse Practitioner Family
DX: Z20.822 Contact with and (suspected) exposure to COVID-19 (principal)
CPT/HCPCS: U0003

== ENCOUNTER 2021-11-11 18:37 | Outpatient (CLI) | payer BC, SELFPAY ==
--- NOTE | 2021-11-11 | DI.RAD_ITS ---
Exam(s) XR CHEST 2V PA LATERAL EXAM: XR CHEST 2V PA LATERAL CLINICAL HISTORY: Bronchospastic cough X 4 weeks. TECHNIQUE: 2D digital imaging was performed. COMPARISON: CR XR CHEST 2V PA LATERAL from 06/24/2018 FINDINGS: 2 views: Heart size is normal. The mediastinum is not widened. Lungs are clear. No infiltrates nor pleural effusions. IMPRESSION: No acute pulmonary findings.No significant change compared to 06/24/2018 DATA REPOSITORY: RADIATION DOSE DELIVERED:
--- NOTE | 2021-11-11 19:33 | DI.VRAD_ITS ---
PROCEDURE INFORMATION: Exam: XR Chest Exam date and time: 11/11/2021 6:49 PM Age: 61 years old Clinical indication: Other: Upper respiratory infection, bronchospastic cough x4 weeks, recent diagnosis of influenza and pneumonia TECHNIQUE: Imaging protocol: XR of the chest. Views: 2 views. COMPARISON: CR XR CHEST 2V PA LATERAL 06/24/2018 3:12 PM FINDINGS: Lungs: Clear lungs. Pleural spaces: No pneumothorax. No sizable pleural effusion. Heart/Mediastinum: No cardiomegaly. Bones/joints: Unremarkable. IMPRESSION: Clear lungs. Dictated and Authenticated by: Ishmael Burks MD. Ordering:TALIB DIANA MD
[2021-11-11 20:54] LABS: Abs Immature Grans 0.03 10^3/uL (0.0-0.06); Absolute Basophil Count 0.04 10^3/uL (0.0-0.2); Absolute Eosinophil Count 0.24 10^3/uL (0.0-0.7); Absolute Lymphocyte Count 2.15 10^3/uL (1.2-3.4); Absolute Monocyte Count 0.54 10^3/uL (0.1-0.8); Absolute Neutrophil Count 5.67 10^3/uL (1.2-6.7); Basophils % 0.5; Eosinophils % 2.8; HCT 43.7 % (36.0-46.0); HGB 14.3 g/dL (11.2-15.7); Immature Grans % 0.3; Lymphocytes % 24.8; MCHC 32.7 % (32.0-36.0); MCV 89 fL (80-95); MPV 10.3 fL (8.0-11.0); Monocytes % 6.2; Neutrophils % 65.4; Platelet Count 208 10^3/uL (130-400); RBC 4.93 10^6/uL (3.93-5.22); RDW 14.6 % (11.7-14.6); RDW-SD 47.5 fL; WBC 8.67 10^3/uL (4.4-10.8)
[2021-11-11 21:21] LABS: ALT 29 U/L (14-59); AST 17 U/L (15-37); Albumin 3.9 g/dL (3.4-5.0); Alkaline Phosphatase 66 U/L (46-116); Anion Gap 10.7 mmol/L (3-11); BUN 23 mg/dL (7-18); Bilirubin, Total 0.4 mg/dL (0.2-1.0); CO2 26.3 mmol/L (21.0-32.0); Calcium 9.2 mg/dL (8.5-10.1); Chloride 104 mmol/L (98-107); Estimated GFR 56.75 (mL/min/1.73m2); Glucose 161 mg/dL (74-106); Potassium 3.9 mmol/L (3.5-5.1); Sodium 141 mmol/L (136-145); Total Protein 7.1 g/dL (6.4-8.2)
[2021-11-13 11:41] LABS: COVID-19 RT-PCR UVMMC Result Negative (Negative)
== END 2021-11-11 18:38 | disposition home or self-care (01) ==
LOC: DI 18:54 → LBN 20:44
PROVIDERS: PCP Family Medicine; Visit Provider Nurse Practitioner Family
DX: J06.9 Acute upper respiratory infection, unspecified (principal); R53.83 Other fatigue; J18.9 Pneumonia, unspecified organism; Z20.822 Contact with and (suspected) exposure to COVID-19; J98.01 Acute bronchospasm; R05.8 Other specified cough
CPT/HCPCS: 80053; U0003; 71046; 85025

== ENCOUNTER 2021-11-13 16:26 | Outpatient (REF) | payer BC, SELFPAY ==
[2021-11-16 10:39] LABS: COVID-19 RT-PCR UVMMC Result Negative (Negative)
== END 2021-11-13 16:27 | disposition home or self-care (01) ==
LOC: LBN 16:26
PROVIDERS: PCP Family Medicine; Visit Provider Family Medicine
DX: Z20.822 Contact with and (suspected) exposure to COVID-19 (principal); R05.8 Other specified cough
CPT/HCPCS: U0003

== ENCOUNTER 2022-02-20 10:59 | Outpatient (CLI) | payer BC, SELFPAY ==
[2022-02-20 12:57] LABS: HCT 40.7 % (36.0-46.0); MCH 29.3 pg (27.0-33.0); MCHC 31.9 % (32.0-36.0); MCV 92 fL (80-95); MPV 10.3 fL (8.0-11.0); Platelet Count 200 10^3/uL (130-400); RBC 4.43 10^6/uL (3.93-5.22); RDW 14.9 % (11.7-14.6); RDW-SD 50.4 fL; WBC 6.58 10^3/uL (4.4-10.8)
[2022-02-20 13:45] LABS: ALT 40 U/L (14-59); AST 34 U/L (15-37); Albumin 3.6 g/dL (3.4-5.0); Alkaline Phosphatase 52 U/L (46-116); Anion Gap 7.9 mmol/L (3-11); BUN 18 mg/dL (7-18); Bilirubin, Total 0.4 mg/dL (0.2-1.0); CO2 29.1 mmol/L (21.0-32.0); Calcium 9.2 mg/dL (8.5-10.1); Calculated LDL 113 mg/dL (<100); Chloride 106 mmol/L (98-107); Cholesterol 182 mg/dL (<200); Glucose 165 mg/dL (74-106); HDL Cholesterol 47 mg/dL (40-60); Potassium 4.3 mmol/L (3.5-5.1); Sodium 143 mmol/L (136-145); TSH (W/Ref FT4) 0.77 uIU/mL (0.36-3.74); Total Protein 7.4 g/dL (6.4-8.2); Triglyceride 111 mg/dL (<150)
[2022-02-20 14:22] LABS: Hemoglobin A1C 7.9 % (<5.7)
== END 2022-02-20 11:00 | disposition home or self-care (01) ==
LOC: LOS 11:00
PROVIDERS: PCP Family Medicine; Visit Provider Family Medicine
DX: E11.9 Type 2 diabetes mellitus without complications (principal); Z00.00 Encounter for general adult medical examination without abnormal findings
CPT/HCPCS: 36415; 80053; 80061; 85027; 83036; 84443

== ENCOUNTER → 2022-02-27 03:44 | Outpatient (CLI) | payer BC, SELFPAY ==
--- NOTE | 2022-02-27 08:00 | DI.MAMMO_ITS ---
Exam(s) MAMMO SCREENING EXAM: MAMMO SCREENING CLINICAL HISTORY: screening,z12.39 TECHNIQUE: Bilateral full field digital CC and MLO mammographic images were obtained with 3D tomosyn thesis and utilizing computer aided detection (CAD). COMPARISON: Available for comparison. FINDINGS: Masses/Architectural Distortion: The asymmetric density in the lower inner quadrant of the left breas t appears stable compared to many prior examinations. There also scattered in a nodular densities in the breasts which appears stable. Microcalcifications: No suspicious pleomorphic-type are seen. Skin Thickening/Nipple Retraction: None. IMPRESSION: 1. No significant interval change with no specific features of malignancy noted. 2. Unless there is more urgent need, screening mammography is recommended, as per [employer] guidelines. BI-RADS Category 2 - Benign Findings Breast Density - Category B - Scattered areas of fibroglandular density Breast density category C or D implies that the patient has dense breast tissue. Dense breast tissue is very common and is not abnormal but dense breast tissue can make it harder to find cancer on a ma mmogram. Also, dense breast tissue may increase their breast cancer risk. This information about the result of the mammogram report was provided to the patient to raise their awareness. Use this report when you speak with the patient about their risks for breast cancer, which includes their family hist ory. At that time, you may recommend for more screening tests (Ultrasound or MRI) as they might be us eful based on their risk. A negative radiographic report should not delay biopsy if a dominant or clinically suspicious mass is present. Up to ten percent of cancers are not identified on mammography. A negative report may reinforce clinical impression. Adenosis and dense breasts may obscure an underlying neoplasm. False positive reports average 6 to 10%. Patient will receive a letter notifying them of these results.
== END ==
PROVIDERS: PCP Family Medicine; Visit Provider Family Medicine
DX: Z12.31 Encounter for screening mammogram for malignant neoplasm of breast (principal)
CPT/HCPCS: 77063; 77067

== ENCOUNTER 2022-07-14 11:39 | Outpatient (REF) | payer BC, SELFPAY ==
[2022-07-14 13:54] LABS: Bilirubin Negative (Negative); Blood Negative (Negative); Clarity Sl Cloudy (Clear); Glucose Negative (Negative); Ketones Trace mg/dL (Negative); Leukocyte Esterase Negative (Negative); Nitrite Negative (Negative); pH 6.5 (5-8)
[2022-07-14 14:09] LABS: COMMENT (LAB VIEW ONLY) 209.91 mg/dL; Microalb ug/mg Crea 4.6 ug/mg Cr
== END 2022-07-14 11:40 | disposition home or self-care (01) ==
LOC: LBN 11:39
PROVIDERS: PCP Family Medicine; Visit Provider Family Medicine
DX: E11.9 Type 2 diabetes mellitus without complications (principal); R32 Unspecified urinary incontinence; R82.998 Other abnormal findings in urine
CPT/HCPCS: 81003; 82043; 82570

== ENCOUNTER 2022-07-29 19:57 | Emergency (ER) | payer BC, SELFPAY ==
[2022-07-29 20:01] VITALS: BP 133/72; PULSE 92; RESP 18; TEMP 36.9; O2SAT 97
--- NOTE | 2022-07-29 21:30 | RT.EKG_ITS ---
APPROVED REPORT Exam: Resting ECG Reason for Exam: Palpitations Patient Location: E HR:81 bpm ECG Measurements Heart Rate 81 AXIS WA 181 P 46 QRSd 61 QRS 5 QT 356 T 55 QTc 415 Conclusion Sinus rhythm...normal P axis, V-rate 60- 99 I have reviewed and interpreted ECG and agree with software generated interpretation.
[2022-07-29] MEDS: Famotidine 20 MG TAB 40 MG PO (21:59)
[2022-07-29] MEDS: Cetirizine 10 MG TAB PO (21:59)
[2022-07-29] MEDS: predniSONE 20 MG TAB 60 MG PO (21:59)
--- NOTE | 2022-07-29 22:24 | ED.GENADUL_ITS ---
Discharge Plan Disposition Patient Disposition: Home Condition: Stable Discharge Details Clinical Impression: Adverse drug reaction, Urticaria due to drug allergy Primary Care Provider: Noy Frederick ED Provider: Martin Vann Home Meds and New Rx's Prescriptions: New famotidine [Pepcid] 40 mg tablet 40 mg PO DAILY Qty: 7 0RF cetirizine [Zyrtec] 10 mg tablet 10 mg PO DAILY Qty: 7 0RF prednisone 20 mg tablet 40 mg PO DAILY Qty: 8 0RF Continued alosetron 0.5 mg tablet 0.5 mg PO DAILY PRN fluticasone propionate [Flonase Allergy Relief] 50 mcg/actuation spray,suspension 1 spray intranasal BID PRN (Reason: nasal congestion) Qty: 16 0RF Rx Instructions: administer into each nostril glipizide 10 mg tablet extended release 24hr 10 mg PO DAILY Qty: 90 6RF Saline Mist 0.65 % aerosol,spray 1 spray CHIQUITA ONCE PRN fluconazole 150 mg tablet 150 mg PO Q3D Qty: 2 1RF Rx Instructions: may repeat second dose 72 hrs after first dose if symptoms persist fexofenadine [Li] 180 MG tablet 180 mg PO HS Patient Comments: (DME) Hearing Aid Batteries 1 EACH misc 1 ea Miscellaneous DAILY Qty: 30 Rx Instructions: #312 (DME) lancets [OneTouch Delica Lancets] 33 gauge misc See Rx Instructions .ROUTE DAILY Qty: 200 4RF Rx Instructions: E11.9 twice daily due to erratic glucose readings topiramate [Topamax] 50 mg tablet 50 mg PO HS Qty: 90 3RF (DME) blood-glucose meter [OneTouch UltraMini] Kit See Rx Instructions .ROUTE .MEDSUPPLY Qty: 1 0RF Rx Instructions: As directed baclofen 10 mg tablet 10 mg PO TID 30 Days Qty: 90 11RF Rx Instructions: no abrupt cessation esomeprazole magnesium 40 mg capsule,delayed release(DR/EC) 40 mg PO DAILY Qty: 90 11RF doxazosin 4 mg tablet 4 mg PO DAILY Qty: 90 12RF oxybutynin chloride 10 mg tablet extended release 24hr 10 mg PO DAILY Qty: 90 12RF (DME) blood sugar diagnostic Strip See Rx Instructions .ROUTE .MEDSUPPLY Qty: 200 5RF Rx Instructions: twice daily due to erratic glucose reading E11.9 levothyroxine 150 mcg tablet 150 mcg PO DAILY Qty: 90 1RF duloxetine [Cymbalta] 60 mg capsule,delayed release(DR/EC) 60 mg PO DAILY Qty: 90 3RF montelukast [Singulair] 10 mg tablet 10 mg PO HS Qty: 90 12RF spironolactone 25 mg tablet 25 mg PO DAILY Qty: 90 3RF acetaminophen [Tylenol Extra Strength] 500 mg tablet 500 mg PO Q6H PRNQty: 90 0RF ibuprofen 600 mg tablet 600 mg PO TID Qty: 90 0RF Held tirzepatide 5 mg/0.5 mL pen injector 5 mg subcut QWEEK Qty: 6 5RF Hold Instructions: Please hold medication until you follow-up with your primary care provider Discontinued Xifaxan 550 mg tablet 550 mg PO TID PRN Patient Comments: 11/15/18- Rx for 14 D, given by [facility] (Dr. Hernandez) on 11/04/18. aj Discharge Instructions Instructions: Urticaria (ED) Additional Instructions: Continue to monitor symptoms and if you develop any significant worsening of symptoms swelling of lips tongue or mouth, difficulty breathing or swallowing return immediately to the emergency department for reassessment. Otherwise please follow-up with your primary care provider before further using your weekly injectable medication as I feel this is most likely the cause of your rash. On top of prescribed and recommended medications you may continue to take Benadryl as needed. Please take 25 to 50 mg every 4 hours again only as needed. Referrals: Noy Frederick MD, [place] [Primary Care Provider] - 3 days Discharge Data Discharge Date/Time-TO BE ENTERED AT DEPARTURE: 07/29/22 22:42 Medical Decision Making Patient reports that on Thursday afternoon she started having hives mostly to her abdomen but they seem to have gotten worse. She was just in the process of finishing up an Augmentin prescription for an infected cat bite that the infected cat bite has improved. On Thursday she did have her second dose of increased weekly injectable for her diabetes. Patient states no other changes in medications foods soaps lotions or supplements. Physical exam shows no findings to suggest anaphylactic reaction or shock but patient does have obvious urticarial rash mainly to the upper extremities and to the abdomen/chest. There is worse reaction on the abdomen where patient did inject. Exam is otherwise unremarkable. Patient does state that she did have some perceived palpitations but none more appreciated on exam. We will plan on checking EKG for palpitations but I do feel that patient is having drug reaction. Will inform patient to stop any further injectables until she follows up with her primary care provider. We will place patient on prednisone, Pepcid, Benadryl as needed, and daily Zyrtec. Please see physician interpretation for full interpretation of EKG but upon no acute worrisome findings on my review patient is in sinus rhythm. Reassessed patient after medication and she remained stable with no worsening of symptoms. I do feel the patient is able to be safely discharged to follow-up on outpatient basis. We will continue patient on prednisone, Pepcid, and Zyrtec with as needed Benadryl. Did inform patient to hold injectable medication until she follows up with primary care provider. after discussion of diagnosis and plan of care patient has no further needs, questions, or concerns and states clear understanding to return to the emergency department for any worsening symptoms. This documentation was generated using [employer] Video[employer] system, please disregard any oddities of phrase or misspellings. HPI General Mode of arrival: ambulatory . Date/Time Provider Initiated Documentation: 07/29/22 21:04 . Limitations to Documentation: no limitations . Information obtained by: patient and RN notes reviewed . History of Present Illness 61 year old F presents to the emergency department with the chief complaint of Rash, described as moderate and severe, Quality is described as other (Itchy), and is localized to the chest, abdomen and upper extremity. Patient started experiencing this day(s) (3) and it has been constant. No relieving factors improve symptom(s), Medication worsens symptoms . Patient notes other (Palpitations). Patient did receive the following treatments prior to arrival, other (Oral Benadryl) Related Data Home Medications Medication Instructions Recorded Confirmed fexofenadine 180 mg tablet 180 mg PO HS 08/06/12 07/29/22 (Li) hearing aid accessory (Hearing Aid #30 doses 10/01/17 07/17/22 Batteries) alosetron 0.5 mg tablet 0.5 mg PO DAILY PRN 09/15/19 07/29/22 sodium chloride 0.65 % nasal spray 1 spray intranasal ONCE PRN 09/15/19 07/29/22 aerosol (Saline Mist) lancets 33 gauge (OneTouch Delica #200 ea 09/26/20 07/29/22 Lancets) acetaminophen 500 mg tablet 500 mg PO Q6H PRN #90 tabs 12/26/20 07/29/22 (Tylenol Extra Strength) ibuprofen 600 mg tablet 600 mg PO TID #90 tabs 12/26/20 07/29/22 topiramate 50 mg tablet (Topamax) 50 mg PO HS #90 tab-caps 10/07/21 07/29/22 blood-glucose meter (OneTouch #1 ea 11/05/21 07/29/22 UltraMini kit) baclofen 10 mg tablet 10 mg PO TID for muscle spasm 30 11/27/21 07/29/22 days #90 tabs esomeprazole magnesium 40 mg 40 mg PO DAILY #90 tab-caps 01/06/22 07/29/22 capsule,delayed release doxazosin 4 mg tablet 4 mg PO DAILY #90 tab-caps 01/23/22 07/29/22 oxybutynin chloride 10 mg 10 mg PO DAILY #90 tabs 02/04/22 07/29/22 tablet,extended release 24 hr fluticasone propionate 50 1 spray intranasal BID PRN nasal 02/20/22 07/29/22 mcg/actuation nasal congestion #16 grams spray,suspension (Flonase Allergy Relief) blood sugar diagnostic #200 ea 06/17/22 07/29/22 levothyroxine 150 mcg tablet 150 mcg PO DAILY #90 tab-caps 06/17/22 07/29/22 duloxetine 60 mg capsule,delayed 60 mg PO DAILY #90 caps 07/14/22 07/29/22 release (Cymbalta) glipizide 10 mg tablet, extended 10 mg PO DAILY #90 tabs 07/14/22 07/29/22 release 24 hr montelukast 10 mg tablet 10 mg PO HS #90 tabs 07/14/22 07/29/22 (Singulair) spironolactone 25 mg tablet 25 mg PO DAILY #90 tabs 07/14/22 07/29/22 tirzepatide 5 mg/0.5 mL 5 mg (0.5 mL) subcut QWEEK #6 mL 07/14/22 07/29/22 subcutaneous pen injector fluconazole 150 mg tablet 150 mg PO Q3D #2 tabs 07/17/22 07/29/22 cetirizine 10 mg tablet (Zyrtec) 10 mg PO DAILY #7 tabs 07/29/22 famotidine 40 mg tablet (Pepcid) 40 mg PO DAILY #7 tabs 07/29/22 prednisone 20 mg tablet 40 mg PO DAILY #8 tabs 07/29/22 Previous Rx's Medication Instructions Recorded lancets 33 gauge ([employer], [place] Delica #200 ea 09/26/20 Lancets) acetaminophen 500 mg tablet 500 mg PO Q6H PRN #90 tabs 12/26/20 (Tylenol Extra Strength) ibuprofen 600 mg tablet 600 mg PO TID #90 tabs 12/26/20 topiramate 50 mg tablet (Topamax) 50 mg PO HS #90 tab-caps 10/07/21 blood-glucose meter ([employer], [place] #1 ea 11/05/21 UltraMini kit) baclofen 10 mg tablet 10 mg PO TID for muscle spasm 30 11/27/21 days #90 tabs esomeprazole magnesium 40 mg 40 mg PO DAILY #90 tab-caps 01/06/22 capsule,delayed release doxazosin 4 mg tablet 4 mg PO DAILY #90 tab-caps 01/23/22 oxybutynin chloride 10 mg 10 mg PO DAILY #90 tabs 02/04/22 tablet,extended release 24 hr fluticasone propionate 50 1 spray intranasal BID PRN nasal 02/20/22 mcg/actuation nasal congestion #16 grams spray,suspension (Flonase Allergy Relief) blood sugar diagnostic #200 ea 06/17/22 levothyroxine 150 mcg tablet 150 mcg PO DAILY #90 tab-caps 06/17/22 duloxetine 60 mg capsule,delayed 60 mg PO DAILY #90 caps 07/14/22 release (Cymbalta) glipizide 10 mg tablet, extended 10 mg PO DAILY #90 tabs 07/14/22 release 24 hr montelukast 10 mg tablet 10 mg PO HS #90 tabs 07/14/22 (Singulair) spironolactone 25 mg tablet 25 mg PO DAILY #90 tabs 07/14/22 tirzepatide 5 mg/0.5 mL 5 mg (0.5 mL) subcut QWEEK #6 mL 07/14/22 subcutaneous pen injector fluconazole 150 mg tablet 150 mg PO Q3D #2 tabs 07/17/22 cetirizine 10 mg tablet (Zyrtec) 10 mg PO DAILY #7 tabs 07/29/22 famotidine 40 mg tablet (Pepcid) 40 mg PO DAILY #7 tabs 07/29/22 prednisone 20 mg tablet 40 mg PO DAILY #8 tabs 07/29/22 Allergies Allergy/AdvReac Type Severity Reaction Status Date / Time Sulfa (Sulfonamide Allergy Severe TONGUE Verified 07/29/22 21:16 Antibiotics) SWELLING sulfamethoxazole Allergy Severe Swelling/Ed Verified 07/29/22 21:16 [From Bactrim] yoko trimethoprim Allergy Severe TONGUE Verified 07/29/22 21:16 SWELLING aspirin [From Percodan] AdvReac Mild Nausea Verified 07/19/22 10:20 oxycodone [From Percodan] AdvReac Mild Nausea Verified 07/19/22 10:20 pickles Allergy Severe Anaphylaxsi Uncoded 07/29/22 21:16 s COCKROACH Allergy Unknown allergy Uncoded 07/29/22 21:16 testing General Stated Complaint: RashLesion MARISSA: 4 Review of Systems Constitutional Constitutional: Denies chills and Denies fever(s) ENT Ears, Nose, Mouth, and Throat: Denies lip swelling, Denies odynophagia, Denies sore throat, Denies throat swelling and Denies tongue swelling Cardiovascular Cardiovascular: Denies chest pain, Denies syncope, Denies rapid heart rate, Denies irregular heart rhythm, Denies lightheadedness, Reports palpitations and Denies dyspnea Respiratory Respiratory: Denies cough, Denies dyspnea, Denies stridor and Denies wheezing Gastrointestinal Gastrointestinal: Denies abdominal pain, Denies diarrhea and Denies odynophagia Musculoskeletal Musculoskeletal: Denies joint swelling Integumentary/Breasts Skin/Breast: Reports as per HPI, Reports pruritus, Reports rash and Denies sores Neurologic Neurologic: Denies syncope Endocrine Endocrine: Reports palpitations Allergic/Immunologic Allergic/Immunologic: Denies lip swelling, Denies throat swelling, Denies tongue swelling and Denies wheezing PFSH All Active Problems (Updated 07/29/22 @ 22:28 by Martin Vann NP) Adverse drug reaction (Acute) Urticaria due to drug allergy (Acute) Lip lesion (Acute) Urinary incontinence (Acute) Annual physical exam (Acute 04/30/17) Lumbosacral spondylosis without myelopathy (Acute) Depressive disorder (Chronic) Diabetes mellitus (Chronic) Reflux esophagitis (Chronic 12/26/13) Irritable colon (Chronic) Hypothyroidism (Chronic) Hearing problem (Chronic) B/L aides Essential hypertension (Chronic 02/23/13) Cystocele with rectocele (Chronic) With urinary incontinence BMI 40.0-44.9, adult (Chronic 09/03/15) Medical History Acute low back pain with possible spinal stenosis of less than six weeks' duration Acute pain of left knee Ambulatory dysfunction Antinuclear factor positive (09/22/16) Back pain associated with peripheral numbness Breast lump in female Breast lump in lower inner quadrant 04/12/15 Breast lump in lower inner quadrant (04/12/15) Bronchitis Candidiasis Frequent persistent yeast infx. Cerumen impaction Chest pain in adult 11/17/16 Chondromalacia of left knee Closed fracture of body of calcaneus Closed fracture of calcaneus Closed fracture of calcaneus Cough Cough (01/26/12) Cystocele Delivery normal Depression Depressive disorder Diabetes Diabetes mellitus (02/14/14) Diarrhea 02/02/14 Dysfunctional uterine bleeding Ectopic 06/01/88 Elevated liver function tests 01/24/14 Elevated liver function tests (01/24/14) Fall Family hx-breast malignancy Fatigue unspecified 01/19/14 Fatigue GERD (gastroesophageal reflux disease) Hearing loss History of ectopic Hypertension Hypocalcemia Hypokalemia (01/26/12) Hypothyroidism IBS (irritable bowel syndrome) Internal derangement of left knee Knee MCL sprain Left knee pain Mammogram abnormal 04/30/05 Neck pain Neck pain Obesity, Class III, BMI 40-49.9 (morbid obesity) Otalgia of both ears (04/30/17) Pelvic floor dysfunction Pes anserinus bursitis of left knee Depo-Medrol injection: 02/18/2021 Pneumonia Pneumonia, organism unspecified unspecified laterality, unspecified part of lung Positive JENNIFER (antinuclear antibody) 09/22/16 Rectocele Routine medical exam 02/14/14 Sinus pressure 04/17/15 Sinus pressure (04/17/15) Skin lesion TMJ (temporomandibular joint disorder) Upper back pain on right side (11/17/16) Vaccine counseling Weakness 01/19/14 Surgical History Appendectomy (~1998) Cholecystectomy (~1989) Colonoscopy - MAC 03/2004;[facility] N/L 03/2014; [facility] EGD - MAC (03/10/14) EGD - MAC (08/05/16) H/O esophagogastroduodenoscopy 03/01/14 Hysterectomy, Laproscopic 03/03/11 [facility] [place] [facility]; HYSTERECTOMY WITH BLADDER AND BOWEL TIE UP WITH SLING; R OVARY AND CYST ALSO REMOVED Oophrectomy, Right (~03/2011) , Ectopic (~1988) Reduction mammoplasty (~03/2013) S/P appendectomy 06/01/98 S/P cholecystectomy 06/01/89 S/P exploratory laparotomy 06/01/88 S/P hysterectomy with oophorectomy S/P tonsillectomy and adenoidectomy 06/01/85 Status post appendectomy Status post arthroscopy of left knee (06/07/19) Arthroscopic synovectomy of medial plica and lateral release Status post cholecystectomy Status post exploratory laparotomy Status post hysterectomy Status post oophorectomy Status post tonsillectomy and adenoidectomy Tear of medial meniscus of left knee S/P L knee arthroscopy: 12/26/2020 Tonsillectomy and adenoidectomy (~1985) PT reports she still has her adenoids 01/03/20 TR Family History Mother , 93 Diabetes TYPE II Hyperlipidemia Father Alcohol abuse Neoplasm LUNG Sister Neoplasm BREAST Brother Pneumonia X 3 Grandfather Diabetes Grandfather Diabetes Grandmother Diabetes Neoplasm BREAST Social History Smoking/Tobacco Use Status: Former Tobacco Use tobacco type: cigarettes Tobacco: How many years used: 4 Second Hand Exposure: Yes Smoking risk assessment performed?: Yes Alcohol Intake: current Alcohol Intake frequency: holidays/special occasions only Alcohol type: wine and hard liquor Drug use: Never Substance use type: does not use Counseling given: No Counseling provided: none Caregiver/Support person: No Household members: spouse Housing: house Number of Children: 2 Communication Needs: Hard of Hearing and Corrective Lenses 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 Pets and animals: Yes Pets and animals: cat(s) and dog(s) Sexually active: Yes Do you think of yourself as: straight/heterosexual Current gender identity: female What is your relationship status?: How often do you talk on the phone with friends or family?: three or more times per week How often do you get together with friends or relatives?: once per week How often do you attend shinto or taoist services?: 4 or more times per year Do you belong to any clubs or organized social groups?: no Panel score (0-1 are the most socially isolated patients): 3 What type of physical activity do you participate in: regular exercise Duration: 15-30 minutes/day Frequency: 1-2 times per week Lorie/Jainism: Hoahaoism Seatbelt use: always Helmet use: Yes Drive intox or ride w/intox marine engine driver: No Do you feel safe at home: Yes Do you feel safe in your relationship?: Yes Additional Social history: unable to assess Exam Const General: cooperative, comfortable and no acute distress Orientation: alert and awake HENTN Head: normal to inspection, normocephalic and atraumatic General nose exam: external nose normal Face and sinus: no erythema Mouth: oral mucosae normal, no drooling, no muffled voice and no trismus Throat: posterior oropharynx normal Neck Neck: normal visual inspection, full ROM, no meningeal signs, trachea midline and supple Resp Effort & Inspection: normal respiratory effort and able to speak in complete sentences Auscultation: clear to auscultation bilaterally Cardio Rate: regular rate Rhythm: regular rhythm Heart Sounds: S1 normal, S2 normal, normal S1 and S2, no click, no gallops, no murmurs and no rubs Skin General skin exam: dry skin (warm) Rashes: rashes noted maculopapular rash diffuse anterior multiple locations nontender Neuro General: patient alert, patient awake, patient oriented x3, gait normal and moves all extremities Cognition: normal cognition Speech: speech normal Course Vital Signs Vital signs: Vital Signs Temperature 36.9 C 07/29/22 20:01 Pulse 92 H 07/29/22 20:01 Respiratory Rate 18 07/29/22 20:01 Blood Pressure 133/72 07/29/22 20:01 Pulse Oximetry 97 07/29/22 20:01 Temperature 36.9 C 07/29/22 20:01 Temperature Source Oral 07/29/22 20:01 Pulse 92 H 07/29/22 20:01 Respiratory Rate 18 07/29/22 20:01 Respiratory Effort Normal 07/29/22 21:05 Blood Pressure 133/72 07/29/22 20:01 Blood Pressure Position Sitting 07/29/22 20:01 Pulse Oximetry 97 07/29/22 20:01 Oxygen Delivery Method Room Air 07/29/22 20:01 Oxygen Flow Rate 0 07/29/22 20:01 Pain Level 3 07/29/22 20:01
--- NOTE | 2022-07-29 22:33 | NUR.NOTE ---
Nursing Note: KANNAN Staples request follow up with PCP, Dr Frederick, in 3 days for drug reaction/urticaria. Case management referral filled out.
[2022-07-29 22:41] VITALS: BP 140/69; PULSE 88; RESP 16; TEMP 36.6; O2SAT 96
== END 2022-07-29 22:42 | disposition home or self-care (01) ==
PROVIDERS: Emergency Provider Nurse Practitioner Family; PCP Family Medicine
DX: L50.8 Other urticaria (principal); T50.995A Adverse effect of other drugs, medicaments and biological substances, initial encounter; R00.2 Palpitations; E11.9 Type 2 diabetes mellitus without complications
CPT/HCPCS: 36416; 82962; 93005; 99283; 93010; J7512

== ENCOUNTER 2022-08-02 13:18 | Emergency (ER) | payer BC, SELFPAY ==
[2022-08-02 13:21] VITALS: BP 160/67; PULSE 95; RESP 18; TEMP 37.1; O2SAT 95
--- NOTE | 2022-08-02 13:32 | ED.GENADUL_ITS ---
Discharge Plan Disposition Patient Disposition: Home Condition: Stable Discharge Details Chief Complaint: RashLesion Clinical Impression: Rash Primary Care Provider: Noy Frederick ED Provider: Bacilio Mishra Home Meds and New Rx's Prescriptions: No Action alosetron 0.5 mg tablet 0.5 mg PO DAILY PRN fluticasone propionate [Flonase Allergy Relief] 50 mcg/actuation spray,suspension 1 spray intranasal BID PRN (Reason: nasal congestion) Qty: 16 0RF Rx Instructions: administer into each nostril Saline Mist 0.65 % aerosol,spray 1 spray CHIQUITA ONCE PRN fluconazole 150 mg tablet 150 mg PO Q3D Qty: 2 1RF Rx Instructions: may repeat second dose 72 hrs after first dose if symptoms persist fexofenadine [Li] 180 MG tablet 180 mg PO HS Patient Comments: (DME) Hearing Aid Batteries 1 EACH misc 1 ea Miscellaneous DAILY Qty: 30 Rx Instructions: #312 (DME) lancets [OneTouch Delica Lancets] 33 gauge misc See Rx Instructions .ROUTE DAILY Qty: 200 4RF Rx Instructions: E11.9 twice daily due to erratic glucose readings topiramate [Topamax] 50 mg tablet 50 mg PO HS Qty: 90 3RF (DME) blood-glucose meter [TheOfficialBoardTouch UltraMini] Kit See Rx Instructions .ROUTE .MEDSUPPLY Qty: 1 0RF Rx Instructions: As directed baclofen 10 mg tablet 10 mg PO TID 30 Days Qty: 90 11RF Rx Instructions: no abrupt cessation esomeprazole magnesium 40 mg capsule,delayed release(DR/EC) 40 mg PO DAILY Qty: 90 11RF doxazosin 4 mg tablet 4 mg PO DAILY Qty: 90 12RF oxybutynin chloride 10 mg tablet extended release 24hr 10 mg PO DAILY Qty: 90 12RF (DME) blood sugar diagnostic Strip See Rx Instructions .ROUTE .MEDSUPPLY Qty: 200 5RF Rx Instructions: twice daily due to erratic glucose reading E11.9 levothyroxine 150 mcg tablet 150 mcg PO DAILY Qty: 90 1RF duloxetine [Cymbalta] 60 mg capsule,delayed release(DR/EC) 60 mg PO DAILY Qty: 90 3RF montelukast [Singulair] 10 mg tablet 10 mg PO HS Qty: 90 12RF spironolactone 25 mg tablet 25 mg PO DAILY Qty: 90 3RF glipizide 10 mg tablet extended release 24hr 10 mg PO BID Qty: 180 6RF acetaminophen [Tylenol Extra Strength] 500 mg tablet 500 mg PO Q6H PRNQty: 90 0RF ibuprofen 600 mg tablet 600 mg PO TID Qty: 90 0RF famotidine [Pepcid] 40 mg tablet 40 mg PO DAILY Qty: 7 0RF cetirizine [Zyrtec] 10 mg tablet 10 mg PO DAILY Qty: 7 0RF prednisone 20 mg tablet 40 mg PO DAILY Qty: 8 0RF Discharge Instructions Instructions: Acute Rash (ED) Additional Instructions: Please follow-up with your primary care physician and dermatology referral. Please return to the emergency department for any worsening symptoms. Medical Decision Making 61-year-old female presents with persistent/intermittent urticarial rash on arms chest back abdomen and legs has been present for the past couple days fluctuates in nature, no involvement of eyes or mouth. No respiratory symptoms no presyncope patient is hemodynamically stable. Patient does take subcutaneous diabetes medication and has just completed a course of amoxicillin. Consider drug reaction versus reaction to environmental stimuli. Counseled patient to, for the sake of diagnostic purposes, changed to hypoallergenic soaps and deterge nts. Will be given a dose of dexamethasone IM. We will also be given dermatology referral. Given strict return precautions for any worsening symptoms. HPI General Date/Time Provider Initiated Documentation: 08/02/22 13:19 . HPI Narrative: 61-year-old female presents with persistent rash over the past several days, itching urticarial rash seen earlier this week, patient does take injectable diabetes medication and was recently on a course of amoxicillin. No respiratory symptoms no nausea no vomiting. Asymptomatic family members at home Related Data Home Medications Medication Instructions Recorded Confirmed fexofenadine 180 mg tablet 180 mg PO HS 08/06/12 08/02/22 (Li) hearing aid accessory (Hearing Aid #30 doses 10/01/17 08/02/22 Batteries) alosetron 0.5 mg tablet 0.5 mg PO DAILY PRN 09/15/19 08/02/22 sodium chloride 0.65 % nasal spray 1 spray intranasal ONCE PRN 09/15/19 08/02/22 aerosol (Saline Mist) lancets 33 gauge (TheOfficialBoardTouch Delica #200 ea 09/26/20 08/02/22 Lancets) acetaminophen 500 mg tablet 500 mg PO Q6H PRN #90 tabs 12/26/20 08/02/22 (Tylenol Extra Strength) ibuprofen 600 mg tablet 600 mg PO TID #90 tabs 12/26/20 08/02/22 topiramate 50 mg tablet (Topamax) 50 mg PO HS #90 tab-caps 10/07/21 08/02/22 blood-glucose meter (OneTouch #1 ea 11/05/21 08/02/22 UltraMini kit) baclofen 10 mg tablet 10 mg PO TID for muscle spasm 30 11/27/21 08/02/22 days #90 tabs esomeprazole magnesium 40 mg 40 mg PO DAILY #90 tab-caps 01/06/22 08/02/22 capsule,delayed release doxazosin 4 mg tablet 4 mg PO DAILY #90 tab-caps 01/23/22 08/02/22 oxybutynin chloride 10 mg 10 mg PO DAILY #90 tabs 02/04/22 08/02/22 tablet,extended release 24 hr fluticasone propionate 50 1 spray intranasal BID PRN nasal 02/20/22 08/02/22 mcg/actuation nasal congestion #16 grams spray,suspension (Flonase Allergy Relief) blood sugar diagnostic #200 ea 06/17/22 08/02/22 levothyroxine 150 mcg tablet 150 mcg PO DAILY #90 tab-caps 06/17/22 08/02/22 duloxetine 60 mg capsule,delayed 60 mg PO DAILY #90 caps 07/14/22 08/02/22 release (Cymbalta) montelukast 10 mg tablet 10 mg PO HS #90 tabs 07/14/22 08/02/22 (Singulair) spironolactone 25 mg tablet 25 mg PO DAILY #90 tabs 07/14/22 08/02/22 fluconazole 150 mg tablet 150 mg PO Q3D #2 tabs 07/17/22 08/02/22 cetirizine 10 mg tablet (Zyrtec) 10 mg PO DAILY #7 tabs 07/29/22 08/02/22 famotidine 40 mg tablet (Pepcid) 40 mg PO DAILY #7 tabs 07/29/22 08/02/22 prednisone 20 mg tablet 40 mg PO DAILY #8 tabs 07/29/22 08/02/22 glipizide 10 mg tablet, extended 10 mg PO BID #180 tabs 07/31/22 08/02/22 release 24 hr Previous Rx's Medication Instructions Recorded lancets 33 gauge (OneTouch Delica #200 ea 09/26/20 Lancets) acetaminophen 500 mg tablet 500 mg PO Q6H PRN #90 tabs 12/26/20 (Tylenol Extra Strength) ibuprofen 600 mg tablet 600 mg PO TID #90 tabs 12/26/20 topiramate 50 mg tablet (Topamax) 50 mg PO HS #90 tab-caps 10/07/21 blood-glucose meter (OneTouch #1 ea 11/05/21 UltraMini kit) baclofen 10 mg tablet 10 mg PO TID for muscle spasm 30 11/27/21 days #90 tabs esomeprazole magnesium 40 mg 40 mg PO DAILY #90 tab-caps 01/06/22 capsule,delayed release doxazosin 4 mg tablet 4 mg PO DAILY #90 tab-caps 01/23/22 oxybutynin chloride 10 mg 10 mg PO DAILY #90 tabs 02/04/22 tablet,extended release 24 hr fluticasone propionate 50 1 spray intranasal BID PRN nasal 02/20/22 mcg/actuation nasal congestion #16 grams spray,suspension (Flonase Allergy Relief) blood sugar diagnostic #200 ea 06/17/22 levothyroxine 150 mcg tablet 150 mcg PO DAILY #90 tab-caps 06/17/22 duloxetine 60 mg capsule,delayed 60 mg PO DAILY #90 caps 07/14/22 release (Cymbalta) montelukast 10 mg tablet 10 mg PO HS #90 tabs 07/14/22 (Singulair) spironolactone 25 mg tablet 25 mg PO DAILY #90 tabs 07/14/22 fluconazole 150 mg tablet 150 mg PO Q3D #2 tabs 07/17/22 cetirizine 10 mg tablet (Zyrtec) 10 mg PO DAILY #7 tabs 07/29/22 famotidine 40 mg tablet (Pepcid) 40 mg PO DAILY #7 tabs 07/29/22 prednisone 20 mg tablet 40 mg PO DAILY #8 tabs 07/29/22 glipizide 10 mg tablet, extended 10 mg PO BID #180 tabs 07/31/22 release 24 hr Allergies Allergy/AdvReac Type Severity Reaction Status Date / Time Sulfa (Sulfonamide Allergy Severe TONGUE Verified 08/02/22 13:23 Antibiotics) SWELLING sulfamethoxazole Allergy Severe Swelling/Ed Verified 08/02/22 13:23 [From Bactrim] yoko trimethoprim Allergy Severe TONGUE Verified 08/02/22 13:23 SWELLING aspirin [From Percodan] AdvReac Mild Nausea Verified 08/02/22 13:23 oxycodone [From Percodan] AdvReac Mild Nausea Verified 08/02/22 13:23 pickles Allergy Severe Anaphylaxsi Uncoded 08/02/22 13:23 s COCKROACH Allergy Unknown allergy Uncoded 08/02/22 13:23 testing General Stated Complaint: RashLesion MARISSA: 4 Review of Systems Narrative: Review of Systems Constitutional: negative Eyes: negative ENT: negative Cardiovascular: negative Respiratory: negative Gastrointestinal: negative : negative Musculoskeletal: negative Skin: Rash Neurologic: negative Psych: negative PFSH All Active Problems (Updated 08/02/22 @ 13:35 by Bacilio Mishra MD) Adverse drug reaction (Acute) Urticaria due to drug allergy (Acute) Rash (Acute) Lip lesion (Acute) Urinary incontinence (Acute) Annual physical exam (Acute 04/30/17) Lumbosacral spondylosis without myelopathy (Acute) Depressive disorder (Chronic) Diabetes mellitus (Chronic) Reflux esophagitis (Chronic 12/26/13) Irritable colon (Chronic) Hypothyroidism (Chronic) Hearing problem (Chronic) B/L aides Essential hypertension (Chronic 02/23/13) Cystocele with rectocele (Chronic) With urinary incontinence BMI 40.0-44.9, adult (Chronic 09/03/15) Medical History Acute low back pain with possible spinal stenosis of less than six weeks' duration Acute pain of left knee Ambulatory dysfunction Antinuclear factor positive (09/22/16) Back pain associated with peripheral numbness Breast lump in female Breast lump in lower inner quadrant 04/12/15 Breast lump in lower inner quadrant (04/12/15) Bronchitis Candidiasis Frequent persistent yeast infx. Cerumen impaction Chest pain in adult 11/17/16 Chondromalacia of left knee Closed fracture of body of calcaneus Closed fracture of calcaneus Closed fracture of calcaneus Cough Cough (01/26/12) Cystocele Delivery normal Depression Depressive disorder Diabetes Diabetes mellitus (02/14/14) Diarrhea 02/02/14 Dysfunctional uterine bleeding Ectopic 06/01/88 Elevated liver function tests 01/24/14 Elevated liver function tests (01/24/14) Fall Family hx-breast malignancy Fatigue unspecified 01/19/14 Fatigue GERD (gastroesophageal reflux disease) Hearing loss History of ectopic Hypertension Hypocalcemia Hypokalemia (01/26/12) Hypothyroidism IBS (irritable bowel syndrome) Internal derangement of left knee Knee MCL sprain Left knee pain Mammogram abnormal 04/30/05 Neck pain Neck pain Obesity, Class III, BMI 40-49.9 (morbid obesity) Otalgia of both ears (04/30/17) Pelvic floor dysfunction Pes anserinus bursitis of left knee Depo-Medrol injection: 02/18/2021 Pneumonia Pneumonia, organism unspecified unspecified laterality, unspecified part of lung Positive JENNIFER (antinuclear antibody) 09/22/16 Rectocele Routine medical exam 02/14/14 Sinus pressure 04/17/15 Sinus pressure (04/17/15) Skin lesion TMJ (temporomandibular joint disorder) Upper back pain on right side (11/17/16) Vaccine counseling Weakness 01/19/14 Surgical History Appendectomy (~1998) Cholecystectomy (~1989) Colonoscopy - MAC 03/2004;[facility] N/L 03/2014; [facility] EGD - MAC (03/10/14) EGD - MAC (08/05/16) H/O esophagogastroduodenoscopy 03/01/14 Hysterectomy, Laproscopic 03/03/11 [facility]; HYSTERECTOMY WITH BLADDER AND BOWEL TIE UP WITH SLING; R OVARY AND CYST ALSO REMOVED Oophrectomy, Right (~03/2011) , Ectopic (~1988) Reduction mammoplasty (~03/2013) S/P appendectomy 06/01/98 S/P cholecystectomy 06/01/89 S/P exploratory laparotomy 06/01/88 S/P hysterectomy with oophorectomy S/P tonsillectomy and adenoidectomy 06/01/85 Status post appendectomy Status post arthroscopy of left knee (06/07/19) Arthroscopic synovectomy of medial plica and lateral release Status post cholecystectomy Status post exploratory laparotomy Status post hysterectomy Status post oophorectomy Status post tonsillectomy and adenoidectomy Tear of medial meniscus of left knee S/P L knee arthroscopy: 12/26/2020 Tonsillectomy and adenoidectomy (~1985) PT reports she still has her adenoids 01/03/20 TR Family History Mother , 93 Diabetes TYPE II Hyperlipidemia Father Alcohol abuse Neoplasm LUNG Sister Neoplasm BREAST Brother Pneumonia X 3 Grandfather Diabetes Grandfather Diabetes Grandmother Diabetes Neoplasm BREAST Social History Smoking/Tobacco Use Status: Former Tobacco Use tobacco type: cigarettes Tobacco: How many years used: 4 Second Hand Exposure: Yes Smoking risk assessment performed?: Yes Alcohol Intake: current Alcohol Intake frequency: holidays/special occasions only Alcohol type: wine and hard liquor Drug use: Never Substance use type: does not use Counseling given: No Counseling provided: none Caregiver/Support person: No Household members: spouse Housing: house Number of Children: 2 Communication Needs: Hard of Hearing and Corrective Lenses 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 Pets and animals: Yes Pets and animals: cat(s) and dog(s) Sexually active: Yes Do you think of yourself as: straight/heterosexual Current gender identity: female What is your relationship status?: How often do you talk on the phone with friends or family?: three or more times per week How often do you get together with friends or relatives?: once per week How often do you attend baptist or hinduism services?: 4 or more times per year Do you belong to any clubs or organized social groups?: no Panel score (0-1 are the most socially isolated patients): 3 What type of physical activity do you participate in: regular exercise Duration: 15-30 minutes/day Frequency: 1-2 times per week Lorie/Restoration: Restorationism Seatbelt use: always Helmet use: Yes 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 Do you feel safe at home: Yes Do you feel safe in your relationship?: Yes Additional Social history: unable to assess Exam Narrative Exam Narrative: Physical Examination General: alert, awake, cooperative, resting comfortably, no acute distress HEENT: normocephalic, atraumatic; PERRL, EOM intact, conjunctiva normal; no nasal discharge; moist mucous membranes, oral and pharyngeal mucosa normal, tolerating secretions Neck: supple, trachea midline; full ROM Chest: normal to inspection Respiratory: normal respiratory effort, speaking in full sentences, clear to auscultation, no wheezing, rales or rhonchi Cardiac: regular rate, regular rhythm, S1S2 intact, no murmurs rubs or gallops GI: abdomen soft, non-tender, non-distended; no palpable mass or hepatosplenomegaly Skin: Urticarial rash involving arms legs abdomen back Neuro: AAOx3, normal speech, moving all extremities Psych: Appropriate mood and affect Course Vital Signs Vital signs: Vital Signs Temperature 37.1 C 08/02/22 13:21 Pulse 95 H 08/02/22 13:21 Respiratory Rate 18 08/02/22 13:21 Blood Pressure 160/67 H 08/02/22 13:21 Pulse Oximetry 95 08/02/22 13:21 Temperature 37.1 C 08/02/22 13:21 Temperature Source Tympanic 08/02/22 13:21 Pulse 95 H 08/02/22 13:21 Respiratory Rate 18 08/02/22 13:21 Respiratory Effort Normal, Non-Labored 08/02/22 13:23 Blood Pressure 160/67 H 08/02/22 13:21 Pulse Oximetry 95 08/02/22 13:21 Oxygen Delivery Method Room Air 08/02/22 13:21 Oxygen Flow Rate 0 08/02/22 13:21
[2022-08-02] MEDS: Dexamethasone 10 MG/ML VIAL IM (13:36)
--- NOTE | 2022-08-02 13:37 | NUR.NOTE ---
Nursing Note: Referral given to Care Management for [facility] [place] for urticaria in 1 to 2 weeks.
== END 2022-08-02 13:38 | disposition home or self-care (01) ==
PROVIDERS: Emergency Provider Emergency Medicine; PCP Family Medicine
DX: L50.8 Other urticaria (principal)
CPT/HCPCS: 96372; 99284; 99283; J1100

== ENCOUNTER 2022-09-16 11:49 | Outpatient (REF) | payer BC, SELFPAY ==
--- NOTE | 2022-09-16 11:15 | LIPBX_PTH ---
PATIENT: Carmenza Benito LOC: [facility]#:[id number] AGE/SX: 61/F ROOM: RE09/16/[address]: Noy Frederick MD, DC : 1960 BED: DIS: 09/16/2022 SPEC #: [id number] RECD: 09/16/22 12:46 STATUS: CARRILLO REQ #: [id number] MINH: 09/16/22 11:[address]: Noy Frederick DEPT: Surgical Specimen RECD BY: Alix Salmeron Tissues: 1 - LIP BIOPSY/RESECTION Procedures: GROSS AND MICRO LEVEL 4 Comments: [id number]
[2022-09-16 13:18] LABS: Bilirubin Negative (Negative); Blood Negative (Negative); Clarity Clear (Clear); Glucose >=1000 mg/dL (Negative); Ketones Negative (Negative); Leukocyte Esterase Negative (Negative); Nitrite Negative (Negative); Urobilinogen 0.2 mg/dL (Up to 0.2)
== END 2022-09-16 11:50 | disposition home or self-care (01) ==
LOC: LBN 11:49
PROVIDERS: PCP Family Medicine; Visit Provider Family Medicine
DX: R32 Unspecified urinary incontinence (principal); E11.9 Type 2 diabetes mellitus without complications; K13.0 Diseases of lips; D10.0 Benign neoplasm of lip
CPT/HCPCS: 88305; 81003

== ENCOUNTER 2023-03-17 17:43 | Outpatient (CLI) | payer BC, SELFPAY ==
[2023-03-17 12:46] LABS: HCT 43.4 % (36.0-46.0); HGB 14.4 g/dL (11.2-15.7); MCH 28.7 pg (27.0-33.0); MCHC 33.2 % (32.0-36.0); MCV 87 fL (80-95); MPV 9.8 fL (8.0-11.0); Platelet Count 198 10^3/uL (130-400); RBC 5.01 10^6/uL (3.93-5.22); RDW 15.4 % (11.7-14.6); RDW-SD 48.6 fL; WBC 7.45 10^3/uL (4.4-10.8)
[2023-03-17 13:20] LABS: Hemoglobin A1C 7.3 % (<5.7)
[2023-03-17 13:52] LABS: ALT 25 U/L (14-59); AST 11 U/L (15-37); Albumin 3.8 g/dL (3.4-5.0); Alkaline Phosphatase 55 U/L (46-116); Anion Gap 13.7 mmol/L (3-11); BUN 24 mg/dL (7-18); Bilirubin, Total 0.4 mg/dL (0.2-1.0); CO2 22.3 mmol/L (21.0-32.0); Calcium 9.3 mg/dL (8.5-10.1); Calculated LDL 121 mg/dL (<100); Chloride 106 mmol/L (98-107); Cholesterol 193 mg/dL (<200); Estimated GFR 64.49 (mL/min/1.73m2); Ferritin 43 ng/mL (8-252); Glucose 149 mg/dL (74-106); HDL Cholesterol 47 mg/dL (40-60); Potassium 3.7 mmol/L (3.5-5.1); Sodium 142 mmol/L (136-145); TSH (W/Ref FT4) 0.17 uIU/mL (0.36-3.74); Total Protein 7.7 g/dL (6.4-8.2); Triglyceride 125 mg/dL (<150); Vitamin B12 1257 pg/mL (193-986)
[2023-03-17 14:02] LABS: Iron 56 ug/dL (50-170)
[2023-03-17 14:12] LABS: FREE T4 1.34 ng/dL (0.76-1.46)
== END 2023-03-17 17:44 | disposition home or self-care (01) ==
LOC: LBO 17:43
PROVIDERS: PCP Family Medicine; Visit Provider Family Medicine
DX: E03.9 Hypothyroidism, unspecified (principal); Z00.00 Encounter for general adult medical examination without abnormal findings; R53.83 Other fatigue; I10 Essential (primary) hypertension; E11.9 Type 2 diabetes mellitus without complications
CPT/HCPCS: 36415; 80053; 80061; 85027; 82607; 82728; 83036; 83540; 84439; 84443

== ENCOUNTER 2023-06-07 07:55 | Emergency (ER) | payer BC, SELFPAY ==
[2023-06-07 07:59] VITALS: BP 136/67; PULSE 88; RESP 18; TEMP 36.3; O2SAT 98
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
[2023-06-07] MEDS: diphenhydrAMINE 25 MG CAP PO (08:44)
[2023-06-07] MEDS: Famotidine 20 MG TAB 40 MG PO (08:44)
[2023-06-07] MEDS: predniSONE 20 MG TAB 40 MG PO (08:45)
== END 2023-06-07 08:54 | disposition home or self-care (01) ==
PROVIDERS: Emergency Provider Nurse Practitioner Family; PCP Family Medicine
DX: L50.9 Urticaria, unspecified (principal); E11.9 Type 2 diabetes mellitus without complications
CPT/HCPCS: 99283; J7512

== ENCOUNTER → 2023-10-08 00:35 | Outpatient (CLI) | payer BC, SELFPAY ==
--- NOTE | 2023-10-08 | DI.MAMMO_ITS ---
Exam(s) MAMMO SCREENING EXAM: MAMMO SCREENING CLINICAL HISTORY: Z12.39 Screening TECHNIQUE: Bilateral full field digital CC and MLO mammographic images were obtained with 3D tomosyn thesis and utilizing computer aided detection (CAD). COMPARISON: Available for comparison. FINDINGS: Masses/Architectural Distortion: None seen. Asymmetric density in the medial left breast appears stab le. There are scattered nodules in right breast. No new nodules. No areas of architectural distort ion are seen. Microcalcifications: No suspicious pleomorphic-type are seen. Skin Thickening/Nipple Retraction: None. IMPRESSION: 1. No significant interval change with no specific features of malignancy noted. 2. Unless there is more urgent need, screening mammography is recommended, as per [place] [employer] guidelines. BI-RADS Category 2 - Benign Findings Breast Density - Category B - Scattered areas of fibroglandular density Breast density category C or D implies that the patient has dense breast tissue. Dense breast tissue is very common and is not abnormal but dense breast tissue can make it harder to find cancer on a ma mmogram. Also, dense breast tissue may increase their breast cancer risk. This information about the result of the mammogram report was provided to the patient to raise their awareness. Use this report when you speak with the patient about their risks for breast cancer, which includes their family hist ory. At that time, you may recommend for more screening tests (Ultrasound or MRI) as they might be us eful based on their risk. A negative radiographic report should not delay biopsy if a dominant or clinically suspicious mass is present. Up to ten percent of cancers are not identified on mammography. A negative report may reinforce clinical impression. Adenosis and dense breasts may obscure an underlying neoplasm. False positive reports average 6 to 10%. Patient will receive a letter notifying them of these results.
== END ==
PROVIDERS: PCP Family Medicine; Visit Provider Family Medicine
DX: Z12.31 Encounter for screening mammogram for malignant neoplasm of breast (principal)
CPT/HCPCS: 77063; 77067

== ENCOUNTER 2024-02-03 15:06 | Outpatient (REF) | payer BC, SELFPAY | END 2024-02-03 15:07 | disposition home or self-care (01) | LOC: LBN 15:06 | PROVIDERS: PCP Family Medicine; Visit Provider Nurse Practitioner Family | DX: J02.9 Acute pharyngitis, unspecified (principal); R68.89 Other general symptoms and signs; U07.1 COVID-19 | CPT/HCPCS: 87070 ==

== ENCOUNTER 2024-02-25 13:29 | Outpatient (CLI) | payer BC, SELFPAY ==
[2024-02-25 14:08] LABS: Hemoglobin A1C 7.4 % (<5.7)
[2024-02-25 14:30] LABS: COMMENT (LAB VIEW ONLY) 161.04 mg/dL; Microalb ug/mg Crea 5.7 ug/mg Cr
[2024-02-25 14:39] LABS: ALT 19 U/L (14-59); AST 9 U/L (15-37); Albumin 3.4 g/dL (3.4-5.0); Alkaline Phosphatase 72 U/L (46-116); Anion Gap 7.2 mmol/L (3-11); BUN 20 mg/dL (7-18); Bilirubin, Total 0.38 mg/dL (0.2-1.0); CO2 28.8 mmol/L (21.0-32.0); Calcium 9.4 mg/dL (8.5-10.1); Chloride 106 mmol/L (98-107); Estimated GFR 64.09 (mL/min/1.73m2); Glucose 210 mg/dL (74-106); Potassium 3.8 mmol/L (3.5-5.1); Sodium 142 mmol/L (136-145); TSH (W/Ref FT4) 0.17 uIU/mL (0.36-3.74); Total Protein 7.2 g/dL (6.4-8.2)
[2024-02-25 15:00] LABS: FREE T4 1.31 ng/dL (0.76-1.46)
== END 2024-02-25 13:30 | disposition home or self-care (01) ==
LOC: LBO 13:36
PROVIDERS: PCP Family Medicine; Visit Provider Family Medicine
DX: E11.9 Type 2 diabetes mellitus without complications (principal); I10 Essential (primary) hypertension; E03.9 Hypothyroidism, unspecified
CPT/HCPCS: 36415; 80053; 82043; 82570; 83036; 84439; 84443

== ENCOUNTER 2024-02-25 14:00 | Outpatient (CLI) | payer BC, SELFPAY ==
--- NOTE | 2024-02-25 14:10 | DI.RAD_ITS ---
Exam(s) XR CHEST 2V PA LATERAL EXAM: XR CHEST 2V PA LATERAL CLINICAL HISTORY: cough,sob R06.02. TECHNIQUE: 2D digital imaging was performed. COMPARISON: CR,XR XR CHEST 2V PA LATERAL from 11/11/2021 FINDINGS: 2 views: Heart size is normal. The mediastinum is not widened. Lungs are clear. No infiltrates nor pleural effusions. IMPRESSION: No acute pulmonary findings.No significant change compared to 11/11/2021. DATA REPOSITORY: RADIATION DOSE DELIVERED:
== END 2024-02-25 14:20 ==
LOC: DI 14:00
PROVIDERS: PCP Family Medicine; Visit Provider Family Medicine
DX: R06.02 Shortness of breath (principal)
CPT/HCPCS: 71046

== ENCOUNTER 2024-03-25 07:58 | Outpatient (CLI) | payer BC, SELFPAY ==
[2024-03-25 08:05] LABS: Abs Immature Grans 0.02 10^3/uL (0.0-0.06); Absolute Basophil Count 0.07 10^3/uL (0.0-0.2); Absolute Eosinophil Count 0.17 10^3/uL (0.0-0.7); Absolute Lymphocyte Count 2.18 10^3/uL (1.2-3.4); Absolute Monocyte Count 0.47 10^3/uL (0.1-0.8); Eosinophils % 2.5 %; HCT 40.2 % (36.0-46.0); HGB 13.1 g/dL (11.2-15.7); Immature Grans % 0.3 %; Lymphocytes % 31.5 %; MCH 28.2 pg (27.0-33.0); MCHC 32.6 % (32.0-36.0); MCV 87 fL (80-95); MPV 10.2 fL (8.0-11.0); Monocytes % 6.8 %; Neutrophils % 57.9 %; Platelet Count 205 10^3/uL (130-400); RBC 4.64 10^6/uL (3.93-5.22); RDW 15.7 % (11.7-14.6); RDW-SD 49.5 fL; WBC 6.91 10^3/uL (4.4-10.8)
[2024-03-25 08:48] LABS: Ferritin 42 ng/mL (8-252); Folate 9.9 ng/mL (8.6-20.0); Magnesium 2.1 mg/dL (1.8-2.4); Vitamin B12 466 pg/mL (193-986); Vitamin D 25 Total 41.5 ng/mL (30-100)
[2024-03-25 08:59] LABS: Amylase 37 U/L (25-115); Lipase 53 U/L (16-77)
[2024-03-25 10:10] LABS: Iron 40 ug/dL (50-170); Total Iron Binding Capacity 343 ug/dL (250-450); Transferrin Sat 12 % (15-50)
[2024-03-28 11:10] LABS: Lyme Ab w Rflx to Lyme Confirm Negative (Negative)
[2024-03-28 21:58] LABS: Anaplasma phagocytophilum Negative (Negative); B. miyamotoi PCR Negative (Negative); Babesia divergens/MO-1 Negative (Negative); Babesia duncani Negative (Negative); Babesia microti Negative (Negative); Ehrlichia chaffeensis Negative (Negative); Ehrlichia ewingii/canis Negative (Negative); Ehrlichia muris eauclairensis Negative (Negative)
== END 2024-03-25 07:59 | disposition home or self-care (01) ==
LOC: LBO 07:59
PROVIDERS: PCP Family Medicine; Visit Provider Nurse Practitioner Family
DX: R10.9 Unspecified abdominal pain (principal); R53.83 Other fatigue
CPT/HCPCS: 36415; 82306; 83690; 87798; 82150; 82607; 82728; 82746; 83540; 83550; 83735; 85025; 86618

== ENCOUNTER 2024-05-13 09:05 | Day surgery (SDC) | payer BC, SELFPAY ==
--- NOTE | 2024-05-12 21:17 | COLE_ITS ---
Date of service: 05/13/24 Time of Service: 11:30 Colonoscopy Report Date of procedure: 05/13/24 Pre-op diagnosis general: CRC screening/change in bowel habits (constaipation)/rectocele Post-op diagnosis procedure note: other (Rectocele/adenomatous polyps/right- sided diverticula) Surgeon: Philly Solorio Anesthesia Type: General:No Airway Estimated blood loss (mL): 3 Pathology: other Complications: None Disposition: same day Prep: Miralax/Dulcolax Retraction Time: 15 Procedure Description: After informed consent was obtained, explaining risks of the procedure, including but not limits to: bleeding, infections, complications of anesthesia, perforations (which may require antibiotics and /or surgery and stay in the hospital), and abdominal pain/cramping. The patient was taken to the procedure room and placed in a left decubitous position. Monitors were applied and a time out was done. The patients name, date of , procedure, allergies to medications and metal in their body was reviewed. Modified pelvic exam was done. She does have a small rectocele present. Digital rectal exam was done while the patient is still awake. She does have good sphincter tone. There are no internal/external hemorrhoids. The patient was then sedated. Internal exam revealed a normal sphincter tone and no palpable masses. The previously lubricated Olympus scope was then introduced (see RN notes for scope number) and retrofelexed. No internal hemorrhoids were identified. The scope was then advanced to the cecum without difficulty. The TI and appendiceal orifice were identified. The scope was then slowly retracted over 15 minutes back into the rectum. Polyps: A flat, .5cm polyp was found at 80 & 60cm. ` This was removed with a cold biting forceps. There is a pedunculated 0.75 cm polyp at 70 cm. This is removed with cold biopsy snare. All specimen is retrieved. There is a little bit of hematoma and a clip was placed over top of this. No further bleeding is noted. All of the specimen was retrieved. This will be sent to pathology. There is no bleeding noted from the polypectomy site. Diverticula: pt had a small amount of small mouthed diverticula in the rightcolon. There were no signs of active bleeding or infection. Random biopsies are taken at 90 cm 70 cm 50 cm 30 cm and the rectum all specimen is retrieved and no bleeding is noted. The mucosa is pink and healthy w/ a normal vascular pattern. The scope was removed, and the patient was woken up and taken back to Same day surgery in stable condition. The patient tolerated the procedure well and there were no immediate complicat ions. Follow up: The patient should follow up depending on her pathology results, or unless they develop changes in bowel habits or other new gastrointestinal complaints. [place] Bowel Prep [place] Bowel Prep Right Colon: 3 Left Colon: 3 Transverse Colon: 3 Total Score: 9
--- NOTE | 2024-05-12 21:19 | PDOC.DSDIS_ITS ---
Date of service: 05/13/24 Discharge Plan Disposition Patient Disposition: Home Condition: Good Discharge Details Reason For Visit: colonscope Attending Provider: Philly Solorio Primary Care Provider: Noy Frederick [place] Meds and New Rx's Prescriptions: Continued Prevagen PO DAILY Centrum Silver Women 8 mg iron-400 mcg-50 mcg tablet 1 tab PO DAILY fluconazole 150 mg tablet 150 mg PO ONCE Qty: 4 1RF Rx Instructions: as a single dose. Repeat in one week if needed levothyroxine 137 mcg tablet 137 mcg PO DAILY Qty: 90 3RF Saline Mist 0.65 % aerosol,spray 1 spray CHIQUITA ONCE PRN insulin degludec [Tresiba FlexTouch U-100] 100 unit/mL (3 mL) insulin pen 35 unit subcut QHS Qty: 60 6RF insulin lispro [Humalog KwikPen Insulin] 100 unit/mL insulin pen 10 unit subcut TID Qty: 30 6RF fexofenadine [Li] 180 MG tablet 180 mg PO HS Patient Comments: (DME) Hearing Aid Batteries 1 EACH misc 1 ea Miscellaneous DAILY Qty: 30 Rx Instructions: #312 (DME) lancets [OneTouch Delica Lancets] 33 gauge misc See Rx Instructions .ROUTE DAILY Qty: 200 4RF Rx Instructions: E11.9 twice daily due to erratic glucose readings (DME) blood-glucose meter [OneTouch UltraMini] Kit See Rx Instructions .ROUTE .MEDSUPPLY Qty: 1 0RF Rx Instructions: As directed baclofen 10 mg tablet 10 mg PO TID 30 Days Qty: 90 11RF Rx Instructions: no abrupt cessation esomeprazole magnesium 40 mg capsule,delayed release(DR/EC) 40 mg PO DAILY Qty: 90 11RF oxybutynin chloride 10 mg tablet extended release 24hr 10 mg PO DAILY Qty: 90 12RF doxazosin 4 mg tablet 4 mg PO DAILY Qty: 90 12RF montelukast [Singulair] 10 mg tablet 10 mg PO HS Qty: 90 12RF atorvastatin 10 mg tablet 10 mg PO DAILY Qty: 90 4RF duloxetine [Cymbalta] 60 mg capsule,delayed release(DR/EC) 60 mg PO DAILY Qty: 90 3RF spironolactone 25 mg tablet 25 mg PO DAILY Qty: 90 3RF (DME) blood sugar diagnostic Strip See Rx Instructions .ROUTE .MEDSUPPLY Qty: 200 5RF Rx Instructions: twice daily due to erratic glucose reading E11.9one touch verio test strips fluticasone propionate [Flonase Allergy Relief] 50 mcg/actuation spray,suspension 1 spray intranasal BID PRN (Reason: nasal congestion) Qty: 16 4RF Rx Instructions: administer into each nostril topiramate [Topamax] 50 mg tablet 50 mg PO HS Qty: 90 3RF albuterol sulfate 90 mcg/actuation HFA aerosol inhaler 2 puff inhalation Q6H PRN (Reason: shortness of breath or wheezing) Qty: 8.5 5RF ferrous sulfate 325 mg (65 mg iron) tablet 325 mg PO QDAY Qty: 90 3RF Rx Instructions: Take 1 tablet once a day with your vitamin c (DME) pen needle, diabetic [BD Ultra-Fine Mini Pen Needle] 31 gauge x 3/16 needle See Rx Instructions .ROUTE .MEDSUPPLY Qty: 360 4RF Rx Instructions: uses four Daily, for many years; E11.9 acetaminophen [Tylenol Extra Strength] 500 mg tablet 500 mg PO Q6H PRNQty: 90 0RF Discontinued bisacodyl 5 mg tablet,delayed release (DR/EC) 5 mg PO ONCE Qty: 4 0RF Rx Instructions: Per Colonoscopy bowel prep instructions polyethylene glycol 3350 17 gram/dose powder 238 g PO ONCE Qty: 238 0RF Rx Instructions: For Colonoscopy bowel prep, as directed by office Discharge Instructions Additional Instructions: DSU Colonoscopy Post- Op Instructions Instructions for Everyone who is given Anesthesia: For your safety, please do the following for the next twenty-four (24) hours: *Do Not operate a motor vehicle (car, truck, motorcycle, etc.) *Do Not drink alcoholic beverages or use any recreational drugs for the first 24 hours or while taking pain medications. The medications in your body may have a reaction that can be dangerous. *Do Not make any important decisions or sign any important papers. Findings: Colon polyps Few right-sided diverticula Rectocele Follow up: My office will send you a letter in 3 to 4 weeks time with the results of the polyps and when we want you to repeat your colonoscopy. Please contact physical therapy to set up a appointment for pelvic floor PT 1. No lifting over 20 pounds or strenuous activity for the first 24 hours after your procedure. After 24 hours there are no restrictions on your activity but you may feel fatigued for a few days. 2. After you arrive home you may have a light meal and return to your normal diet as you can tolerate it without feeling sick to your stomach. 3. You may have a bloated, gaseous feeling in your belly (abdomen) after a colon oscopy. Passing gas and belching will help. Walking or lying down on your left side with your knees flexed may relieve the discomfort. Call the office at [phone] (Office) or [phone] (Hospital) right away if you notice any of the following: a.Vomiting of blood or ?coffee ground stools?. b.Rectal bleeding 1Tbsp, blood clots or continuous bleeding. c.Severe belly (abdominal) pain. d.A hard distended belly (abdomen) and an inability to pass gas. 4. Please don?t expect to have a normal BM (bowel movement) for 2-3 days after your procedure. 5. If there are questions regarding the findings of your procedure, please contact your doctor 6. If you are unable to contact your doctor with a problem, contact the hospital at [phone]. 7. Continue all your regular medications unless directed otherwise. I understand the above instructions and have no questions. Signature of Patient or Adult Escort Name of Responsible Adult Escort Signature of Nurse Date/Time Activity:: see above Diet:: see above Discharge Orders Discharge Orders: Discharge Order (Routine); Ordered 05/13/24 Ordered By: Philly Solorio DS: Diagnosis Discharge Diagnosis (1) Essential hypertension: Status: Chronic (2) Diabetes mellitus: Status: Chronic (3) Hypothyroidism: Status: Chronic (4) BMI 40.0-44.9, adult: Status: Chronic (5) Reflux esophagitis: Status: Chronic (6) Fecal incontinence alternating with constipation: Status: Acute Asessment and Plan: The patient is seen and examined after their colonoscopy.? The patient has been able to pass gas.? They are not having abdominal pain.? They have been able to tolerate liquids and a snack.? They do not have any nausea or vomiting.? They are not having any chest pain or shortness of breath.??? They are not having any rectal bleeding. Their vital signs have been stable-see nursing notes. We discussed findings during their colonoscopy, and any biopsies that were done/polyps that were removed. The patient will be sent a letter with any biopsy results, and when to repeat the colonoscopy.-see discharge instructions. Patient was given explicit instructions to follow-up regarding colonoscopy-refer to discharge instructions.? We reviewed resumption of medications. Patient verbalized understanding and discharged in stable and satisfactory condition- See nursing notes. (7) Irritable colon: Status: Chronic (8) Urinary incontinence: Status: Acute (9) Iron deficiency anemia: Status: Acute (10) Pelvic floor dysfunction in female: Status: Acute (11) Obstructive sleep apnea: Status: Chronic (12) Hypertension: (13) Diabetes mellitus: (14) Hypothyroidism: (15) Obesity, Class III, BMI 40-49.9 (morbid obesity): (16) GERD (gastroesophageal reflux disease): (17) Elevated liver function tests: (18) Diverticular disease of right side of colon: Status: Acute (19) Adenomatous polyps: Status: Acute (20) Cystocele with rectocele: Status: Chronic
[2024-05-13 10:01] VITALS: BP 133/63; PULSE 85; RESP 16; TEMP 36.9; O2SAT 96
--- NOTE | 2024-05-13 10:11 | ANES.PREOP_ITS ---
General Info Date of Service Date Performed: 05/13/24 Height: 5 ft 4 in Weight: 103.6 kg Body Mass Index (BMI): 39.2 Surgical Procedure: Operation Date: 05/13/24 09:20 Proposed Procedure Side Surgeon indio Solorio DO Pre-Op Diagnosis Post-Op Diagnosis HISTORY OF IBS COLORECTAL CANCER SCREEING Meds Allergies and Home Medications Allergies Allergy/AdvReac Type Severity Reaction Status Date / Time Sulfa (Sulfonamide Allergy Severe TONGUE Verified 05/13/24 09:51 Antibiotics) SWELLING sulfamethoxazole (From Allergy Severe Swelling/Ed Verified 05/13/24 09:51 Bactrim) yoko trimethoprim Allergy Severe TONGUE Verified 05/13/24 09:51 SWELLING empagliflozin (From AdvReac Intermediate rash Verified 05/13/24 09:51 Jardiance) tirzepatide AdvReac Mild Hives Verified 05/13/24 09:51 pickles Allergy Severe Anaphylaxsi Uncoded 05/13/24 09:51 s COCKROACH Allergy Unknown allergy Uncoded 05/13/24 09:51 testing Home Medication ?Medication ?Instructions ?Recorded fexofenadine 180 mg tablet 180 mg PO HS 08/06/12 (Li) hearing aid accessory (Hearing Aid #30 doses 10/01/17 Batteries) sodium chloride 0.65 % nasal spray 1 spray intranasal ONCE PRN 09/15/19 aerosol (Saline Mist) lancets 33 gauge ([employer] Delica #200 ea 09/26/20 Lancets) acetaminophen 500 mg tablet 500 mg PO Q6H PRN #90 tabs 12/26/20 (Tylenol Extra Strength) blood-glucose meter ([employer] #1 ea 11/05/21 UltraMini kit) baclofen 10 mg tablet 10 mg PO TID for muscle spasm 30 12/03/22 days #90 tabs Prevagen PO DAILY 03/17/23 ixbohbzs-vhbu-kfel 8 mg-folic 400 1 tab PO DAILY 03/17/23 mcg-K 50 mcg-lutein 300 mcg tablet (Centrum [place] Women) esomeprazole magnesium 40 mg 40 mg PO DAILY #90 tab-caps 04/01/23 capsule,delayed release oxybutynin chloride 10 mg 10 mg PO DAILY #90 tabs 04/27/23 tablet,extended release 24 hr doxazosin 4 mg tablet 4 mg PO DAILY #90 tab-caps 05/15/23 montelukast 10 mg tablet 10 mg PO HS #90 tabs 07/17/23 (Singulair) atorvastatin 10 mg tablet 10 mg PO DAILY #90 tabs 09/18/23 duloxetine 60 mg capsule,delayed 60 mg PO DAILY #90 caps 09/18/23 release (Cymbalta) spironolactone 25 mg tablet 25 mg PO DAILY #90 tabs 09/18/23 blood sugar diagnostic #200 ea 09/21/23 fluticasone propionate 50 1 spray intranasal BID PRN nasal 11/20/23 mcg/actuation nasal congestion #16 grams spray,suspension (Flonase Allergy Relief) topiramate 50 mg tablet (Topamax) 50 mg PO HS #90 tab-caps 01/04/24 albuterol sulfate 90 mcg/actuation 2 puff inhalation Q6H PRN 02/18/24 aerosol inhaler shortness of breath or wheezing #8.5 grams fluconazole 150 mg tablet 150 mg PO ONCE #4 tabs 03/17/24 levothyroxine 137 mcg tablet 137 mcg PO DAILY #90 tab-caps 03/17/24 ferrous sulfate 325 mg (65 mg 325 mg PO QDAY #90 tabs 03/28/24 iron) tablet insulin degludec 100 unit/mL (3 35 unit (0.35 mL) subcut QHS #60 mL 04/21/24 mL) subcutaneous pen (Tresiba FlexTouch U-100 insulin) insulin lispro 100 unit/mL 10 unit (0.1 mL) subcut TID #30 mL 04/21/24 subcutaneous pen (Humalog KwikPen (U-100) Insulin) pen needle, diabetic 31 gauge x #360 ea 05/02/2408/14 (BD Ultra-Fine Mini Pen Needle) Current Visit Medications: Current Medications Generic Name Dose Route Start Last Admin Trade Name Freq PRN Reason Stop Dose Admin IV Miscellaneous Supplies 1 each 05/13/24 06:00 Iv Access IV 05/13/24 23:59 DIRECTED JOHN Ondansetron HCl 4 mg 05/13/24 09:25 Ondansetron 4 Mg/2 Ml Vial IVP 06/12/24 09:24 Q4H PRN PRN Nausea / Vomiting Sodium Chloride 0 ml 05/13/24 06:00 Normal Saline Flush 10 Ml Syr IV 05/13/24 23:59 PRN PRN Sodium Chloride 0 ml 05/13/24 06:00 Normal Saline 10 Ml Vial IJ 05/13/24 23:59 DIRECTED PRN Sterile Water 0 ml 05/13/24 06:00 Water,Injection,Sterile 10 Ml Vial IJ 05/13/24 23:59 DIRECTED PRN PFSH Active Problems Active Problems: Problem Status Onset Code Pelvic floor dysfunction in female Acute M62.89 Fecal incontinence alternating with constipation Acute R15.9, K59.00 Rectus diastasis Acute M62.08 Iron deficiency anemia Acute D50.9 Obstructive sleep apnea Chronic G47.33 Chronic constipation Acute K59.09 Incontinence associated dermatitis Acute L25.8, R32 Lip lesion Acute K13.0 Urinary incontinence Acute R32 Lumbosacral spondylosis without myelopathy Acute M47.817 Depressive disorder Chronic F32.9 Fatigue Acute R53.83 Diabetes mellitus Chronic E11.9 Reflux esophagitis Chronic 14 K21.0 Irritable colon Chronic K58.9 Hypothyroidism Chronic E03.9 Hearing problem Chronic H91.90 Essential hypertension Chronic 02/23/13 I10 Cystocele with rectocele Chronic N81.10, N81.6 BMI 40.0-44.9, adult Chronic 09/03/15 Z68.41 Annual physical exam Acute 04/30/17 Z00.00 Cough Acute Medical History Medical History [place] (hard of hearing) Cerumen impaction Fatigue Pes anserinus bursitis of left knee Depo-Medrol injection: 02/18/2021 Chondromalacia of left knee Internal derangement of left knee Knee MCL sprain Acute pain of left knee Back pain associated with peripheral numbness Vaccine counseling TMJ (temporomandibular joint disorder) Skin lesion Pelvic floor dysfunction Hypocalcemia Ambulatory dysfunction Acute low back pain with possible spinal stenosis of less than six weeks' duration Fall Left knee pain Antinuclear factor positive (09/22/16) Breast lump in lower inner quadrant (04/12/15) Closed fracture of calcaneus Diabetes mellitus (02/14/14) History of ectopic Elevated liver function tests (01/24/14) Neck pain Sinus pressure (04/17/15) Pneumonia, organism unspecified unspecified laterality, unspecified part of lung Dysfunctional uterine bleeding Closed fracture of calcaneus Family hx-breast malignancy Depressive disorder Delivery normal Neck pain Ectopic 06/01/88 Mammogram abnormal 04/30/05 Weakness 01/19/14 Elevated liver function tests 01/24/14 Diarrhea 02/02/14 Routine medical exam 02/14/14 Breast lump in lower inner quadrant 04/12/15 Sinus pressure 04/17/15 Positive JENNIFER (antinuclear antibody) 09/22/16 Chest pain in adult 11/17/16 Upper back pain on right side (11/17/16) Otalgia of both ears (04/30/17) Hypokalemia (01/26/12) Cough (01/26/12) Candidiasis Frequent persistent yeast infx. IBS (irritable bowel syndrome) Pneumonia Hypertension Bronchitis GERD (gastroesophageal reflux disease) Obesity, Class III, BMI 40-49.9 (morbid obesity) Breast lump in female Closed fracture of body of calcaneus Rectocele Hypothyroidism Depression Hearing loss Diabetes Cystocele Surgical History Surgical History Tear of medial meniscus of left knee S/P L knee arthroscopy: 12/26/2020 Status post arthroscopy of left knee (06/07/19) Arthroscopic synovectomy of medial plica and lateral release Status post appendectomy Status post cholecystectomy Status post exploratory laparotomy Status post hysterectomy Status post oophorectomy Status post tonsillectomy and adenoidectomy S/P hysterectomy with oophorectomy S/P tonsillectomy and adenoidectomy 06/01/85 S/P exploratory laparotomy 06/01/88 S/P cholecystectomy 06/01/89 S/P appendectomy 06/01/98 H/O esophagogastroduodenoscopy 03/01/14 Tonsillectomy and adenoidectomy (~1985) PT reports she still has her adenoids 01/03/20 TR , Ectopic (~1988) Oophrectomy, Right (~03/2011) Hysterectomy, Laproscopic 03/03/11 [facility] [place]; HYSTERECTOMY WITH BLADDER AND BOWEL TIE UP WITH SLING; R OVARY AND CYST ALSO REMOVED EGD - MAC (08/05/16) EGD - MAC (03/10/14) Colonoscopy - MAC 03/2004;[facility] [place] N/L 03/2014; [facility] [place] Cholecystectomy (~1989) Reduction mammoplasty (~03/2013) Appendectomy (~1998) Tobacco Smoking/Tobacco Use Status: Never Passive smoking exposure: No Second hand exposure: Yes Alcohol Alcohol Intake: current Alcohol intake frequency: holidays/special occasions only Alcohol type: wine and hard liquor Substance Use Substance use: Never Substance use type: does not use Counseling provided: none Vital Signs and Lab Results Vital Signs Most Recent Vital Signs in EMR: Most Recent Vital Signs Temp Pulse Resp BP Pulse Ox 36.9 C 85 16 133/63 96 05/13/24 10:05/13/24 10:01 05/13/24 10:05/13/24 10:01 05/13/24 10:01 Lab Results Blood Type / Crossmatch: No Data to Display Complete Blood Count: No Data to Display Complete Metabolic Panel: No Data to Display Liver Function Panel: No Data to Display Coagulation Panel: No Data to Display Cardiac Panel: No Data to Display Arterial Blood Gas: No Data to Display Venous Blood Gas: No Data to Display Pancreas Panel: No Data to Display Thyroid Panel: No Data to Display Infectious Disease: No Data to Display Blood Cultures: No Data to Display Toxicology Panel: No Data to Display Imaging and Studies Imaging and Studies Study information below may be from another EMR and interpreted by another provider. Please see original notes in EMR for more complete details. EKG Summary: 07/29/22: Exam: Resting ECG Reason for Exam: Palpitations Patient Location: E HR:81 bpm ECG Measurements Heart Rate 81 AXIS WI 181 P 46 QRSd 61 QRS 5 QT 356 T55 QTc 415 Conclusion Sinus rhythm...normal P axis, V-rate 60- 99 I have reviewed and interpreted ECG and agree with software generated in [employer]. I have reviewed and I agree with the emergency room physician's ECG interpretation. Stress Test Summary: Stress results: The rate-pressure product for the peak heart rate and blood pressure was 99202sp Hg/min. Stress ECG: TEST ENDED AT 07:02, REGADENOSON PROTOCOL DUE TO SYPTOMS OF LEXISCAN RESOLVING. MAX HR 105 NORMAL BP RESPONSE TO REGADENOSON PT C/O LEFT NECK PRESSURE 3-4/10, AT WORST, RESOLVING SPONTANEOUSLY BY END OF TEST. NO ISCHEMIC CHANGES NOTED. NO ECTOPY. Myocardial perfusion: Imaging information: gated. No myocardial perfusion defects noted. Ventricular Function (Wall Motion): The calculated left ventricular ejection fraction after stress: 65%. Anesthesia Assessment and Plan Anesthesia History Personal History: No History of Anesthesia Complications Family History: No Family History of Anesthesia Complications Exercise Tolerance Exercise Tolerance: Metabolic Equivalents>4 Cardiac & Pulmonary Exam Cardiac Exam: Normal S1/S2 Heart Sounds Pulmonary Exam: Clear Bilateral Breath Sounds Implantable Cardiac Device Does patient have a Pacemaker or an ICD?: No Airway Exam Known Difficult Airway: No Mallampati Class: 2 Mouth Opening: Normal (> 3cm) Thyromental Distance: Greater than 3 cm Neck Range of Motion: Full ROM Neck Circumference: Normal Teeth Condition: Normal Dentition ASA Classification ASA Score: ASA 3 Emergency Case?: No NPO Status NPO Status: NPO Clears >2 hours, Solids >8 hours Anesthesia Plan Resuscitation Status: Full Code Anesthesia Technique: MAC Anesthesia Airway Planned: Natural Airway Monitors Used: Standard Monitors Preoperative Comments:: Will start MAC and covert to GA is patient is uncomfortable per patient request.
[2024-05-13 10:14] VITALS: BMI 39.2
--- NOTE | 2024-05-13 10:40 | BOWEL_PTH ---
PATIENT: Carmenza Benito LOC: [facility] U#:[id number] AGE/SX: 63/F ROOM: RE05/13/[address]: Philly Solorio : 1960 BED: DIS: 05/13/2024 SPEC #: [id number] RECD: 05/13/24 13:18 STATUS: CARRILLO RE #: [id number] MINH: 05/13/24 10:[address]: Philly Solorio DEPT: Surgical Specimen RECD BY: Alix Salmeron ENTERED: 05/13/24 13:22 SP TYPE: Bowel OTHR DR: Noy Frederick MD, DC Tissues: 1 - BIOPSY BOWEL 2 - BIOPSY BOWEL 3 - BIOPSY BOWEL 4 - BIOPSY BOWEL 5 - BIOPSY BOWEL 6 - BIOPSY BOWEL 7 - BIOPSY BOWEL 8 - BIOPSY BOWEL Procedures: GROSS AND MICRO LEVEL 4 Comments: [id number]
[2024-05-13 11:06] VITALS: BP 99/74; PULSE 72; RESP 16; TEMP 36.1; O2SAT 96
--- NOTE | 2024-05-13 11:17 | W.ANESPOSTOP ---
Postoperative Evaluation Date, Time and Location Date Performed: 05/13/24 Time Performed: 11:05 Patient Location: Day Surgery Unit Vital Signs Most Recent Imported Vital Signs: Most Recent Vital Signs Temp Pulse Resp BP Pulse Ox 36.9 C 85 16 133/63 96 05/13/24 10:01 05/13/24 10:01 05/13/24 10:01 05/13/24 10:01 05/13/24 10:01 Pain Score Most Recent Pain Score: Most Recent Pain Score Pain Level 1 05/13/24 10:01 Assessment Mental Status: Awake (Alert & Oriented to Patient Baseline) Airway and Respiratory Function: Patent airway with normal (patient baseline) respiratory exam Cardiovascular Function: Hemodynamically Stable Hydration Status: Adequately Hydrated Nausea & Vomiting: No Nausea or Vomiting Pain: Pt. Denies Any Pain Peripheral Nerve Block: Patient did not receive a nerve block
[2024-05-13 11:40] VITALS: BP 108/52; PULSE 78; RESP 16; TEMP 36.4; O2SAT 96
== END 2024-05-13 12:06 | disposition home or self-care (01) ==
LOC: SUR 09:06
PROVIDERS: PCP Family Medicine; Visit Provider Surgery
PROC: 0DJD8ZZ Inspection of Lower Intestinal Tract, Via Natural or Artificial Opening Endoscopic (ICD-10-PCS; CPT 45378; principal; 2024-05-13 09:15)
PROC: (CPT 45385; 2024-05-13 09:15)
DX: I10 Essential (primary) hypertension (principal); E11.9 Type 2 diabetes mellitus without complications; Z12.11 Encounter for screening for malignant neoplasm of colon; N81.6 Rectocele; K57.30 Diverticulosis of large intestine without perforation or abscess without bleeding; D12.4 Benign neoplasm of descending colon
CPT/HCPCS: 45385; 45380; 88305; J2704

== ENCOUNTER 2024-06-17 00:18 | Outpatient (CLI) | payer BC, SELFPAY ==
--- NOTE | 2024-06-17 07:30 | DI.DEXA_ITS ---
Exam(s) XR DEXA BONE DENSITY W/WO ALINE EXAM: XR DEXA BONE DENSITY W/WO ALINE CLINICAL HISTORY: post menopausal,screening for osteoporosis, z78.0 TECHNIQUE: COMPARISON: No exams were available for comparison FINDINGS: Lateral Spine Image: Unremarkable. No compression deformities identified. Left hip: Total T-Score: -0.2 Total Z-Score: 0.9 T- and Z-scores: There is no evidence of osteoporosis. Lumbar Spine: Total T-Score: 0.4 Total Z-Score: 2.0 T- and Z-scores: Within normal limits. IMPRESSION: There is no evidence of osteoporosis.
== END 2024-06-17 00:38 ==
LOC: DI 00:18
PROVIDERS: PCP Family Medicine; Visit Provider Family Medicine
DX: Z78.0 Asymptomatic menopausal state (principal); Z13.820 Encounter for screening for osteoporosis
CPT/HCPCS: 77080

== ENCOUNTER 2024-07-08 08:37 | Outpatient (CLI) | payer BC, SELFPAY ==
[2024-07-08 08:44] LABS: HCT 41.4 % (36.0-46.0); HGB 13.3 g/dL (11.2-15.7); MCH 29.3 pg (27.0-33.0); MCHC 32.1 % (32.0-36.0); MCV 91 fL (80-95); MPV 9.8 fL (8.0-11.0); Platelet Count 191 10^3/uL (130-400); RBC 4.54 10^6/uL (3.93-5.22); RDW 14.2 % (11.7-14.6); RDW-SD 48.2 fL; WBC 6.59 10^3/uL (4.4-10.8)
[2024-07-08 09:04] LABS: Hemoglobin A1C 7.1 % (<5.7)
[2024-07-08 09:24] LABS: COMMENT (LAB VIEW ONLY) 144.48 mg/dL; Microalb ug/mg Crea 5.3 ug/mg Cr
[2024-07-08 09:33] LABS: Calculated LDL 53 mg/dL (<100); Cholesterol 116 mg/dL (<200); HDL Cholesterol 43 mg/dL (40-60); TSH (W/Ref FT4) 0.57 uIU/mL (0.36-3.74); Triglyceride 103 mg/dL (<150)
== END 2024-07-08 08:38 | disposition home or self-care (01) ==
LOC: LBO 08:38
PROVIDERS: Nurse Practitioner Family; PCP Family Medicine; Visit Provider Family Medicine
DX: E03.9 Hypothyroidism, unspecified (principal); I10 Essential (primary) hypertension; E11.9 Type 2 diabetes mellitus without complications; D50.9 Iron deficiency anemia, unspecified
CPT/HCPCS: 36415; 80061; 85027; 82043; 82570; 83036; 84443

== ENCOUNTER 2024-09-05 15:44 | Outpatient (REF) | payer BC, SELFPAY | END 2024-09-05 15:45 | disposition home or self-care (01) | LOC: LBN 15:44 | PROVIDERS: PCP Family Medicine; Visit Provider Physician Assistant | DX: L98.9 Disorder of the skin and subcutaneous tissue, unspecified (principal); R68.89 Other general symptoms and signs; J02.9 Acute pharyngitis, unspecified; J22 Unspecified acute lower respiratory infection; H10.9 Unspecified conjunctivitis | CPT/HCPCS: 87077; 87070; 87205 ==

== ENCOUNTER 2024-09-15 19:46 | Outpatient (CLI) | payer BC, SELFPAY ==
--- NOTE | 2024-09-15 19:59 | DI.RAD_ITS ---
Exam(s) XR CHEST 2V PA LATERAL EXAM: XR CHEST 2V PA LATERAL CLINICAL HISTORY: eval pathology R05.9 Cough. TECHNIQUE: 2D digital imaging was performed. COMPARISON: CR XR CHEST 2V PA LATERAL from 02/25/2024 FINDINGS: 2 views: Heart size is normal. The mediastinum is not widened. Lungs are clear. No infiltrates nor pleural effusions. IMPRESSION: No acute pulmonary findings. DATA REPOSITORY: RADIATION DOSE DELIVERED:
--- NOTE | 2024-09-15 20:34 | DI.VRAD_ITS ---
PROCEDURE INFORMATION: Exam: XR Chest Exam date and time: 09/15/2024 19:54 Age: 63 years old Clinical indication: Cough, eval pathology TECHNIQUE: Imaging protocol: Radiologic exam of the chest. Views: 2 views. COMPARISON: CR XR CHEST 2V PA LATERAL 02/25/2024 13:54 FINDINGS: Lungs: No consolidation. Pleural spaces: No pleural effusion. No pneumothorax. Heart/Mediastinum: No cardiomegaly. Bones/joints: No acute fracture. IMPRESSION: No acute cardiopulmonary pathology. Dictated and Authenticated by: Francia Monique MD. Orderin Arline Armenta MD
== END 2024-09-15 20:06 ==
LOC: DI 19:47
PROVIDERS: PCP Family Medicine; Visit Provider Nurse Practitioner Family
DX: R05.9 Cough, unspecified (principal)
CPT/HCPCS: 71046

== ENCOUNTER 2025-05-04 11:10 | Outpatient (CLI) | payer BC, SELFPAY ==
[2025-05-04 16:12] LABS: ALT 16 U/L (10-49); AST 17 U/L (<34); Albumin 4.4 g/dL (3.2-5.0); Alkaline Phosphatase 55 U/L (46-116); Anion Gap 11.4 mmol/L (3-11); BUN 17 mg/dL (9-23); Bilirubin, Total 0.40 mg/dL (0.2-1.2); CO2 23.6 mmol/L (20.0-31.0); Calcium 10.0 mg/dL (8.3-10.6); Chloride 108 mmol/L (98-107); Glucose 149 mg/dL (74-106); Potassium 3.9 mmol/L (3.5-5.1); Sodium 143 mmol/L (136-145); TSH (W/Ref FT4) 0.12 uIU/mL (0.55-4.78); Total Protein 7.3 g/dL (5.7-8.2)
== END 2025-05-04 11:11 | disposition home or self-care (01) ==
PROVIDERS: PCP Family Medicine; Visit Provider Family Medicine
DX: I10 Essential (primary) hypertension (principal); E03.9 Hypothyroidism, unspecified
CPT/HCPCS: 36415; 80053; 84439; 84443

== ENCOUNTER → 2025-05-19 00:21 | Outpatient (CLI) | payer BC, SELFPAY ==
--- NOTE | 2025-05-19 07:30 | DI.MAMMO_ITS ---
Exam(s) MAMMO SCREENING EXAM: MAMMO SCREENING CLINICAL HISTORY: screening,z12.39 TECHNIQUE: Bilateral full field digital CC and MLO mammographic images were obtained with 3D tomosynthesis and utilizing computer aided detection (CAD). COMPARISON: Comparison is made with prior examinations. FINDINGS: Masses/Architectural Distortion: No suspicious masses or areas of architectural distortion are present. The breast asymmetry in the medial left breast is unchanged. Microcalcifications: No suspicious pleomorphic-type are seen. Skin Thickening/Nipple Retraction: None. IMPRESSION: 1. No significant interval change with no specific features of malignancy noted. 2. Unless there is more urgent need, screening mammography is recommended, as per [place] [employer] guidelines. BI-RADS Category 2 - Benign Findings Breast Density - Category B - There are scattered areas of fibroglandular density. Breast density Category C or D implies that the patient has dense breast tissue. Dense breast tissue can make it harder to find cancer on a mammogram. Dense breast tissue is also associated with an increased risk of breast cancer. This information about the result of the mammogram report was provided to the patient to raise their awareness. Use this report when you speak with the patient about their risks for breast cancer, which includes their family history. At that time, you may recommend additional screening tests (Ultrasound or MRI) as these tests may add significant information. A negative radiographic report should not delay biopsy if a dominant or clinically suspicious mass is present. Up to ten percent of cancers are not identified on mammography. A negative report may reinforce clinical impression. Adenosis and dense breasts may obscure an underlying neoplasm. False positive reports average 6 to 10%. Patient will receive a letter notifying them of these results.
== END ==
LOC: DI 00:21
PROVIDERS: PCP Family Medicine; Visit Provider Family Medicine
DX: Z12.31 Encounter for screening mammogram for malignant neoplasm of breast (principal)
CPT/HCPCS: 77063; 77067